=== PATIENT | female | born 1955 | race Caucasian/White ===

== ENCOUNTER → 2017-01-28 | Outpatient (CLI) | payer BC ==
--- NOTE | 2017-01-31 12:02 | MM ---
Reason for exam: screening (asymptomatic). Last mammogram was performed 8 years and 3 months ago. History: Patient is postmenopausal. Family history of breast cancer in sister and breast cancer in cousin. Took estrogen for 5 years. Physical Findings: A clinical breast exam by your physician is recommended on an annual basis and results should be correlated with mammographic findings. MG Screening Mammo w CAD Bilateral CC and MLO view(s) were taken. Prior study comparison: November 07, 2008, bilateral digital screening mammogram. December 06, 2005, mammogram, performed at [facility]. The breast tissue is extremely dense which could obscure a lesion on mammography. There is no discrete abnormality. No significant changes when compared with prior studies. ASSESSMENT: Negative, BI-RAD 1 RECOMMENDATION: Routine screening mammogram of both breasts in 1 year.
== END | disposition home or self-care (01) ==
LOC: RADMAMWWP 09:10
PROVIDERS: ATTEND Family Medicine
DX: Z12.31 Encounter for screening mammogram for malignant neoplasm of breast (principal)

== ENCOUNTER 2017-01-31 22:02 | Inpatient (IN) | payer BC ==
[2017-01-31 22:15] LABS: Glucose,Whole Blood 147 mg/dL (75-99)
[2017-01-31] MEDS ORDERED: ACETAMINOPHEN TAB 325 MG TAB PO STA (22:16)
--- NOTE | 2017-01-31 22:29 | ED ---
General Adult HPI - General Chief complaint: Fever Stated complaint: Weakness Time Seen by Provider: 01/31/17 22:16 Source: patient, family, RN notes reviewed Mode of arrival: wheelchair Limitations: altered mental status - History of Present Illness Initial comments: 61-year-old female with history of fibromyalgia and opiate dependence on methadone presents with fever, generalized weakness, and nausea vomiting. Patient had 3 episodes of vomiting this evening. These were dark in color. Patient states her weakness has been progressive over the past 5 days. Additional history is obtained from the patient's mother. Denies any alcohol abuse. Denies any ingestion other than patient's prescribed medications. Patient has had a cough for the past several days. She is also had back pain which according to her mother is chronic in nature. Denies chest pain or shortness of breath. Denies abdominal pain. - Related Data Home Medications Medication Instructions Recorded Confirmed Amitriptyline HCl [Elavil] 25 mg PO TID 03/25/14 01/31/17 Diazepam [Valium] 10 mg PO TID PRN 03/25/14 01/31/17 Hydrocodone/Acetaminophen [Goodwell 1 tab PO Q6H PRN 03/25/14 01/31/17 10-325] Levothyroxine Sodium [Synthroid] 88 mcg PO DAILY 03/25/14 01/31/17 Zaleplon [Sonata] 10 mg PO HS 03/25/14 01/31/17 Cranberry Fruit Concentrate [Azo 250 mg PO DAILY 01/31/17 01/31/17 Cranberry] Methadone [Dolophine] 5 mg PO AC-LUNCH 01/31/17 01/31/17 Methadone [Dolophine] 10 mg PO AC-BRKFST 01/31/17 01/31/17 Methadone [Dolophine] 10 mg PO HS 01/31/17 01/31/17 Montelukast [Singulair] 10 mg PO HS 01/31/17 01/31/17 Phenazopyridine HCl 95 mg PO TID PRN 01/31/17 01/31/17 Pregabalin [Lyrica] 150 mg PO TID 01/31/17 01/31/17 Allergies Allergy/AdvReac Type Severity Reaction Status Date / Time No Known Allergies Allergy Verified 01/31/17 22:21 Review of Systems ROS Statement: Those systems with pertinent positive or pertinent negative responses have been documented in the HPI. ROS Other: All systems not noted in ROS Statement are negative. Past Medical History Past Medical History: COPD, Liver Disease, Thyroid Disorder Additional Past Medical History / Comment(s): back pain, Hep C, History of Any Multi-Drug Resistant Organisms: None Reported Past Surgical History: Back Surgery, Section, Cholecystectomy, Hysterectomy Additional Past Surgical History / Comment(s): multiple back surgeries including back fusion and 10 hand surgeries, 3 knee surgeries Past Anesthesia/Blood Transfusion Reactions: No Reported Reaction Past Psychological History: Depression Smoking Status: Current every day smoker Past Alcohol Use History: None Reported Past Drug Use History: None Reported - Past Family History Mother Family Medical History: No Reported History General Exam Limitations: altered mental status Course Vital Signs 01/31/17 01/31/17 01/31/17 22:16 22:40 23:05 Temperature 105.4 F H Pulse Rate 127 H 113 H 111 H Respiratory 28 H 24 24 Rate Blood Pressure 90/58 94/59 89/54 O2 Sat by Pulse 95 91 L 92 L Oximetry 01/31/17 01/31/17 01/31/17 23:24 23:36 23:39 Temperature Pulse Rate 103 H 110 H 100 Respiratory 24 Rate Blood Pressure 88/55 O2 Sat by Pulse 93 L Oximetry 01/31/17 02/01/17 02/01/17 23:53 00:47 01:00 Temperature 102.3 F H 102 F H Pulse Rate 96 95 Respiratory 22 22 Rate Blood Pressure 90/53 90/57 O2 Sat by Pulse 94 L 94 L Oximetry - Reevaluation(s) Reevaluation #1: 02/01/17 01:06 Patient's vital signs improved with Tylenol and IV hydration. She is started on broad-spectrum antibiotics for pneumonia EKG Findings - EKG Comments: EKG Findings:: EKG shows accelerated junctional rhythm with a ventricular rate of 128, QRS duration 96, QTC 546, patient has history of accelerated junctional rhythm, EKG compared to that from April 2010 Medical Decision Making - Medical Decision Making 61-year-old female presenting with cough, fever, 2 episodes of coffee ground emesis. I did bedside Hemoccult on emesis and this was positive for heme. Patient only had 2 small episodes of vomiting. Hemoglobin is stable at 14.4. Patient's other symptoms including fever, and cough likely related to right lower lobe pneumonia. White blood cell count 22.3 creatinine 2.24 baseline at 0.7. There is lactic acidosis at 3.4. Patient started on broad-spectrum antibiotics including Rocephin and is to throw for community acquired pneumonia and given the right lower lobe as well as history of vomiting she is also started on metronidazole for aspiration pneumonia. Troponin is 0.037, given the history of coffee-ground emesis, and no chest pain this troponin will be trended. No concern for ACS. Patient's vital signs improved with IV hydration , antibiotics, and rectal Tylenol. She does remain still lethargic, she is arousable and answers all questions and follows commands. Diagnosis: Severe sepsis, community acquired pneumonia, concern for aspiration pneumonia, lactic acidosis, acute kidney injury. - Lab Data Result diagrams: 01/31/17 22:14 01/31/17 22:14 Lab Results 01/31/17 01/31/17 01/31/17 Range/Units 21:58 22:13 22:14 WBC 22.2 H (3.8-10.6) k/uL RBC 4.36 (3.80-5.40) m/uL Hgb 14.4 (11.4-16.0) gm/dL Hct 43.8 (34.0-46.0) % MCV 100.4 H (80.0-100.0) fL MCH 32.9 (25.0-35.0) pg MCHC 32.7 (31.0-37.0) g/dL RDW 12.9 (11.5-15.5) % Plt Count 247 (150-450) k/uL Neutrophils % 90 % Lymphocytes % 6 % Monocytes % 3 % Eosinophils % 0 % Basophils % 0 % Neutrophils # 19.9 H (1.3-7.7) k/uL Lymphocytes # 1.3 (1.0-4.8) k/uL Monocytes # 0.6 (0-1.0) k/uL Eosinophils # 0.0 (0-0.7) k/uL Basophils # 0.0 (0-0.2) k/uL PT (9.0-12.0) sec INR (<1.2) APTT (22.0-30.0) sec VBG pH (7.31-7.41) VBG pCO2 (37-51) mmHg VBG HCO3 (24-28) mmol/L Sodium (137-145) mmol/L Potassium (3.5-5.1) mmol/L Chloride (98-107) mmol/L Carbon Dioxide (22-30) mmol/L Anion Gap mmol/L BUN (7-17) mg/dL Creatinine (0.52-1.04) mg/dL Est GFR (MDRD) Af Amer (>60 ml/min/1.73 sqM) Est GFR (MDRD) Non-Af (>60 ml/min/1.73 sqM) Glucose (74-99) mg/dL POC Glucose (mg/dL) 147 H (75-99) mg/dL POC Glu Heel Splitter ID Aria Maradiaga Plasma Lactic Acid Lester (0.7-2.0) mmol/L Calcium (8.4-10.2) mg/dL Magnesium (1.6-2.3) mg/dL Total Bilirubin (0.2-1.3) mg/dL AST (14-36) U/L ALT (9-52) U/L Alkaline Phosphatase (38-126) U/L Troponin I (0.000-0.034) ng/mL Total Protein (6.3-8.2) g/dL Albumin (3.5-5.0) g/dL Salicylates mg/dL Acetaminophen ug/mL Serum Alcohol mg/dL Blood Type O Positive Blood Type Recheck No Antibody Screen NEGATIVE Spec Expiration Date 02/03/2017 - 231601/31/17 01/31/17 01/31/17 Range/Units 22:14 22:14 22:14 WBC (3.8-10.6) k/uL RBC (3.80-5.40) m/uL Hgb (11.4-16.0) gm/dL Hct (34.0-46.0) % MCV (80.0-100.0) fL MCH (25.0-35.0) pg MCHC (31.0-37.0) g/dL RDW (11.5-15.5) % Plt Count (150-450) k/uL Neutrophils % % Lymphocytes % % Monocytes % % Eosinophils % % Basophils % % Neutrophils # (1.3-7.7) k/uL Lymphocytes # (1.0-4.8) k/uL Monocytes # (0-1.0) k/uL Eosinophils # (0-0.7) k/uL Basophils # (0-0.2) k/uL PT 11.3 (9.0-12.0) sec INR 1.1 (<1.2) APTT 31.8 H (22.0-30.0) sec VBG pH (7.31-7.41) VBG pCO2 (37-51) mmHg VBG HCO3 (24-28) mmol/L Sodium 131 L (137-145) mmol/L Potassium 4.9 (3.5-5.1) mmol/L Chloride 95 L (98-107) mmol/L Carbon Dioxide 22 (22-30) mmol/L Anion Gap 14 mmol/L BUN 44 H (7-17) mg/dL Creatinine 2.20 H (0.52-1.04) mg/dL Est GFR (MDRD) Af Amer 28 (>60 ml/min/1.73 sqM) Est GFR (MDRD) Non-Af 23 (>60 ml/min/1.73 sqM) Glucose 166 H (74-99) mg/dL POC Glucose (mg/dL) (75-99) mg/dL POC Glu Heel Splitter ID Plasma Lactic Acid Lester 3.4 H* (0.7-2.0) mmol/L Calcium 9.1 (8.4-10.2) mg/dL Magnesium 2.0 (1.6-2.3) mg/dL Total Bilirubin 0.5 (0.2-1.3) mg/dL AST 77 H (14-36) U/L ALT 46 (9-52) U/L Alkaline Phosphatase 101 (38-126) U/L Troponin I (0.000-0.034) ng/mL Total Protein 8.0 (6.3-8.2) g/dL Albumin 4.0 (3.5-5.0) g/dL Salicylates <1.0 mg/dL Acetaminophen <10.0 ug/mL Serum Alcohol <10 mg/dL Blood Type Blood Type Recheck Antibody Screen Spec Expiration Date 01/31/17 01/31/17 Range/Units 22:14 22:26 WBC (3.8-10.6) k/uL RBC (3.80-5.40) m/uL Hgb (11.4-16.0) gm/dL Hct (34.0-46.0) % MCV (80.0-100.0) fL MCH (25.0-35.0) pg MCHC (31.0-37.0) g/dL RDW (11.5-15.5) % Plt Count (150-450) k/uL Neutrophils % % Lymphocytes % % Monocytes % % Eosinophils % % Basophils % % Neutrophils # (1.3-7.7) k/uL Lymphocytes # (1.0-4.8) k/uL Monocytes # (0-1.0) k/uL Eosinophils # (0-0.7) k/uL Basophils # (0-0.2) k/uL PT (9.0-12.0) sec INR (<1.2) APTT (22.0-30.0) sec VBG pH 7.33 (7.31-7.41) VBG pCO2 46 (37-51) mmHg VBG HCO3 23 L (24-28) mmol/L Sodium (137-145) mmol/L Potassium (3.5-5.1) mmol/L Chloride (98-107) mmol/L Carbon Dioxide (22-30) mmol/L Anion Gap mmol/L BUN (7-17) mg/dL Creatinine (0.52-1.04) mg/dL Est GFR (MDRD) Af Amer (>60 ml/min/1.73 sqM) Est GFR (MDRD) Non-Af (>60 ml/min/1.73 sqM) Glucose (74-99) mg/dL POC Glucose (mg/dL) (75-99) mg/dL POC Glu Heel Splitter ID Plasma Lactic Acid Lester (0.7-2.0) mmol/L Calcium (8.4-10.2) mg/dL Magnesium (1.6-2.3) mg/dL Total Bilirubin (0.2-1.3) mg/dL AST (14-36) U/L ALT (9-52) U/L Alkaline Phosphatase (38-126) U/L Troponin I 0.037 H* (0.000-0.034) ng/mL Total Protein (6.3-8.2) g/dL Albumin (3.5-5.0) g/dL Salicylates mg/dL Acetaminophen ug/mL Serum Alcohol mg/dL Blood Type Blood Type Recheck Antibody Screen Spec Expiration Date Critical Care Time Critical Care Time: Yes Total Critical Care Time: 35 Disposition Clinical Impression: Severe sepsis, Community acquired pneumonia Disposition: ADMITTED IP TO THIS HOSP Condition: Serious Referrals: Nilton Santoyo MD [Primary Care Provider] - 1-2 days Decision to Admit Reason: Admit from EC Decision Date: 02/01/17 Decision Time: 01:10
[2017-01-31] MEDS: SODIUM CHLORIDE 0.9% 500 ML IV SCH ×2 (22:30→22:39)
[2017-01-31] MEDS ORDERED: ACETAMINOPHEN SUPPOSITORY 650 MG SUPP RECTAL STA (22:33)
[2017-01-31 22:34] LABS: Basophils % (A) 0 %; CHCM 32.1; Eosinophils % (A) 0 %; HCT 43.8 % (34.0-46.0); HDW 2.26; HGB 14.4 gm/dL (11.4-16.0); Luc # (Auto) 0.34; Luc % (Auto) 2; Lymphocytes # (A) 1.3 k/uL (1.0-4.8); Lymphocytes % (A) 6 %; MCH 32.9 pg (25.0-35.0); MCHC 32.7 g/dL (31.0-37.0); MCV 100.4 fL (80.0-100.0); Monocytes # (A) 0.6 k/uL (0-1.0); Monocytes % (A) 3 %; Neutrophils # (A) 19.9 k/uL (1.3-7.7); Neutrophils % (A) 90 %; RBC 4.36 m/uL (3.80-5.40); RDW 12.9 % (11.5-15.5); WBC 22.2 k/uL (3.8-10.6); WBC (Perox) 21.79
[2017-01-31 22:38] LABS: VBG PH 7.33 (7.31-7.41)
[2017-01-31 22:53] LABS: ALT 46 U/L (9-52); AST 77 U/L (14-36); Acetaminophen <10.0 ug/mL; Alcohol <10 mg/dL; Alkaline Phosphatase 101 U/L (38-126); Anion Gap 14 mmol/L; Blood Urea Nitrogen 44 mg/dL (7-17); Calcium 9.1 mg/dL (8.4-10.2); Carbon Dioxide 22 mmol/L (22-30); Chloride 95 mmol/L (98-107); Glucose 166 mg/dL (74-99); Non-African American GFR(MDRD) 23 (>60 ml/min/1.73 sqM); Potassium 4.9 mmol/L (3.5-5.1); Salicylate <1.0 mg/dL; Sodium 131 mmol/L (137-145); Total Bilirubin 0.5 mg/dL (0.2-1.3)
--- NOTE | 2017-01-31 22:58 | XR ---
EXAMINATION TYPE: XR chest 1V portable DATE OF EXAM: 01/31/2017 COMPARISON: 12/29/2011 HISTORY: COPD. Nausea and vomiting TECHNIQUE: Single frontal view of the chest is obtained. FINDINGS: There is some coarsening of interstitial markings with coalescent right lower lobe density . There is no gross heart failure. There are chest leads. There is no sign of pleural effusion. IMPRESSION: Mild pulmonary fibrotic changes. There is new right lower lobe pneumonia compared to old exam. No heart failure.
[2017-01-31 23:04] LABS: INR 1.1 (<1.2); Partial Thromboplastin Time 31.8 sec (22.0-30.0); Prothrombin Time 11.3 sec (9.0-12.0)
[2017-01-31] MEDS ORDERED: SODIUM CHLORIDE 0.9% 1,000 ML IV STA (23:04)
[2017-01-31] MEDS ORDERED: metroNIDAZOLE-NS PMX 500 MG in SALINE 1 100ML.BAG IVPB STA (23:07)
[2017-01-31] MEDS ORDERED: AZITHROMYCIN 500 MG in SODIUM CHLORIDE 0.9% 250 ML IVPB STA (23:07)
[2017-01-31] MEDS ORDERED: PANTOPRAZOLE 40 MG/10 ML VIAL IVP STA (23:08)
[2017-01-31] MEDS ORDERED: SODIUM CHLORIDE 0.9% 1,000 ML IV ONE ×2 (23:09→23:20)
[2017-01-31] MEDS ORDERED: ALBUTEROL NEBULIZED 2.5 MG/3 ML INHALATION STA (23:13)
[2017-01-31] MEDS ORDERED: IPRATROPIUM 0.5 MG/2.5 ML NEBU INHALATION STA (23:13)
[2017-01-31] MEDS: SODIUM CHLORIDE 0.9% 1,000 ML IV SCH (23:49)
[2017-02-01] MEDS ORDERED: NALOXONE 0.4 MG/ML 1 ML VIAL IV PRN (00:56)
[2017-02-01] MEDS ORDERED: ACETAMINOPHEN TAB 325 MG TAB PO PRN (00:56)
[2017-02-01 02:08] LABS: Glucose,Whole Blood 154 mg/dL (75-99)
[2017-02-01] MEDS ORDERED: SODIUM CHLORIDE 0.9% 1,000 ML IV ONE (02:57)
[2017-02-01 04:44] LABS: Appearance,Urine Clear (Clear); Bilirubin,Urine Negative (Negative); Glucose,Urine (UA) Negative (Negative); Ketones,Urine Negative (Negative); Leukocyte Esterase,Urine Small (Negative); Nitrite,Urine Negative (Negative); PH, Urine 5.5 (5.0-8.0); Particle Count 2416; Protein,Urine Trace (Negative); RBC,Urine 9 /hpf (0-5); Specific Gravity,Urine 1.008 (1.001-1.035); Squamous Epithelial Cell,Urine <1 /hpf (0-4); UA Billing (MACRO vs. MICRO) MICRO; Urobilinogen,Urine <2.0 mg/dL (<2.0); WBC,Urine 9 /hpf (0-5)
[2017-02-01 05:19] LABS: Troponin I 0.023 ng/mL (0.000-0.034)
[2017-02-01 05:36] LABS: Creatine Kinase MB 8.4 ng/mL (0.0-2.4)
[2017-02-01] MEDS ORDERED: PHENAZOPYRIDINE HCL 95 MG PO PRN (07:10)
[2017-02-01] MEDS ORDERED: NON-FORMULARY DRUG (Cranberry Fruit Concentrate [Azo Cranberry] 250 MG) PO SCH (09:00)
[2017-02-01] MEDS: methylPREDNISolone SOD SUCCI 125 MG/2 ML VIAL IV SCH ×3 (09:06→17:13)
[2017-02-01] MEDS: PANTOPRAZOLE 40 MG/10 ML VIAL IVP SCH (09:07)
[2017-02-01] MEDS: LEVOTHYROXINE 88 MCG TAB PO SCH (09:07)
[2017-02-01] MEDS: PREGABALIN 75 MG CAP PO SCH ×3 (09:09→20:32)
--- NOTE | 2017-02-01 09:09 | CONS ---
CONSULTATION Mrs. Galloway is a 61-year-old female with known history of chronic tobacco use, history of chronic pain, on chronic methadone, who presented with fever, not feeling well, hypotension, and Cardiology consultation was requested because of episode of hypotension. Patient is a chronic tobacco user as noted. She is limited in her activity. She has dyspnea on exertion but no chest discomfort. She is somewhat confused at times, but reviewing the ER note as well as talking to the nursing staff that was her predominant complaint. She had no chest discomfort. She had episode of junctional tachycardia there was noted in the past. She has received a large amount of fluid on presentation because of an elevated lactic acid. She has no history of PND, orthopnea, or peripheral edema. No history of documented malignant arrhythmia. She is followed at the [facility]. PAST SURGICAL HISTORY: Remarkable for back surgery, , cholecystectomy, and hysterectomy. Her coronary risk factors are positive for history of chronic tobacco use. She is nondiabetic, no hypertension. MEDICATION: Include Sonata, Lyrica, Singulair, methadone, Marion, Valium and Elavil. REVIEW OF SYSTEMS: RESPIRATORY SYSTEM: She has dyspnea on exertion and wheezing. GI SYSTEM: She had nausea and vomiting yesterday. SYSTEM: No dysuria or hematuria. NERVOUS SYSTEM: No history of stroke or seizure. PHYSICAL EXAMINATION: A 61-year-old female, alert, confused at times. Blood pressure running in the 90s. T- max is 102.3, 97.9 now. HEAD: Normocephalic. EYES: Sclerae nonicteric. NECK: No bruit. Lungs with diffuse scattered wheezes bilaterally. HEART: Regular rate and rhythm, S1, S2. No S3 with systolic murmur. No diastolic murmur. No rub. ABDOMEN: Soft, nontender. Positive bowel sounds. No organomegaly. EXTREMITIES: No edema. Intact pulses. LAB DATA: Revealed BUN and creatinine 44 and 2.2, potassium 4.9. Her troponin is 0.037 and subsequently 0.023. Her CK is 1516. Her lactic acid on presentation was 3.4, down to 0.9 this morning. Her chest x-ray is consistent with pneumonia. IMPRESSION: 1. Sepsis with pneumonia. 2. Hypotension related to her sepsis. 3. Chronic pain with chronic methadone use. 4. Minimal elevation of troponin, resolved, most likely related to demand-supply mismatch. 5. Chronic tobacco use with chronic obstructive lung disease. RECOMMENDATION: From the cardiac standpoint, I will obtain an echocardiogram with Doppler. I will check her thyroid function tests. Follow her renal function. In 2014, she had normal renal function and this could be related to hypoperfusion and dehydration. Depending on progress, further recommendation will be made. Thank you for this consult. Will follow with you indication. MMODL / IJN: [id number] /
[2017-02-01] MEDS: METHADONE 10 MG TAB PO SCH ×2 (10:05→20:30)
--- NOTE | 2017-02-01 10:18 | ECHOF ---
Referral Reason:Cardio Consult MEASUREMENTS -------- HEIGHT: 162.6 cm WEIGHT: 77.6 kg BP: 87/71 RVIDd: 3.3 cm (< 3.3) IVSd: 1.2 cm (0.6 - 1.1) LVIDd: 4.5 cm (3.9 - 5.3) LVPWd: 1.2 cm (0.6 - 1.1) IVSs: 1.8 cm LVIDs: 3.2 cm LVPWs: 1.5 cm LA Diam: 3.9 cm (2.7 - 3.8) LAESV Index (A-L): 37.77 ml/m Ao Diam: 3.5 cm (2.0 - 3.7) AV Cusp: 2.3 cm (1.5 - 2.6) MV EXCURSION: 20.174 mm (> 18.000) MV EF SLOPE: 90 mm/s (70 - 150) EPSS: 0.6 cm MV E Krzysztof: 1.01 m/s MV DecT: 316 ms MV A Krzysztof: 0.38 m/s MV E/A Ratio: 2.67 RAP: 5.00 mmHg RVSP: 47.15 mmHg FINDINGS -------- This was a technically good study. The left ventricular size is normal. There is borderline concentric left ventricular hypertrophy. Overall left ventricular systolic function is low-normal with, an EF between 50 - 55 %. The right ventricle is mildly enlarged. LA is moderately dilated 34-39 ml/m2 The right atrium is normal in size. The aortic valve is trileaflet and appears structurally normal. Mild mitral regurgitation is present. Mild tricuspid regurgitation present. There is moderate pulmonary hypertension. The right ventricular systolic pressure, as measured by Doppler, is 47.15mmHg. Trace/mild (physiologic) pulmonic regurgitation. The aortic root size is normal. The inferior vena cava is mildly dilated. There is no pericardial effusion. CONCLUSIONS -------- 1. This was a technically good study. 2. Mild tricuspid regurgitation present. 3. There is moderate pulmonary hypertension. 4. The right ventricular systolic pressure, as measured by Doppler, is 47.15mmHg. 5. Trace/mild (physiologic) pulmonic regurgitation. 6. The aortic root size is normal. 7. The inferior vena cava is mildly dilated. 8. There is no pericardial effusion. 9. The left ventricular size is normal. 10. There is borderline concentric left ventricular hypertrophy. 11. Overall left ventricular systolic function is low-normal with, an EF between 50 - 55 %. 12. The right ventricle is mildly enlarged. 13. LA is moderately dilated 34-39 ml/m2 14. The right atrium is normal in size. 15. The aortic valve is trileaflet and appears structurally normal. 16. Mild mitral regurgitation is present. MERCURY PURIFIER: Elaine Panchal RDCS
--- NOTE | 2017-02-01 10:45 | P.CNPUL ---
History of Present Illness Consult date: 02/01/17 Requesting physician: Nilton Santoyo Reason for consult: pneumonia, other (ICU management) Chief complaint: Shortness of breath History of present illness: This is a 61-year-old female patient being seen examined and evaluated today in the intensive care unit. The patient came into the emergency room yesterday evening with a T-max of 105.4, on arrival also complained of some generalized weakness, and nausea and vomiting with dark colored coffee ground emesis. Patient states her symptoms have been progressively getting worse over the last for 5 days. Patient does have a long-standing history of fibromyalgia and opiate dependence on methadone. Urine drug screen was positive for opiates, methadone, tricyclic antidepressants, and benzodiazepine. Gastric emesis was positive for occult blood. Patient denies any use of alcohol and/or anticoagulants. Patient labs in the ER, a hemoglobin of 14.4 WBC 22.2 lactic acid of 3.4. She did receive a total of 4 L of IV fluids for fluid resuscitation. And she was started on antibiotics as well. Cardiology was also put on consult. Patient did have a troponin of 0.037, heart rhythm which was accelerated junctional, she will be going for an echo today as well. Apparently overnight the patient was borderline hypotensive and somewhat lethargic and she did receive a 1 time dose of Narcan. Repeat lactic acid this morning was 0.9. Upon examination the patient is resting up in bed on 6 L of supplemental oxygen via nasal cannula. She is short of breath with exertion and /or extensive conversations. She does have a congested cough with white sputum. She has difficulty clearing secretions. She denies any nausea vomiting at this time. Chest x-ray was reviewed and does show mild pulmonary fibrotic changes, there is a new right lower lobe pneumonia. The patient does not utilize home oxygen. All labs and reports have been reviewed. Review of Systems 14 point review of systems was completed and is negative unless noted above in the HPI. Past Medical History Past Medical History: COPD, Liver Disease, Thyroid Disorder Additional Past Medical History / Comment(s): back pain, Hep C, History of Any Multi-Drug Resistant Organisms: None Reported Past Surgical History: Back Surgery, Section, Cholecystectomy, Hysterectomy Additional Past Surgical History / Comment(s): multiple back surgeries including back fusion and 10 hand surgeries, 3 knee surgeries Past Anesthesia/Blood Transfusion Reactions: No Reported Reaction Past Psychological History: Depression Smoking Status: Current every day smoker Past Alcohol Use History: None Reported Past Drug Use History: None Reported - Past Family History Mother Family Medical History: No Reported History Father Family Medical History: Vascular Disorder Additional Family Medical History / Comment(s): Father of a ruptured aortic aneurysm. Medications and Allergies Home Medications Medication Instructions Recorded Confirmed Type Amitriptyline HCl [Elavil] 25 mg PO TID 03/25/14 01/31/17 History Diazepam [Valium] 10 mg PO TID PRN 03/25/14 01/31/17 History Hydrocodone/Acetaminophen [[place] 1 tab PO Q6H PRN 03/25/14 01/31/17 History 10-325] Levothyroxine Sodium [Synthroid] 88 mcg PO DAILY 03/25/14 01/31/17 History Zaleplon [Sonata] 10 mg PO HS 03/25/14 01/31/17 History Cranberry Fruit Concentrate [Azo 250 mg PO DAILY 01/31/17 01/31/17 History Cranberry] Methadone [Dolophine] 5 mg PO AC-LUNCH 01/31/17 01/31/17 History Methadone [Dolophine] 10 mg PO AC-BRKFST 01/31/17 01/31/17 History Methadone [Dolophine] 10 mg PO HS 01/31/17 01/31/17 History Montelukast [Singulair] 10 mg PO HS 01/31/17 01/31/17 History Phenazopyridine HCl 95 mg PO TID PRN 01/31/17 01/31/17 History Pregabalin [Lyrica] 150 mg PO TID 01/31/17 01/31/17 History Allergies Allergy/AdvReac Type Severity Reaction Status Date / Time albuterol Allergy Unknown Verified 02/01/17 09:52 ciprofloxacin [From Cipro] Allergy Unknown Verified 02/01/17 09:52 duloxetine [From Cymbalta] Allergy Unknown Verified 02/01/17 09:52 fluticasone Allergy Unknown Verified 02/01/17 09:52 [From Advair Diskus] metaproterenol [From Alupent] Allergy Unknown Verified 02/01/17 09:52 salmeterol Allergy Unknown Verified 02/01/17 09:52 [From Advair Diskus] Physical Exam Vitals: Vital Signs Temp Pulse Resp BP BP Pulse Ox 02/01/17 10:00 98 20 100/58 93 L 02/01/17 09:30 100 20 81/53 96 02/01/17 09:00 98 20 91/55 95 02/01/17 08:30 93 20 90/55 92 L 02/01/17 08:00 100.1 F H 95 20 93/50 93 L 02/01/17 07:30 96 20 95/58 92 L 02/01/17 07:00 95 23 78/45 92 L 02/01/17 06:30 94 20 76/49 95 02/01/17 06:00 92 31 H 73/47 95 02/01/17 05:30 92 30 H 67/42 95 02/01/17 05:00 90 34 H 72/46 97 02/01/17 04:30 95 66 H 87/71 96 02/01/17 04:00 97.9 F 87 20 84/55 87/71 93 L 02/01/17 03:30 81 26 H 78/53 94 L 02/01/17 03:00 85 25 H 76/49 92 L 02/01/17 02:30 89 30 H 80/53 92 L 02/01/17 02:07 95 25 H 02/01/17 01:41 100.1 F H 95 22 94/57 94 L 02/01/17 01:00 95 22 90/57 94 L 02/01/17 00:47 102 F H 96 22 90/53 94 L 01/31/17 23:53 102.3 F H 01/31/17 23:39 100 01/31/17 23:36 110 H 24 88/55 93 L 01/31/17 23:24 103 H 01/31/17 23:05 111 H 24 89/54 92 L 01/31/17 22:40 113 H 24 94/59 91 L 01/31/17 22:16 105.4 F H 127 H 24 90/58 95 Intake and Output 01/31/17 02/01/17 02/01/17 22:59 06:59 14:59 Intake Total 350 400 Output Total 300 600 Balance 50 -200 Intake: IV 350 400 Azithromycin 500 mg In 250 Sodium Chloride 0.9% 250 ml @ 125 mls/hr IVPB DAILY@0600 [facility] Rx#: [id number] Sodium Chloride 0.9% 1, 100 400 000 ml @ 100 mls/hr IV . Q10H [facility] Rx#:[id number] Output: Urine 300 600 Other: Voiding Method Bedside Commode Bedside Commode # Voids 1 Weight 75.75 kg 78 kg GENERAL EXAM: Alert, active, comfortable in no apparent distress. Intermittent confusion noted. HEAD: Normocephalic. EYES: Normal reaction of pupils, equal size. NOSE: Clear with pink turbinates. THROAT: No erythema or exudates. NECK: No masses, no JVD. CHEST: No chest wall deformity. LUNGS: Lung sounds noted to be somewhat coarse with inspiratory and expiratory wheezes scattered throughout. CVS: S1 and S2 normal with no audible mumurs, regular rhythm. ABDOMEN: No hepatosplenomegaly, normal bowel sounds, no guarding or rigidity. EXTREMITIES: No edema noted, pedal pulses palpable. SKIN: No rashes CENTRAL NERVOUS SYSTEM: No focal deficits, tone is normal in all 4 extremities. Results - Laboratory Findings CBC and BMP: 02/02/17 04:07 02/02/17 04:07 PT/INR, D-dimer PT 11.3 sec (9.0-12.0) 01/31/17 22:14 INR 1.1 (<1.2) 01/31/17 22:14 Abnormal lab findings: Abnormal Labs 01/31/17 01/31/17 01/31/17 04:00 04:00 22:13 WBC MCV Neutrophils # APTT VBG HCO3 Sodium Chloride BUN Creatinine Glucose POC Glucose (mg/dL) 147 H Plasma Lactic Acid Lester AST Total Creatine Kinase CK-MB (CK-2) Troponin I Urine Protein Trace H Urine Blood Moderate H Ur Leukocyte Esterase Small H Urine RBC 9 H Urine WBC 9 H Urine WBC Clumps Rare H Urine Opiates Screen Detected H Urine Methadone Screen Detected H U Tricyclic Antidepress Detected H U Benzodiazepines Scrn Detected H 01/31/17 01/31/17 01/31/17 22:14 22:14 22:14 WBC 22.2 H MCV 100.4 H Neutrophils # 19.9 H APTT VBG HCO3 Sodium 131 L Chloride 95 L BUN 44 H Creatinine 2.20 H Glucose 166 H POC Glucose (mg/dL) Plasma Lactic Acid Lester 3.4 H* AST 77 H Total Creatine Kinase CK-MB (CK-2) Troponin I Urine Protein Urine Blood Ur Leukocyte Esterase Urine RBC Urine WBC Urine WBC Clumps Urine Opiates Screen Urine Methadone Screen U Tricyclic Antidepress U Benzodiazepines Scrn 01/31/17 01/31/17 01/31/17 22:14 22:14 22:26 WBC MCV Neutrophils # APTT 31.8 H VBG HCO3 23 L Sodium Chloride BUN Creatinine Glucose POC Glucose (mg/dL) Plasma Lactic Acid Lester AST Total Creatine Kinase CK-MB (CK-2) Troponin I 0.037 H* Urine Protein Urine Blood Ur Leukocyte Esterase Urine RBC Urine WBC Urine WBC Clumps Urine Opiates Screen Urine Methadone Screen U Tricyclic Antidepress U Benzodiazepines Scrn 02/01/17 02/01/17 02:06 03:59 WBC MCV Neutrophils # APTT VBG HCO3 Sodium Chloride BUN Creatinine Glucose POC Glucose (mg/dL) 154 H Plasma Lactic Acid Lester AST Total Creatine Kinase 1516 H CK-MB (CK-2) 8.4 H* Troponin I Urine Protein Urine Blood Ur Leukocyte Esterase Urine RBC Urine WBC Urine WBC Clumps Urine Opiates Screen Urine Methadone Screen U Tricyclic Antidepress U Benzodiazepines Scrn - Diagnostic Findings Chest x-ray: report reviewed, image reviewed Assessment and Plan Plan: Assessment Sepsis with pneumonia and possible mixed bacterial however cannot exclude aspiration from vomiting Acute hypoxic respiratory failure requiring supplemental oxygen via nasal cannula Hypotension related to sepsis Acute exacerbation of COPD Fibromyalgia, methadone dependent Nicotine dependence History of hepatitis C Plan Patient will remain in ICU for close monitoring. Continue to monitor for any further episodes of hypotension. Medications have been reviewed and will be continued as ordered. IV antibiotics and steroids. Add nebulizer treatments. Obtain sputum culture. Blood culture and urine culture pending. Continue with pulmonary hygiene, coughing and deep breathing exercises, and supportive care. Supplemental oxygen to maintain oxygen saturations of 92% or better. Patient will have echo today. GI and DVT prophylaxis. We will continue to monitor labs/ results and adjust treatment as necessary. Further recommendations pending. I performed an examination of the patient and discussed their management with the nurse practitioner. I have reviewed the nurse practitioner's note and agree with the documented findings and plan of care.
[2017-02-01] MEDS: SODIUM CHLORIDE 0.9% 1,000 ML IV SCH ×2 (10:59→18:38)
[2017-02-01] MEDS ORDERED: LEVALBUTEROL NEB 1.25 MG/3 ML AMP INHALATION SCH (12:00)
[2017-02-01] MEDS: LEVALBUTEROL NEB (CONC) 1.25 MG/0.5 ML AMP INHALATION SCH ×3 (12:14→19:49)
[2017-02-01] MEDS: IPRATROPIUM 0.5 MG/2.5 ML NEBU INHALATION SCH ×3 (12:14→19:49)
[2017-02-01] MEDS: METHADONE 5 MG TAB PO SCH (12:41)
[2017-02-01 13:07] LABS: Troponin I 0.016 ng/mL (0.000-0.034)
[2017-02-01 13:08] LABS: Creatine Kinase MB 9.8 ng/mL (0.0-2.4)
[2017-02-01] MEDS: MEROPENEM 1 GM in SODIUM CHLORIDE 0.9% 100 ML IVPB SCH (15:58)
[2017-02-01 16:52] LABS: Creatine Kinase 2212 U/L (30-135)
[2017-02-01 16:59] LABS: Troponin I <0.012 ng/mL (0.000-0.034)
--- NOTE | 2017-02-01 17:00 | P.HPIM ---
History of Present Illness H&P Date: 02/01/17 Chief Complaint: Sepsis/septic shock with pneumonia. This is a 61-year-old white female with history of fibromyalgia who is opiate dependent for the last 2 days is been having high fever with cough. Workup in the emergency room showed significant pneumonia. She had significant hypotension and was admitted because as of sepsis and elevated lactic acid. She seen in ICU because of "overflow." She is lucid but her blood pressure is dropping. CK-MB enzymes are elevated. Patternmaker Grader is now been consulted. Review of Systems Constitutional: Reports chills, Reports chronic pain, Reports fever, Reports sweats Eyes: denies blurred vision, denies pain Ears, nose, mouth and throat: Denies headache, Denies sore throat Cardiovascular: Reports dyspnea on exertion Respiratory: Reports cough Gastrointestinal: Denies abdominal pain, Denies diarrhea, Denies nausea, Denies vomiting Genitourinary: Denies dysuria, Denies hematuria Musculoskeletal: Denies myalgias Past Medical History Past Medical History: COPD, Liver Disease, Pneumonia, Rheumatoid Arthritis (RA) , Thyroid Disorder Additional Past Medical History / Comment(s): Hep C, chronic back pain which pt states caused her to use alot of opiates but was never opiate dependent, pt is on methadone, DJD, DDD, hypothyroid, colitis, recent infection, pt unsure but thinks was a UTI and pneumonia, heart murmur, bronchitis. History of Any Multi-Drug Resistant Organisms: None Reported Past Surgical History: Back Surgery, Section, Cholecystectomy, Hysterectomy, Orthopedic Surgery Additional Past Surgical History / Comment(s): multiple back surgeries including back fusion/laser back surgery, injections for low back pain, 10 hand surgeries/ trigger fingers, 2 left knee arthroscopies and one right knee arthroscopies, nasal surgery, vocal cord biopsy, laparoscopic exam, bilateral carpal tunnel releases. Past Anesthesia/Blood Transfusion Reactions: Postoperative Nausea & Vomiting ( PONV) Smoking Status: Current every day smoker - Past Family History Father Family Medical History: Vascular Disorder Additional Family Medical History / Comment(s): Father of a ruptured aortic aneurysm. Mother Family Medical History: Diabetes Mellitus Medications and Allergies Home Medications Medication Instructions Recorded Confirmed Type Amitriptyline HCl [Elavil] 25 mg PO TID 03/25/14 01/31/17 History Diazepam [Valium] 10 mg PO TID PRN 03/25/14 01/31/17 History Hydrocodone/Acetaminophen [[place] 1 tab PO Q6H PRN 03/25/14 01/31/17 History 10-325] Levothyroxine Sodium [Synthroid] 88 mcg PO DAILY 03/25/14 01/31/17 History Zaleplon [Sonata] 10 mg PO HS 03/25/14 01/31/17 History Cranberry Fruit Concentrate [Azo 250 mg PO DAILY 01/31/17 01/31/17 History Cranberry] Methadone [Dolophine] 5 mg PO AC-LUNCH 01/31/17 01/31/17 History Methadone [Dolophine] 10 mg PO AC-BRKFST 01/31/17 01/31/17 History Methadone [Dolophine] 10 mg PO HS 01/31/17 01/31/17 History Montelukast [Singulair] 10 mg PO HS 01/31/17 01/31/17 History Phenazopyridine HCl 95 mg PO TID PRN 01/31/17 01/31/17 History Pregabalin [Lyrica] 150 mg PO TID 01/31/17 01/31/17 History Allergies Allergy/AdvReac Type Severity Reaction Status Date / Time albuterol Allergy Unknown Verified 02/01/17 09:52 ciprofloxacin [From Cipro] Allergy Unknown Verified 02/01/17 09:52 duloxetine [From Cymbalta] Allergy Unknown Verified 02/01/17 09:52 fluticasone Allergy Unknown Verified 02/01/17 09:52 [From Advair Diskus] metaproterenol [From Alupent] Allergy Unknown Verified 02/01/17 09:52 salmeterol Allergy Unknown Verified 02/01/17 09:52 [From Advair Diskus] Physical Exam Vitals: Vital Signs Temp Pulse Resp BP BP Pulse Ox 02/01/17 16:00 97.6 F 79 20 88/68 92 L 02/01/17 15:55 78 02/01/17 15:36 79 02/01/17 15:30 72 23 88/68 89 L 02/01/17 15:00 77 24 88/68 91 L 02/01/17 14:30 82 23 92 L 02/01/17 14:00 84 22 88 L 02/01/17 13:30 91 22 86/62 93 L 02/01/17 13:00 101 H 30 H 86/62 90 L 02/01/17 12:30 101 H 25 H 86/62 87 L 02/01/17 12:20 97 02/01/17 12:10 93 02/01/17 12:00 99.4 F 94 20 86/62 90 L 02/01/17 11:30 97 25 H 100/58 88 L 02/01/17 11:00 99 20 100/58 89 L 02/01/17 10:30 103 H 20 100/58 91 L 02/01/17 10:00 98 20 100/58 93 L 02/01/17 09:30 100 20 81/53 96 02/01/17 09:00 98 20 91/55 95 02/01/17 08:30 93 20 90/55 92 L 02/01/17 08:00 100.1 F H 95 20 93/50 93 L 02/01/17 07:30 96 20 95/58 92 L 02/01/17 07:00 95 23 78/45 92 L 02/01/17 06:30 94 20 76/49 95 02/01/17 06:00 92 31 H 73/47 95 02/01/17 05:30 92 30 H 67/42 95 02/01/17 05:00 90 34 H 72/46 97 02/01/17 04:30 95 66 H 87/71 96 02/01/17 04:00 97.9 F 87 20 84/55 87/71 93 L 02/01/17 03:30 81 26 H 78/53 94 L 02/01/17 03:00 85 25 H 76/49 92 L 02/01/17 02:30 89 30 H 80/53 92 L 02/01/17 02:07 95 25 H 02/01/17 01:41 100.1 F H 95 22 94/57 94 L 02/01/17 01:00 95 22 90/57 94 L 02/01/17 00:47 102 F H 96 22 90/53 94 L 01/31/17 23:53 102.3 F H 01/31/17 23:39 100 01/31/17 23:36 110 H 24 88/55 93 L 01/31/17 23:24 103 H 01/31/17 23:05 111 H 24 89/54 92 L 01/31/17 22:40 113 H 24 94/59 91 L 01/31/17 22:16 105.4 F H 127 H 24 90/58 95 Intake and Output 02/01/17 02/01/17 02/01/17 06:59 14:59 22:59 Intake Total 350 800 350 Output Total 300 1800 600 Balance 50 -1000 -250 Intake: IV 350 800 350 Azithromycin 500 mg In 250 Sodium Chloride 0.9% 250 ml @ 125 mls/hr IVPB DAILY@0600 [facility] Rx#: [id number] Meropenem 1 gm In Sodium 100 Chloride 0.9% 100 ml @ 200 mls/hr IVPB Q12H [facility] Rx#:[id number] Sodium Chloride 0.9% 1, 100 800 250 000 ml @ 100 mls/hr IV . Q10H [facility] Rx#:[id number] Output: Urine 300 1800 600 Other: Voiding Method Bedside Commode Toilet Toilet # Voids 1 # Bowel Movements 1 Weight 78 kg - Constitutional General appearance: no acute distress - EENT Eyes: EOMI - Respiratory Respiratory: bilateral: diminished - Cardiovascular Rhythm: regular Heart sounds: normal: S1, S2 - Gastrointestinal General gastrointestinal: soft, no tenderness - Integumentary Integumentary: no cellulitis - Neurologic Neurologic: CNII-XII intact, focal deficits - Musculoskeletal Musculoskeletal: generalized weakness - Psychiatric Psychiatric: A&O x's 3, appropriate affect Results CBC & Chem 7: 01/31/17 22:14 01/31/17 22:14 Labs: Abnormal Lab Results - Last 24 Hours (Table) 01/31/17 01/31/17 01/31/17 Range/Units 04:00 04:00 22:13 WBC (3.8-10.6) k/uL MCV (80.0-100.0) fL Neutrophils # (1.3-7.7) k/uL APTT (22.0-30.0) sec VBG HCO3 (24-28) mmol/L Sodium (137-145) mmol/L Chloride (98-107) mmol/L BUN (7-17) mg/dL Creatinine (0.52-1.04) mg/dL Glucose (74-99) mg/dL POC Glucose (mg/dL) 147 H (75-99) mg/dL Plasma Lactic Acid Lester (0.7-2.0) mmol/L AST (14-36) U/L Total Creatine Kinase (30-135) U/L CK-MB (CK-2) (0.0-2.4) ng/mL Troponin I (0.000-0.034) ng/mL Urine Protein Trace H (Negative) Urine Blood Moderate H (Negative) Ur Leukocyte Esterase Small H (Negative) Urine RBC 9 H (0-5) /hpf Urine WBC 9 H (0-5) /hpf Urine WBC Clumps Rare H (None) /hpf Urine Opiates Screen Detected H (NotDetected) Urine Methadone Screen Detected H (NotDetected) U Tricyclic Antidepress Detected H (NotDetected) U Benzodiazepines Scrn Detected H (NotDetected) 01/31/17 01/31/17 01/31/17 Range/Units 22:14 22:14 22:14 WBC 22.2 H (3.8-10.6) k/uL MCV 100.4 H (80.0-100.0) fL Neutrophils # 19.9 H (1.3-7.7) k/uL APTT (22.0-30.0) sec VBG HCO3 (24-28) mmol/L Sodium 131 L (137-145) mmol/L Chloride 95 L (98-107) mmol/L BUN 44 H (7-17) mg/dL Creatinine 2.20 H (0.52-1.04) mg/dL Glucose 166 H (74-99) mg/dL POC Glucose (mg/dL) (75-99) mg/dL Plasma Lactic Acid Lester 3.4 H* (0.7-2.0) mmol/L AST 77 H (14-36) U/L Total Creatine Kinase (30-135) U/L CK-MB (CK-2) (0.0-2.4) ng/mL Troponin I (0.000-0.034) ng/mL Urine Protein (Negative) Urine Blood (Negative) Ur Leukocyte Esterase (Negative) Urine RBC (0-5) /hpf Urine WBC (0-5) /hpf Urine WBC Clumps (None) /hpf Urine Opiates Screen (NotDetected) Urine Methadone Screen (NotDetected) U Tricyclic Antidepress (NotDetected) U Benzodiazepines Scrn (NotDetected) 01/31/17 01/31/17 01/31/17 Range/Units 22:14 22:14 22:26 WBC (3.8-10.6) k/uL MCV (80.0-100.0) fL Neutrophils # (1.3-7.7) k/uL APTT 31.8 H (22.0-30.0) sec VBG HCO3 23 L (24-28) mmol/L Sodium (137-145) mmol/L Chloride (98-107) mmol/L BUN (7-17) mg/dL Creatinine (0.52-1.04) mg/dL Glucose (74-99) mg/dL POC Glucose (mg/dL) (75-99) mg/dL Plasma Lactic Acid Lester (0.7-2.0) mmol/L AST (14-36) U/L Total Creatine Kinase (30-135) U/L CK-MB (CK-2) (0.0-2.4) ng/mL Troponin I 0.037 H* (0.000-0.034) ng/mL Urine Protein (Negative) Urine Blood (Negative) Ur Leukocyte Esterase (Negative) Urine RBC (0-5) /hpf Urine WBC (0-5) /hpf Urine WBC Clumps (None) /hpf Urine Opiates Screen (NotDetected) Urine Methadone Screen (NotDetected) U Tricyclic Antidepress (NotDetected) U Benzodiazepines Scrn (NotDetected) 02/01/17 02/01/17 02/01/17 Range/Units 02:06 03:59 12:27 WBC (3.8-10.6) k/uL MCV (80.0-100.0) fL Neutrophils # (1.3-7.7) k/uL APTT (22.0-30.0) sec VBG HCO3 (24-28) mmol/L Sodium (137-145) mmol/L Chloride (98-107) mmol/L BUN (7-17) mg/dL Creatinine (0.52-1.04) mg/dL Glucose (74-99) mg/dL POC Glucose (mg/dL) 154 H (75-99) mg/dL Plasma Lactic Acid Lester (0.7-2.0) mmol/L AST (14-36) U/L Total Creatine Kinase 1516 H 2243 H (30-135) U/L CK-MB (CK-2) 8.4 H* 9.8 H* (0.0-2.4) ng/mL Troponin I (0.000-0.034) ng/mL Urine Protein (Negative) Urine Blood (Negative) Ur Leukocyte Esterase (Negative) Urine RBC (0-5) /hpf Urine WBC (0-5) /hpf Urine WBC Clumps (None) /hpf Urine Opiates Screen (NotDetected) Urine Methadone Screen (NotDetected) U Tricyclic Antidepress (NotDetected) U Benzodiazepines Scrn (NotDetected) Microbiology - Last 24 Hours (Table) 01/31/17 22:31 Blood Culture - Final Blood 01/31/17 04:00 Urine Culture - Preliminary Urine,Voided Thrombosis Risk Factor Assmnt - Choose All That Apply Any of the Below Risk Factors Present?: Yes Each Factor Represents 1 point: Abnormal pulmonary function (COPD), Age 41-60 years, Obesity (BMI >25), Sepsis (< 1month), Serious lung disease incl. pneumonia (< 1month) Other Risk Factors: No Other congenital or acquired thrombophilia - If yes, enter type in comment: No Thrombosis Risk Factor Assessment Total Risk Factor Score: 5 Thrombosis Risk Factor Assessment Level: High Risk Assessment and Plan (1) Community acquired pneumonia Status: Acute (2) Severe sepsis Status: Acute Plan: Question need for antibiotic change given her sepsis. Otherwise, fluid hydration. Watch blood pressure closely. Check CBC and CMP in a.m. Watch for culture positivity. Otherwise, she is a full code. We'll restart her methadone and reconcile medications otherwise.
[2017-02-01] MEDS: BUDESONIDE 1 MG/2 ML NEBU INHALATION SCH (19:50)
[2017-02-01] MEDS: MONTELUKAST 10 MG TAB PO SCH (20:32)
[2017-02-01] MEDS ORDERED: SODIUM CHLORIDE 0.9% 500 ML IV ONE (21:04)
[2017-02-01] MEDS: DIAZEPAM 5 MG TAB PO PRN (21:35)
[2017-02-01] MEDS: HYDROcodone/APAP 5-325MG 1 EACH TAB PO PRN (21:35)
[2017-02-02] MEDS: methylPREDNISolone SOD SUCCI 125 MG/2 ML VIAL IV SCH ×5 (00:04→23:07)
[2017-02-02] MEDS: HYDROcodone/APAP 5-325MG 1 EACH TAB PO PRN ×3 (03:54→23:07)
[2017-02-02] MEDS: MEROPENEM 1 GM in SODIUM CHLORIDE 0.9% 100 ML IVPB SCH ×2 (03:58→16:39)
[2017-02-02 04:45] LABS: ALT 84 U/L (9-52); AST 142 U/L (14-36); Alkaline Phosphatase 66 U/L (38-126); Anion Gap 6 mmol/L; Blood Urea Nitrogen 16 mg/dL (7-17); Calcium 7.9 mg/dL (8.4-10.2); Carbon Dioxide 20 mmol/L (22-30); Chloride 110 mmol/L (98-107); Glucose 170 mg/dL (74-99); Non-African American GFR(MDRD) >60 (>60 ml/min/1.73 sqM); Potassium 4.3 mmol/L (3.5-5.1); Sodium 136 mmol/L (137-145); Total Bilirubin 0.2 mg/dL (0.2-1.3); Total Protein 5.4 g/dL (6.3-8.2)
[2017-02-02] MEDS: ZOLPIDEM 5 MG TAB PO SCH ×2 (05:55→21:04)
[2017-02-02] MEDS ORDERED: AZITHROMYCIN 500 MG in SODIUM CHLORIDE 0.9% 250 ML IVPB SCH (06:00)
[2017-02-02] MEDS: LEVOTHYROXINE 88 MCG TAB PO SCH (06:01)
[2017-02-02] MEDS: SODIUM CHLORIDE 0.9% 1,000 ML IV SCH ×3 (06:02→23:09)
[2017-02-02] MEDS: DIAZEPAM 5 MG TAB PO PRN ×2 (06:09→14:23)
[2017-02-02 06:11] LABS: Basophils % (A) 0 %; CH 31.4; CHCM 30.4; Eosinophils % (A) 0 %; HCT 34.3 % (34.0-46.0); HDW 2.34; Hypochromasia Moderate; Luc # (Auto) 0.06; Luc % (Auto) 1; Lymphocytes # (A) 0.6 k/uL (1.0-4.8); Lymphocytes % (A) 7 %; MCH 31.8 pg (25.0-35.0); MCHC 30.5 g/dL (31.0-37.0); MCV 104.2 fL (80.0-100.0); Macrocytosis Slight; Mean Platelet Volume 9.5; Monocytes # (A) 0.2 k/uL (0-1.0); Monocytes % (A) 2 %; Neutrophils # (A) 8.4 k/uL (1.3-7.7); Neutrophils % (A) 90 %; RBC 3.29 m/uL (3.80-5.40); RDW 13.2 % (11.5-15.5); WBC 9.4 k/uL (3.8-10.6); WBC (Perox) 9.88
[2017-02-02 06:35] LABS: HGB 10.5 gm/dL (11.4-16.0)
--- NOTE | 2017-02-02 07:15 | XR ---
EXAMINATION TYPE: XR chest 1V portable DATE OF EXAM: 02/02/2017 COMPARISON: 01-31-17 HISTORY: Shortness of breath TECHNIQUE: Single frontal view of the chest is obtained. FINDINGS: Increasing right basilar consolidation is seen in comparison to the prior exam most compat ible with worsening pneumonia. This is superimposed upon chronic interstitial lung disease with diffu se reticular interstitial pattern, greatest at the lung bases. Cardiomediastinal is again mildly enla rged and mediastinum is rotated to the right due to patient positioning. Left costophrenic angle is c lear. Minimal degenerative changes of the acromioclavicular joints. IMPRESSION: Worsening right basilar consolidation most compatible with pneumonia superimposed upon a background of interstitial lung disease. Follow-up to resolution is recommended.
[2017-02-02] MEDS: BUDESONIDE 1 MG/2 ML NEBU INHALATION SCH ×2 (07:30→21:15)
[2017-02-02] MEDS: LEVALBUTEROL NEB (CONC) 1.25 MG/0.5 ML AMP INHALATION SCH ×4 (07:30→21:15)
[2017-02-02] MEDS: IPRATROPIUM 0.5 MG/2.5 ML NEBU INHALATION SCH ×4 (07:30→21:15)
--- NOTE | 2017-02-02 08:25 | PN ---
PROGRESS NOTE Mrs. Galloway is a 61-year-old female with chronic tobacco use, history of chronic pain, on chronic methadone, who presented with febrile episode and sepsis. She had hypotension on presentation. She is feeling better today. Her breathing is better. She denies any symptoms of chest pain. She denies any dizziness. Hemodynamically stable. There is no further episode of hypotension. She had an echocardiogram performed yesterday that revealed ejection fraction 50-55% with mild tricuspid regurgitation and moderate pulmonary hypertension with mild mitral regurgitation. She continues to be at this time on methylprednisolone, methadone, azithromycin. PHYSICAL EXAMINATION: Blood pressure 114/60 with a heart in 60. LUNGS: Clear with mild decrease in breath sounds. No wheezes. Heart rate rhythm S1, S2. No S3. No rub. ABDOMEN: Soft, nontender. Positive bowel sounds no megaly. EXTREMITIES: No edema. LAB DATA: Revealed hemoglobin 10.5, white blood cell 9.4, BUN and creatinine 16 and 0.6. IMPRESSION: 1. Pneumonia with sepsis, improving. 2. Chronic pain syndrome on chronic methadone treatment. 3. Hypotension related to the sepsis, resolved. 4. Chronic tobacco use. RECOMMENDATION: From the cardiac standpoint, I see no evidence of significant cardiac issue at this time. Her troponins are back to normal and are staying flat. Her infectious treatment has been addressed by the advanced solutions architect. From the cardiac standpoint, she is stable. We will see her on an as-needed basis. Please feel free to call us for any questions. MMODL / IJN: [id number] /
[2017-02-02] MEDS: METHADONE 10 MG TAB PO SCH ×2 (09:54→21:05)
[2017-02-02] MEDS: PREGABALIN 75 MG CAP PO SCH ×3 (09:54→21:04)
[2017-02-02] MEDS: PANTOPRAZOLE 40 MG/10 ML VIAL IVP SCH (10:03)
[2017-02-02] MEDS: NICOTINE 14MG/24HR PATCH TRANSDERM SCH (10:16)
--- NOTE | 2017-02-02 10:34 | P.PN ---
Subjective Progress Note Date: 02/02/17 02/02/17-patient is being seen examined and evaluated today in the intensive care unit. Patient is currently resting up in bed on 4-5 L of supplemental oxygen. She continues to have shortness of breath with exertion and activity. Continues to also have a congested cough. Patient states overall she feels slightly better today. However weakness continues. Patient did undergo an echocardiogram yesterday which did show an ejection fraction of 50-55% with mild tricuspid regurgitation, moderate pulmonary hypertension and mild mitral regurgitation. Patient was noted to have some transient hypotensive episodes last evening. She did receive another 500 mL bolus and responded well. Today her labs and reports that all been reviewed it is noted that her white count has come down to 9.4, hemoglobin is 10.5. She has been making adequate urine. Chest x-ray from this morning was reviewed and does show worsening right basilar consolidation most compatible with pneumonia superimposed upon a background of interstitial lung disease. 02/01/17- This is a 61-year-old female patient being seen examined and evaluated today in the intensive care unit. The patient came into the emergency room yesterday evening with a T-max of 105.4, on arrival also complained of some generalized weakness, and nausea and vomiting with dark colored coffee ground emesis. Patient states her symptoms have been progressively getting worse over the last for 5 days. Patient does have a long-standing history of fibromyalgia and opiate dependence on methadone. Urine drug screen was positive for opiates , methadone, tricyclic antidepressants, and benzodiazepine. Gastric emesis was positive for occult blood. Patient denies any use of alcohol and/or anticoagulants. Patient labs in the ER, a hemoglobin of 14.4 WBC 22.2 lactic acid of 3.4. She did receive a total of 4 L of IV fluids for fluid resuscitation. And she was started on antibiotics as well. Cardiology was also put on consult. Patient did have a troponin of 0.037, heart rhythm which was accelerated junctional, she will be going for an echo today as well. Apparently overnight the patient was borderline hypotensive and somewhat lethargic and she did receive a 1 time dose of Narcan. Repeat lactic acid this morning was 0.9. Upon examination the patient is resting up in bed on 6 L of supplemental oxygen via nasal cannula. She is short of breath with exertion and /or extensive conversations. She does have a congested cough with white sputum. She has difficulty clearing secretions. She denies any nausea vomiting at this time. Chest x-ray was reviewed and does show mild pulmonary fibrotic changes, there is a new right lower lobe pneumonia. The patient does not utilize home oxygen. All labs and reports have been reviewed. Objective - Vital Signs Vital signs: Vital Signs Temp 98.1 F 02/02/17 00:00 Pulse 71 02/02/17 10:00 Resp 22 02/02/17 10:00 BP 111/69 02/02/17 10:00 Pulse Ox 93 L 02/02/17 10:00 Intake & Output 02/01/17 02/02/17 02/02/17 18:59 06:59 18:59 Intake Total 1350 1600 500 Output Total 2900 1025 600 Balance -1550 575 -100 Weight 82.5 kg Intake: IV 1350 1100 400 Meropenem 1 gm In Sodium 100 100 Chloride 0.9% 100 ml @ 200 mls/hr IVPB Q12H [facility] Rx#:[id number] Sodium Chloride 0.9% 1, 1250 1000 400 000 ml @ 100 mls/hr IV . Q10H [facility] Rx#:[id number] Intake, IV Titration 500 Amount Sodium Chloride 0.9% 500 500 ml @ 999 mls/hr IV .Q31M [facility] Rx#:[id number] Oral 100 Output: Urine 2900 1025 600 Other: Voiding Method Toilet Toilet Toilet # Bowel Movements 1 1 - Exam GENERAL EXAM: Alert, active, comfortable in no apparent distress. HEAD: Normocephalic. EYES: Normal reaction of pupils, equal size. NOSE: Clear with pink turbinates. THROAT: No erythema or exudates. NECK: No masses, no JVD. CHEST: No chest wall deformity. LUNGS: Lung sounds noted to be somewhat coarse with inspiratory and expiratory wheezes more so on the right. CVS: S1 and S2 normal with no audible mumurs, regular rhythm. ABDOMEN: No hepatosplenomegaly, normal bowel sounds, no guarding or rigidity. EXTREMITIES: No edema noted, pedal pulses palpable. SKIN: No rashes CENTRAL NERVOUS SYSTEM: No focal deficits, tone is normal in all 4 extremities. - Labs CBC & Chem 7: 02/02/17 04:07 02/02/17 04:07 Labs: Abnormal Lab Results - Last 24 Hours (Table) 02/01/17 02/01/17 02/02/17 Range/Units 12:27 16:13 04:07 RBC 3.29 L (3.80-5.40) m/uL Hgb 10.5 L D (11.4-16.0) gm/dL MCV 104.2 H (80.0-100.0) fL MCHC 30.5 L (31.0-37.0) g/dL Plt Count 136 L (150-450) k/uL Neutrophils # 8.4 H (1.3-7.7) k/uL Lymphocytes # 0.6 L (1.0-4.8) k/uL Sodium (137-145) mmol/L Chloride (98-107) mmol/L Carbon Dioxide (22-30) mmol/L Glucose (74-99) mg/dL Calcium (8.4-10.2) mg/dL AST (14-36) U/L ALT (9-52) U/L Total Creatine Kinase 2243 H 2212 H (30-135) U/L CK-MB (CK-2) 9.8 H* 9.0 H* (0.0-2.4) ng/mL Total Protein (6.3-8.2) g/dL Albumin (3.5-5.0) g/dL 02/02/17 Range/Units 04:07 RBC (3.80-5.40) m/uL Hgb (11.4-16.0) gm/dL MCV (80.0-100.0) fL MCHC (31.0-37.0) g/dL Plt Count (150-450) k/uL Neutrophils # (1.3-7.7) k/uL Lymphocytes # (1.0-4.8) k/uL Sodium 136 L (137-145) mmol/L Chloride 110 H (98-107) mmol/L Carbon Dioxide 20 L (22-30) mmol/L Glucose 170 H (74-99) mg/dL Calcium 7.9 L (8.4-10.2) mg/dL AST 142 H (14-36) U/L ALT 84 H (9-52) U/L Total Creatine Kinase (30-135) U/L CK-MB (CK-2) (0.0-2.4) ng/mL Total Protein 5.4 L (6.3-8.2) g/dL Albumin 2.6 L (3.5-5.0) g/dL Microbiology - Last 24 Hours (Table) 02/01/17 13:05 Gram Stain - Preliminary Sputum 01/31/17 22:31 Blood Culture Gram Stain - Preliminary Blood Blood Culture - Preliminary Gram Neg Bacilli 01/31/17 22:31 Blood Culture - Final Blood 01/31/17 04:00 Urine Culture - Preliminary Urine,Voided Assessment and Plan Plan: Assessment Sepsis with pneumonia and possible mixed bacterial however cannot exclude aspiration from vomiting Acute hypoxic respiratory failure requiring supplemental oxygen via nasal cannula Hypotension related to sepsis Acute exacerbation of COPD Fibromyalgia, methadone dependent Nicotine dependence History of hepatitis C Plan Patient will remain in ICU for close monitoring. Continue to monitor for any further episodes of hypotension. Medications have been reviewed and will be continued as ordered. IV antibiotics and steroids. Add nebulizer treatments. Blood cultures have been positive for gram negatives bacilli, antibiotics were adjusted. Continue with pulmonary hygiene, coughing and deep breathing exercises, and supportive care. Supplemental oxygen to maintain oxygen saturations of 92% or better. Patient will have echo today. GI and DVT prophylaxis. We will continue to monitor labs/results and adjust treatment as necessary. Further recommendations pending. I performed an examination of the patient and discussed their management with the nurse practitioner. I have reviewed the nurse practitioner's note and agree with the documented findings and plan of care.
[2017-02-02] MEDS: METHADONE 5 MG TAB PO SCH (11:40)
[2017-02-02] MEDS: MONTELUKAST 10 MG TAB PO SCH (21:05)
--- NOTE | 2017-02-02 22:37 | P.PN ---
Subjective Progress Note Date: 02/02/17 Principal diagnosis: Sepsis. The patient is here essentially secondary to pneumonia with septic shock. Blood pressure is now stable. She is concerned about agitation because I'm not giving her complete hydrocodone with Valium. For some reason, her chronic pain physician as her on methadone with narcotic of hydrocodone. We will give her nicotine patches for tobacco withdrawal. Otherwise, no diarrhea. She currently is on Merrem Objective - Vital Signs Vital signs: Vital Signs Temp 97.9 F 02/02/17 20:04 Pulse 71 02/02/17 22:00 Resp 17 02/02/17 22:00 BP 119/72 02/02/17 22:00 Pulse Ox 95 02/02/17 22:00 Intake & Output 02/02/17 02/02/17 02/03/17 06:59 18:59 06:59 Intake Total 1600 2200 800 Output Total 1025 1180 450 Balance 575 1020 350 Weight 82.5 kg Intake: IV 1100 1100 400 Meropenem 1 gm In Sodium 100 100 Chloride 0.9% 100 ml @ 200 mls/hr IVPB Q12H [facility] Rx#:[id number] Sodium Chloride 0.9% 1, 1000 1000 400 000 ml @ 100 mls/hr IV . Q10H [facility] Rx#:[id number] Intake, IV Titration 500 200 Amount Sodium Chloride 0.9% 1, 200 000 ml @ 100 mls/hr IV . Q10H [facility] Rx#:[id number] Sodium Chloride 0.9% 500 500 ml @ 999 mls/hr IV .Q31M [facility] Rx#:[id number] Oral 900 400 Output: Urine 1025 1180 450 Other: Voiding Method Toilet Toilet Toilet # Voids 1 # Bowel Movements 1 - Constitutional General appearance: Present: obese - EENT Eyes: Present: PERRLA. Absent: abnormal pupil - Respiratory Respiratory: bilateral: diminished - Cardiovascular Rhythm: regular Heart sounds: normal: S1, S2 - Gastrointestinal General gastrointestinal: Present: soft. Absent: tenderness - Labs CBC & Chem 7: 02/02/17 04:07 02/02/17 04:07 Labs: Abnormal Lab Results - Last 24 Hours (Table) 02/02/17 02/02/17 Range/Units 04:07 04:07 RBC 3.29 L (3.80-5.40) m/uL Hgb 10.5 L D (11.4-16.0) gm/dL MCV 104.2 H (80.0-100.0) fL MCHC 30.5 L (31.0-37.0) g/dL Plt Count 136 L (150-450) k/uL Neutrophils # 8.4 H (1.3-7.7) k/uL Lymphocytes # 0.6 L (1.0-4.8) k/uL Sodium 136 L (137-145) mmol/L Chloride 110 H (98-107) mmol/L Carbon Dioxide 20 L (22-30) mmol/L Glucose 170 H (74-99) mg/dL Calcium 7.9 L (8.4-10.2) mg/dL AST 142 H (14-36) U/L ALT 84 H (9-52) U/L Total Protein 5.4 L (6.3-8.2) g/dL Albumin 2.6 L (3.5-5.0) g/dL Microbiology - Last 24 Hours (Table) 01/31/17 22:31 Blood Culture Gram Stain - Final Blood Blood Culture - Final Escherichia fergusonii 01/31/17 04:00 Urine Culture - Final Urine,Voided 02/01/17 13:05 Gram Stain - Preliminary Sputum Sputum Culture - Preliminary Litzy albicans Assessment and Plan (1) Community acquired pneumonia Status: Acute (2) Severe sepsis Status: Acute Plan: Continue current regimen treatment. Tobacco cessation again discussed with the patient. Nicotine patches were given. Check CBC and seen in a.m. Transfer to selective care unit when bed available. Time with Patient: Greater than 30
[2017-02-03] MEDS: MEROPENEM 1 GM in SODIUM CHLORIDE 0.9% 100 ML IVPB SCH ×2 (04:39→15:40)
[2017-02-03 05:01] LABS: CH 31.8; HCT 35.2 % (34.0-46.0); HDW 2.57; HGB 10.9 gm/dL (11.4-16.0); Hypochromasia Slight; MCH 31.9 pg (25.0-35.0); MCHC 30.9 g/dL (31.0-37.0); MCV 103.5 fL (80.0-100.0); Macrocytosis Slight; RDW 14.2 % (11.5-15.5); WBC 12.1 k/uL (3.8-10.6)
[2017-02-03 05:41] LABS: ALT 169 U/L (9-52); AST 227 U/L (14-36); Alkaline Phosphatase 80 U/L (38-126); Anion Gap 5 mmol/L; Blood Urea Nitrogen 19 mg/dL (7-17); Calcium 8.6 mg/dL (8.4-10.2); Carbon Dioxide 23 mmol/L (22-30); Chloride 111 mmol/L (98-107); Glucose 144 mg/dL (74-99); Non-African American GFR(MDRD) >60 (>60 ml/min/1.73 sqM); Phosphorous 2.6 mg/dL (2.5-4.5); Potassium 4.9 mmol/L (3.5-5.1); Sodium 139 mmol/L (137-145); Total Bilirubin 0.3 mg/dL (0.2-1.3); Total Protein 5.5 g/dL (6.3-8.2)
[2017-02-03] MEDS: DIAZEPAM 5 MG TAB PO PRN ×3 (06:31→21:47)
[2017-02-03] MEDS: methylPREDNISolone SOD SUCCI 125 MG/2 ML VIAL IV SCH ×3 (06:31→17:47)
[2017-02-03] MEDS: HYDROcodone/APAP 5-325MG 1 EACH TAB PO PRN ×3 (06:31→21:00)
[2017-02-03] MEDS: LEVOTHYROXINE 88 MCG TAB PO SCH (06:31)
[2017-02-03] MEDS: LEVALBUTEROL NEB (CONC) 1.25 MG/0.5 ML AMP INHALATION SCH ×4 (08:22→19:40)
[2017-02-03] MEDS: IPRATROPIUM 0.5 MG/2.5 ML NEBU INHALATION SCH ×4 (08:22→19:40)
[2017-02-03] MEDS: BUDESONIDE 1 MG/2 ML NEBU INHALATION SCH ×2 (08:22→19:39)
--- NOTE | 2017-02-03 08:22 | XR ---
EXAMINATION TYPE: XR chest 1V DATE OF EXAM: 02/03/2017 COMPARISON: Prior chest x-ray 02/02/2017 HISTORY: Pneumonia TECHNIQUE: Single frontal view of the chest is obtained. FINDINGS: There is bibasilar increased density noted, the interstitium is increased. Heart is enlarg ed. No evident pneumothorax. IMPRESSION: Correlate for congestive heart failure. Pneumonia not excluded. There may be associated pleural effusions, edema, atelectasis.
[2017-02-03] MEDS: METHADONE 10 MG TAB PO SCH ×2 (08:27→20:42)
[2017-02-03] MEDS: PANTOPRAZOLE 40 MG/10 ML VIAL IVP SCH (08:28)
[2017-02-03] MEDS: NICOTINE 14MG/24HR PATCH TRANSDERM SCH (08:28)
[2017-02-03] MEDS: PREGABALIN 75 MG CAP PO SCH ×3 (08:28→20:41)
[2017-02-03 10:53] LABS: Basophils % (A) 0 %; CH 31.4; CHCM 30.6; Eosinophils % (A) 0 %; HCT 36.7 % (34.0-46.0); HDW 2.52; HGB 11.4 gm/dL (11.4-16.0); Hypochromasia Slight; Luc # (Auto) 0.09; Luc % (Auto) 1; Lymphocytes # (A) 0.7 k/uL (1.0-4.8); Lymphocytes % (A) 5 %; MCH 31.9 pg (25.0-35.0); MCV 103.2 fL (80.0-100.0); Macrocytosis Slight; Mean Platelet Volume 8.9; Monocytes # (A) 0.4 k/uL (0-1.0); Monocytes % (A) 3 %; Neutrophils # (A) 11.8 k/uL (1.3-7.7); Neutrophils % (A) 91 %; RBC 3.56 m/uL (3.80-5.40); RDW 13.4 % (11.5-15.5); WBC 12.9 k/uL (3.8-10.6); WBC (Perox) 13.66
[2017-02-03] MEDS: SODIUM CHLORIDE 0.9% 1,000 ML IV SCH ×2 (11:14→20:59)
[2017-02-03] MEDS: METHADONE 5 MG TAB PO SCH (13:29)
--- NOTE | 2017-02-03 16:34 | P.PN ---
Subjective Progress Note Date: 02/03/17 Principal diagnosis: Pneumonia, right parapneumonic effusion, severe sepsis 02/03/2017, patient seen eval reexamined during the rounds in ICU she is awake and alert is still of shortness of breath how cuff congestion and severe due to difficulty in breathing has improved no hemoptysis present sputum is still just to keep headache FiO2 is down to 4 L saturation is mid 90s the final ID on the blood culture came back positive for E. coli which is sensitive to multiple agents much chest x-ray and laboratory data from today reviewed -patient is being seen examined and evaluated today in the intensive care unit. Patient is currently resting up in bed on 4-5 L of supplemental oxygen. She continues to have shortness of breath with exertion and activity. Continues to also have a congested cough. Patient states overall she feels slightly better today. However weakness continues. Patient did undergo an echocardiogram yesterday which did show an ejection fraction of 50-55% with mild tricuspid regurgitation, moderate pulmonary hypertension and mild mitral regurgitation. Patient was noted to have some transient hypotensive episodes last evening. She did receive another 500 mL bolus and responded well. Today her labs and reports that all been reviewed it is noted that her white count has come down to 9.4, hemoglobin is 10.5. She has been making adequate urine. Chest x-ray from this morning was reviewed and does show worsening right basilar consolidation most compatible with pneumonia superimposed upon a background of interstitial lung disease. 02/01/17- This is a 61-year-old female patient being seen examined and evaluated today in the intensive care unit. The patient came into the emergency room yesterday evening with a T-max of 105.4, on arrival also complained of some generalized weakness, and nausea and vomiting with dark colored coffee ground emesis. Patient states her symptoms have been progressively getting worse over the last for 5 days. Patient does have a long-standing history of fibromyalgia and opiate dependence on methadone. Urine drug screen was positive for opiates , methadone, tricyclic antidepressants, and benzodiazepine. Gastric emesis was positive for occult blood. Patient denies any use of alcohol and/or anticoagulants. Patient labs in the ER, a hemoglobin of 14.4 WBC 22.2 lactic acid of 3.4. She did receive a total of 4 L of IV fluids for fluid resuscitation. And she was started on antibiotics as well. Cardiology was also put on consult. Patient did have a troponin of 0.037, heart rhythm which was accelerated junctional, she will be going for an echo today as well. Apparently overnight the patient was borderline hypotensive and somewhat lethargic and she did receive a 1 time dose of Narcan. Repeat lactic acid this morning was 0.9. Upon examination the patient is resting up in bed on 6 L of supplemental oxygen via nasal cannula. She is short of breath with exertion and /or extensive conversations. She does have a congested cough with white sputum. She has difficulty clearing secretions. She denies any nausea vomiting at this time. Chest x-ray was reviewed and does show mild pulmonary fibrotic changes, there is a new right lower lobe pneumonia. The patient does not utilize home oxygen. All labs and reports have been reviewed. Objective - Vital Signs Vital signs: Vital Signs Temp 97.0 F L 02/03/17 12:00 Pulse 68 02/03/17 15:00 Resp 21 02/03/17 15:00 BP 123/89 02/03/17 14:00 Pulse Ox 96 02/03/17 15:00 Intake & Output 02/02/17 02/03/17 02/03/17 18:59 06:59 18:59 Intake Total 2200 2200 840 Output Total 1180 1000 Balance 1020 1200 840 Weight 84.7 kg 84.7 kg Intake: IV 1100 1300 600 Meropenem 1 gm In Sodium 100 Chloride 0.9% 100 ml @ 200 mls/hr IVPB Q12H [facility] Rx#:[id number] Sodium Chloride 0.9% 1, 1000 1300 600 000 ml @ 100 mls/hr IV . Q10H [facility] Rx#:[id number] Intake, IV Titration 200 Amount Sodium Chloride 0.9% 1, 200 000 ml @ 100 mls/hr IV . Q10H [facility] Rx#:[id number] Oral 900 900 240 Output: Urine 1180 1000 Other: Voiding Method Toilet Toilet Toilet # Voids 1 1 # Bowel Movements 1 - Exam GENERAL EXAM: Alert, active, comfortable in no apparent distress. HEAD: Normocephalic. EYES: Normal reaction of pupils, equal size. NOSE: Clear with pink turbinates. THROAT: No erythema or exudates. NECK: No masses, no JVD. CHEST: No chest wall deformity. LUNGS: Lung sounds noted to be somewhat coarse with inspiratory and expiratory wheezes more so on the right. CVS: S1 and S2 normal with no audible mumurs, regular rhythm. ABDOMEN: No hepatosplenomegaly, normal bowel sounds, no guarding or rigidity. EXTREMITIES: No edema noted, pedal pulses palpable. SKIN: No rashes CENTRAL NERVOUS SYSTEM: No focal deficits, tone is normal in all 4 extremities. - Labs CBC & Chem 7: 02/03/17 09:59 02/03/17 04:14 Labs: Abnormal Lab Results - Last 24 Hours (Table) 02/03/17 02/03/17 02/03/17 Range/Units 04:14 04:19 09:59 WBC 12.1 H 12.9 H (3.8-10.6) k/uL RBC 3.40 L 3.56 L (3.80-5.40) m/uL Hgb 10.9 L (11.4-16.0) gm/dL MCV 103.5 H 103.2 H (80.0-100.0) fL MCHC 30.9 L (31.0-37.0) g/dL Neutrophils # 11.8 H (1.3-7.7) k/uL Lymphocytes # 0.7 L (1.0-4.8) k/uL Chloride 111 H (98-107) mmol/L BUN 19 H (7-17) mg/dL Glucose 144 H (74-99) mg/dL AST 227 H (14-36) U/L ALT 169 H (9-52) U/L Total Protein 5.5 L (6.3-8.2) g/dL Albumin 2.6 L (3.5-5.0) g/dL Microbiology - Last 24 Hours (Table) 02/01/17 13:05 Gram Stain - Final Sputum Sputum Culture - Final Litzy albicans 01/31/17 22:31 Blood Culture Gram Stain - Final Blood Blood Culture - Final Escherichia fergusonii 01/31/17 04:00 Urine Culture - Final Urine,Voided Assessment and Plan Plan: Assessment Bacteremia related to E. coli source may be aspiration pneumonia however his stool and repeat cultures are negative so far will follow Sepsis with pneumonia and possible mixed bacterial however cannot exclude aspiration from vomiting Acute hypoxic respiratory failure requiring supplemental oxygen via nasal cannula Hypotension related to sepsis Acute exacerbation of COPD Fibromyalgia, methadone dependent Nicotine dependence History of hepatitis C Plan Patient can be moved out of the ICU to stepdown unit. Continue to monitor for any further episodes of hypotension. Medications have been reviewed and will be continued as ordered. IV antibiotics and steroids. Add nebulizer treatments. Blood cultures have been positive for gram negatives bacilli, antibiotics were adjusted. Continue with pulmonary hygiene, coughing and deep breathing exercises, and supportive care. Supplemental oxygen to maintain oxygen saturations of 92% or better. Patient will have echo today. GI and DVT prophylaxis. We will continue to monitor labs/results and adjust treatment as necessary. Further recommendations pending. Time with Patient: Greater than 30
[2017-02-03 17:44] LABS: Glucose,Whole Blood 161 mg/dL (75-99)
[2017-02-03] MEDS: metroNIDAZOLE-NS PMX 500 MG in SALINE 1 100ML.BAG IVPB SCH (18:41)
[2017-02-03] MEDS: ZOLPIDEM 5 MG TAB PO SCH (20:58)
[2017-02-03] MEDS: MONTELUKAST 10 MG TAB PO SCH (20:59)
[2017-02-03 21:39] LABS: Glucose,Whole Blood 168 mg/dL (75-99)
[2017-02-04] MEDS: methylPREDNISolone SOD SUCCI 125 MG/2 ML VIAL IV SCH ×5 (00:20→23:51)
[2017-02-04] MEDS: HYDROcodone/APAP 5-325MG 1 EACH TAB PO PRN ×4 (02:00→23:52)
[2017-02-04] MEDS: MEROPENEM 1 GM in SODIUM CHLORIDE 0.9% 100 ML IVPB SCH ×2 (05:10→16:37)
[2017-02-04] MEDS: DIAZEPAM 5 MG TAB PO PRN ×2 (05:59→16:37)
[2017-02-04] MEDS: LEVOTHYROXINE 88 MCG TAB PO SCH (05:59)
[2017-02-04] MEDS: BUDESONIDE 1 MG/2 ML NEBU INHALATION SCH ×2 (07:10→19:05)
[2017-02-04] MEDS: IPRATROPIUM 0.5 MG/2.5 ML NEBU INHALATION SCH ×4 (07:11→19:05)
[2017-02-04] MEDS: LEVALBUTEROL NEB (CONC) 1.25 MG/0.5 ML AMP INHALATION SCH ×4 (07:11→19:05)
[2017-02-04] MEDS: SODIUM CHLORIDE 0.9% 1,000 ML IV SCH ×2 (08:06→16:38)
[2017-02-04] MEDS: NICOTINE 14MG/24HR PATCH TRANSDERM SCH (08:06)
[2017-02-04] MEDS: PANTOPRAZOLE 40 MG/10 ML VIAL IVP SCH (08:06)
[2017-02-04] MEDS: METHADONE 10 MG TAB PO SCH ×2 (08:07→20:51)
[2017-02-04] MEDS: PREGABALIN 75 MG CAP PO SCH ×3 (08:08→20:51)
--- NOTE | 2017-02-04 08:14 | P.PN ---
Subjective Progress Note Date: 02/04/17 Principal diagnosis: Sepsis. This 61-year-old white female essentially admitted for pneumonia with sepsis. The patient is now stabilizing but seems to contract today. She states poor sleep. No voiding difficulties are stated. Minimal ambulation and poor appetite is still noted. Objective - Vital Signs Vital signs: Vital Signs Temp 97.4 F L 02/04/17 06:44 Pulse 73 02/04/17 07:28 Resp 18 02/04/17 06:44 BP 120/82 02/04/17 06:44 Pulse Ox 94 L 02/04/17 06:44 Intake & Output 02/03/17 02/04/17 02/04/17 18:59 06:59 18:59 Intake Total 840 Balance 840 Weight 84.7 kg Intake: IV 600 Sodium Chloride 0.9% 1, 600 000 ml @ 100 mls/hr IV . Q10H [facility] Rx#:[id number] Oral 240 Other: Voiding Method Toilet Toilet # Voids 1 5 # Bowel Movements 1 - Constitutional General appearance: Present: obese - EENT Eyes: Absent: abnormal pupil - Respiratory Respiratory: right: rhonchi - Cardiovascular Rhythm: regular Heart sounds: normal: S1, S2 - Gastrointestinal General gastrointestinal: Present: soft. Absent: tenderness - Psychiatric Psychiatric: Present: A&O x's 3. Absent: appropriate affect - Labs CBC & Chem 7: 02/03/17 09:59 02/03/17 04:14 Labs: Abnormal Lab Results - Last 24 Hours (Table) 02/03/17 02/03/17 02/03/17 Range/Units 09:59 17:41 21:15 WBC 12.9 H (3.8-10.6) k/uL RBC 3.56 L (3.80-5.40) m/uL MCV 103.2 H (80.0-100.0) fL Neutrophils # 11.8 H (1.3-7.7) k/uL Lymphocytes # 0.7 L (1.0-4.8) k/uL POC Glucose (mg/dL) 161 H 168 H (75-99) mg/dL Microbiology - Last 24 Hours (Table) 02/01/17 13:05 Gram Stain - Final Sputum Sputum Culture - Final Litzy albicans 01/31/17 22:31 Blood Culture Gram Stain - Final Blood Blood Culture - Final Escherichia fergusonii Assessment and Plan (1) Community acquired pneumonia Status: Acute (2) Severe sepsis Status: Acute Plan: Continue current regimen of treatment. Check CBC and CmP in a.m. Appreciate pulmonology input. Dr. Jo's group covering for the weekend. Charge by mouth intake and ambulation. Tobacco cessation again discussed with the patient. Time with Patient: Less than 30
[2017-02-04 10:18] LABS: ALT 152 U/L (9-52); AST 90 U/L (14-36); Alkaline Phosphatase 82 U/L (38-126); Anion Gap 10 mmol/L; Blood Urea Nitrogen 18 mg/dL (7-17); Calcium 9.1 mg/dL (8.4-10.2); Carbon Dioxide 24 mmol/L (22-30); Chloride 109 mmol/L (98-107); Glucose 144 mg/dL (74-99); Non-African American GFR(MDRD) >60 (>60 ml/min/1.73 sqM); Potassium 4.6 mmol/L (3.5-5.1); Sodium 143 mmol/L (137-145); Total Bilirubin 0.4 mg/dL (0.2-1.3); Total Protein 6.1 g/dL (6.3-8.2)
--- NOTE | 2017-02-04 11:16 | P.PN ---
Subjective Progress Note Date: 02/04/17 02/04/17- patient has been seen examined and evaluated today during rounds on medical surgical unit. Patient was downgraded from the intensive care unit yesterday. Upon examination the patient still continues to have some significant shortness of breath with exertion and/or extensive conversation. She has both improved. No hemoptysis. Currently she is on 4 L of supplemental oxygen via nasal cannula. We're increasing her ambulation. Labs and reports been reviewed. Afebrile no further complaints. 02/03/2017, patient seen eval reexamined during the rounds in ICU she is awake and alert is still of shortness of breath how cuff congestion and severe due to difficulty in breathing has improved no hemoptysis present sputum is still just to keep headache FiO2 is down to 4 L saturation is mid 90s the final ID on the blood culture came back positive for E. coli which is sensitive to multiple agents much chest x-ray and laboratory data from today reviewed 02/02/17-patient is being seen examined and evaluated today in the intensive care unit. Patient is currently resting up in bed on 4-5 L of supplemental oxygen. She continues to have shortness of breath with exertion and activity. Continues to also have a congested cough. Patient states overall she feels slightly better today. However weakness continues. Patient did undergo an echocardiogram yesterday which did show an ejection fraction of 50-55% with mild tricuspid regurgitation, moderate pulmonary hypertension and mild mitral regurgitation. Patient was noted to have some transient hypotensive episodes last evening. She did receive another 500 mL bolus and responded well. Today her labs and reports that all been reviewed it is noted that her white count has come down to 9.4, hemoglobin is 10.5. She has been making adequate urine. Chest x-ray from this morning was reviewed and does show worsening right basilar consolidation most compatible with pneumonia superimposed upon a background of interstitial lung disease. 02/01/17- This is a 61-year-old female patient being seen examined and evaluated today in the intensive care unit. The patient came into the emergency room yesterday evening with a T-max of 105.4, on arrival also complained of some generalized weakness, and nausea and vomiting with dark colored coffee ground emesis. Patient states her symptoms have been progressively getting worse over the last for 5 days. Patient does have a long-standing history of fibromyalgia and opiate dependence on methadone. Urine drug screen was positive for opiates , methadone, tricyclic antidepressants, and benzodiazepine. Gastric emesis was positive for occult blood. Patient denies any use of alcohol and/or anticoagulants. Patient labs in the ER, a hemoglobin of 14.4 WBC 22.2 lactic acid of 3.4. She did receive a total of 4 L of IV fluids for fluid resuscitation. And she was started on antibiotics as well. Cardiology was also put on consult. Patient did have a troponin of 0.037, heart rhythm which was accelerated junctional, she will be going for an echo today as well. Apparently overnight the patient was borderline hypotensive and somewhat lethargic and she did receive a 1 time dose of Narcan. Repeat lactic acid this morning was 0.9. Upon examination the patient is resting up in bed on 6 L of supplemental oxygen via nasal cannula. She is short of breath with exertion and /or extensive conversations. She does have a congested cough with white sputum. She has difficulty clearing secretions. She denies any nausea vomiting at this time. Chest x-ray was reviewed and does show mild pulmonary fibrotic changes, there is a new right lower lobe pneumonia. The patient does not utilize home oxygen. All labs and reports have been reviewed. Objective - Vital Signs Vital signs: Vital Signs Temp 97.4 F L 02/04/17 06:44 Pulse 73 02/04/17 07:28 Resp 18 02/04/17 06:44 BP 120/82 02/04/17 06:44 Pulse Ox 94 L 02/04/17 06:44 Intake & Output 02/03/17 02/04/17 02/04/17 18:59 06:59 18:59 Intake Total 840 200 Balance 840 200 Weight 84.7 kg Intake: IV 600 Sodium Chloride 0.9% 1, 600 000 ml @ 100 mls/hr IV . Q10H [facility] Rx#:[id number] Oral 240 200 Other: Voiding Method Toilet Toilet # Voids 1 5 # Bowel Movements 1 - Exam GENERAL EXAM: Alert, active, comfortable in no apparent distress. HEAD: Normocephalic. EYES: Normal reaction of pupils, equal size. NOSE: Clear with pink turbinates. THROAT: No erythema or exudates. NECK: No masses, no JVD. CHEST: No chest wall deformity. LUNGS: Lung sounds noted to be somewhat coarse with inspiratory and expiratory wheezes more so on the right. CVS: S1 and S2 normal with no audible mumurs, regular rhythm. ABDOMEN: No hepatosplenomegaly, normal bowel sounds, no guarding or rigidity. EXTREMITIES: No edema noted, pedal pulses palpable. SKIN: No rashes CENTRAL NERVOUS SYSTEM: No focal deficits, tone is normal in all 4 extremities. - Labs CBC & Chem 7: 02/03/17 09:59 02/04/17 07:49 Labs: Abnormal Lab Results - Last 24 Hours (Table) 02/03/17 02/03/17 02/04/17 Range/Units 17:41 21:15 07:49 Chloride 109 H (98-107) mmol/L BUN 18 H (7-17) mg/dL Glucose 144 H (74-99) mg/dL POC Glucose (mg/dL) 161 H 168 H (75-99) mg/dL AST 90 H (14-36) U/L ALT 152 H (9-52) U/L Total Protein 6.1 L (6.3-8.2) g/dL Albumin 3.0 L (3.5-5.0) g/dL Microbiology - Last 24 Hours (Table) 02/01/17 13:05 Gram Stain - Final Sputum Sputum Culture - Final Litzy albicans 01/31/17 22:31 Blood Culture Gram Stain - Final Blood Blood Culture - Final Escherichia fergusonii Assessment and Plan Plan: Assessment Bacteremia related to E. coli source may be aspiration pneumonia however his stool and repeat cultures are negative so far will follow Sepsis with pneumonia and possible mixed bacterial however cannot exclude aspiration from vomiting Acute hypoxic respiratory failure requiring supplemental oxygen via nasal cannula Hypotension related to sepsis Acute exacerbation of COPD Fibromyalgia, methadone dependent Nicotine dependence History of hepatitis C Plan Medications have been reviewed and will be continued as ordered. IV antibiotics and steroids. Increase ambulation and activity as tolerated. Initiate and encourage incentive spirometer. Continue nebulizer treatments. Blood cultures have been positive for gram negatives bacilli, antibiotics were adjusted. Continue with pulmonary hygiene, coughing and deep breathing exercises, and supportive care. Supplemental oxygen to maintain oxygen saturations of 92% or better. GI and DVT prophylaxis. We will continue to monitor labs/results and adjust treatment as necessary. Further recommendations pending. I performed an examination of the patient and discussed their management with the nurse practitioner. I have reviewed the nurse practitioner's note and agree with the documented findings and plan of care.
[2017-02-04] MEDS: METHADONE 5 MG TAB PO SCH (12:24)
[2017-02-04 16:55] LABS: Glucose,Whole Blood 181 mg/dL (75-99)
[2017-02-04] MEDS: ZOLPIDEM 5 MG TAB PO SCH (20:51)
[2017-02-04] MEDS: NYSTATIN 100,000 UNIT/ML SUSP 500,000 UNIT/5 ML CUP PO SCH (20:54)
[2017-02-04] MEDS: MONTELUKAST 10 MG TAB PO SCH (21:24)
[2017-02-04 22:15] LABS: Glucose,Whole Blood 209 mg/dL (75-99)
[2017-02-05] MEDS: DIAZEPAM 5 MG TAB PO PRN ×3 (03:07→20:07)
[2017-02-05] MEDS: SODIUM CHLORIDE 0.9% 1,000 ML IV SCH ×2 (04:38→16:03)
[2017-02-05] MEDS: MEROPENEM 1 GM in SODIUM CHLORIDE 0.9% 100 ML IVPB SCH ×2 (05:23→15:57)
[2017-02-05] MEDS: methylPREDNISolone SOD SUCCI 125 MG/2 ML VIAL IV SCH ×2 (06:48→12:46)
[2017-02-05] MEDS: LEVOTHYROXINE 88 MCG TAB PO SCH (06:49)
[2017-02-05 07:30] LABS: Glucose,Whole Blood 150 mg/dL (75-99)
[2017-02-05] MEDS: LEVALBUTEROL NEB (CONC) 1.25 MG/0.5 ML AMP INHALATION SCH ×4 (08:09→19:28)
[2017-02-05] MEDS: BUDESONIDE 1 MG/2 ML NEBU INHALATION SCH ×2 (08:09→19:27)
[2017-02-05] MEDS: IPRATROPIUM 0.5 MG/2.5 ML NEBU INHALATION SCH ×4 (08:09→19:28)
[2017-02-05 08:11] LABS: CH 32.3; CHCM 31.9; HCT 39.1 % (34.0-46.0); HDW 2.51; HGB 12.1 gm/dL (11.4-16.0); MCH 31.6 pg (25.0-35.0); Macrocytosis Slight; Mean Platelet Volume 9.5; RBC 3.83 m/uL (3.80-5.40); RDW 14.2 % (11.5-15.5); WBC 22.7 k/uL (3.8-10.6)
[2017-02-05 08:15] LABS: ALT 125 U/L (9-52); AST 47 U/L (14-36); Alkaline Phosphatase 75 U/L (38-126); Anion Gap 8 mmol/L; Blood Urea Nitrogen 14 mg/dL (7-17); Calcium 9.1 mg/dL (8.4-10.2); Carbon Dioxide 27 mmol/L (22-30); Chloride 106 mmol/L (98-107); Glucose 183 mg/dL (74-99); Non-African American GFR(MDRD) >60 (>60 ml/min/1.73 sqM); Potassium 4.5 mmol/L (3.5-5.1); Sodium 141 mmol/L (137-145); Total Bilirubin 0.6 mg/dL (0.2-1.3)
[2017-02-05 08:18] LABS: Hypochromasia Slight
[2017-02-05] MEDS: INSULIN LISPRO (humaLOG) 300 UNIT/3 ML VIAL SQ SCH ×4 (08:54→19:55)
[2017-02-05] MEDS: PANTOPRAZOLE 40 MG/10 ML VIAL IVP SCH (08:54)
[2017-02-05] MEDS: NYSTATIN 100,000 UNIT/ML SUSP 500,000 UNIT/5 ML CUP PO SCH ×4 (08:54→19:57)
[2017-02-05] MEDS: METHADONE 10 MG TAB PO SCH ×2 (08:55→19:56)
[2017-02-05] MEDS: NICOTINE 14MG/24HR PATCH TRANSDERM SCH (08:55)
[2017-02-05] MEDS: PREGABALIN 75 MG CAP PO SCH ×3 (08:56→19:57)
[2017-02-05] MEDS: HYDROcodone/APAP 5-325MG 1 EACH TAB PO PRN ×2 (08:57→14:57)
[2017-02-05] MEDS: metroNIDAZOLE-NS PMX 500 MG in SALINE 1 100ML.BAG IVPB SCH (11:12)
[2017-02-05 12:26] LABS: Glucose,Whole Blood 149 mg/dL (75-99)
[2017-02-05] MEDS: METHADONE 5 MG TAB PO SCH (12:44)
[2017-02-05 13:57] LABS: Hemoglobin A1C 5.9 % (4.2-6.1)
[2017-02-05] MEDS: FUROSEMIDE 10 MG/ML 4 ML VIAL IV SCH (14:56)
[2017-02-05 15:47] LABS: Appearance,Urine Clear (Clear); Bilirubin,Urine Negative (Negative); Glucose,Urine (UA) Negative (Negative); Ketones,Urine Negative (Negative); Leukocyte Esterase,Urine Negative (Negative); Nitrite,Urine Negative (Negative); PH, Urine 6.5 (5.0-8.0); Protein,Urine Negative (Negative); Specific Gravity,Urine 1.005 (1.001-1.035); UA Billing (MACRO vs. MICRO) CHEM; Urobilinogen,Urine <2.0 mg/dL (<2.0)
[2017-02-05] MEDS: methylPREDNISolone SOD SUCCI 40 MG/ML 1 ML VIAL IV SCH ×2 (15:57→23:41)
--- NOTE | 2017-02-05 17:25 | PN ---
PROGRESS NOTE DATE OF SERVICE: 02/05/2017 I am covering for Dr. Santoyo. This 61-year-old woman was admitted with community-acquired pneumonia as well as sepsis is being closely monitored. Patient also had COPD acute exacerbation. Patient also confused. Patient is on IV steroids. Pulmonary is following the patient closely. PAST MEDICAL HISTORY: Reviewed. REVIEW OF SYSTEMS: CARDIOVASCULAR: No angina. RESPIRATION: As mentioned earlier. GI: As mentioned earlier. : No dysuria. NERVOUS SYSTEM: No numbness or weakness. CURRENT MEDICATIONS: Reviewed and include: 1. Tylenol 650 q.6 hours. 2. Franklin 5 mg q.6 p.r.n. 3. Pulmicort. 4. Valium. 5. Lasix. 6. Atrovent. 7. Synthroid. 8. Meropenem. 9. Methadone. 10.Solu-Medrol. 11.Habitrol. 12.Lyrica. 13.Ambien. PHYSICAL EXAM: Patient is alert, oriented x2. Pulse is 99, blood pressure 123/72, respiration 18, temperature 97.4, pulse ox 97% on 3 L. HEENT: Conjunctivae normal. NECK: No jugular venous distention. CARDIOVASCULAR: S1, S2. RESPIRATORY: Breath sounds diminished in the bases. A few scattered rhonchi and crackles. Expiratory wheezing also. ABDOMEN: Soft, nontender. No mass palpable. LEGS: No edema, no swelling. NERVOUS SYSTEM: Higher functions as mentioned earlier. Moves all four limbs. No focal deficits. LYMPHATIC: No lymphadenopathy in the neck, axillae, rhonchi. SKIN: No rash. LABS: WBC 20.7, hemoglobin 12.1. Accu-Cheks noted. Other labs are noted. ASSESSMENT: 1. Chronic obstructive pulmonary disease acute exacerbation with acute community- acquired pneumonia with sepsis present on admission. 2. Rule out congestive heart failure. 3. Change in mental status, acute delirium. 4. Hepatitis. 5. History of degenerative joint disease and back pain. 6. Chronic pain syndrome. RECOMMENDATION AND DISCUSSION: Recommend to continue the current medications and symptomatic treatment. Otherwise, will cut down the dose of steroids further. I would also recommend Lasix 40. Patient is on broad-spectrum IV antibiotics. Monitor blood sugars closely. DVT prophylaxis. Continue to monitor. See orders for further details. MMODL / IJN: [id number] /
[2017-02-05 17:30] LABS: Glucose,Whole Blood 236 mg/dL (75-99)
[2017-02-05] MEDS: HALOPERIDOL LACTATE 5 MG/ML 1 ML VIAL IM PRN (19:44)
[2017-02-05] MEDS: HEPARIN SODIUM,PORCINE 5,000 UNIT/ML 1 ML VIAL SQ SCH (19:49)
[2017-02-05 19:56] LABS: Glucose,Whole Blood 155 mg/dL (75-99)
[2017-02-05] MEDS: risperiDONE 0.25 MG TAB PO SCH (19:57)
[2017-02-05] MEDS: MONTELUKAST 10 MG TAB PO SCH (19:57)
[2017-02-05] MEDS ORDERED: ZIPRASIDONE 20 MG VIAL IM PRN (23:21)
[2017-02-05] MEDS ORDERED: LORazepam 2 MG/ML INJ IV PRN (23:23)
[2017-02-06] MEDS ORDERED: ZIPRASIDONE 20 MG VIAL IM PRN (00:01)
[2017-02-06] MEDS: HALOPERIDOL LACTATE 5 MG/ML 1 ML VIAL IM PRN (01:55)
[2017-02-06] MEDS: MEROPENEM 1 GM in SODIUM CHLORIDE 0.9% 100 ML IVPB SCH ×2 (04:48→15:49)
[2017-02-06] MEDS: LEVOTHYROXINE 88 MCG TAB PO SCH (05:51)
[2017-02-06] MEDS: HYDROcodone/APAP 5-325MG 1 EACH TAB PO PRN ×3 (05:51→21:08)
[2017-02-06 07:22] LABS: Basophils % (A) 0 %; CH 31.6; CHCM 31.5; Eosinophils % (A) 0 %; HCT 35.9 % (34.0-46.0); HGB 11.3 gm/dL (11.4-16.0); Luc # (Auto) 0.25; Luc % (Auto) 2; Lymphocytes # (A) 1.4 k/uL (1.0-4.8); Lymphocytes % (A) 8 %; MCH 31.8 pg (25.0-35.0); MCHC 31.5 g/dL (31.0-37.0); MCV 100.8 fL (80.0-100.0); Macrocytosis Slight; Monocytes # (A) 0.8 k/uL (0-1.0); Monocytes % (A) 5 %; Neutrophils # (A) 14.6 k/uL (1.3-7.7); Neutrophils % (A) 85 %; RBC 3.57 m/uL (3.80-5.40); RDW 13.6 % (11.5-15.5); WBC 17.1 k/uL (3.8-10.6); WBC (Perox) 17.89
[2017-02-06 07:31] LABS: Anion Gap 7 mmol/L; Blood Urea Nitrogen 20 mg/dL (7-17); Calcium 8.6 mg/dL (8.4-10.2); Carbon Dioxide 32 mmol/L (22-30); Chloride 102 mmol/L (98-107); Creatine Kinase 99 U/L (30-135); Glucose 133 mg/dL (74-99); Non-African American GFR(MDRD) >60 (>60 ml/min/1.73 sqM); Potassium 4.1 mmol/L (3.5-5.1); Sodium 141 mmol/L (137-145)
[2017-02-06 07:37] LABS: Glucose,Whole Blood 151 mg/dL (75-99)
[2017-02-06] MEDS: IPRATROPIUM 0.5 MG/2.5 ML NEBU INHALATION SCH ×4 (07:49→19:30)
[2017-02-06] MEDS: LEVALBUTEROL NEB (CONC) 1.25 MG/0.5 ML AMP INHALATION SCH ×4 (07:49→19:30)
[2017-02-06] MEDS: BUDESONIDE 1 MG/2 ML NEBU INHALATION SCH ×2 (07:49→19:30)
[2017-02-06] MEDS: INSULIN LISPRO (humaLOG) 300 UNIT/3 ML VIAL SQ SCH ×4 (08:27→21:13)
--- NOTE | 2017-02-06 08:48 | XR ---
EXAMINATION TYPE: XR chest 2V DATE OF EXAM: 02/06/2017 HISTORY: pneumonia. REFERENCE: Previous study dated 02/03/2017. FINDINGS: Lung volumes are prominent. The heart is mildly enlarged. There is vascular congestion and pulmonary edema. There is a worsening right-sided effusion. IMPRESSION: 1. COPD. 2. WORSENING CHANGES OF CONGESTIVE HEART FAILURE WITH AN ENLARGING RIGHT-SIDED EFFUSION.
[2017-02-06] MEDS: NYSTATIN 100,000 UNIT/ML SUSP 500,000 UNIT/5 ML CUP PO SCH ×4 (08:56→21:13)
[2017-02-06] MEDS: METHADONE 10 MG TAB PO SCH ×2 (08:56→21:20)
[2017-02-06] MEDS: PANTOPRAZOLE 40 MG/10 ML VIAL IVP SCH (08:56)
[2017-02-06] MEDS: PREGABALIN 75 MG CAP PO SCH ×3 (08:56→21:20)
[2017-02-06] MEDS: HEPARIN SODIUM,PORCINE 5,000 UNIT/ML 1 ML VIAL SQ SCH ×2 (08:56→21:13)
[2017-02-06] MEDS: FUROSEMIDE 10 MG/ML 4 ML VIAL IV SCH (08:56)
[2017-02-06] MEDS: NICOTINE 14MG/24HR PATCH TRANSDERM SCH (08:56)
[2017-02-06] MEDS: DIAZEPAM 5 MG TAB PO PRN ×2 (08:57→17:46)
[2017-02-06] MEDS: methylPREDNISolone SOD SUCCI 40 MG/ML 1 ML VIAL IV SCH (09:01)
--- NOTE | 2017-02-06 10:20 | P.PN ---
Subjective Progress Note Date: 02/06/17 Principal diagnosis: Pneumonia Progress note dated 02/06/2017 61-year-old female admitted with a diagnosis of pneumonia. The patient was initially in the intensive care unit and transferred out to the floor. When in his room she sitting at the bed with oxygen on. She tells me she is going home. Feels much better. Denies any difficulty breathing more than usual. No fever no chills. No chest pain. Chest x-ray shows some changes of congestive heart failure. She probably would benefit from a dose of Lasix before discharge. I'm covering for the other pulmonary group. She is feeling better though she tells me. Objective - Vital Signs Vital signs: Vital Signs Temp 98.1 F 02/06/17 07:00 Pulse 104 H 02/06/17 08:07 Resp 18 02/06/17 07:00 BP 108/69 02/06/17 07:00 Pulse Ox 93 L 02/06/17 07:00 Intake & Output 02/05/17 02/06/17 02/06/17 18:59 06:59 18:59 Intake Total 200 240 Output Total 1100 1250 Balance -900 240 -1250 Weight 84 kg Intake: Oral 200 240 Output: Urine 1000 1250 Post Void Residual 100 Other: Voiding Method Bedside Commode Toilet # Voids 4 2 # Bowel Movements 0 - Exam No acute distress, oriented 3. Nasal O2 in place. HEENT examination is grossly unremarkable. Mucous membranes are moist. Neck supple. Full range of motion. No adenopathy or thyromegaly. Cardiovascular examination reveals regular rhythm rate. Heart rate mid 80s. S1 -S2 normal. Lungs reveal few scattered rhonchi. Few crackles. No wheezes. Breath sounds are equal. Some diminished breath sounds at the bases. Abdomen soft bowel sounds are heard. Extremities are intact. No cyanosis or clubbing. No edema. Skin without rash. Neurologic examination is nonfocal. - Labs CBC & Chem 7: 02/06/17 06:45 02/06/17 06:45 Labs: Abnormal Lab Results - Last 24 Hours (Table) 02/05/17 02/05/17 02/05/17 Range/Units 11:56 17:07 19:51 WBC (3.8-10.6) k/uL RBC (3.80-5.40) m/uL Hgb (11.4-16.0) gm/dL MCV (80.0-100.0) fL Neutrophils # (1.3-7.7) k/uL Carbon Dioxide (22-30) mmol/L BUN (7-17) mg/dL Glucose (74-99) mg/dL POC Glucose (mg/dL) 149 H 236 H 155 H (75-99) mg/dL 02/06/17 02/06/17 02/06/17 Range/Units 06:45 06:45 07:03 WBC 17.1 H (3.8-10.6) k/uL RBC 3.57 L (3.80-5.40) m/uL Hgb 11.3 L (11.4-16.0) gm/dL MCV 100.8 H (80.0-100.0) fL Neutrophils # 14.6 H (1.3-7.7) k/uL Carbon Dioxide 32 H (22-30) mmol/L BUN 20 H (7-17) mg/dL Glucose 133 H (74-99) mg/dL POC Glucose (mg/dL) 151 H (75-99) mg/dL Microbiology - Last 24 Hours (Table) 02/05/17 15:00 Urine Culture - Preliminary Urine,Clean Catch Assessment and Plan (1) CHF (congestive heart failure) Status: Acute (2) Hepatitis C Status: Acute (3) Fibromyalgia Status: Acute (4) Chronic pain syndrome Status: Acute (5) Community acquired pneumonia Status: Acute (6) Severe sepsis Status: Acute Plan: Plan dated 02/06/2017 The patient informs me that she is being discharged home. She sitting at the site of the bed without getting ready to leave. I am and have her get a dose of Lasix before she leaves. Chest x-rays reviewed. Shows a pattern of fluid overload. She is not in any respiratory distress at this time though. Time with Patient: Less than 30
[2017-02-06] MEDS ORDERED: FUROSEMIDE 10 MG/ML 4 ML VIAL IV STA (10:21)
[2017-02-06 12:25] LABS: Glucose,Whole Blood 134 mg/dL (75-99)
[2017-02-06] MEDS: MULTIVITAMINS, THERA 1 EACH TAB PO SCH (13:37)
[2017-02-06] MEDS: METHADONE 5 MG TAB PO SCH (13:38)
[2017-02-06] MEDS ORDERED: risperiDONE ODT 1 MG TAB PO PRN (13:56)
--- NOTE | 2017-02-06 14:06 | P.CN ---
Psychiatric Consult - . Consult:: 02/06/17 13:57 Identifying data: This patient is a 61-year-old female admitted to the hospital with community acquired pneumonia with sepsis. We are asked to consult regarding psychosis symptoms. History of present illness: The patient was admitted for symptoms of sepsis in the context of having community-acquired pneumonia, an acute exacerbation of COPD. She apparently has a history of congestive heart failure and has a right- sided effusion. Other medical history includes hepatitis C and fibromyalgia. She was placed on IV steroids and this may have provoked symptoms of psychosis. The patient is found in bed awake. She reports her mood is "fine". She endorses no feelings of depression and reports no tearfulness or crying spells. She verbalizes her frustration that she is in the hospital and she would like to be discharged. She is able to state that she has a pneumonia. She endorses a chronic history of anxiety symptoms for which her primary care physician gives her Valium. She has no reports of previous hypomanic or manic episodes or symptoms of psychosis. Today she denies having any auditory or visual hallucinations or any specific delusions as we reviewed several types. I did speak with her current nurse who states today the patient has not demonstrated any symptoms of psychosis. Previously however they have presented in the evening. Past psychiatric history no known history of inpatient psychiatric admissions or suicide attempts. She was treated years ago with Prozac but this was quickly discontinued due to side effect. She cannot describe in detail how long she was on Cymbalta but this is listed as an ALLERGY She currently is on Risperdal 0.25 mg at bedtime and has Haldol and Geodon ordered as when necessary medications. She is prescribed Valium 5 mg 3 times daily as needed as well as Ativan as needed. Past medical history: As above, community-acquired pneumonia with sepsis, COPD, CHF, hepatitis C, fibromyalgia ALLERGIES: Albuterol, Cipro, Cymbalta, fluticasone, metaproterenol, salmeterol The patient reports no use of alcohol and marijuana or any other illicit drugs. She states she's never been placed in residential treatment for chemical dependency reasons. She is currently prescribed methadone receiving 3 doses a day for pain totaling 25 mg. Social history: The patient is 61 years old she states she is and has 4 children 2 sons and 2 daughters. She typically lives with her but is currently living with her mother as they are looking for housing. The patient is not employed. 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 Mental status exam: The patient is an alert female lying in bed. She has a disheveled appearance. She has some bruising under her left eye. Speech is fluent and spontaneous. She can be overly inclusive with speech and at times is mildly disinhibited. She reports no suicidal or homicidal ideation intent or plan. She is reporting no auditory or visual hallucinations she is endorsing no specific delusions. There is no observable evidence of psychosis during our session. Thought process can be circumstantial and possibly tangential at times she demonstrates no loose associations or flight of ideas. Insight and judgment are limited. She is aware that she has a need for treatment and has been cooperating however she would like be discharged today despite the need for treatment to continue. Impressions 1. Delirium rule out steroid-induced psychosis 2. Multiple medical comorbidities Plan: The patient may continue on Risperdal 0.25 mg at bedtime for now. Because she is on the methadone we should be cautious in terms of QTC prolongation. I will discontinue the injectable Haldol and Geodon. I will order Risperdal M tab 1 mg up to twice daily as needed. This was discussed with nursing. Ideally, if needed, the Risperdal M tab would be given prior to the patient having an acute episode. We would like to avoid any QT prolongation risk by using injectable Haldol or Geodon if possible. We may consider using additional benzodiazepine if needed. The patient will not require inpatient psychiatric hospitalization.
[2017-02-06 17:03] LABS: Glucose,Whole Blood 126 mg/dL (75-99)
--- NOTE | 2017-02-06 19:41 | PN ---
PROGRESS NOTE DATE OF SERVICE: 02/06/2017. I am covering for Dr. Santoyo. INTERVAL HISTORY: This 61-year-old woman was admitted with COPD exacerbation also had change in mental status and confusion also. No fever. Occasional cough. PHYSICAL EXAM: Alert and oriented times three. Pulse 80, blood pressure 120/70. Respiratory rate 20, temperature 98.1, pulse ox 92% on 4 L. HEENT: Conjunctivae normal. Oral mucosa moist. Neck is no jugular venous distention. No carotid bruit. No lymph node enlargement. Cardiovascular system: S1, S2 muffled. Respiration: Breath sounds diminished in the bases. Bilateral scattered rhonchi and crackles. ABDOMEN: Soft, nontender. Legs are no edema. No swelling. Central nervous system: No focal deficits. LABS: WBC 7.2, hemoglobin 11.8, glucose 133. ASSESSMENT: 1. Chronic obstructive pulmonary disease acute exacerbation with acute community acquired pneumonia with sepsis present on admission. 2. Rule out congestive heart failure. 3. Change in mental status, acute delirium. 4. Hepatitis. 5. History of degenerative joint disease and back pain. 6. Chronic pain syndrome. RECOMMENDATION AND DISCUSSION: Recommend to continue current medications. Continue with monitoring and symptomatic treatment. Otherwise at this time, The most recent 2D echo showed ejection fraction 50-55%. Mild mitral regurgitation. Also moderate pulmonary hypertension. We will continue to monitor. We will stop the steroids and continue to monitor. Further recommendations to follow. Dr. Santoyo will follow. MMODL / IJN: [id number] /
[2017-02-06 21:00] LABS: Glucose,Whole Blood 120 mg/dL (75-99)
[2017-02-06] MEDS: MONTELUKAST 10 MG TAB PO SCH (21:12)
[2017-02-06] MEDS: risperiDONE 0.25 MG TAB PO SCH (21:12)
[2017-02-07] MEDS: MEROPENEM 1 GM in SODIUM CHLORIDE 0.9% 100 ML IVPB SCH ×2 (04:05→18:23)
[2017-02-07] MEDS: HYDROcodone/APAP 5-325MG 1 EACH TAB PO PRN ×3 (05:42→18:23)
[2017-02-07] MEDS: LEVOTHYROXINE 88 MCG TAB PO SCH (05:43)
[2017-02-07] MEDS: DIAZEPAM 5 MG TAB PO PRN ×2 (06:26→18:23)
[2017-02-07 07:28] LABS: Glucose,Whole Blood 86 mg/dL (75-99)
[2017-02-07] MEDS: INSULIN LISPRO (humaLOG) 300 UNIT/3 ML VIAL SQ SCH ×4 (07:32→21:27)
--- NOTE | 2017-02-07 07:57 | P.DS ---
Providers Date of admission: 02/01/17 01:10 Attending physician: Nilton Santoyo Consults: 02/01/17 06:54 Consult Physician Routine Consulting Provider: Tyler Mulligan Consult Reason/Comments: ICU admission Do you want consulting provider notified?: Yes 02/05/17 23:26 Consult Physician Routine Consulting Provider: Kishore Biswas Consult Reason/Comments: Psychoses Do you want consulting provider notified?: Yes, Notify in am Primary care physician: Nilton Santoyo - Discharge Diagnosis(es) (1) Community acquired pneumonia Current Visit: Yes Status: Acute (2) Severe sepsis Current Visit: Yes Status: Acute Hospital Course: This is a 61-year-old white female essentially admitted for right pneumonia and sepsis. She did quite well after being in selective care overflow, in the ICU. She was stabilized and breathing quite well. However, she had psychotic type symptoms. Question element of treatment with methadone and her overall mental state/treatment. The patient seems to be stabilizing. Appreciate psychiatry and pulmonology input otherwise. She'll discharged in stable condition with or without oxygen depending on her discharge pulse oximetry. She is to follow-up with me in approximately 3-4 days. Patient Condition at Discharge: Serious Plan - Discharge Summary New Discharge Prescriptions: New Albuterol Nebulized (Conc) [Ventolin Nebulized (Conc)] 2.5 mg INHALATION Q6H #120 unit Amoxicillin/Potassium Clav [Augmentin 875-125 Tablet] 1 tab PO Q12HR #14 tab Ipratropium Nebulized [Atrovent Nebulized] 0.5 mg INHALATION QID #120 neb Multivitamins, Thera [Multivitamin (formulary)] 1 each PO DAILY@1200 tab Nicotine 14Mg/24Hr Patch [Habitrol] 1 patch TRANSDERM DAILY #30 patch Nystatin 100,000 Unit/ml Susp [Mycostatin Oral Susp] 500,000 unit PO QID # 140 ml predniSONE 0 mg PO DIRECTED #18 tab risperiDONE [RisperDAL] 0.25 mg PO HS #30 tab risperiDONE ODT [RisperDAL M-TAB] 1 mg PO BID PRN #60 tab PRN Reason: Agitation Or Acute Psychosis Continue Amitriptyline HCl [Elavil] 25 mg PO TID Zaleplon [Sonata] 10 mg PO HS Diazepam [Valium] 10 mg PO TID PRN PRN Reason: Pain Hydrocodone/Acetaminophen [Marathon 10-325] 1 tab PO Q6H PRN PRN Reason: Pain Levothyroxine Sodium [Synthroid] 88 mcg PO DAILY Methadone [Dolophine] 10 mg PO HS Methadone [Dolophine] 10 mg PO AC-BRKFST Methadone [Dolophine] 5 mg PO AC-LUNCH Pregabalin [Lyrica] 150 mg PO TID Montelukast [Singulair] 10 mg PO HS Phenazopyridine HCl 95 mg PO TID PRN PRN Reason: Pain Cranberry Fruit Concentrate [Azo Cranberry] 250 mg PO DAILY Discharge Medication List Amitriptyline HCl [Elavil] 25 mg PO TID 03/25/14 [History] Diazepam [Valium] 10 mg PO TID PRN 03/25/14 [History] Hydrocodone/Acetaminophen [Marathon 10-325] 1 tab PO Q6H PRN 03/25/14 [History] Levothyroxine Sodium [Synthroid] 88 mcg PO DAILY 03/25/14 [History] Zaleplon [Sonata] 10 mg PO HS 03/25/14 [History] Cranberry Fruit Concentrate [Azo Cranberry] 250 mg PO DAILY 01/31/17 [History] Methadone [Dolophine] 5 mg PO AC-LUNCH 01/31/17 [History] Methadone [Dolophine] 10 mg PO AC-BRKFST 01/31/17 [History] Methadone [Dolophine] 10 mg PO HS 01/31/17 [History] Montelukast [Singulair] 10 mg PO HS 01/31/17 [History] Phenazopyridine HCl 95 mg PO TID PRN 01/31/17 [History] Pregabalin [Lyrica] 150 mg PO TID 01/31/17 [History] Albuterol Nebulized (Conc) [Ventolin Nebulized (Conc)] 2.5 mg INHALATION Q6H # 120 unit 02/07/17 [Rx] Amoxicillin/Potassium Clav [Augmentin 875-125 Tablet] 1 tab PO Q12HR #14 tab 01/16 [Rx] Ipratropium Nebulized [Atrovent Nebulized] 0.5 mg INHALATION QID #120 neb [Rx] Multivitamins, Thera [Multivitamin (formulary)] 1 each PO DAILY@1200 tab [Rx] Nicotine 14Mg/24Hr Patch [Habitrol] 1 patch TRANSDERM DAILY #30 patch 02/07/17 [ Rx] Nystatin 100,000 Unit/ml Susp [Mycostatin Oral Susp] 500,000 unit PO QID #140 ml 02/07/17 [Rx] predniSONE 0 mg PO DIRECTED #18 tab 02/07/17 [Rx] risperiDONE ODT [RisperDAL M-TAB] 1 mg PO BID PRN #60 tab 02/07/17 [Rx] risperiDONE [RisperDAL] 0.25 mg PO HS #30 tab 02/07/17 [Rx] Follow up Appointment(s)/Referral(s): Nilton Santoyo MD [Primary Care Provider] - 1-2 days Tyler Mulligan MD [STAFF PHYSICIAN] - 1 Week Patient Instructions/Handouts: How to Stop Smoking (DC), Pneumonia (DC) Activity/Diet/Wound Care/Special Instructions: Regular diet. NO smoking, cessation information given.
[2017-02-07] MEDS: METHADONE 10 MG TAB PO SCH ×2 (08:01→21:32)
[2017-02-07] MEDS: FUROSEMIDE 10 MG/ML 4 ML VIAL IV SCH (08:02)
[2017-02-07] MEDS: NICOTINE 14MG/24HR PATCH TRANSDERM SCH (08:02)
[2017-02-07] MEDS: HEPARIN SODIUM,PORCINE 5,000 UNIT/ML 1 ML VIAL SQ SCH ×2 (08:02→21:27)
[2017-02-07] MEDS: PANTOPRAZOLE 40 MG/10 ML VIAL IVP SCH (08:02)
[2017-02-07] MEDS: NYSTATIN 100,000 UNIT/ML SUSP 500,000 UNIT/5 ML CUP PO SCH ×4 (08:02→21:33)
[2017-02-07] MEDS: PREGABALIN 75 MG CAP PO SCH ×3 (08:03→21:32)
[2017-02-07] MEDS: IPRATROPIUM 0.5 MG/2.5 ML NEBU INHALATION SCH ×4 (08:05→19:14)
[2017-02-07] MEDS: LEVALBUTEROL NEB (CONC) 1.25 MG/0.5 ML AMP INHALATION SCH ×4 (08:05→19:14)
[2017-02-07] MEDS: BUDESONIDE 1 MG/2 ML NEBU INHALATION SCH ×2 (08:05→19:14)
[2017-02-07 09:11] LABS: Basophils # (A) 0.1 k/uL (0-0.2); Basophils % (A) 0 %; CH 31.6; CHCM 31.6; Eosinophils # (A) 0.1 k/uL (0-0.7); Eosinophils % (A) 1 %; HCT 40.7 % (34.0-46.0); HGB 13.1 gm/dL (11.4-16.0); Luc % (Auto) 1; Lymphocytes # (A) 2.8 k/uL (1.0-4.8); Lymphocytes % (A) 15 %; MCH 32.3 pg (25.0-35.0); MCHC 32.1 g/dL (31.0-37.0); MCV 100.7 fL (80.0-100.0); Macrocytosis Slight; Mean Platelet Volume 8.6; Monocytes % (A) 5 %; Neutrophils # (A) 14.1 k/uL (1.3-7.7); Neutrophils % (A) 77 %; RBC 4.04 m/uL (3.80-5.40); RDW 13.9 % (11.5-15.5); WBC 18.3 k/uL (3.8-10.6); WBC (Perox) 19.12
[2017-02-07 09:25] LABS: Anion Gap 8 mmol/L; Blood Urea Nitrogen 22 mg/dL (7-17); Calcium 9.2 mg/dL (8.4-10.2); Carbon Dioxide 36 mmol/L (22-30); Chloride 98 mmol/L (98-107); Glucose 85 mg/dL (74-99); Non-African American GFR(MDRD) >60 (>60 ml/min/1.73 sqM); Sodium 142 mmol/L (137-145)
[2017-02-07 10:39] VITALS: BMI 25.5
--- NOTE | 2017-02-07 11:21 | P.PN ---
Subjective Progress Note Date: 02/07/17 02/06/17- patient is being seen examined and evaluated during rounds on medical surgical unit. Patient is being set up for possible discharge today. The patient will require 3 L of supplemental oxygen at home at all times. Upon examination the patient's resting up in bed on 3 L of supplemental oxygen. She states she is feeling significantly better. She does have some shortness of breath with exertion however this as improved. Her cough has decreased as well. She is afebrile, no further complaints. All labs and reports have been reviewed. 02/05/17-02/06/17- please see Dr. Haskins's notes for weekend coverage, in our absence. 02/04/17- patient has been seen examined and evaluated today during rounds on medical surgical unit. Patient was downgraded from the intensive care unit yesterday. Upon examination the patient still continues to have some significant shortness of breath with exertion and/or extensive conversation. She has both improved. No hemoptysis. Currently she is on 4 L of supplemental oxygen via nasal cannula. We're increasing her ambulation. Labs and reports been reviewed. Afebrile no further complaints. 02/03/2017, patient seen eval reexamined during the rounds in ICU she is awake and alert is still of shortness of breath how cuff congestion and severe due to difficulty in breathing has improved no hemoptysis present sputum is still just to keep headache FiO2 is down to 4 L saturation is mid 90s the final ID on the blood culture came back positive for E. coli which is sensitive to multiple agents much chest x-ray and laboratory data from today reviewed 02/02/17-patient is being seen examined and evaluated today in the intensive care unit. Patient is currently resting up in bed on 4-5 L of supplemental oxygen. She continues to have shortness of breath with exertion and activity. Continues to also have a congested cough. Patient states overall she feels slightly better today. However weakness continues. Patient did undergo an echocardiogram yesterday which did show an ejection fraction of 50-55% with mild tricuspid regurgitation, moderate pulmonary hypertension and mild mitral regurgitation. Patient was noted to have some transient hypotensive episodes last evening. She did receive another 500 mL bolus and responded well. Today her labs and reports that all been reviewed it is noted that her white count has come down to 9.4, hemoglobin is 10.5. She has been making adequate urine. Chest x-ray from this morning was reviewed and does show worsening right basilar consolidation most compatible with pneumonia superimposed upon a background of interstitial lung disease. 02/01/17- This is a 61-year-old female patient being seen examined and evaluated today in the intensive care unit. The patient came into the emergency room yesterday evening with a T-max of 105.4, on arrival also complained of some generalized weakness, and nausea and vomiting with dark colored coffee ground emesis. Patient states her symptoms have been progressively getting worse over the last for 5 days. Patient does have a long-standing history of fibromyalgia and opiate dependence on methadone. Urine drug screen was positive for opiates , methadone, tricyclic antidepressants, and benzodiazepine. Gastric emesis was positive for occult blood. Patient denies any use of alcohol and/or anticoagulants. Patient labs in the ER, a hemoglobin of 14.4 WBC 22.2 lactic acid of 3.4. She did receive a total of 4 L of IV fluids for fluid resuscitation. And she was started on antibiotics as well. Cardiology was also put on consult. Patient did have a troponin of 0.037, heart rhythm which was accelerated junctional, she will be going for an echo today as well. Apparently overnight the patient was borderline hypotensive and somewhat lethargic and she did receive a 1 time dose of Narcan. Repeat lactic acid this morning was 0.9. Upon examination the patient is resting up in bed on 6 L of supplemental oxygen via nasal cannula. She is short of breath with exertion and /or extensive conversations. She does have a congested cough with white sputum. She has difficulty clearing secretions. She denies any nausea vomiting at this time. Chest x-ray was reviewed and does show mild pulmonary fibrotic changes, there is a new right lower lobe pneumonia. The patient does not utilize home oxygen. All labs and reports have been reviewed. Objective - Vital Signs Vital signs: Vital Signs Temp 98.0 F 02/07/17 07:00 Pulse 88 02/07/17 09:02 Resp 20 02/07/17 07:55 BP 98/56 02/07/17 07:00 Pulse Ox 92 L 02/07/17 09:02 Intake & Output 02/06/17 02/07/17 02/07/17 18:59 06:59 18:59 Intake Total 590 Output Total 5000 625 Balance -4410 -625 Weight 84 kg 67.5 kg 67.5 kg Intake: Oral 590 Output: Urine 5000 625 Other: Voiding Method Toilet # Voids 1 1 - Exam GENERAL EXAM: Alert, active, comfortable in no apparent distress. HEAD: Normocephalic. EYES: Normal reaction of pupils, equal size. NOSE: Clear with pink turbinates. THROAT: No erythema or exudates. NECK: No masses, no JVD. CHEST: No chest wall deformity. LUNGS: Lung sounds noted to be improved with some scattered rhonchi. Basis diminished. CVS: S1 and S2 normal with no audible mumurs, regular rhythm. ABDOMEN: No hepatosplenomegaly, normal bowel sounds, no guarding or rigidity. EXTREMITIES: No edema noted, pedal pulses palpable. SKIN: No rashes CENTRAL NERVOUS SYSTEM: No focal deficits, tone is normal in all 4 extremities. - Labs CBC & Chem 7: 02/07/17 08:16 02/07/17 08:16 Labs: Abnormal Lab Results - Last 24 Hours (Table) 02/06/17 02/06/17 02/06/17 Range/Units 12:09 16:50 20:53 WBC (3.8-10.6) k/uL MCV (80.0-100.0) fL Neutrophils # (1.3-7.7) k/uL Carbon Dioxide (22-30) mmol/L BUN (7-17) mg/dL POC Glucose (mg/dL) 134 H 126 H 120 H (75-99) mg/dL 02/07/17 02/07/17 Range/Units 08:16 08:16 WBC 18.3 H (3.8-10.6) k/uL MCV 100.7 H (80.0-100.0) fL Neutrophils # 14.1 H (1.3-7.7) k/uL Carbon Dioxide 36 H (22-30) mmol/L BUN 22 H (7-17) mg/dL POC Glucose (mg/dL) (75-99) mg/dL Microbiology - Last 24 Hours (Table) 02/05/17 15:00 Urine Culture - Final Urine,Clean Catch 02/05/17 14:39 Blood Culture - Preliminary Blood No Growth after 24 hours Assessment and Plan Plan: Assessment Bacteremia related to E. coli source may be aspiration pneumonia however his stool and repeat cultures are negative so far will follow Sepsis with pneumonia and possible mixed bacterial however cannot exclude aspiration from vomiting Acute hypoxic respiratory failure requiring supplemental oxygen via nasal cannula Hypotension related to sepsis Acute exacerbation of COPD Fibromyalgia, methadone dependent Nicotine dependence History of hepatitis C Plan Patient is cleared to be discharged from a pulmonary standpoint. The patient will require 3 L of supplemental oxygen at home, at all times. A prescription has been provided. Medications have been reviewed and will be continued as ordered. We will follow-up with this patient in the outpatient setting as well. Increase ambulation and activity as tolerated. Initiate and encourage incentive spirometer. Continue nebulizer treatments. Blood cultures have been positive for gram negatives bacilli, antibiotics were adjusted. Continue with pulmonary hygiene, coughing and deep breathing exercises, and supportive care. Supplemental oxygen to maintain oxygen saturations of 92% or better. GI and DVT prophylaxis. We will continue to monitor labs/results and adjust treatment as necessary. Further recommendations pending. I performed an examination of the patient and discussed their management with the nurse practitioner. I have reviewed the nurse practitioner's note and agree with the documented findings and plan of care.
[2017-02-07] MEDS: MULTIVITAMINS, THERA 1 EACH TAB PO SCH (12:22)
[2017-02-07] MEDS: METHADONE 5 MG TAB PO SCH (12:22)
[2017-02-07 12:43] LABS: Glucose,Whole Blood 119 mg/dL (75-99)
[2017-02-07 17:15] LABS: Glucose,Whole Blood 127 mg/dL (75-99)
[2017-02-07 20:56] LABS: Glucose,Whole Blood 103 mg/dL (75-99)
[2017-02-07] MEDS: risperiDONE 0.25 MG TAB PO SCH (21:33)
[2017-02-07] MEDS: MONTELUKAST 10 MG TAB PO SCH (21:33)
--- NOTE | 2017-02-07 22:53 | P.PN ---
Progress Note - Text Progress Note Date: 01/31/17 Vital Signs Temp 98.1 F 02/07/17 22:33 Pulse 78 02/07/17 22:33 Resp 14 02/07/17 22:33 BP 106/72 02/07/17 22:33 Pulse Ox 96 02/07/17 22:33 Interval History: Patient interviewed at bedside. Patient is on her phone with prior to interview noted to be conversing fluently and casually. She reports she feels much better today and is disappointed her daughter is making such a mess of her plan to discharge home today. Patient states that while she was quite ill when she came into the hospital and admits to being confused she feels fine now. Patient states that she wants her daughter to understand, but she fears her daughter is just too overbearing and worrisome. Discussed with patient that she has full capacity to make her own medical decisions and that if she did not, the decision would fall to her not her daughter. Discussed with patient that she is cleared from a psychiatry and patient was relieved. She hopes to discharge home tomorrow. At this time, patient denies SI/HI/AVH. Mental Status Exam: Appearance: alert, well groomed, appears stated age Behavior: no psychomotor agitation or psychomotor retardation, no abnormal movements, fair eye contact Attitude: cooperative Speech: normal rate, rhythm, fluency, articulation, volume, and prosody; primary language: Vietnamese Mood: mildly anxious Affect: congruent, reactive Thought processes: linear Thought content: patient does not appear to be responding to internal stimuli; patient denies auditory and visual hallucinations, no delusions appreciated Insight: fair Judgment: fair Cognitive: oriented to all 3 spheres, average intelligence Plan: Patient does not meet criteria for inpatient psychiatric admission Psychiatry will sign off, please re-consult for questions concerns
[2017-02-08] MEDS: DIAZEPAM 5 MG TAB PO PRN ×2 (01:56→12:02)
[2017-02-08] MEDS: MEROPENEM 1 GM in SODIUM CHLORIDE 0.9% 100 ML IVPB SCH (04:07)
[2017-02-08] MEDS: LEVOTHYROXINE 88 MCG TAB PO SCH (05:56)
[2017-02-08] MEDS: HYDROcodone/APAP 5-325MG 1 EACH TAB PO PRN ×2 (06:29→12:02)
[2017-02-08 07:24] LABS: Glucose,Whole Blood 123 mg/dL (75-99)
[2017-02-08 07:25] VITALS: BP 117/70; RESP 16; TEMP 99.4
[2017-02-08] MEDS ORDERED: PANTOPRAZOLE 40 MG TABLET PO SCH (07:30)
[2017-02-08] MEDS: LEVALBUTEROL NEB (CONC) 1.25 MG/0.5 ML AMP INHALATION SCH ×2 (07:51→11:36)
[2017-02-08] MEDS: BUDESONIDE 1 MG/2 ML NEBU INHALATION SCH (07:51)
[2017-02-08] MEDS: IPRATROPIUM 0.5 MG/2.5 ML NEBU INHALATION SCH ×2 (07:51→11:36)
[2017-02-08 07:56] VITALS: PULSE 84
[2017-02-08] MEDS: METHADONE 10 MG TAB PO SCH (07:59)
[2017-02-08] MEDS: PREGABALIN 75 MG CAP PO SCH (07:59)
[2017-02-08] MEDS: INSULIN LISPRO (humaLOG) 300 UNIT/3 ML VIAL SQ SCH (07:59)
[2017-02-08] MEDS: FUROSEMIDE 10 MG/ML 4 ML VIAL IV SCH (08:00)
[2017-02-08] MEDS: HEPARIN SODIUM,PORCINE 5,000 UNIT/ML 1 ML VIAL SQ SCH (08:00)
[2017-02-08] MEDS: NYSTATIN 100,000 UNIT/ML SUSP 500,000 UNIT/5 ML CUP PO SCH ×2 (08:02→12:01)
[2017-02-08] MEDS: NICOTINE 14MG/24HR PATCH TRANSDERM SCH (08:02)
[2017-02-08 08:38] LABS: Basophils % (A) 0 %; CH 32.6; CHCM 32.3; Eosinophils # (A) 0.1 k/uL (0-0.7); Eosinophils % (A) 1 %; HCT 41.2 % (34.0-46.0); HDW 2.24; HGB 12.8 gm/dL (11.4-16.0); Luc % (Auto) 2; Lymphocytes # (A) 1.7 k/uL (1.0-4.8); Lymphocytes % (A) 14 %; MCH 31.7 pg (25.0-35.0); MCHC 31.1 g/dL (31.0-37.0); MCV 101.8 fL (80.0-100.0); Macrocytosis Slight; Mean Platelet Volume 8.8; Monocytes # (A) 0.4 k/uL (0-1.0); Monocytes % (A) 4 %; Neutrophils # (A) 9.5 k/uL (1.3-7.7); Neutrophils % (A) 79 %; RBC 4.04 m/uL (3.80-5.40); RDW 15.6 % (11.5-15.5); WBC (Perox) 12.52
[2017-02-08 08:58] LABS: Anion Gap 10 mmol/L; Blood Urea Nitrogen 15 mg/dL (7-17); Calcium 8.9 mg/dL (8.4-10.2); Carbon Dioxide 33 mmol/L (22-30); Chloride 96 mmol/L (98-107); Glucose 167 mg/dL (74-99); Non-African American GFR(MDRD) >60 (>60 ml/min/1.73 sqM); Potassium 4.1 mmol/L (3.5-5.1); Sodium 139 mmol/L (137-145)
--- NOTE | 2017-02-08 11:35 | P.PN ---
Subjective Progress Note Date: 02/08/17 02/15/17- patient is being seen examined and evaluated during rounds with medical surgical unit. Patient was supposed to be discharged yesterday however discharge was held until the patient could be cleared by psych services per family's request. The patient has been cleared and does not qualify for inpatient psychiatric treatment at this time. Upon examination the patient's resting up in bed on 3 L of supplemental oxygen via nasal cannula. Her shortness of breath has improved. All labs and reports have been reviewed. Plan is for the patient to be discharged today. 02/07/17- patient is being seen examined and evaluated during rounds on medical surgical unit. Patient is being set up for possible discharge today. The patient will require 3 L of supplemental oxygen at home at all times. Upon examination the patient's resting up in bed on 3 L of supplemental oxygen. She states she is feeling significantly better. She does have some shortness of breath with exertion however this as improved. Her cough has decreased as well. She is afebrile, no further complaints. All labs and reports have been reviewed. 02/05/17-02/06/17- please see Dr. Haskins's notes for weekend coverage, in our absence. 02/04/17- patient has been seen examined and evaluated today during rounds on medical surgical unit. Patient was downgraded from the intensive care unit yesterday. Upon examination the patient still continues to have some significant shortness of breath with exertion and/or extensive conversation. She has both improved. No hemoptysis. Currently she is on 4 L of supplemental oxygen via nasal cannula. We're increasing her ambulation. Labs and reports been reviewed. Afebrile no further complaints. 02/03/2017, patient seen eval reexamined during the rounds in ICU she is awake and alert is still of shortness of breath how cuff congestion and severe due to difficulty in breathing has improved no hemoptysis present sputum is still just to keep headache FiO2 is down to 4 L saturation is mid 90s the final ID on the blood culture came back positive for E. coli which is sensitive to multiple agents much chest x-ray and laboratory data from today reviewed 02/02/17-patient is being seen examined and evaluated today in the intensive care unit. Patient is currently resting up in bed on 4-5 L of supplemental oxygen. She continues to have shortness of breath with exertion and activity. Continues to also have a congested cough. Patient states overall she feels slightly better today. However weakness continues. Patient did undergo an echocardiogram yesterday which did show an ejection fraction of 50-55% with mild tricuspid regurgitation, moderate pulmonary hypertension and mild mitral regurgitation. Patient was noted to have some transient hypotensive episodes last evening. She did receive another 500 mL bolus and responded well. Today her labs and reports that all been reviewed it is noted that her white count has come down to 9.4, hemoglobin is 10.5. She has been making adequate urine. Chest x-ray from this morning was reviewed and does show worsening right basilar consolidation most compatible with pneumonia superimposed upon a background of interstitial lung disease. 02/01/17- This is a 61-year-old female patient being seen examined and evaluated today in the intensive care unit. The patient came into the emergency room yesterday evening with a T-max of 105.4, on arrival also complained of some generalized weakness, and nausea and vomiting with dark colored coffee ground emesis. Patient states her symptoms have been progressively getting worse over the last for 5 days. Patient does have a long-standing history of fibromyalgia and opiate dependence on methadone. Urine drug screen was positive for opiates , methadone, tricyclic antidepressants, and benzodiazepine. Gastric emesis was positive for occult blood. Patient denies any use of alcohol and/or anticoagulants. Patient labs in the ER, a hemoglobin of 14.4 WBC 22.2 lactic acid of 3.4. She did receive a total of 4 L of IV fluids for fluid resuscitation. And she was started on antibiotics as well. Cardiology was also put on consult. Patient did have a troponin of 0.037, heart rhythm which was accelerated junctional, she will be going for an echo today as well. Apparently overnight the patient was borderline hypotensive and somewhat lethargic and she did receive a 1 time dose of Narcan. Repeat lactic acid this morning was 0.9. Upon examination the patient is resting up in bed on 6 L of supplemental oxygen via nasal cannula. She is short of breath with exertion and /or extensive conversations. She does have a congested cough with white sputum. She has difficulty clearing secretions. She denies any nausea vomiting at this time. Chest x-ray was reviewed and does show mild pulmonary fibrotic changes, there is a new right lower lobe pneumonia. The patient does not utilize home oxygen. All labs and reports have been reviewed. Objective - Vital Signs Vital signs: Vital Signs Temp 99.4 F 02/08/17 07:00 Pulse 84 02/08/17 07:55 Resp 16 02/08/17 07:00 BP 117/70 02/08/17 07:00 Pulse Ox 97 02/08/17 07:55 Intake & Output 02/07/17 02/08/17 02/08/17 18:59 06:59 18:59 Intake Total 440 100 200 Output Total 2700 Balance -2260 100 200 Weight 67.5 kg 74.5 kg Intake: IV 100 Meropenem 1 gm In Sodium 100 Chloride 0.9% 100 ml @ 200 mls/hr IVPB Q12H [facility] Rx#:[id number] Oral 440 200 Output: Urine 2700 Other: # Voids 1 # Bowel Movements 2 - Exam GENERAL EXAM: Alert, active, comfortable in no apparent distress. HEAD: Normocephalic. EYES: Normal reaction of pupils, equal size. NOSE: Clear with pink turbinates. THROAT: No erythema or exudates. NECK: No masses, no JVD. CHEST: No chest wall deformity. LUNGS: Lung sounds noted to be improved with some scattered rhonchi. Basis diminished. CVS: S1 and S2 normal with no audible mumurs, regular rhythm. ABDOMEN: No hepatosplenomegaly, normal bowel sounds, no guarding or rigidity. EXTREMITIES: No edema noted, pedal pulses palpable. SKIN: No rashes CENTRAL NERVOUS SYSTEM: No focal deficits, tone is normal in all 4 extremities. - Labs CBC & Chem 7: 02/08/17 07:50 02/08/17 07:50 Labs: Abnormal Lab Results - Last 24 Hours (Table) 02/07/17 02/07/17 02/07/17 Range/Units 12:17 17:12 20:49 WBC (3.8-10.6) k/uL MCV (80.0-100.0) fL RDW (11.5-15.5) % Neutrophils # (1.3-7.7) k/uL Chloride (98-107) mmol/L Carbon Dioxide (22-30) mmol/L Glucose (74-99) mg/dL POC Glucose (mg/dL) 119 H 127 H 103 H (75-99) mg/dL 02/08/17 02/08/17 02/08/17 Range/Units 07:12 07:50 07:50 WBC 12.0 H (3.8-10.6) k/uL MCV 101.8 H (80.0-100.0) fL RDW 15.6 H (11.5-15.5) % Neutrophils # 9.5 H (1.3-7.7) k/uL Chloride 96 L (98-107) mmol/L Carbon Dioxide 33 H (22-30) mmol/L Glucose 167 H (74-99) mg/dL POC Glucose (mg/dL) 123 H (75-99) mg/dL Microbiology - Last 24 Hours (Table) 02/05/17 14:39 Blood Culture - Preliminary Blood No Growth after 48 hours Assessment and Plan Plan: Assessment Bacteremia related to E. coli source may be aspiration pneumonia however his stool and repeat cultures are negative so far will follow Sepsis with pneumonia and possible mixed bacterial however cannot exclude aspiration from vomiting Acute hypoxic respiratory failure requiring supplemental oxygen via nasal cannula Hypotension related to sepsis Acute exacerbation of COPD Fibromyalgia, methadone dependent Nicotine dependence History of hepatitis C Plan Patient is cleared to be discharged from a pulmonary standpoint. The patient will require 3 L of supplemental oxygen at home, at all times. A prescription has been provided. Medications have been reviewed and will be continued as ordered. We will follow-up with this patient in the outpatient setting as well. Increase ambulation and activity as tolerated. Initiate and encourage incentive spirometer. Continue nebulizer treatments. Blood cultures have been positive for gram negatives bacilli, antibiotics were adjusted. Continue with pulmonary hygiene, coughing and deep breathing exercises, and supportive care. Supplemental oxygen to maintain oxygen saturations of 92% or better. GI and DVT prophylaxis. We will continue to monitor labs/results and adjust treatment as necessary. Further recommendations pending. I performed an examination of the patient and discussed their management with the nurse practitioner. I have reviewed the nurse practitioner's note and agree with the documented findings and plan of care.
[2017-02-08] MEDS: METHADONE 5 MG TAB PO SCH (12:05)
[2017-02-08] MEDS: MULTIVITAMINS, THERA 1 EACH TAB PO SCH (12:06)
== END 2017-02-08 12:25 | disposition home health service (06) | DRG 871 ==
LOC: EC 22:02 → 6ICU 02-01 01:10 → 4MS4W 02-03 16:15
PROVIDERS: ADMIT Family Medicine; ATTEND Family Medicine
DX: A41.51 Sepsis due to Escherichia coli [E. coli] (principal); J96.01 Acute respiratory failure with hypoxia; R65.21 Severe sepsis with septic shock; J15.9 Unspecified bacterial pneumonia; J84.9 Interstitial pulmonary disease, unspecified; N17.9 Acute kidney failure, unspecified; F11.20 Opioid dependence, uncomplicated; J44.0 Chronic obstructive pulmonary disease with (acute) lower respiratory infection; F17.203 Nicotine dependence unspecified, with withdrawal; J44.1 Chronic obstructive pulmonary disease with (acute) exacerbation; I27.20 Pulmonary hypertension, unspecified; I50.9 Heart failure, unspecified; I08.1 Rheumatic disorders of both mitral and tricuspid valves; B19.20 Unspecified viral hepatitis C without hepatic coma; G89.4 Chronic pain syndrome; M06.9 Rheumatoid arthritis, unspecified; M79.7 Fibromyalgia; E07.9 Disorder of thyroid, unspecified; F32.9 Major depressive disorder, single episode, unspecified; E66.9 Obesity, unspecified; Z68.25 Body mass index [BMI] 25.0-25.9, adult; R74.8 Abnormal levels of other serum enzymes; Z79.899 Other long term (current) drug therapy; Z88.1 Allergy status to other antibiotic agents; Z88.8 Allergy status to other drugs, medicaments and biological substances
CPT/HCPCS: 36415; 71010; 71020; 80048; 80053; 80306; 80320; 81001; 81003; 82533; 82550; 82553; 82803; 83036; 83520; 83605; 83735; 83880; 84100; 84443; 84484; 85025; 85027; 85610; 85730; 86850; 86900; 86901; 87040; 87070; 87077; 87086; 87186; 87205; 93005; 93306; 94640; 94760; 96365; 96368; 96375; 99285

== ENCOUNTER 2017-05-02 11:20 | Emergency (ER) | payer SELFPAY ==
--- NOTE | 2017-05-02 11:41 | ED ---
General Adult HPI - General Chief complaint: Upper Respiratory Infection Stated complaint: POSS PNEUMONIA Time Seen by Provider: 05/02/17 11:39 Source: patient Mode of arrival: ambulatory Limitations: no limitations - History of Present Illness Initial comments: Krys is a 61-year-old former smoker with a history of COPD who presents to the emergency department for evaluation of productive cough and wheezing for one day duration. Patient reports that yesterday she began coughing, she's had subjective fevers and chills. She reports that she did a breathing treatment at home with some improvement in her symptoms however the symptoms persisted today so she came to the emergency department. Patient reports she has a history of recurrent pneumonias and didn't want to wait until she was very sick to start antibiotics. Patient reports that she quit smoking in January, she's been compliant with her breathing treatments. She denies any chest pain, exertional chest pain, lightheadedness, diaphoresis or near syncope. She does report that she's been suffering from a viral URI- like symptoms including rhinorrhea, congestion, ear pressure and sore throat for 2-3 days. She reports that she has not yet gotten her flu vaccine this season, her last flu vaccination was in June. She has no known sick contacts - Related Data Home Medications Medication Instructions Recorded Confirmed Hydrocodone/Acetaminophen [[place] 1 tab PO Q6H PRN 03/25/14 05/02/17 10-325] Levothyroxine Sodium [Synthroid] 88 mcg PO DAILY 03/25/14 05/02/17 Zaleplon [Sonata] 10 mg PO HS 03/25/14 05/02/17 Methadone [Dolophine] 5 mg PO TID 01/31/17 05/02/17 Montelukast [Singulair] 10 mg PO HS 01/31/17 05/02/17 Pregabalin [Lyrica] 150 mg PO TID 01/31/17 05/02/17 Amitriptyline HCl [Elavil] 50 mg PO TID 05/02/17 05/02/17 Ipratropium Nebulized [Atrovent 0.5 mg INHALATION RT-QID 05/02/17 05/02/17 Nebulized] Multivitamins, Thera [Multivitamin 1 tab PO DAILY@1200 05/02/17 05/02/17 (formulary)] Allergies Allergy/AdvReac Type Severity Reaction Status Date / Time albuterol Allergy Unknown Verified 05/02/17 11:42 ciprofloxacin [From Cipro] Allergy Unknown Verified 05/02/17 11:42 duloxetine [From Cymbalta] Allergy Unknown Verified 05/02/17 11:42 fluticasone Allergy Unknown Verified 05/02/17 11:42 [From Advair Diskus] metaproterenol [From Alupent] Allergy Unknown Verified 05/02/17 11:42 salmeterol Allergy Unknown Verified 05/02/17 11:42 [From Advair Diskus] Review of Systems ROS Statement: Those systems with pertinent positive or pertinent negative responses have been documented in the HPI. ROS Other: All systems not noted in ROS Statement are negative. Constitutional: Reports: fever (Objective), chills Eyes: Denies: eye pain ENT: Reports: ear pain, throat pain, congestion. Denies: hearing loss, epistaxis Respiratory: Reports: cough, wheezes. Denies: dyspnea Cardiovascular: Denies: chest pain, palpitations, dyspnea on exertion, edema Endocrine: Reports: fatigue Gastrointestinal: Denies: abdominal pain, nausea, vomiting Genitourinary: Denies: urgency Musculoskeletal: Reports: back pain Skin: Denies: rash, lesions Neurological: Reports: headache. Denies: weakness Hematological/Lymphatic: Denies: easy bleeding Past Medical History Past Medical History: COPD, Fibromyalgia, Liver Disease, Osteoarthritis (OA), Thyroid Disorder Additional Past Medical History / Comment(s): back pain, Hep C,arthritis History of Any Multi-Drug Resistant Organisms: None Reported Past Surgical History: Back Surgery, Section, Cholecystectomy, Hysterectomy Additional Past Surgical History / Comment(s): multiple back surgeries including back fusion and 10 hand surgeries, 3 knee surgeries Past Anesthesia/Blood Transfusion Reactions: No Reported Reaction Past Psychological History: Depression Smoking Status: Current every day smoker Past Alcohol Use History: None Reported Past Drug Use History: None Reported - Past Family History Father Family Medical History: Vascular Disorder Additional Family Medical History / Comment(s): Father of a ruptured aortic aneurysm. Mother Family Medical History: No Reported History General Exam Limitations: no limitations General appearance: alert, in no apparent distress Head exam: Present: atraumatic, normocephalic Eye exam: Present: normal appearance, PERRL ENT exam: Present: normal exam, normal oropharynx, mucous membranes moist, TM's normal bilaterally, other (Posterior oropharyngeal injection consistent with viral illness) Neck exam: Absent: lymphadenopathy Respiratory exam: Present: wheezes. Absent: respiratory distress Cardiovascular Exam: Present: regular rate GI/Abdominal exam: Present: soft. Absent: distended Extremities exam: Present: normal inspection, full ROM Neurological exam: Present: alert, oriented X3 Psychiatric exam: Present: normal affect, normal mood Skin exam: Present: warm, dry, intact Course Vital Signs 05/02/17 05/02/17 05/02/17 11:30 11:33 13:13 Temperature 97.8 F 98.1 F Pulse Rate 78 62 Respiratory 18 20 18 Rate Blood Pressure 117/71 97/50 O2 Sat by Pulse 97 98 Oximetry Medical Decision Making - Medical Decision Making Patient was seen and evaluated, history was obtained from the patient and review of medical record Vital signs reveal no Sirs criteria Labs and imaging were ordered As a mildly elevated BUNs consistent with dehydration Influenza negative Considering the patient's history of COPD and chronic bronchitis in the setting of a viral illness with productive cough I will treat with azithromycin and prednisone.Today is a holiday first dose was given here in the emergency department patient was advised to [employer] prescriptions tomorrow. All questions pertaining to care were answered to the best of my ability and the patient was discharged home in stable condition. - Lab Data Result diagrams: 05/02/17 12:13 05/02/17 12:13 Lab Results 05/02/17 05/02/17 05/02/17 Range/Units 12:13 12:13 12:20 WBC 8.5 (3.8-10.6) k/uL RBC 4.28 (3.80-5.40) m/uL Hgb 13.3 (11.4-16.0) gm/dL Hct 40.5 (34.0-46.0) % MCV 94.8 (80.0-100.0) fL MCH 31.2 (25.0-35.0) pg MCHC 32.9 (31.0-37.0) g/dL RDW 14.1 (11.5-15.5) % Plt Count 231 (150-450) k/uL Neutrophils % 74 % Lymphocytes % 18 % Monocytes % 6 % Eosinophils % 1 % Basophils % 0 % Neutrophils # 6.3 (1.3-7.7) k/uL Lymphocytes # 1.5 (1.0-4.8) k/uL Monocytes # 0.5 (0-1.0) k/uL Eosinophils # 0.1 (0-0.7) k/uL Basophils # 0.0 (0-0.2) k/uL Sodium 137 (137-145) mmol/L Potassium 4.3 (3.5-5.1) mmol/L Chloride 99 (98-107) mmol/L Carbon Dioxide 28 (22-30) mmol/L Anion Gap 10 mmol/L BUN 18 H (7-17) mg/dL Creatinine 0.75 (0.52-1.04) mg/dL Est GFR (MDRD) Af Amer >60 (>60 ml/min/1.73 sqM) Est GFR (MDRD) Non-Af >60 (>60 ml/min/1.73 sqM) Glucose 94 (74-99) mg/dL Calcium 10.0 (8.4-10.2) mg/dL Influenza Type A RNA Not Detected (Not Detectd) Influenza Type B (PCR) Not Detected (Not Detectd) Disposition Clinical Impression: Common cold Disposition: HOME SELF-CARE Condition: Good Instructions: Upper Respiratory Infection (ED) Referrals: Nilton Santoyo MD [Primary Care Provider] - 1-2 days Time of Disposition: 13:04
[2017-05-02] MEDS ORDERED: SODIUM CHLORIDE 0.9% 1,000 ML IV ONE (11:54)
[2017-05-02] MEDS ORDERED: KETOROLAC 30 MG/ML 1 ML VIAL IVP ONE (11:54)
[2017-05-02] MEDS ORDERED: IPRATROPIUM-ALBUTEROL 3 ML NEB INHALATION STA (11:54)
[2017-05-02 12:24] LABS: Basophils % (A) 0 %; Eosinophils # (A) 0.1 k/uL (0-0.7); Eosinophils % (A) 1 %; HCT 40.5 % (34.0-46.0); HGB 13.3 gm/dL (11.4-16.0); Lymphocytes # (A) 1.5 k/uL (1.0-4.8); Lymphocytes % (A) 18 %; MCH 31.2 pg (25.0-35.0); MCHC 32.9 g/dL (31.0-37.0); MCV 94.8 fL (80.0-100.0); Mean Platelet Volume 7.7; Monocytes # (A) 0.5 k/uL (0-1.0); Monocytes % (A) 6 %; Neutrophils # (A) 6.3 k/uL (1.3-7.7); Neutrophils % (A) 74 %; Platelet Count 231 k/uL (150-450); RBC 4.28 m/uL (3.80-5.40); RDW 14.1 % (11.5-15.5); WBC 8.5 k/uL (3.8-10.6)
[2017-05-02 12:36] LABS: Anion Gap 10 mmol/L; Blood Urea Nitrogen 18 mg/dL (7-17); Carbon Dioxide 28 mmol/L (22-30); Chloride 99 mmol/L (98-107); Glucose 94 mg/dL (74-99); Sodium 137 mmol/L (137-145)
[2017-05-02 12:46] LABS: Potassium 4.3 mmol/L (3.5-5.1)
--- NOTE | 2017-05-02 12:48 | XR ---
EXAMINATION TYPE: XR chest 2V DATE OF EXAM: 05/02/2017 COMPARISON: 02/06/2017 HISTORY: Short of breath TECHNIQUE: Frontal and lateral views of the chest are obtained. FINDINGS: Heart and mediastinum are normal. Lungs are clear of infiltrate. There is no heart failure . Bony thorax is intact. There is no pleural effusion. IMPRESSION: No active cardiopulmonary disease. The there is clearing of the congestive heart failure and pleural fluid compared to last exam.
[2017-05-02] MEDS ORDERED: predniSONE 20 MG TAB PO STA (13:01)
[2017-05-02] MEDS ORDERED: AZITHROMYCIN 500 MG TAB PO STA (13:01)
[2017-05-02 13:14] VITALS: BP 97/50; PULSE 62; RESP 18; TEMP 98.1
== END 2017-05-02 13:20 | disposition home or self-care (01) ==
LOC: EC 11:20
DX: J00 Acute nasopharyngitis [common cold] (principal); J44.9 Chronic obstructive pulmonary disease, unspecified; E07.9 Disorder of thyroid, unspecified; M79.7 Fibromyalgia; F32.9 Major depressive disorder, single episode, unspecified; F17.200 Nicotine dependence, unspecified, uncomplicated; Z79.891 Long term (current) use of opiate analgesic; Z79.899 Other long term (current) drug therapy; Z88.8 Allergy status to other drugs, medicaments and biological substances; Z88.1 Allergy status to other antibiotic agents; Z53.20 Procedure and treatment not carried out because of patient's decision for unspecified reasons
CPT/HCPCS: 99284 ×2; 96374 ×2; 36415; 93005; 80048; 85025; 87502; 71046; J1885; J7512

== ENCOUNTER 2017-05-20 20:25 | Emergency (ER) | payer SELFPAY ==
[2017-05-20] MEDS ORDERED: SODIUM CHLORIDE 0.9% 1,000 ML IV ONE (20:53)
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
[2017-05-20] MEDS: LORazepam 2 MG/ML INJ IV STA ×2 (21:08→21:30)
[2017-05-20 21:31] LABS: Glucose,Whole Blood 115 mg/dL (75-99)
[2017-05-20 21:32] LABS: Basophils % (A) 0 %; Eosinophils % (A) 0 %; HCT 44.5 % (34.0-46.0); HGB 14.7 gm/dL (11.4-16.0); Lymphocytes # (A) 1.6 k/uL (1.0-4.8); Lymphocytes % (A) 14 %; MCV 93.9 fL (80.0-100.0); Mean Platelet Volume 7.8; Monocytes # (A) 0.5 k/uL (0-1.0); Monocytes % (A) 4 %; Neutrophils # (A) 9.1 k/uL (1.3-7.7); Neutrophils % (A) 80 %; Platelet Count 344 k/uL (150-450); RBC 4.74 m/uL (3.80-5.40); RDW 13.8 % (11.5-15.5); WBC 11.4 k/uL (3.8-10.6)
[2017-05-20 21:40] LABS: ALT 37 U/L (9-52); AST 25 U/L (14-36); Albumin 4.8 g/dL (3.5-5.0); Alkaline Phosphatase 92 U/L (38-126); Anion Gap 13 mmol/L; Blood Urea Nitrogen 11 mg/dL (7-17); Calcium 10.9 mg/dL (8.4-10.2); Carbon Dioxide 24 mmol/L (22-30); Chloride 103 mmol/L (98-107); Glucose 121 mg/dL (74-99); Potassium 4.1 mmol/L (3.5-5.1); Sodium 140 mmol/L (137-145); Total Bilirubin 0.6 mg/dL (0.2-1.3); Total Protein 8.1 g/dL (6.3-8.2)
[2017-05-20 21:43] LABS: Partial Thromboplastin Time 25.4 sec (22.0-30.0); Prothrombin Time 9.9 sec (9.0-12.0)
[2017-05-20 21:49] LABS: Appearance,Urine Clear (Clear); Bilirubin,Urine Negative (Negative); Blood,Urine Negative (Negative); Color,Urine Yellow; Glucose,Urine (UA) Negative (Negative); Ketones,Urine Negative (Negative); Leukocyte Esterase,Urine Negative (Negative); Mucus,Urine Rare /hpf; Nitrite,Urine Negative (Negative); Protein,Urine 1+ (Negative); RBC,Urine 1 /hpf (0-5); Specific Gravity,Urine 1.019 (1.001-1.035); WBC,Urine <1 /hpf (0-5)
[2017-05-20 21:53] LABS: Creatine Kinase 68 U/L (30-135)
--- NOTE | 2017-05-20 21:54 | XR ---
EXAMINATION TYPE: XR chest 1V portable DATE OF EXAM: 05/20/2017 COMPARISON: 05/02/2017 HISTORY: Cough and fever TECHNIQUE: Single frontal view of the chest is obtained. FINDINGS: There is no heart failure nor confluent pneumonic infiltrate. Costophrenic angles are angelique r. Heart size is normal. Bony thorax is intact. IMPRESSION: No active cardiopulmonary disease. No change.
[2017-05-20 22:00] LABS: Amphetamine Screen,Urine Not Detected (NotDetected); Barbiturate Screen,Urine Not Detected (NotDetected); Benzodiazepines Screen,Urine Not Detected (NotDetected); Cocaine Screen,Urine Not Detected (NotDetected); Methadone Screen, Urine Detected (NotDetected); Opiate Screen,Urine Detected (NotDetected); Oxycodone Screen, Urine Not Detected (NotDetected); Phencyclidine Screen,Urine Not Detected (NotDetected); Tricyclic Antidepressant,Urine Detected (NotDetected); Urn Cannabinoid Scrn Not Detected (NotDetected)
[2017-05-20 22:06] LABS: Creatine Kinase MB 1.8 ng/mL (0.0-2.4); Troponin I <0.012 ng/mL (0.000-0.034)
--- NOTE | 2017-05-20 22:09 | CT ---
EXAMINATION TYPE: CT brain wo con DATE OF EXAM: 05/20/2017 COMPARISON: NONE HISTORY: Altered mental status. CT DLP: 835.8 mGycm Automated exposure control for dose reduction was used. FINDINGS: Ventricles and sulci appear normal. There is no mass effect nor midline shift. There is no sign of in tracranial hemorrhage. The calvarium is intact. There is a small area of increased attenuation at the floor of the right anterior cranial fossa thought to be artifactual. IMPRESSION: NEGATIVE CT SCAN OF THE BRAIN.
[2017-05-21] MEDS ORDERED: HYDROcodone/APAP 10-325MG 1 EACH TAB PO ONE (04:27)
[2017-05-21] MEDS ORDERED: LORazepam 2 MG/ML INJ IV STA (04:28)
[2017-05-21 05:25] VITALS: BP 131/73; PULSE 83; RESP 18; TEMP 98.2
== END 2017-05-21 07:24 ==
LOC: EC 20:25
DX: F39 Unspecified mood [affective] disorder (principal); J44.9 Chronic obstructive pulmonary disease, unspecified; M79.7 Fibromyalgia; E07.9 Disorder of thyroid, unspecified; F17.200 Nicotine dependence, unspecified, uncomplicated; Z79.891 Long term (current) use of opiate analgesic; Z79.899 Other long term (current) drug therapy; Z88.8 Allergy status to other drugs, medicaments and biological substances; Z88.1 Allergy status to other antibiotic agents
CPT/HCPCS: 99285; 96374; 96376; 36415; 80053; 82550; 82553; 84484; 85025; 85610; 85730; 81001; 80306; 71045; 70450; J2060 ×2

== ENCOUNTER 2017-07-10 04:09 | Inpatient (IN) | payer BC ==
[2017-07-10] MEDS ORDERED: methylPREDNISolone SOD SUCCI 125 MG/2 ML VIAL IV STA (04:26)
[2017-07-10] MEDS ORDERED: SODIUM CHLORIDE 0.9% 1,000 ML IV STA (04:26)
[2017-07-10] MEDS ORDERED: ALBUTEROL NEBULIZED 2.5 MG/3 ML INHALATION STA (04:26)
[2017-07-10] MEDS ORDERED: IPRATROPIUM 0.5 MG/2.5 ML NEBU INHALATION STA (04:26)
[2017-07-10] MEDS ORDERED: MORPHINE SULFATE 4 MG/ML SYRINGE IVP STA (04:26)
[2017-07-10] MEDS ORDERED: LORazepam 2 MG/ML INJ IV STA (04:45)
--- NOTE | 2017-07-10 04:56 | ED ---
General Adult HPI - General Chief complaint: Shortness of Breath Stated complaint: SOB Time Seen by Provider: 07/10/17 04:22 Source: patient, RN notes reviewed, old records reviewed Mode of arrival: ambulatory Limitations: no limitations - History of Present Illness Initial comments: This is a 62-year-old female the ER for evasive significant shortness of breath , patient unable to catch her breath unable to give history. No recent hospital admission for significant COPD exacerbation pneumonia. Patient present at bedside giving history states patient is very significant shortness breath she is been all day but worse tonight. Patient himself denies any pain. Except chronic right-sided back pain, patient has been she was at home with no improvement. Denies fever no cough or congestion. No recent travel history or sick contacts - Related Data Home Medications Medication Instructions Recorded Confirmed Hydrocodone/Acetaminophen [[place] 1 - 2 tab PO Q4H PRN 03/25/14 07/10/17 10-325] Levothyroxine Sodium [Synthroid] 88 mcg PO DAILY 03/25/14 07/10/17 Zaleplon [Sonata] 10 mg PO HS 03/25/14 07/10/17 Montelukast [Singulair] 10 mg PO HS PRN 01/31/17 07/10/17 Pregabalin [Lyrica] 150 mg PO TID 01/31/17 07/10/17 Amitriptyline HCl [Elavil] 50 mg PO TID 05/02/17 07/10/17 Previous Rx's Medication Instructions Recorded Albuterol Inhaler [Ventolin Hfa 2 puff INHALATION Q6HR PRN #1 06/06/17 Inhaler] inhaler predniSONE 20 mg PO BID #10 tab 06/06/17 Allergies Allergy/AdvReac Type Severity Reaction Status Date / Time ciprofloxacin [From Cipro] Allergy Unknown Verified 06/06/17 09:05 duloxetine [From Cymbalta] Allergy Unknown Verified 06/06/17 09:05 metaproterenol [From Alupent] Allergy Heart races Verified 06/06/17 09:05 albuterol AdvReac Unknown Verified 06/06/17 09:05 fluticasone AdvReac Unknown Verified 06/06/17 09:05 [From Advair Diskus] salmeterol AdvReac Unknown Verified 06/06/17 09:05 [From Advair Diskus] Review of Systems ROS Statement: Those systems with pertinent positive or pertinent negative responses have been documented in the HPI. ROS Other: All systems not noted in ROS Statement are negative. Past Medical History Past Medical History: COPD, Fibromyalgia, Liver Disease, Osteoarthritis (OA), Pneumonia, Thyroid Disorder Additional Past Medical History / Comment(s): back pain, Hep C,arthritis History of Any Multi-Drug Resistant Organisms: None Reported Past Surgical History: Back Surgery, Section, Cholecystectomy, Hysterectomy Additional Past Surgical History / Comment(s): multiple back surgeries including back fusion and 10 hand surgeries, 3 knee surgeries Past Anesthesia/Blood Transfusion Reactions: No Reported Reaction Past Psychological History: Depression Smoking Status: Current every day smoker Past Alcohol Use History: None Reported Past Drug Use History: None Reported - Past Family History Father Family Medical History: Vascular Disorder Additional Family Medical History / Comment(s): Father of a ruptured aortic aneurysm. Mother Family Medical History: No Reported History General Exam Limitations: no limitations General appearance: alert, in no apparent distress, anxious Head exam: Present: atraumatic, normocephalic, normal inspection Eye exam: Present: normal appearance, PERRL, EOMI. Absent: scleral icterus, conjunctival injection, periorbital swelling ENT exam: Present: normal exam, mucous membranes moist Neck exam: Present: normal inspection. Absent: tenderness, meningismus, lymphadenopathy Respiratory exam: Present: respiratory distress, wheezes, accessory muscle use, decreased breath sounds, prolonged expiratory. Absent: rales, rhonchi, stridor Cardiovascular Exam: Present: regular rate, normal rhythm, normal heart sounds. Absent: systolic murmur, diastolic murmur, rubs, gallop, clicks GI/Abdominal exam: Present: soft, normal bowel sounds. Absent: distended, tenderness, guarding, rebound, rigid Extremities exam: Present: normal inspection, full ROM, normal capillary refill. Absent: tenderness, pedal edema, joint swelling, calf tenderness Back exam: Present: normal inspection Neurological exam: Present: alert, oriented X3, CN II-XII intact Psychiatric exam: Present: normal affect, normal mood Skin exam: Present: warm, dry, intact, normal color. Absent: rash Course Vital Signs 07/10/17 07/10/17 07/10/17 04:20 04:41 05:12 Temperature 96.7 F L Pulse Rate 85 65 Respiratory 30 H 28 H Rate Blood Pressure 139/85 07/10/17 05:18 Temperature Pulse Rate 69 Respiratory Rate Blood Pressure - Reevaluation(s) Reevaluation #1: 07/10/17 06:28 Patient with mild to no improvement after prolonged breathing treatment, still complaining of shortness of breath EKG Findings - EKG Comments: EKG Findings:: EKG shows normal sinus rhythm rate of 66, HI 174, QRS 90, QTc 448 Medical Decision Making - Medical Decision Making 62 female the ER COPD history of significant COPD exacerbation. Also anxiety component. Patient be admitted for continued breathing treatments and pulmonary support - Lab Data Result diagrams: 07/10/17 05:08 07/10/17 05:08 Lab Results 07/10/17 07/10/17 07/10/17 Range/Units 05:08 05:08 05:50 WBC 10.3 (3.8-10.6) k/uL RBC 4.78 (3.80-5.40) m/uL Hgb 14.7 (11.4-16.0) gm/dL Hct 44.1 (34.0-46.0) % MCV 92.3 (80.0-100.0) fL MCH 30.8 (25.0-35.0) pg MCHC 33.4 (31.0-37.0) g/dL RDW 13.5 (11.5-15.5) % Plt Count 344 (150-450) k/uL Neutrophils % 77 % Lymphocytes % 16 % Monocytes % 6 % Eosinophils % 0 % Basophils % 0 % Neutrophils # 7.9 H (1.3-7.7) k/uL Lymphocytes # 1.6 (1.0-4.8) k/uL Monocytes # 0.6 (0-1.0) k/uL Eosinophils # 0.0 (0-0.7) k/uL Basophils # 0.0 (0-0.2) k/uL PT 10.2 (9.0-12.0) sec INR 1.0 (<1.2) APTT 25.1 (22.0-30.0) sec Sodium 139 (137-145) mmol/L Potassium 4.1 (3.5-5.1) mmol/L Chloride 104 (98-107) mmol/L Carbon Dioxide 23 (22-30) mmol/L Anion Gap 12 mmol/L BUN 9 (7-17) mg/dL Creatinine 0.60 (0.52-1.04) mg/dL Est GFR (CKD-EPI)AfAm >90 (>60 ml/min/1.73 sqM) Est GFR (CKD-EPI)NonAf >90 (>60 ml/min/1.73 sqM) Glucose 104 H (74-99) mg/dL Calcium 10.8 H (8.4-10.2) mg/dL Magnesium 2.0 (1.6-2.3) mg/dL Total Bilirubin 0.7 (0.2-1.3) mg/dL AST 34 (14-36) U/L ALT 43 (9-52) U/L Alkaline Phosphatase 113 (38-126) U/L Total Protein 8.1 (6.3-8.2) g/dL Albumin 4.5 (3.5-5.0) g/dL Serum Alcohol <10 mg/dL - Radiology Data Radiology results: report reviewed (S x-ray is negative for acute disease), image reviewed Disposition Clinical Impression: Acute exacerbation of chronic obstructive airways disease Disposition: ADMITTED IP TO THIS HOSP Condition: Good Referrals: Nilton Santoyo MD [Primary Care Provider] - 1-2 days
[2017-07-10 05:40] LABS: Basophils % (A) 0 %; Eosinophils % (A) 0 %; HCT 44.1 % (34.0-46.0); HGB 14.7 gm/dL (11.4-16.0); Lymphocytes # (A) 1.6 k/uL (1.0-4.8); Lymphocytes % (A) 16 %; MCH 30.8 pg (25.0-35.0); MCHC 33.4 g/dL (31.0-37.0); MCV 92.3 fL (80.0-100.0); Mean Platelet Volume 8.4; Monocytes # (A) 0.6 k/uL (0-1.0); Monocytes % (A) 6 %; Neutrophils # (A) 7.9 k/uL (1.3-7.7); Neutrophils % (A) 77 %; Platelet Count 344 k/uL (150-450); RBC 4.78 m/uL (3.80-5.40); RDW 13.5 % (11.5-15.5); WBC 10.3 k/uL (3.8-10.6)
--- NOTE | 2017-07-10 05:40 | XR ---
EXAM: XR Chest, 2 Views CLINICAL HISTORY: ITS.REASON XR Reason: difficulty breathing TECHNIQUE: Frontal and lateral views of the chest. COMPARISON: 05/20/17 IMPRESSION: No acute cardiopulmonary process.
[2017-07-10 05:53] LABS: ALT 43 U/L (9-52); AST 34 U/L (14-36); Albumin 4.5 g/dL (3.5-5.0); Alcohol <10 mg/dL; Alkaline Phosphatase 113 U/L (38-126); Anion Gap 12 mmol/L; Blood Urea Nitrogen 9 mg/dL (7-17); Calcium 10.8 mg/dL (8.4-10.2); Carbon Dioxide 23 mmol/L (22-30); Chloride 104 mmol/L (98-107); Glucose 104 mg/dL (74-99); Potassium 4.1 mmol/L (3.5-5.1); Sodium 139 mmol/L (137-145); Total Bilirubin 0.7 mg/dL (0.2-1.3); Total Protein 8.1 g/dL (6.3-8.2)
[2017-07-10 06:18] LABS: Partial Thromboplastin Time 25.1 sec (22.0-30.0); Prothrombin Time 10.2 sec (9.0-12.0)
[2017-07-10 06:42] LABS: Creatine Kinase 65 U/L (30-135)
[2017-07-10 06:51] LABS: Creatine Kinase MB 1.3 ng/mL (0.0-2.4); Troponin I <0.012 ng/mL (0.000-0.034)
[2017-07-10] MEDS: methylPREDNISolone SOD SUCCI 125 MG/2 ML VIAL IV SCH ×4 (07:29→23:38)
[2017-07-10] MEDS ORDERED: HYDROcodone/APAP 10-325MG 1 EACH TAB PO STA (07:35)
[2017-07-10] MEDS ORDERED: NICOTINE 21MG/24HR PATCH TRANSDERM STA (07:35)
[2017-07-10 08:57] VITALS: BMI 26.2
[2017-07-10] MEDS: IPRATROPIUM-ALBUTEROL 3 ML NEB INHALATION SCH ×4 (10:46→20:52)
[2017-07-10] MEDS: PREGABALIN 75 MG CAP PO SCH ×3 (11:19→21:18)
[2017-07-10] MEDS: METHADONE 5 MG TAB PO SCH ×3 (11:32→21:18)
[2017-07-10] MEDS: LEVOTHYROXINE 88 MCG TAB PO SCH (11:45)
[2017-07-10] MEDS: HYDROcodone/APAP 10-325MG 1 EACH TAB PO PRN ×3 (11:46→23:40)
[2017-07-10] MEDS: LORazepam 2 MG/ML INJ IV PRN ×3 (12:55→21:17)
[2017-07-10] MEDS: BUDESONIDE 0.5 MG/2 ML NEBU INHALATION SCH (20:52)
[2017-07-10] MEDS: HEPARIN SODIUM,PORCINE 5,000 UNIT/ML 1 ML VIAL SQ SCH (21:18)
[2017-07-10] MEDS: FAMOTIDINE 20 MG/2 ML VIAL IV SCH (21:18)
[2017-07-10] MEDS: MELATONIN 3 MG TABLET PO SCH (21:59)
--- NOTE | 2017-07-10 22:17 | CONS ---
CONSULTATION Krys Galloway is a 62-year-old female who presented to the ED at [facility] with increasing shortness of breath. This has been going on for approximately 1 day's duration. She has chronic pain. She was seen in the ER, was given a breathing treatment and actually improved. She subsequently was admitted for further evaluation. PAST MEDICAL HISTORY: Positive for fibromyalgia, COPD, liver disease, osteoarthritis, pneumonia, thyroid disorder, hep C, arthritis, back surgery, , cholecystectomy, hysterectomy, multiple back surgeries, 10 hand surgeries, 3 knee surgeries, history of depression. SOCIAL HISTORY: Patient is a current smoker, smokes about half pack of cigarettes per day. FAMILY HISTORY: Positive for vascular disorder in her father with a ruptured aneurysm. Mother has no history of asthma or COPD. REVIEW OF SYSTEMS: Is noncontributory. MEDICATIONS: Prior to admission were: Sonata, Zoloft, Lyrica, Dolophine, Synthroid, [place]. She was on, I believe, a Ventolin inhaler. REVIEW OF SYSTEMS: Noncontributory. PHYSICAL EXAMINATION: Respiratory rate is 16, pulse rate 93, temperature 98.6, O2 saturation on room air is 94%. Blood pressure 127/65. HEENT reveals pupils equal. Chest with decreased breath sounds with prolonged expiration. Bilateral expiratory wheeze. Cardiovascular system is S1, S2. ABDOMEN: Soft. There is no pedal edema. White count is 10.3 1000, neutrophils are 7.9 1000 with 0 eosinophils. Sodium 139, potassium 4.1, chloride 104, bicarb 23, BUN 9, creatinine 0.6, glucose 104, calcium of 10.8, and serum alcohol less than 10. Chest x-ray shows no acute cardiopulmonary process. IMPRESSION: At this time: 1. Asthma with chronic obstructive pulmonary disease with acute exacerbation. 2. Chronic pain from a pulmonary standpoint. Would keep the patient on albuterol, ipratropium, add budesonide to her regimen. Keep her on IV steroids. Keep her on GI and DVT prophylaxis. Depending on how she does we should make further changes to her care. I would like to thank you for allowing me to participate in the care of this patient. MMODL / IJN: [id number] /
--- NOTE | 2017-07-10 23:32 | P.HPIM ---
History of Present Illness H&P Date: 07/10/17 Chief Complaint: Shortness of breath Patient is a 62-year-old female with a known history of COPD, hepatitis C, chronic pain and other medical problems came to ER with complaints of significant shortness of breath and unable to catch her breath. Patient had recent admission for COPD exacerbation. Patient was continued on breathing treatments and IV steroids in the ER with improvement in symptoms. Otherwise patient is still Wheezing and was admitted to hospital for further evaluation. Patient denied any cough or sputum production. No recent illnesses otherwise or sick contacts. Chest x-ray showed no acute process Patient continues to smoke. Review of Systems Constitutional: Patient denies any fever or chills . No generalized weakness or weight loss. Abdomen: Patient denied nausea vomiting and diarrhea and abdominal pain. Cardiovascular: Patient denies any chest pain or short of breath no palpitations. Respiratory: patient denied any cough is from production. Patient does have shortness of breath Neurologic: Patient denied any numbness or tingling headache. Musculoskeletal: Patient denies any complaints of joint swelling or deformity. Skin: Negative Psychiatric: Negative Endocrine: No heat or cold intolerance. No recent weight gain. Genitourinary: No dysuria or hematuria. All other 14 point ROS negative except the above Past Medical History Past Medical History: COPD, Fibromyalgia, Liver Disease, Osteoarthritis (OA), Pneumonia, Thyroid Disorder Additional Past Medical History / Comment(s): back pain, Hep C,arthritis History of Any Multi-Drug Resistant Organisms: None Reported Past Surgical History: Back Surgery, Section, Cholecystectomy, Hysterectomy Additional Past Surgical History / Comment(s): multiple back surgeries including back fusion and 10 hand surgeries, 3 knee surgeries Past Anesthesia/Blood Transfusion Reactions: No Reported Reaction Past Psychological History: Depression Smoking Status: Current every day smoker Past Alcohol Use History: None Reported Additional Past Alcohol Use History / Comment(s): Pt started smoking as a teen. Past Drug Use History: None Reported Additional Drug Use History / Comment(s): Pt denies any drug use other than prescribed medications taken as prescribed. - Past Family History Father Family Medical History: Vascular Disorder Additional Family Medical History / Comment(s): Father of a ruptured aortic aneurysm. Mother Family Medical History: No Reported History Medications and Allergies Home Medications Medication Instructions Recorded Confirmed Type Hydrocodone/Acetaminophen [[place] 1 tab PO QID PRN 03/25/14 07/10/17 History 10-325] Levothyroxine Sodium [Synthroid] 88 mcg PO DAILY 03/25/14 07/10/17 History Zaleplon [Sonata] 10 mg PO HS 03/25/14 07/10/17 History Pregabalin [Lyrica] 150 mg PO TID 01/31/17 07/10/17 History Methadone [Dolophine] 5 mg PO TID 07/10/17 07/10/17 History Sertraline [Zoloft] 25 mg PO DAILY 07/10/17 07/10/17 History Allergies Allergy/AdvReac Type Severity Reaction Status Date / Time ciprofloxacin [From Cipro] Allergy Unknown Verified 07/10/17 07:19 duloxetine [From Cymbalta] Allergy Unknown Verified 07/10/17 07:19 metaproterenol [From Alupent] Allergy Heart races Verified 07/10/17 07:19 albuterol AdvReac Unknown Verified 07/10/17 07:19 fluticasone AdvReac Unknown Verified 07/10/17 07:19 [From Advair Diskus] salmeterol AdvReac Unknown Verified 07/10/17 07:19 [From Advair Diskus] Physical Exam Vitals: Vital Signs Temp Pulse Pulse Resp BP BP Pulse Ox 07/10/17 14:42 98.6 F 93 16 127/65 94 L 07/10/17 11:05 80 07/10/17 10:46 88 07/10/17 08:01 98.2 F 67 24 137/62 94 L 07/10/17 07:36 97.9 F 88 20 142/70 97 07/10/17 06:38 82 22 95 07/10/17 05:18 69 07/10/17 05:12 28 H 07/10/17 04:41 65 07/10/17 04:20 96.7 F L 85 30 H 139/85 94 L Intake and Output 07/09/17 07/10/17 07/10/17 21:59 06:59 14:59 Intake Total 240 Balance 240 Intake: Oral 240 Other: Voiding Method Toilet # Voids 2 Weight 75.977 kg Patient Weight 07/11/17 06:59 Weight 75.977 kg PHYSICAL EXAMINATION: Patient is lying in the bed comfortably, no acute distress, awake alert and oriented.. HEENT: Normocephalic. Neck is supple. Pupils reactive. Nostrils clear. Oral cavity is moist. Ears reveal no drainage. Neck reveals no JVD, carotid bruits, or thyromegaly. CHEST EXAMINATION: Trachea is central. Symmetrical expansion. Bilateral diminished air entry and expiratory wheezing. No rhonchi no crackles. CARDIAC: Normal S1, S2 with no gallops. No murmurs ABDOMEN: Soft. Bowel sounds normal. No organomegaly. No abdominal bruits. Extremities: reveal no edema. No clubbing or cyanosis Neurologically awake, alert, oriented x3 with well-coordinated movements. No focal deficits noted Skin: No rash or skin lesions. Psychiatric: Cooperative. Nonsuicidal Musculoskeletal: No joint swelling or deformity. Normal range of motion. Results CBC & Chem 7: 07/10/17 05:08 07/10/17 05:08 Labs: Abnormal Lab Results - Last 24 Hours (Table) 07/10/17 07/10/17 Range/Units 05:08 05:08 Neutrophils # 7.9 H (1.3-7.7) k/uL Glucose 104 H (74-99) mg/dL Calcium 10.8 H (8.4-10.2) mg/dL Thrombosis Risk Factor Assmnt - DVT/VTE Prophylaxis DVT/VTE Prophylaxis: Pharmacologic Prophylaxis ordered - Choose All That Apply Each Factor Represents 1 point: Medical pt on bed rest Each Risk Factor Represents 2 Points: Age 61-74 years Other congenital or acquired thrombophilia - If yes, enter type in comment: No Thrombosis Risk Factor Assessment Total Risk Factor Score: 3 Thrombosis Risk Factor Assessment Level: Moderate Risk Assessment and Plan Assessment: Acute COPD exacerbation Chronic pain and fibromyalgia Chronic back pain Hepatitis C next and osteoarthritis Hypothyroidism History of multiple back surgeries Nicotine addiction Depression DVT prophylaxis Plan: Patient will be continued on IV steroids and breathing treatments. Pulmicort was added. Pulmonary is following. Continue with GI and DVT prophylaxis Continue the home medications and further recommendations based on the clinical course. Smoking cessation was counseled extensively. Time with Patient: Greater than 30
[2017-07-11] MEDS: LORazepam 2 MG/ML INJ IV PRN ×2 (03:12→07:12)
[2017-07-11] MEDS: LEVOTHYROXINE 88 MCG TAB PO SCH (05:52)
[2017-07-11] MEDS: methylPREDNISolone SOD SUCCI 125 MG/2 ML VIAL IV SCH (05:52)
[2017-07-11] MEDS: HYDROcodone/APAP 10-325MG 1 EACH TAB PO PRN ×3 (05:52→18:12)
[2017-07-11] MEDS: HEPARIN SODIUM,PORCINE 5,000 UNIT/ML 1 ML VIAL SQ SCH ×2 (07:10→20:54)
[2017-07-11] MEDS: SERTRALINE 25 MG TAB PO SCH (07:10)
[2017-07-11] MEDS: METHADONE 5 MG TAB PO SCH ×3 (07:10→21:08)
[2017-07-11] MEDS: FAMOTIDINE 20 MG/2 ML VIAL IV SCH (07:10)
[2017-07-11] MEDS: PREGABALIN 75 MG CAP PO SCH ×3 (07:11→21:08)
[2017-07-11] MEDS: BUDESONIDE 0.5 MG/2 ML NEBU INHALATION SCH ×2 (07:39→19:32)
[2017-07-11] MEDS: IPRATROPIUM-ALBUTEROL 3 ML NEB INHALATION SCH ×4 (07:40→19:32)
--- NOTE | 2017-07-11 08:05 | P.PN ---
Subjective Progress Note Date: 07/11/17 Principal diagnosis: This is a continue present on a 62-year-old white female essentially admitted for exacerbation of COPD. She's resting comfortably and wanting Ativan for sleep when she goes home. Otherwise no voiding difficulties. No significant nausea, vomiting or diarrhea is stated. Minimal cough is noted. She seems to be tolerating diet otherwise. Objective - Vital Signs Vital signs: Vital Signs Temp 98.4 F 07/10/17 22:05 Pulse 83 07/11/17 00:00 Resp 18 07/11/17 00:00 BP 109/56 07/10/17 22:05 Pulse Ox 93 L 07/10/17 22:05 Intake & Output 07/10/17 07/11/17 07/11/17 18:59 06:59 18:59 Intake Total 240 Balance 240 Weight 75.977 kg Intake: Oral 240 Other: Voiding Method Toilet Toilet # Voids 2 1 - Constitutional General appearance: Present: average body habitus - EENT Eyes: Absent: abnormal pupil - Respiratory Respiratory: bilateral: diminished - Cardiovascular Rhythm: regular Heart sounds: normal: S1, S2 Abnormal Heart Sounds: Absent: S3 Gallop - Gastrointestinal General gastrointestinal: Present: soft. Absent: tenderness - Neurologic Neurologic: Present: CNII-XII intact - Labs CBC & Chem 7: 07/10/17 05:08 07/10/17 05:08 Assessment and Plan (1) Acute exacerbation of chronic obstructive airways disease Current Visit: Yes Status: Acute Code(s): J44.1 - CHRONIC OBSTRUCTIVE PULMONARY DISEASE W (ACUTE) EXACERBATION SNOMED Code(s): 160424951 (2) Chronic pain syndrome Current Visit: No Status: Acute Code(s): G89.4 - CHRONIC PAIN SYNDROME SNOMED Code(s): 585325462 (3) Fibromyalgia Current Visit: No Status: Acute Code(s): M79.7 - FIBROMYALGIA SNOMED Code( s): 343462186 Plan: We'll go ahead and continue to wean off of steroid treatment. Reconcile medications. Nicotine patch 14 mg. Anticipate discharge in next 24-48 hours if stable.
[2017-07-11 09:04] LABS: Basophils % (A) 0 %; Eosinophils % (A) 0 %; HCT 42.5 % (34.0-46.0); HGB 13.5 gm/dL (11.4-16.0); Lymphocytes # (A) 0.9 k/uL (1.0-4.8); Lymphocytes % (A) 5 %; MCH 30.7 pg (25.0-35.0); MCHC 31.9 g/dL (31.0-37.0); MCV 96.2 fL (80.0-100.0); Mean Platelet Volume 8.6; Monocytes # (A) 0.4 k/uL (0-1.0); Monocytes % (A) 2 %; Neutrophils # (A) 17.8 k/uL (1.3-7.7); Neutrophils % (A) 93 %; Platelet Count 318 k/uL (150-450); RBC 4.41 m/uL (3.80-5.40); RDW 13.8 % (11.5-15.5)
[2017-07-11 09:35] LABS: Anion Gap 13 mmol/L; Blood Urea Nitrogen 17 mg/dL (7-17); Calcium 9.8 mg/dL (8.4-10.2); Carbon Dioxide 21 mmol/L (22-30); Chloride 104 mmol/L (98-107); Glucose 211 mg/dL (74-99); Potassium 4.8 mmol/L (3.5-5.1); Sodium 138 mmol/L (137-145)
[2017-07-11] MEDS: NICOTINE 14MG/24HR PATCH TRANSDERM SCH (10:37)
[2017-07-11] MEDS: LORazepam 1 MG TAB PO PRN ×2 (12:53→20:54)
--- NOTE | 2017-07-11 15:23 | P.PN ---
Subjective Progress Note Date: 07/11/17 HPI: This is a 62-year-old female patient who presented to the emergency room, clamp return with increasing shortness of breath that had been going on for approximately 1-2 days. She has chronic pain syndrome. She was seen in the ER , was given breathing treatments and improved. She was subsequently admitted for further evaluation and workup. 07/11/17- patient has been seen and examined and evaluated on follow-up today. She is up ambulating in the room on room air. Patient states she is feeling a lot better. She continues to have some shortness of breath with exertion however is much improved. Denies any cough or congestion. Steroids will be switched over to oral. All labs and reports have been reviewed. Objective - Vital Signs Vital signs: Vital Signs Temp 97.7 F 07/11/17 12:14 Pulse 90 07/11/17 12:14 Resp 18 07/11/17 12:14 BP 134/77 07/11/17 12:14 Pulse Ox 95 07/11/17 12:14 Intake & Output 07/10/17 07/11/17 07/11/17 18:59 06:59 18:59 Intake Total 240 200 Balance 240 200 Weight 75.977 kg Intake: Oral 240 200 Other: Voiding Method Toilet Toilet # Voids 2 1 - Exam GENERAL EXAM: Alert, comfortable in no apparent distress. HEAD: Normocephalic. EYES: Normal reaction of pupils, equal size. NOSE: Clear with pink turbinates. THROAT: No erythema or exudates. NECK: No masses, no JVD. CHEST: No chest wall deformity. LUNGS: Equal air entry with no crackles, wheeze, rhonchi or dullness. Bases diminished CVS: S1 and S2 normal with no audible mumurs, regular rhythm. ABDOMEN: No hepatosplenomegaly, normal bowel sounds, no guarding or rigidity. EXTREMITIES: No edema noted, pedal pulses palpable. CENTRAL NERVOUS SYSTEM: No focal deficits, tone is normal in all 4 extremities. - Labs CBC & Chem 7: 07/11/17 08:26 07/11/17 08:26 Labs: Abnormal Lab Results - Last 24 Hours (Table) 07/11/17 07/11/17 Range/Units 08:26 08:26 WBC 19.0 H (3.8-10.6) k/uL Neutrophils # 17.8 H (1.3-7.7) k/uL Lymphocytes # 0.9 L (1.0-4.8) k/uL Carbon Dioxide 21 L (22-30) mmol/L Glucose 211 H (74-99) mg/dL Assessment and Plan Assessment: Assessment Asthma with acute exacerbation, baseline unknown Acute exacerbation of COPD Nicotine dependence Chronic pain syndrome Plan Medications have been reviewed and will be continued as ordered. IV steroids switched over to oral. Anticipate discharge in the next 24-48 hours. Continue with pulmonary hygiene, coughing and deep breathing exercises, and supportive care. Supplemental oxygen to maintain oxygen saturations of 92% or better. Continue nebulizer treatments. GI and DVT prophylaxis. We will continue to monitor labs/results and adjust treatment as necessary. Further recommendations pending. I performed an examination of the patient and discussed their management with the nurse practitioner. I have reviewed the nurse practitioner's note and agree with the documented findings and plan of care.
[2017-07-11] MEDS ORDERED: methylPREDNISolone SOD SUCCI 40 MG/ML 1 ML VIAL IV SCH (16:00)
[2017-07-11] MEDS: FAMOTIDINE 20 MG TAB PO SCH (17:24)
[2017-07-11] MEDS: MELATONIN 3 MG TABLET PO SCH (20:54)
[2017-07-11] MEDS ORDERED: FAMOTIDINE 20 MG TAB PO SCH (21:00)
[2017-07-12] MEDS: HYDROcodone/APAP 10-325MG 1 EACH TAB PO PRN ×2 (00:01→06:41)
[2017-07-12] MEDS: LORazepam 1 MG TAB PO PRN ×2 (02:55→08:18)
[2017-07-12 05:26] VITALS: RESP 18
[2017-07-12] MEDS: FAMOTIDINE 20 MG TAB PO SCH (06:40)
[2017-07-12] MEDS: LEVOTHYROXINE 88 MCG TAB PO SCH (06:41)
[2017-07-12 07:52] VITALS: BP 139/84; PULSE 73; TEMP 97.9
[2017-07-12] MEDS: PREGABALIN 75 MG CAP PO SCH (08:17)
[2017-07-12] MEDS: NICOTINE 14MG/24HR PATCH TRANSDERM SCH (08:17)
[2017-07-12] MEDS: SERTRALINE 25 MG TAB PO SCH (08:18)
[2017-07-12] MEDS: METHADONE 5 MG TAB PO SCH (08:19)
[2017-07-12] MEDS: HEPARIN SODIUM,PORCINE 5,000 UNIT/ML 1 ML VIAL SQ SCH (08:30)
[2017-07-12] MEDS ORDERED: predniSONE 20 MG TAB PO SCH (09:00)
== END 2017-07-12 08:45 | disposition home or self-care (01) | DRG 191 ==
LOC: EC 04:09 → 5MS5E 05:55 → OBSVTOIN 05:55 → 6PED 07-11 12:05
PROVIDERS: ADMIT Family Medicine; ATTEND Family Medicine
DX: J44.1 Chronic obstructive pulmonary disease with (acute) exacerbation (principal); J45.901 Unspecified asthma with (acute) exacerbation; B19.20 Unspecified viral hepatitis C without hepatic coma; E03.9 Hypothyroidism, unspecified; F17.210 Nicotine dependence, cigarettes, uncomplicated; F32.9 Major depressive disorder, single episode, unspecified; F41.9 Anxiety disorder, unspecified; G89.4 Chronic pain syndrome; M19.90 Unspecified osteoarthritis, unspecified site; M79.7 Fibromyalgia; M54.9 Dorsalgia, unspecified; Z79.899 Other long term (current) drug therapy; Z79.52 Long term (current) use of systemic steroids; Z90.710 Acquired absence of both cervix and uterus; Z90.49 Acquired absence of other specified parts of digestive tract; Z87.01 Personal history of pneumonia (recurrent); Z88.1 Allergy status to other antibiotic agents; Z88.8 Allergy status to other drugs, medicaments and biological substances; Z71.6 Tobacco abuse counseling
CPT/HCPCS: 36415; 71046; 80048; 80053; 80320; 82550; 82553; 83735; 83880; 84484; 85025; 85610; 85730; 93005; 94640; 96361; 96374; 96375; 99285

== ENCOUNTER 2017-07-27 07:16 | Day surgery (SDC) | payer BC ==
[2017-07-25 15:03] VITALS: BMI 26.6
[~2017-07-27 07:16] MED LIST: LACTATED RINGERS 1,000 ML IV SCH
[2017-07-27 07:57] VITALS: TEMP 97.9
[2017-07-27] MEDS ORDERED: PROPOFOL 10 MG/ML 20 ML VIAL IV ONE (08:50)
--- NOTE | 2017-07-27 09:08 | P.PCN ---
Date of Procedure: 07/27/17 Procedure(s) Performed: BRIEF HISTORY: Patient is a 62-year-old pleasant white female, scheduled for an elective colonoscopy as a part of screening for colorectal neoplasia. PROCEDURE PERFORMED: Colonoscopy. PREOPERATIVE DIAGNOSIS: Screening for colon cancer. IV sedation per Anesthesia. PROCEDURE: After informed consent was obtained, the patient, was brought into the endoscopy unit. IV sedation was administered by Anesthesia under continuous monitoring. Digital rectal examination was normal. Initially the Olympus CF- 160 flexible video colonoscope was then inserted in the rectum, gradually advanced into the cecum without any difficulty. Careful examination was performed as the scope was gradually being withdrawn. Ileocecal valve and the appendiceal orifice were visualized and appeared normal. Prep was excellent. Mucosa of the cecum, ascending colon, transverse colon, descending colon, sigmoid colon, and rectum appeared normal. Retroflexion was performed in the rectum and no lesions were seen. The patient tolerated the procedure well. IMPRESSION: Normal-appearing colon from rectum to cecum with no evidence of colorectal neoplasia. RECOMMENDATIONS: Findings of this examination were discussed with the patient as well as a family. She was advised to have a repeat screening colonoscopy in 10 years.
[2017-07-27 09:28] VITALS: BP 114/77; PULSE 61; RESP 16
== END 2017-07-27 09:47 | disposition home or self-care (01) ==
LOC: ORWHC2ENDO 07:16
PROVIDERS: ATTEND Internal Medicine Gastroenterology
DX: Z12.11 Encounter for screening for malignant neoplasm of colon (principal); F17.210 Nicotine dependence, cigarettes, uncomplicated; J44.9 Chronic obstructive pulmonary disease, unspecified; M79.7 Fibromyalgia; Z79.891 Long term (current) use of opiate analgesic; Z79.899 Other long term (current) drug therapy; Z90.49 Acquired absence of other specified parts of digestive tract; Z88.8 Allergy status to other drugs, medicaments and biological substances; Z88.1 Allergy status to other antibiotic agents; Z86.73 Personal history of transient ischemic attack (TIA), and cerebral infarction without residual deficits
CPT/HCPCS: 45378; J2704

== ENCOUNTER 2017-08-05 00:11 | Emergency (ER) | payer BC ==
--- NOTE | 2017-08-05 00:27 | ED ---
General Adult HPI - General Chief complaint: Skin/Abscess/Foreign Body Stated complaint: burn on skin Time Seen by Provider: 08/05/17 00:25 Source: patient, RN notes reviewed, old records reviewed Mode of arrival: ambulatory Limitations: no limitations - History of Present Illness Initial comments: 62 year old female presents emergency department she complained of sunburn. She reports she laid in the tanning bed for the first time today for 20 minutes. She has ellison over her back in a minute chest and arms. She states that she went in the tanning bed because she heard it would help with her arthritis. Just the complains of cough and some shortness of breath when she arrived emergency department. - Related Data Home Medications Medication Instructions Recorded Confirmed Hydrocodone/Acetaminophen [[place] 1 tab PO QID PRN 03/25/14 07/27/17 10-325] Levothyroxine Sodium [Synthroid] 88 mcg PO DAILY 03/25/14 07/27/17 Pregabalin [Lyrica] 150 mg PO TID 01/31/17 07/27/17 Methadone [Dolophine] 5 mg PO TID 07/10/17 07/27/17 Sertraline [Zoloft] 25 mg PO DAILY 07/10/17 07/27/17 Montelukast Sodium [Singulair] 10 mg PO HS 07/25/17 07/27/17 Previous Rx's Medication Instructions Recorded LORazepam [Ativan] 1 mg PO TID PRN #45 tab 07/12/17 Allergies Allergy/AdvReac Type Severity Reaction Status Date / Time ciprofloxacin [From Cipro] Allergy Rash/Hives Verified 08/05/17 00:15 duloxetine [From Cymbalta] Allergy Swelling Verified 08/05/17 00:15 OF THROAT metaproterenol [From Alupent] Allergy Heart races Verified 08/05/17 00:15 fluticasone AdvReac ulcers in Verified 08/05/17 00:15 [From Advair Diskus] mouth salmeterol AdvReac ulcers in Verified 08/05/17 00:15 [From Advair Diskus] mouth Review of Systems ROS Statement: Those systems with pertinent positive or pertinent negative responses have been documented in the HPI. ROS Other: All systems not noted in ROS Statement are negative. Past Medical History Past Medical History: COPD, Fibromyalgia, Liver Disease, Osteoarthritis (OA), Pneumonia, Pulmonary Embolus (PE), Thyroid Disorder Additional Past Medical History / Comment(s): back pain, Hep C, History of Any Multi-Drug Resistant Organisms: None Reported Past Surgical History: Back Surgery, Section, Cholecystectomy, Hysterectomy Additional Past Surgical History / Comment(s): multiple back surgeries including back fusion and 10 hand surgeries, 3 knee surgeries Past Anesthesia/Blood Transfusion Reactions: Postoperative Nausea & Vomiting ( PONV) Past Psychological History: Depression Smoking Status: Current every day smoker Past Alcohol Use History: None Reported Past Drug Use History: None Reported - Past Family History Father Family Medical History: Vascular Disorder Additional Family Medical History / Comment(s): Father of a ruptured aortic aneurysm. Sister(s) Family Medical History: Cancer Additional Family Medical History / Comment(s): SKIN CANCER AND BREAST CANCER Mother Family Medical History: No Reported History General Exam - General Exam Comments Initial Comments: 62 year old female, no distress. Limitations: no limitations General appearance: alert, in no apparent distress Head exam: Present: atraumatic, normocephalic, normal inspection ENT exam: Present: normal exam, mucous membranes moist Neck exam: Present: normal inspection. Absent: tenderness, meningismus, lymphadenopathy Respiratory exam: Present: normal lung sounds bilaterally, wheezes (mild wheeze , pt is a smoker). Absent: respiratory distress, rales, rhonchi, stridor Cardiovascular Exam: Present: regular rate, normal rhythm, normal heart sounds. Absent: systolic murmur, diastolic murmur, rubs, gallop, clicks Extremities exam: Present: normal inspection, full ROM, normal capillary refill. Absent: tenderness, pedal edema, joint swelling, calf tenderness Back exam: Present: other (severe sunburn). Absent: normal inspection Skin exam: Present: warm, dry, intact, erythema (significant sun burn, no blistering noted. Burn over entire body, except where bra and undwerwear covered. ). Absent: normal color, rash Course Vital Signs 08/05/17 08/05/17 08/05/17 00:13 01:05 01:12 Temperature 98 F Pulse Rate 96 75 77 Respiratory 18 14 14 Rate Blood Pressure 134/83 O2 Sat by Pulse 97 Oximetry 08/05/17 02:24 Temperature 97.9 F Pulse Rate 75 Respiratory 18 Rate Blood Pressure 128/72 O2 Sat by Pulse 98 Oximetry Medical Decision Making - Medical Decision Making This patient is 1 62 year old femkorey with CC of sunburn from tanning bed. She also complains of shortness of breath, she had a mild wheeze. CXR normal, and she feels better after breathing treatment. Patient has no blistering at this time. Discussed that I can given patient something to calm her down to sleep, and she needs to remain hydrated. She is on methadone, discussed no pain medication. Patient advised to use aloe and moisurising lotion. Questions answered and return parameters discussed. Disposition Clinical Impression: Sunburn due to tanning bed Disposition: HOME SELF-CARE Instructions: Sunburn (ED) Additional Instructions: Patient is to drink plenty of fluids. Apply aloe over her skin. Make sure remaining hydrated. Lukewarm showers or baths. No basilar also recommended. Return to emergency department if any alarming signs or symptoms occur. Referrals: Nilton Santoyo MD [Primary Care Provider] - 1-2 days Time of Disposition: 02:13
[2017-08-05] MEDS ORDERED: ALBUTEROL NEBULIZED 2.5 MG/3 ML INHALATION STA (00:58)
--- NOTE | 2017-08-05 01:50 | XR ---
EXAMINATION TYPE: XR chest 2V DATE OF EXAM: 08/05/2017 COMPARISON: 07/10/2017 HISTORY: Chest pain TECHNIQUE: Frontal and lateral views of the chest are obtained. FINDINGS: There is no heart failure nor confluent pneumonic infiltrate. There is coarsening of inter stitial markings. There is no pleural effusion. Heart size is normal. Bony thorax is intact. IMPRESSION: Interstitial fibrotic changes. There is improvement on the left side compared to last ex am with clearing of subpleural infiltrate along the left lateral chest wall. No heart failure.
[2017-08-05] MEDS ORDERED: ACET/COD 300 MG/30 MG STARTER PACK 6 TAB BTL PO STA (02:12)
[2017-08-05] MEDS ORDERED: LORazepam 1 MG TAB PO STA (02:13)
[2017-08-05 02:25] VITALS: BP 128/72; PULSE 75; RESP 18; TEMP 97.9
== END 2017-08-05 02:25 | disposition home or self-care (01) ==
LOC: EC 00:11
DX: L56.8 Other specified acute skin changes due to ultraviolet radiation (principal); R06.02 Shortness of breath; R05 Cough; J44.9 Chronic obstructive pulmonary disease, unspecified; M79.7 Fibromyalgia; E07.9 Disorder of thyroid, unspecified; F32.9 Major depressive disorder, single episode, unspecified; F17.200 Nicotine dependence, unspecified, uncomplicated; Z86.711 Personal history of pulmonary embolism; Z98.1 Arthrodesis status; Z79.891 Long term (current) use of opiate analgesic; Z79.899 Other long term (current) drug therapy; Z88.1 Allergy status to other antibiotic agents; Z88.8 Allergy status to other drugs, medicaments and biological substances
CPT/HCPCS: 16000; 71046; 94640; 99284

== ENCOUNTER 2017-08-08 14:36 | Emergency (ER) | payer BC ==
[2017-08-08 14:52] VITALS: BP 130/67; PULSE 78; RESP 18; TEMP 98.8
--- NOTE | 2017-08-08 15:41 | XR ---
EXAM TYPE: LUMBAR SPINE X RAY SERIES COMPARISON: NONE HISTORY: Pain TECHNIQUE: Three views are submitted. FINDINGS: Alignment is anatomic. There is postsurgical change which appears in near-anatomic alignment extendin g from L4 through the sacrum. Hypertrophic changes at the remaining levels noted. No compression defo rmities. Remaining pedicles are intact and there are surgical clips in the right upper quadrant. Ther e is a minimal anterolisthesis of L5 relative to S1.. IMPRESSION: 1. Postsurgical change appears in near-anatomic alignment..
--- NOTE | 2017-08-08 15:50 | ED ---
General Adult HPI - General Chief complaint: Back Pain/Injury Stated complaint: Back pain Time Seen by Provider: 08/08/17 15:07 Source: patient, RN notes reviewed Mode of arrival: ambulatory Limitations: no limitations - History of Present Illness Initial comments: Patient 62-year-old female with significant past medical history for chronic back pain, presented to the emergency room today with chief complaint of increased lower back pain. Denies any specific injury or trauma. Does admit that she was sleeping on the floor last night. She states she was diagnosed front on the phone. She states woke up this morning increased pain in her lower back. Patient states that there has been pain that radiates down to the legs but nothing new. States that comes and goes. Denies any bowel or bladder incontinence retention. Denies any saddle anesthesia. Denies any other complaints or associated symptoms. Patient denies any recent fever, chills, shortness of breath, chest pain, back pain, abdominal pain, nausea or vomiting, headaches or visual changes, or any other complaints. - Related Data Home Medications Medication Instructions Recorded Confirmed Hydrocodone/Acetaminophen [[place] 1 tab PO QID PRN 03/25/14 08/08/17 10-325] Levothyroxine Sodium [Synthroid] 88 mcg PO DAILY 03/25/14 08/08/17 Pregabalin [Lyrica] 150 mg PO TID 01/31/17 08/08/17 Methadone [Dolophine] 5 mg PO TID 07/10/17 08/08/17 Allergies Allergy/AdvReac Type Severity Reaction Status Date / Time ciprofloxacin [From Cipro] Allergy Rash/Hives Verified 08/08/17 15:09 duloxetine [From Cymbalta] Allergy Swelling Verified 08/08/17 15:09 OF THROAT metaproterenol [From Alupent] Allergy Heart races Verified 08/08/17 15:09 codeine AdvReac Vomiting Verified 08/08/17 15:12 fluticasone AdvReac ulcers in Verified 08/08/17 15:09 [From Advair Diskus] mouth salmeterol AdvReac ulcers in Verified 08/08/17 15:09 [From Advair Diskus] mouth Review of Systems ROS Statement: Those systems with pertinent positive or pertinent negative responses have been documented in the HPI. ROS Other: All systems not noted in ROS Statement are negative. Past Medical History Past Medical History: COPD, Fibromyalgia, Liver Disease, Osteoarthritis (OA), Pneumonia, Pulmonary Embolus (PE), Thyroid Disorder Additional Past Medical History / Comment(s): back pain, Hep C, History of Any Multi-Drug Resistant Organisms: None Reported Past Surgical History: Back Surgery, Section, Cholecystectomy, Hysterectomy Additional Past Surgical History / Comment(s): multiple back surgeries including back fusion and 10 hand surgeries, 3 knee surgeries Past Anesthesia/Blood Transfusion Reactions: Postoperative Nausea & Vomiting ( PONV) Past Psychological History: Depression Smoking Status: Current every day smoker Past Alcohol Use History: None Reported Past Drug Use History: None Reported - Past Family History Father Family Medical History: Vascular Disorder Additional Family Medical History / Comment(s): Father of a ruptured aortic aneurysm. Sister(s) Family Medical History: Cancer Additional Family Medical History / Comment(s): SKIN CANCER AND BREAST CANCER Mother Family Medical History: No Reported History General Exam - General Exam Comments Initial Comments: General: The patient is awake and alert, in no distress, and does not appear acutely ill. Eye: Pupils are equal, round and reactive to light, extra-ocular movements are intact. No nystagmus. There is normal conjunctiva bilaterally. No signs of icterus. Ears, nose, mouth and throat: There are moist mucous membranes and no oral lesions. Neck: The neck is supple, there is no tenderness or JVD. Musculoskeletal: Patient does have sunburn to her back. Does have tenderness lower lumbar spine. No step-offs or deformities. Strength 5/5. Sensation intact. Pulses equal bilaterally 2+. Neurological: A&O x 3. CN II-XII intact, There are no obvious motor or sensory deficits. Coordination appears grossly intact. Speech is normal. Skin: Skin is warm and dry and no rashes or lesions are noted. Psychiatric: Cooperative, appropriate mood & affect, normal judgment. Limitations: no limitations Course Vital Signs 08/08/17 14:49 Temperature 98.8 F Pulse Rate 78 Respiratory 18 Rate Blood Pressure 130/67 O2 Sat by Pulse 97 Oximetry Medical Decision Making - Medical Decision Making The [facility] prescription system was checked revealing the patient received methadone 90 tabs and Avis 10/325 120 tabs on 07/12/2017. Patient did tell me during HPI that she's been out of her medication since June. She states that she's been unable to follow-up. Did clarify this with the patient and she didn't states that she did have pain medication this past Tuesday and now has run out. She states she does have a prescription but came get it filled until Tuesday. Advised patient that we cannot fill her prescriptions here Disposition Clinical Impression: Acute exacerbation of chronic low back pain Disposition: HOME SELF-CARE Condition: Good Instructions: Chronic Back Pain (ED) Additional Instructions: Please follow-up with specialist/family doctor in the next 1-2 days. Please return to emergency room if the symptoms increase or worsen or for any other concerns. Referrals: Nilton Santoyo MD [Primary Care Provider] - 1-2 days Time of Disposition: 15:57
== END 2017-08-08 16:03 | disposition home or self-care (01) ==
LOC: EC 14:36
DX: M54.5 Low back pain (principal); G89.29 Other chronic pain; M79.7 Fibromyalgia; M19.90 Unspecified osteoarthritis, unspecified site; E07.9 Disorder of thyroid, unspecified; F17.200 Nicotine dependence, unspecified, uncomplicated; Z86.19 Personal history of other infectious and parasitic diseases; Z79.899 Other long term (current) drug therapy; Z88.1 Allergy status to other antibiotic agents; Z88.5 Allergy status to narcotic agent; Z88.8 Allergy status to other drugs, medicaments and biological substances
CPT/HCPCS: 72100; 99283

== ENCOUNTER 2017-08-28 09:23 | Emergency (ER) | payer BC ==
[2017-08-28] MEDS ORDERED: SODIUM CHLORIDE 0.9% 1,000 ML IV STA (10:06)
[2017-08-28] MEDS ORDERED: HYDROcodone/APAP 10-325MG 1 EACH TAB PO ONE (10:06)
[2017-08-28] MEDS ORDERED: ONDANSETRON 4 MG/2 ML VIAL IVP STA (10:06)
--- NOTE | 2017-08-28 10:09 | ED ---
Nausea/Vomiting/Diarrhea HPI - General Chief complaint: Nausea/Vomiting/Diarrhea Stated complaint: vomiting Time Seen by Provider: 08/28/17 09:40 Source: patient Mode of arrival: ambulatory Limitations: no limitations - History of Present Illness Initial comments: 62-year-old female patient presents to the emergency department today for evaluation of vomiting times one week. Patient states that she has had several episodes of vomiting daily for the last week. She states that she has been unable to eat or drink anything. She denies any abdominal pain with this. States that she did have 2 episodes of diarrhea on Tuesday. She denies any fever, chills, constipation, hematuria, dysuria, urinary frequency, urinary urgency. She denies any recent travel. Patient does have a past medical history significant for chronic back pain and hypothyroid. States that she takes [place] and methadone for her back pain, she states that she has been taking his medications as directed. Patient denies any recent rash, shortness breath, chest pain, back pain, numbness, tingling, dizziness, weakness, headache , visual changes, or any other complaints. - Related Data Home Medications Medication Instructions Recorded Confirmed Hydrocodone/Acetaminophen [[place] 1 tab PO QID PRN 03/25/14 08/28/17 10-325] Levothyroxine Sodium [Synthroid] 88 mcg PO DAILY 03/25/14 08/28/17 Pregabalin [Lyrica] 150 mg PO TID 01/31/17 08/28/17 Methadone [Dolophine] 5 mg PO TID 07/10/17 08/28/17 Previous Rx's Medication Instructions Recorded Ondansetron [Zofran ODT] 4 mg PO Q8HR PRN #10 tab 08/28/17 Allergies Allergy/AdvReac Type Severity Reaction Status Date / Time ciprofloxacin [From Cipro] Allergy Rash/Hives Verified 08/28/17 09:35 duloxetine [From Cymbalta] Allergy Swelling Verified 08/28/17 09:35 OF THROAT metaproterenol [From Alupent] Allergy Heart races Verified 08/28/17 09:35 codeine AdvReac Vomiting Verified 08/28/17 09:35 fluticasone AdvReac ulcers in Verified 08/28/17 09:35 [From Advair Diskus] mouth salmeterol AdvReac ulcers in Verified 08/28/17 09:35 [From Advair Diskus] mouth Review of Systems ROS Statement: Those systems with pertinent positive or pertinent negative responses have been documented in the HPI. ROS Other: All systems not noted in ROS Statement are negative. Past Medical History Past Medical History: COPD, Fibromyalgia, Liver Disease, Osteoarthritis (OA), Pneumonia, Pulmonary Embolus (PE), Thyroid Disorder Additional Past Medical History / Comment(s): back pain, Hep C, History of Any Multi-Drug Resistant Organisms: None Reported Past Surgical History: Back Surgery, Section, Cholecystectomy, Hysterectomy Additional Past Surgical History / Comment(s): multiple back surgeries including back fusion and 10 hand surgeries, 3 knee surgeries Past Anesthesia/Blood Transfusion Reactions: Postoperative Nausea & Vomiting ( PONV) Past Psychological History: Depression Smoking Status: Current every day smoker Past Alcohol Use History: None Reported Past Drug Use History: None Reported - Past Family History Father Family Medical History: Vascular Disorder Additional Family Medical History / Comment(s): Father of a ruptured aortic aneurysm. Sister(s) Family Medical History: Cancer Additional Family Medical History / Comment(s): SKIN CANCER AND BREAST CANCER Mother Family Medical History: No Reported History General Exam Limitations: no limitations General appearance: alert, in no apparent distress, other (Physical well- developed, well-nourished adult female patient in no acute distress. Vital signs upon presentation are temperature 98.0F, pulse 100, respirations 17, blood pressure 110/83, pulse ox 97% on room air.) Eye exam: Present: normal appearance, PERRL, EOMI. Absent: scleral icterus, conjunctival injection, periorbital swelling ENT exam: Present: normal exam, normal oropharynx, mucous membranes moist Respiratory exam: Present: normal lung sounds bilaterally. Absent: respiratory distress, wheezes, rales, rhonchi, stridor Cardiovascular Exam: Present: regular rate, normal rhythm, normal heart sounds. Absent: systolic murmur, diastolic murmur, rubs, gallop, clicks GI/Abdominal exam: Present: soft, normal bowel sounds. Absent: distended, tenderness, guarding, rebound, rigid Neurological exam: Present: alert, oriented X3, CN II-XII intact Psychiatric exam: Present: normal affect, normal mood Skin exam: Present: warm, dry, intact, normal color. Absent: rash Course Vital Signs 08/28/17 08/28/17 08/28/17 09:35 10:47 11:02 Temperature 98.0 F 98.1 F Pulse Rate 100 71 74 Respiratory 17 22 20 Rate Blood Pressure 110/83 112/82 O2 Sat by Pulse 97 97 97 Oximetry Medical Decision Making - Medical Decision Making 62-year-old female patient presented to the emergency department today for complaints of vomiting times one week. Physical examination is unremarkable. Labs reviewed and were unremarkable. Patient is feeling better after receiving IV medications here in the emergency department. She'll be discharged home with a prescription for Zofran. She is instructed to follow-up with her primary care physician for recheck in 1-2 days. She is instructed to return here immediately for any new, worsening, or concerning symptoms. She verbalizes understanding and agrees this plan. - Lab Data Result diagrams: 08/28/17 10:15 08/28/17 10:15 Lab Results 08/28/17 08/28/17 08/28/17 Range/Units 10:15 10:15 10:15 WBC 9.1 (3.8-10.6) k/uL RBC 5.14 (3.80-5.40) m/uL Hgb 15.9 (11.4-16.0) gm/dL Hct 47.2 H (34.0-46.0) % MCV 91.8 (80.0-100.0) fL MCH 30.8 (25.0-35.0) pg MCHC 33.6 (31.0-37.0) g/dL RDW 13.0 (11.5-15.5) % Plt Count 352 (150-450) k/uL Neutrophils % 74 % Lymphocytes % 20 % Monocytes % 4 % Eosinophils % 1 % Basophils % 0 % Neutrophils # 6.7 (1.3-7.7) k/uL Lymphocytes # 1.8 (1.0-4.8) k/uL Monocytes # 0.4 (0-1.0) k/uL Eosinophils # 0.1 (0-0.7) k/uL Basophils # 0.0 (0-0.2) k/uL Sodium 140 (137-145) mmol/L Potassium 4.3 (3.5-5.1) mmol/L Chloride 103 (98-107) mmol/L Carbon Dioxide 23 (22-30) mmol/L Anion Gap 14 mmol/L BUN 13 (7-17) mg/dL Creatinine 0.59 (0.52-1.04) mg/dL Est GFR (CKD-EPI)AfAm >90 (>60 ml/min/1.73 sqM) Est GFR (CKD-EPI)NonAf >90 (>60 ml/min/1.73 sqM) Glucose 112 H (74-99) mg/dL Calcium 10.5 H (8.4-10.2) mg/dL Total Bilirubin 1.0 (0.2-1.3) mg/dL AST 33 (14-36) U/L ALT 37 (9-52) U/L Alkaline Phosphatase 80 (38-126) U/L Total Protein 7.9 (6.3-8.2) g/dL Albumin 4.8 (3.5-5.0) g/dL Amylase 46 (30-110) U/L Lipase 49 (23-300) U/L Urine Color Yellow Urine Appearance Clear (Clear) Urine pH 6.5 (5.0-8.0) Ur Specific [place] 1.019 (1.001-1.035) Urine Protein Trace H (Negative) Urine Glucose (UA) Negative (Negative) Urine Ketones Negative (Negative) Urine Blood Negative (Negative) Urine Nitrite Negative (Negative) Urine Bilirubin Negative (Negative) Urine Urobilinogen 6.0 (<2.0) mg/dL Ur Leukocyte Esterase Negative (Negative) Disposition Clinical Impression: Vomiting Disposition: HOME SELF-CARE Condition: Good Instructions: Acute Nausea and Vomiting (ED) Additional Instructions: Start with a clear liquid diet and advance as tolerated. Take medications as directed. Follow up with her primary care physician for further evaluation and possible referral to GI specialty if vomiting continues. Return here immediately for any new, worsening, or concerning symptoms. Prescriptions: Ondansetron [Zofran ODT] 4 mg PO Q8HR PRN #10 tab PRN Reason: Nausea Is patient prescribed a controlled substance at d/c from ED?: No Referrals: Nilton Santoyo MD [Primary Care Provider] - 1-2 days Time of Disposition: 10:54
[2017-08-28 10:26] LABS: Appearance,Urine Clear (Clear); Basophils % (A) 0 %; Bilirubin,Urine Negative (Negative); Blood,Urine Negative (Negative); Color,Urine Yellow; Eosinophils # (A) 0.1 k/uL (0-0.7); Eosinophils % (A) 1 %; Glucose,Urine (UA) Negative (Negative); HCT 47.2 % (34.0-46.0); HGB 15.9 gm/dL (11.4-16.0); Ketones,Urine Negative (Negative); Leukocyte Esterase,Urine Negative (Negative); Lymphocytes # (A) 1.8 k/uL (1.0-4.8); Lymphocytes % (A) 20 %; MCH 30.8 pg (25.0-35.0); MCHC 33.6 g/dL (31.0-37.0); MCV 91.8 fL (80.0-100.0); Mean Platelet Volume 7.8; Monocytes # (A) 0.4 k/uL (0-1.0); Monocytes % (A) 4 %; Neutrophils # (A) 6.7 k/uL (1.3-7.7); Neutrophils % (A) 74 %; Nitrite,Urine Negative (Negative); PH, Urine 6.5 (5.0-8.0); Platelet Count 352 k/uL (150-450); Protein,Urine Trace (Negative); RBC 5.14 m/uL (3.80-5.40); Specific Gravity,Urine 1.019 (1.001-1.035); WBC 9.1 k/uL (3.8-10.6)
[2017-08-28] MEDS ORDERED: IPRATROPIUM-ALBUTEROL 3 ML NEB INHALATION STA (10:33)
[2017-08-28 10:50] LABS: ALT 37 U/L (9-52); AST 33 U/L (14-36); Albumin 4.8 g/dL (3.5-5.0); Alkaline Phosphatase 80 U/L (38-126); Amylase 46 U/L (30-110); Anion Gap 14 mmol/L; Blood Urea Nitrogen 13 mg/dL (7-17); Calcium 10.5 mg/dL (8.4-10.2); Carbon Dioxide 23 mmol/L (22-30); Chloride 103 mmol/L (98-107); Glucose 112 mg/dL (74-99); Lipase 49 U/L (23-300); Potassium 4.3 mmol/L (3.5-5.1); Sodium 140 mmol/L (137-145); Total Protein 7.9 g/dL (6.3-8.2)
[2017-08-28 11:03] VITALS: BP 112/82; PULSE 74; RESP 20; TEMP 98.1
== END 2017-08-28 11:02 | disposition home or self-care (01) ==
LOC: EC 09:23
DX: R11.10 Vomiting, unspecified (principal); R19.7 Diarrhea, unspecified; M19.90 Unspecified osteoarthritis, unspecified site; E03.9 Hypothyroidism, unspecified; M79.7 Fibromyalgia; G89.29 Other chronic pain; M54.9 Dorsalgia, unspecified; F17.200 Nicotine dependence, unspecified, uncomplicated; Z86.19 Personal history of other infectious and parasitic diseases; Z79.899 Other long term (current) drug therapy; Z88.1 Allergy status to other antibiotic agents; Z88.5 Allergy status to narcotic agent; Z88.8 Allergy status to other drugs, medicaments and biological substances; Z53.29 Procedure and treatment not carried out because of patient's decision for other reasons
CPT/HCPCS: 36415; 80053; 82150; 83690; 85025; 81003; 99284; 96374; 96361; J2405

== ENCOUNTER 2017-08-31 15:39 | Observation (INO) | payer BC ==
[2017-08-31] MEDS ORDERED: IPRATROPIUM-ALBUTEROL 3 ML NEB INHALATION STA ×2 (17:12→18:39)
--- NOTE | 2017-08-31 17:17 | ED ---
General Adult HPI - General Chief complaint: Shortness of Breath Stated complaint: SOB Time Seen by Provider: 08/31/17 17:04 Source: patient, RN notes reviewed Mode of arrival: ambulatory Limitations: no limitations - History of Present Illness Initial comments: Patient's a 52-year-old female significant past medical history for COPD, presenting to emergency room today with chief complaint of increased shortness of breath which began while laying down watching TV approximately 3 hours ago. Patient states she does do breathing treatments at home. She did not try one prior to come to the emergency room. She denies any chest pain. Denies any pleuritic pain. Does admit to lower back pain states that she's had 2 surgeries in the past. Patient denies any other complaints at this time. Patient denies any recent fever, chills, chest pain, abdominal pain, nausea or vomiting, numbness or tingling, dysuria or hematuria, constipation or diarrhea, headaches or visual changes, or any other complaints. - Related Data Home Medications Medication Instructions Recorded Confirmed Hydrocodone/Acetaminophen [[place] 1 tab PO QID PRN 03/25/14 08/31/17 10-325] Levothyroxine Sodium [Synthroid] 88 mcg PO DAILY 03/25/14 08/31/17 Methadone [Dolophine] 5 mg PO TID 07/10/17 08/31/17 Albuterol Inhaler [Ventolin Hfa 2 puff INHALATION RT-Q6H PRN 08/31/17 08/31/17 Inhaler] Zaleplon [Sonata] 10 mg PO HS 08/31/17 08/31/17 Allergies Allergy/AdvReac Type Severity Reaction Status Date / Time ciprofloxacin [From Cipro] Allergy Rash/Hives Verified 08/31/17 18:17 duloxetine [From Cymbalta] Allergy Swelling Verified 08/31/17 18:17 OF THROAT metaproterenol [From Alupent] Allergy Heart races Verified 08/31/17 18:17 codeine AdvReac Vomiting Verified 08/31/17 18:17 fluticasone AdvReac ulcers in Verified 08/31/17 18:17 [From Advair Diskus] mouth salmeterol AdvReac ulcers in Verified 08/31/17 18:17 [From Advair Diskus] mouth Review of Systems ROS Statement: Those systems with pertinent positive or pertinent negative responses have been documented in the HPI. ROS Other: All systems not noted in ROS Statement are negative. Past Medical History Past Medical History: COPD, Fibromyalgia, Liver Disease, Osteoarthritis (OA), Pneumonia, Pulmonary Embolus (PE), Thyroid Disorder Additional Past Medical History / Comment(s): back pain, Hep C, History of Any Multi-Drug Resistant Organisms: None Reported Past Surgical History: Back Surgery, Section, Cholecystectomy, Hysterectomy Additional Past Surgical History / Comment(s): multiple back surgeries including back fusion and 10 hand surgeries, 3 knee surgeries Past Anesthesia/Blood Transfusion Reactions: Postoperative Nausea & Vomiting ( PONV) Past Psychological History: Depression Smoking Status: Current every day smoker Past Alcohol Use History: None Reported Past Drug Use History: None Reported - Past Family History Father Family Medical History: Vascular Disorder Additional Family Medical History / Comment(s): Father of a ruptured aortic aneurysm. Sister(s) Family Medical History: Cancer Additional Family Medical History / Comment(s): SKIN CANCER AND BREAST CANCER Mother Family Medical History: No Reported History General Exam - General Exam Comments Initial Comments: General: The patient is awake and alert, in no distress, and does not appear acutely ill. Eye: Pupils are equal, round and reactive to light, extra-ocular movements are intact. No nystagmus. There is normal conjunctiva bilaterally. No signs of icterus. Ears, nose, mouth and throat: There are moist mucous membranes and no oral lesions. Neck: The neck is supple, there is no tenderness or JVD. Cardiovascular: There is a regular rate and rhythm. No murmur, rub or gallop is appreciated. Respiratory: Mild expiratory wheeze on forced expiration. breath sounds are equal. No stridor, rales, or rhonchi. Musculoskeletal: Normal ROM, no tenderness. Strength 5/5. Sensation intact. Pulses equal bilaterally 2+. Neurological: A&O x 3. CN II-XII intact, There are no obvious motor or sensory deficits. Coordination appears grossly intact. Speech is normal. Skin: Skin is warm and dry and no rashes or lesions are noted. Psychiatric: Cooperative, appropriate mood & affect, normal judgment. Limitations: no limitations Course Vital Signs 08/31/17 08/31/17 08/31/17 15:59 17:44 18:02 Temperature 98.7 F Pulse Rate 79 76 80 Respiratory 18 Rate Blood Pressure 98/67 O2 Sat by Pulse 98 Oximetry 08/31/17 18:12 Temperature Pulse Rate 85 Respiratory 18 Rate Blood Pressure 105/57 O2 Sat by Pulse 94 L Oximetry EKG Findings - EKG Comments: EKG Findings:: EKG performed at 1709: Shows normal sinus rhythm at 75 bpm. [place] interval 156. QRS 88. QT/QTc 406/453. No acute changes. Medical Decision Making - Medical Decision Making Patient reexamined at this time states still feeling better after breathing treatments. Patient can steroids here in emergency room. Patient's chest x- rays negative. Patient's labs were reviewed negative cardiac enzymes. Negative EKG. Patient will be admitted for COPD exacerbation continue breathing treatments and steroids. Case discussed with attending physician Dr. Moore who did discuss with admitting physician Dr. Santoyo - Lab Data Result diagrams: 08/31/17 17:15 08/31/17 17:15 Lab Results 08/31/17 08/31/17 08/31/17 Range/Units 17:15 17:15 17:15 WBC 10.9 H (3.8-10.6) k/uL RBC 4.92 (3.80-5.40) m/uL Hgb 15.5 (11.4-16.0) gm/dL Hct 44.6 (34.0-46.0) % MCV 90.7 (80.0-100.0) fL MCH 31.5 (25.0-35.0) pg MCHC 34.7 (31.0-37.0) g/dL RDW 12.8 (11.5-15.5) % Plt Count 355 (150-450) k/uL Neutrophils % 69 % Lymphocytes % 22 % Monocytes % 6 % Eosinophils % 1 % Basophils % 0 % Neutrophils # 7.5 (1.3-7.7) k/uL Lymphocytes # 2.4 (1.0-4.8) k/uL Monocytes # 0.6 (0-1.0) k/uL Eosinophils # 0.1 (0-0.7) k/uL Basophils # 0.0 (0-0.2) k/uL PT (9.0-12.0) sec INR (<1.2) APTT (22.0-30.0) sec Sodium 144 (137-145) mmol/L Potassium 4.4 (3.5-5.1) mmol/L Chloride 104 (98-107) mmol/L Carbon Dioxide 25 (22-30) mmol/L Anion Gap 15 mmol/L BUN 12 (7-17) mg/dL Creatinine 0.60 (0.52-1.04) mg/dL Est GFR (CKD-EPI)AfAm >90 (>60 ml/min/1.73 sqM) Est GFR (CKD-EPI)NonAf >90 (>60 ml/min/1.73 sqM) Glucose 84 (74-99) mg/dL Plasma Lactic Acid Lester (0.7-2.0) mmol/L Calcium 10.8 H (8.4-10.2) mg/dL Magnesium 2.1 (1.6-2.3) mg/dL Total Bilirubin 0.4 (0.2-1.3) mg/dL AST 29 (14-36) U/L ALT 37 (9-52) U/L Alkaline Phosphatase 86 (38-126) U/L Total Creatine Kinase 30 (30-135) U/L CK-MB (CK-2) 0.5 (0.0-2.4) ng/mL CK-MB (CK-2) Rel Index 1.7 Troponin I <0.012 (0.000-0.034) ng/mL Total Protein 7.7 (6.3-8.2) g/dL Albumin 4.8 (3.5-5.0) g/dL 08/31/17 08/31/17 Range/Units 17:15 17:15 WBC (3.8-10.6) k/uL RBC (3.80-5.40) m/uL Hgb (11.4-16.0) gm/dL Hct (34.0-46.0) % MCV (80.0-100.0) fL MCH (25.0-35.0) pg MCHC (31.0-37.0) g/dL RDW (11.5-15.5) % Plt Count (150-450) k/uL Neutrophils % % Lymphocytes % % Monocytes % % Eosinophils % % Basophils % % Neutrophils # (1.3-7.7) k/uL Lymphocytes # (1.0-4.8) k/uL Monocytes # (0-1.0) k/uL Eosinophils # (0-0.7) k/uL Basophils # (0-0.2) k/uL PT 9.9 (9.0-12.0) sec INR 1.0 (<1.2) APTT 24.1 (22.0-30.0) sec Sodium (137-145) mmol/L Potassium (3.5-5.1) mmol/L Chloride (98-107) mmol/L Carbon Dioxide (22-30) mmol/L Anion Gap mmol/L BUN (7-17) mg/dL Creatinine (0.52-1.04) mg/dL Est GFR (CKD-EPI)AfAm (>60 ml/min/1.73 sqM) Est GFR (CKD-EPI)NonAf (>60 ml/min/1.73 sqM) Glucose (74-99) mg/dL Plasma Lactic Acid Lester 1.0 (0.7-2.0) mmol/L Calcium (8.4-10.2) mg/dL Magnesium (1.6-2.3) mg/dL Total Bilirubin (0.2-1.3) mg/dL AST (14-36) U/L ALT (9-52) U/L Alkaline Phosphatase (38-126) U/L Total Creatine Kinase (30-135) U/L CK-MB (CK-2) (0.0-2.4) ng/mL CK-MB (CK-2) Rel Index Troponin I (0.000-0.034) ng/mL Total Protein (6.3-8.2) g/dL Albumin (3.5-5.0) g/dL Disposition Clinical Impression: COPD exacerbation Disposition: ADMITTED IP TO THIS HOSP Condition: Good Is patient prescribed a controlled substance at d/c from ED?: No Referrals: Nilton Santoyo MD [Primary Care Provider] - 1-2 days Time of Disposition: 18:51
[2017-08-31 17:28] LABS: Basophils % (A) 0 %; Eosinophils # (A) 0.1 k/uL (0-0.7); Eosinophils % (A) 1 %; HCT 44.6 % (34.0-46.0); HGB 15.5 gm/dL (11.4-16.0); Lymphocytes # (A) 2.4 k/uL (1.0-4.8); Lymphocytes % (A) 22 %; MCH 31.5 pg (25.0-35.0); MCHC 34.7 g/dL (31.0-37.0); MCV 90.7 fL (80.0-100.0); Mean Platelet Volume 7.6; Monocytes # (A) 0.6 k/uL (0-1.0); Monocytes % (A) 6 %; Neutrophils # (A) 7.5 k/uL (1.3-7.7); Neutrophils % (A) 69 %; Platelet Count 355 k/uL (150-450); RBC 4.92 m/uL (3.80-5.40); RDW 12.8 % (11.5-15.5); WBC 10.9 k/uL (3.8-10.6)
[2017-08-31] MEDS: SODIUM CHLORIDE 0.9% 1,000 ML IV STA (17:30)
[2017-08-31 17:37] LABS: ALT 37 U/L (9-52); AST 29 U/L (14-36); Albumin 4.8 g/dL (3.5-5.0); Alkaline Phosphatase 86 U/L (38-126); Anion Gap 15 mmol/L; Blood Urea Nitrogen 12 mg/dL (7-17); Calcium 10.8 mg/dL (8.4-10.2); Carbon Dioxide 25 mmol/L (22-30); Chloride 104 mmol/L (98-107); Glucose 84 mg/dL (74-99); Magnesium 2.1 mg/dL (1.6-2.3); Potassium 4.4 mmol/L (3.5-5.1); Sodium 144 mmol/L (137-145); Total Bilirubin 0.4 mg/dL (0.2-1.3); Total Protein 7.7 g/dL (6.3-8.2)
[2017-08-31 17:39] LABS: Partial Thromboplastin Time 24.1 sec (22.0-30.0); Prothrombin Time 9.9 sec (9.0-12.0)
[2017-08-31 17:51] LABS: Creatine Kinase 30 U/L (30-135)
[2017-08-31] MEDS ORDERED: ASPIRIN 81 MG PO STA (17:57)
[2017-08-31] MEDS ORDERED: NITROGLYCERIN SL TABS 0.4 MG TAB SUBLINGUAL STA (17:57)
[2017-08-31] MEDS ORDERED: HYDROcodone/APAP 10-325MG 1 EACH TAB PO ONE (17:57)
[2017-08-31 18:03] LABS: Creatine Kinase MB 0.5 ng/mL (0.0-2.4); Troponin I <0.012 ng/mL (0.000-0.034)
[2017-08-31] MEDS ORDERED: methylPREDNISolone SOD SUCCI 125 MG/2 ML VIAL IV STA (18:39)
--- NOTE | 2017-08-31 19:26 | XR ---
EXAMINATION: XR chest 2V DATE AND TIME: 08/31/2017 6:10 PM ORDERING PROVIDER: Manuel Hercules CLINICAL INDICATION: Chest Pain TECHNIQUE: PA and lateral COMPARISON: 08/05/2017 DESCRIPTION: There is a coarse reticular pattern of increased density throughout the lungs, mild in degree, likely chronic interstitial lung change. There is a 1 cm opacity noted in the left perihilar position. The lungs are well-expanded and clear bilaterally. No evident pulmonary edema or candidate for pneumo osman. Pleural spaces are negative except for apical capping on the right with overlying ribs intact. The cardiomediastinal silhouette and bones and soft tissues are unremarkable. IMPRESSION: 1. NO ACUTE PROCESS. 2. Nonurgent findings for which nonemergent follow-up chest CT is advised.
[2017-08-31 20:17] VITALS: BMI 24.3
[2017-08-31] MEDS: TEMAZEPAM 30 MG CAP PO PRN (20:36)
[2017-08-31] MEDS: METHADONE 5 MG TAB PO SCH (21:29)
[2017-08-31] MEDS: AMITRIPTYLINE HCL 25 MG TAB PO SCH (21:30)
[2017-08-31] MEDS ORDERED: BENZONATATE 100 MG CAP PO PRN (22:31)
[2017-08-31] MEDS ORDERED: guaiFENesin SYRUP 100MG/5ML 200 MG/10 ML CUP PO PRN (22:32)
[2017-09-01] MEDS: methylPREDNISolone SOD SUCCI 125 MG/2 ML VIAL IV SCH ×3 (00:14→12:16)
[2017-09-01] MEDS: HYDROcodone/APAP 10-325MG 1 EACH TAB PO PRN ×4 (00:16→19:23)
[2017-09-01] MEDS: LEVOTHYROXINE 88 MCG TAB PO SCH (06:18)
[2017-09-01] MEDS: SODIUM CHLORIDE 0.9% 1,000 ML IV STA (07:08)
[2017-09-01] MEDS: AMITRIPTYLINE HCL 25 MG TAB PO SCH ×2 (08:26→20:09)
[2017-09-01] MEDS: METHADONE 5 MG TAB PO SCH ×3 (08:27→21:57)
[2017-09-01] MEDS: IPRATROPIUM-ALBUTEROL 3 ML NEB INHALATION PRN ×4 (08:57→20:39)
[2017-09-01] MEDS: HEPARIN SODIUM,PORCINE 5,000 UNIT/ML 1 ML VIAL SQ SCH (17:00)
--- NOTE | 2017-09-01 18:15 | P.HPIM ---
History of Present Illness H&P Date: 09/01/17 Chief Complaint: Shortness of breath Patient is a 62-year-old female with a known history of COPD, fibromyalgia, hepatitis C, osteoarthritis and previous history of pulmonary embolism and anxiety and depression came to ER with complaints of increased shortness of breath which began while laying down watching TV approximately 3 hours ago. Patient states she does do breathing treatments at home. She did not try one prior to come to the emergency room. She denies any chest pain. Denies any pleuritic pain. Does admit to lower back pain states that she's had 2 surgeries in the past. Patient denies any other complaints at this time. Patient denies any recent fever, chills, chest pain, abdominal pain, nausea or vomiting, numbness or tingling, dysuria or hematuria, constipation or diarrhea, headaches or visual changes, or any other complaints. Chest x-ray showed no acute process. Non-Hodgkin findings for which nonemergent follow-up chest CT is advised. There is a 1 cm noted in the left perihilar position. Drains a PCR is negative Review of Systems Constitutional: Patient denies any fever or chills . No generalized weakness or weight loss. Abdomen: Patient denied nausea vomiting and diarrhea and abdominal pain. Cardiovascular: Patient denies any chest pain or short of breath no palpitations. Respiratory: Patient does have cough with out much sputum production. Shortness of breath Neurologic: Patient denied any numbness or tingling headache. Musculoskeletal: Patient denies any complaints of joint swelling or deformity. Skin: Negative Psychiatric: Negative Endocrine: No heat or cold intolerance. No recent weight gain. Genitourinary: No dysuria or hematuria. All other 14 point ROS negative except the above Past Medical History Past Medical History: COPD, Fibromyalgia, Liver Disease, Osteoarthritis (OA), Pneumonia, Pulmonary Embolus (PE), Thyroid Disorder Additional Past Medical History / Comment(s): back pain, Hep C, History of Any Multi-Drug Resistant Organisms: None Reported Past Surgical History: Back Surgery, Section, Cholecystectomy, Hysterectomy Additional Past Surgical History / Comment(s): multiple back surgeries including back fusion and 10 hand surgeries, 3 knee surgeries Past Anesthesia/Blood Transfusion Reactions: No Reported Reaction Past Psychological History: Depression Smoking Status: Current every day smoker Past Alcohol Use History: None Reported Additional Past Alcohol Use History / Comment(s): Pt started smoking AT AGE 21 SMOKES 1/2PPD Past Drug Use History: None Reported Additional Drug Use History / Comment(s): Pt denies any drug use other than prescribed medications taken as prescribed. - Past Family History Father Family Medical History: Vascular Disorder Additional Family Medical History / Comment(s): Father of a ruptured aortic aneurysm. Sister(s) Family Medical History: Cancer Additional Family Medical History / Comment(s): SKIN CANCER AND BREAST CANCER Mother Family Medical History: No Reported History Medications and Allergies Home Medications Medication Instructions Recorded Confirmed Type Hydrocodone/Acetaminophen [[place] 1 tab PO QID PRN 03/25/14 08/31/17 History 10-325] Levothyroxine Sodium [Synthroid] 88 mcg PO DAILY 03/25/14 08/31/17 History Methadone [Dolophine] 5 mg PO TID 07/10/17 08/31/17 History Albuterol Inhaler [Ventolin Hfa 2 puff INHALATION RT-Q6H PRN 08/31/17 08/31/17 History Inhaler] Amitriptyline HCl [Amitriptyline 25 mg PO BID 08/31/17 08/31/17 History HCl] Zaleplon [Sonata] 10 mg PO HS 08/31/17 08/31/17 History Allergies Allergy/AdvReac Type Severity Reaction Status Date / Time ciprofloxacin [From Cipro] Allergy Rash/Hives Verified 08/31/17 20:18 duloxetine [From Cymbalta] Allergy Swelling Verified 08/31/17 20:18 OF THROAT metaproterenol [From Alupent] Allergy Heart races Verified 08/31/17 20:18 codeine AdvReac Vomiting Verified 08/31/17 20:18 fluticasone AdvReac ulcers in Verified 08/31/17 20:18 [From Advair Diskus] mouth salmeterol AdvReac ulcers in Verified 08/31/17 20:18 [From Advair Diskus] mouth Physical Exam Vitals: Vital Signs Temp Pulse Pulse Resp BP BP Pulse Ox 09/01/17 12:25 98.0 F 81 18 106/61 95 09/01/17 12:00 72 09/01/17 11:52 70 09/01/17 09:07 73 09/01/17 08:57 72 09/01/17 07:55 98.2 F 65 17 111/66 94 L 09/01/17 06:18 95 09/01/17 05:09 97.6 F 69 16 107/61 95 09/01/17 00:23 98.6 F 71 18 90/52 97 08/31/17 19:41 98.2 F 74 20 149/83 97 08/31/17 19:35 80 08/31/17 19:26 76 08/31/17 19:08 98.7 F 68 18 110/57 99 08/31/17 18:12 85 18 105/57 94 L 08/31/17 18:02 80 08/31/17 17:44 76 08/31/17 15:59 98.7 F 79 18 98/67 98 Intake and Output 08/31/17 09/01/17 09/01/17 22:59 06:59 14:59 Other: # Voids 1 1 Weight 72.575 kg PHYSICAL EXAMINATION: Patient is lying in the bed comfortably, no acute distress, awake alert and oriented.. HEENT: Normocephalic. Neck is supple. Pupils reactive. Nostrils clear. Oral cavity is moist. Ears reveal no drainage. Neck reveals no JVD, carotid bruits, or thyromegaly. CHEST EXAMINATION: Trachea is central. Symmetrical expansion. Bilateral coarse breath sounds. Diminished air entry overall. Minimal expiratory wheeze. CARDIAC: Normal S1, S2 with no gallops. No murmurs ABDOMEN: Soft. Bowel sounds normal. No organomegaly. No abdominal bruits. Extremities: reveal no edema. No clubbing or cyanosis Neurologically awake, alert, oriented x3 with well-coordinated movements. No focal deficits noted Skin: No rash or skin lesions. Psychiatric: Cooperative. Nonsuicidal anxious. Musculoskeletal: No joint swelling or deformity. Normal range of motion. Results CBC & Chem 7: 08/31/17 17:15 08/31/17 17:15 Labs: Abnormal Lab Results - Last 24 Hours (Table) 08/31/17 08/31/17 Range/Units 17:15 17:15 WBC 10.9 H (3.8-10.6) k/uL Calcium 10.8 H (8.4-10.2) mg/dL Thrombosis Risk Factor Assmnt - DVT/VTE Prophylaxis DVT/VTE Prophylaxis: Pharmacologic Prophylaxis ordered - Choose All That Apply Each Factor Represents 1 point: Abnormal pulmonary function (COPD) Each Risk Factor Represents 2 Points: Age 61-74 years Each Risk Factor Represents 3 Points: History of DVT/PE Thrombosis Risk Factor Assessment Total Risk Factor Score: 6 Thrombosis Risk Factor Assessment Level: High Risk Assessment and Plan Assessment: Shortness of breath secondary to acute COPD exacerbation. Due to sudden onset will rule out PE. D-dimer was ordered Active nicotine addiction Anxiety and depression Fibromyalgia Osteoarthritis History of pulmonary embolism Hypothyroidism Chronic low back pain Hepatitis C DVT prophylaxis Plan: Patient will be continued on breathing treatments and IV steroids. Ativan 0.5 mg tid for anxiety. Continue the pain management. D-dimer to rule out any pulmonary embolism. Current with home medications and pain management. Nicotine patch. Further recommendations based on the clinical course. Time with Patient: Greater than 30
[2017-09-01] MEDS: NICOTINE 14MG/24HR PATCH TRANSDERM SCH (20:09)
[2017-09-01] MEDS: TEMAZEPAM 30 MG CAP PO PRN (20:09)
[2017-09-02] MEDS: methylPREDNISolone SOD SUCCI 40 MG/ML 1 ML VIAL IV SCH ×4 (00:59→23:41)
[2017-09-02] MEDS: HEPARIN SODIUM,PORCINE 5,000 UNIT/ML 1 ML VIAL SQ SCH ×4 (00:59→23:41)
[2017-09-02] MEDS: HYDROcodone/APAP 10-325MG 1 EACH TAB PO PRN ×4 (01:19→19:50)
[2017-09-02] MEDS: IPRATROPIUM-ALBUTEROL 3 ML NEB INHALATION PRN ×2 (01:31→18:34)
[2017-09-02] MEDS: LEVOTHYROXINE 88 MCG TAB PO SCH (06:05)
[2017-09-02] MEDS: ALBUTEROL NEBULIZED 2.5 MG/3 ML INHALATION PRN ×2 (07:15→14:31)
[2017-09-02] MEDS: AMITRIPTYLINE HCL 25 MG TAB PO SCH ×2 (08:52→20:42)
[2017-09-02] MEDS: METHADONE 5 MG TAB PO SCH ×3 (08:52→21:55)
[2017-09-02] MEDS: NICOTINE 14MG/24HR PATCH TRANSDERM SCH (18:42)
[2017-09-02] MEDS: FAMOTIDINE 20 MG TAB PO SCH (20:42)
[2017-09-02] MEDS: PREGABALIN 75 MG CAP PO SCH (20:42)
[2017-09-02] MEDS: ZOLPIDEM 10 MG TAB PO PRN (20:45)
--- NOTE | 2017-09-03 01:23 | P.PN ---
Subjective Progress Note Date: 09/02/17 Principal diagnosis: Acute COPD exacerbation Patient is a 62-year-old female with a known history of COPD, fibromyalgia, hepatitis C, osteoarthritis and previous history of pulmonary embolism and anxiety and depression came to ER with complaints of increased shortness of breath which began while laying down watching TV approximately 3 hours ago. Patient states she does do breathing treatments at home. She did not try one prior to come to the emergency room. She denies any chest pain. Denies any pleuritic pain. Does admit to lower back pain states that she's had 2 surgeries in the past. Patient denies any other complaints at this time. Patient denies any recent fever, chills, chest pain, abdominal pain, nausea or vomiting, numbness or tingling, dysuria or hematuria, constipation or diarrhea, headaches or visual changes, or any other complaints. Chest x-ray showed no acute process. Non-Hodgkin findings for which nonemergent follow-up chest CT is advised. There is a 1 cm noted in the left perihilar position. Influenza PCR is negative 09/02/2017 Patient initially having cough without sputum production. Shortness of breath is much improved. Otherwise patient is comparing of pain and unable to sleep last night. Requesting stronger pain med medications and sleeping pill. Otherwise no fever no chills. Anticipate discharge next 24 hours. Started back on Lyrica. No fever no chills. No chest pain. No nausea vomiting or abdominal pain. Patient has abdominal discomfort likely due to steroid use All other review of systems negative except the above Current medications reviewed Objective - Vital Signs Vital signs: Vital Signs Temp 98.2 F 09/02/17 12:05 Pulse 72 09/02/17 14:43 Resp 18 09/02/17 12:05 BP 129/72 09/02/17 12:05 Pulse Ox 95 09/02/17 12:05 Intake & Output 09/01/17 09/02/17 09/02/17 18:59 06:59 18:59 Intake Total 820 Balance 820 Intake: Oral 820 Other: # Voids 1 1 - Exam PHYSICAL EXAMINATION: Patient is lying in the bed comfortably, no acute distress, awake alert and oriented.. HEENT: Normocephalic. Neck is supple. Pupils reactive. Nostrils clear. Oral cavity is moist. Ears reveal no drainage. Neck reveals no JVD, carotid bruits, or thyromegaly. CHEST EXAMINATION: Trachea is central. Symmetrical expansion. Bilateral prolonged expiratory phase. Minimal wheezing. CARDIAC: Normal S1, S2 with no gallops. No murmurs ABDOMEN: Soft. Bowel sounds normal. No organomegaly. No abdominal bruits. Extremities: reveal no edema. No clubbing or cyanosis Neurologically awake, alert, oriented x3 with well-coordinated movements. No focal deficits noted Skin: No rash or skin lesions. Psychiatric: Coperative. Nonsuicidal Musculoskeletal: No joint swelling or deformity. Normal range of motion. - Labs CBC & Chem 7: 08/31/17 17:15 08/31/17 17:15 Labs: Microbiology - Last 24 Hours (Table) 08/31/17 17:15 Blood Culture - Preliminary Blood No Growth after 24 hours Assessment and Plan Assessment: Shortness of breath secondary to acute COPD exacerbation. Due to sudden onset will ruled out PE. D-dimer not elevated Active nicotine addiction Anxiety and depression Fibromyalgia Osteoarthritis History of pulmonary embolism Hypothyroidism Chronic low back pain Hepatitis C DVT prophylaxis Plan: Patient will be continued on breathing treatments and IV steroids. Ativan 0.5 mg tid for anxiety. Continue the pain management. D-dimer is not elevated. Unlikely pulmonary embolism. Current with home medications and pain management. Nicotine patch. Further recommendations based on the clinical course. Time with Patient: Greater than 30
[2017-09-03] MEDS: HYDROcodone/APAP 10-325MG 1 EACH TAB PO PRN ×4 (01:46→19:42)
[2017-09-03] MEDS: LEVOTHYROXINE 88 MCG TAB PO SCH (06:15)
[2017-09-03] MEDS: IPRATROPIUM-ALBUTEROL 3 ML NEB INHALATION PRN ×4 (07:34→19:23)
[2017-09-03] MEDS: HEPARIN SODIUM,PORCINE 5,000 UNIT/ML 1 ML VIAL SQ SCH ×3 (08:03→23:44)
[2017-09-03] MEDS: methylPREDNISolone SOD SUCCI 40 MG/ML 1 ML VIAL IV SCH ×3 (08:03→23:44)
[2017-09-03] MEDS: FAMOTIDINE 20 MG TAB PO SCH ×2 (09:10→21:00)
[2017-09-03] MEDS: METHADONE 5 MG TAB PO SCH ×3 (09:10→20:58)
[2017-09-03] MEDS: PREGABALIN 75 MG CAP PO SCH ×2 (09:10→20:59)
[2017-09-03] MEDS: NICOTINE 14MG/24HR PATCH TRANSDERM SCH (09:11)
[2017-09-03] MEDS: AMITRIPTYLINE HCL 25 MG TAB PO SCH ×2 (09:13→21:00)
[2017-09-03] MEDS: ZOLPIDEM 10 MG TAB PO PRN (20:59)
--- NOTE | 2017-09-03 22:29 | P.PN ---
Subjective Progress Note Date: 09/03/17 Principal diagnosis: Acute COPD exacerbation Patient is a 62-year-old female with a known history of COPD, fibromyalgia, hepatitis C, osteoarthritis and previous history of pulmonary embolism and anxiety and depression came to ER with complaints of increased shortness of breath which began while laying down watching TV approximately 3 hours ago. Patient states she does do breathing treatments at home. She did not try one prior to come to the emergency room. She denies any chest pain. Denies any pleuritic pain. Does admit to lower back pain states that she's had 2 surgeries in the past. Patient denies any other complaints at this time. Patient denies any recent fever, chills, chest pain, abdominal pain, nausea or vomiting, numbness or tingling, dysuria or hematuria, constipation or diarrhea, headaches or visual changes, or any other complaints. Chest x-ray showed no acute process. Non-Hodgkin findings for which nonemergent follow-up chest CT is advised. There is a 1 cm noted in the left perihilar position. Influenza PCR is negative 09/02/2017 Patient initially having cough without sputum production. Shortness of breath is much improved. Otherwise patient is comparing of pain and unable to sleep last night. Requesting stronger pain med medications and sleeping pill. Otherwise no fever no chills. Anticipate discharge next 24 hours. Started back on Lyrica. No fever no chills. No chest pain. No nausea vomiting or abdominal pain. Patient has abdominal discomfort likely due to steroid use. 09/03/2017 Patient says that she is not back to baseline yet. Continue the current management and anticipate discharge tomorrow. All other review of systems negative except the above Current medications reviewed Objective - Vital Signs Vital signs: Vital Signs Temp 98.5 F 09/03/17 15:40 Pulse 72 09/03/17 19:33 Resp 18 09/03/17 15:40 BP 119/63 09/03/17 15:40 Pulse Ox 95 09/03/17 15:40 Intake & Output 09/03/17 09/03/17 09/04/17 06:59 18:59 06:59 Intake Total 1540 1010 Balance 1540 1010 Intake: Oral 1540 1010 Other: # Voids 2 3 - Exam PHYSICAL EXAMINATION: Patient is lying in the bed comfortably, no acute distress, awake alert and oriented.. HEENT: Normocephalic. Neck is supple. Pupils reactive. Nostrils clear. Oral cavity is moist. Ears reveal no drainage. Neck reveals no JVD, carotid bruits, or thyromegaly. CHEST EXAMINATION: Trachea is central. Symmetrical expansion. Bilateral prolonged expiratory phase. Minimal wheezing. CARDIAC: Normal S1, S2 with no gallops. No murmurs ABDOMEN: Soft. Bowel sounds normal. No organomegaly. No abdominal bruits. Extremities: reveal no edema. No clubbing or cyanosis Neurologically awake, alert, oriented x3 with well-coordinated movements. No focal deficits noted Skin: No rash or skin lesions. Psychiatric: Coperative. Nonsuicidal Musculoskeletal: No joint swelling or deformity. Normal range of motion. - Labs CBC & Chem 7: 08/31/17 17:15 08/31/17 17:15 Labs: Microbiology - Last 24 Hours (Table) 08/31/17 17:15 Blood Culture - Preliminary Blood No Growth after 72 hours Assessment and Plan Assessment: Shortness of breath secondary to acute COPD exacerbation. Due to sudden onset will ruled out PE. D-dimer not elevated Active nicotine addiction Anxiety and depression Fibromyalgia Osteoarthritis History of pulmonary embolism Hypothyroidism Chronic low back pain Hepatitis C DVT prophylaxis Plan: Patient will be continued on breathing treatments and IV steroids. Ativan 0.5 mg tid for anxiety. Continue the pain management. D-dimer is not elevated. Unlikely pulmonary embolism. Current with home medications and pain management. Nicotine patch. Further recommendations based on the clinical course.
[2017-09-04] MEDS: HYDROcodone/APAP 10-325MG 1 EACH TAB PO PRN ×3 (01:42→13:52)
[2017-09-04] MEDS: LEVOTHYROXINE 88 MCG TAB PO SCH (06:38)
[2017-09-04 06:54] VITALS: TEMP 98.2
[2017-09-04] MEDS: HEPARIN SODIUM,PORCINE 5,000 UNIT/ML 1 ML VIAL SQ SCH (07:34)
[2017-09-04] MEDS: AMITRIPTYLINE HCL 25 MG TAB PO SCH (07:35)
[2017-09-04] MEDS: methylPREDNISolone SOD SUCCI 40 MG/ML 1 ML VIAL IV SCH (07:35)
[2017-09-04] MEDS: FAMOTIDINE 20 MG TAB PO SCH (07:36)
[2017-09-04] MEDS: PREGABALIN 75 MG CAP PO SCH (09:04)
[2017-09-04] MEDS: METHADONE 5 MG TAB PO SCH (09:04)
[2017-09-04] MEDS: NICOTINE 14MG/24HR PATCH TRANSDERM SCH (09:04)
[2017-09-04] MEDS: IPRATROPIUM-ALBUTEROL 3 ML NEB INHALATION PRN ×2 (09:15→13:11)
[2017-09-04 11:12] VITALS: BP 129/77; RESP 16
[2017-09-04 13:14] VITALS: PULSE 72
[2017-09-04] MEDS ORDERED: predniSONE 20 MG TAB PO SCH (13:15)
== END 2017-09-04 14:10 | disposition home or self-care (01) ==
LOC: EC 15:39 → 6PED 18:45
PROVIDERS: ADMIT Family Medicine; ATTEND Family Medicine
DX: J44.1 Chronic obstructive pulmonary disease with (acute) exacerbation (principal); F17.210 Nicotine dependence, cigarettes, uncomplicated; F32.9 Major depressive disorder, single episode, unspecified; F41.9 Anxiety disorder, unspecified; M79.7 Fibromyalgia; Z86.711 Personal history of pulmonary embolism; M19.90 Unspecified osteoarthritis, unspecified site; G89.29 Other chronic pain; M54.5 Low back pain; E03.9 Hypothyroidism, unspecified; B19.20 Unspecified viral hepatitis C without hepatic coma; Z87.01 Personal history of pneumonia (recurrent); Z80.8 Family history of malignant neoplasm of other organs or systems; Z80.3 Family history of malignant neoplasm of breast; Z79.899 Other long term (current) drug therapy; Z79.890 Hormone replacement therapy; Z79.891 Long term (current) use of opiate analgesic; Z88.1 Allergy status to other antibiotic agents; Z88.5 Allergy status to narcotic agent; Z88.8 Allergy status to other drugs, medicaments and biological substances; Z90.49 Acquired absence of other specified parts of digestive tract; Z82.49 Family history of ischemic heart disease and other diseases of the circulatory system
CPT/HCPCS: 96374 ×2; 96361 ×3; 99285 ×2; 96372 ×4; 96376 ×4; 36415; 94640 ×9; 94760 ×2; 93005; 85379; 80053; 82550; 82553; 83605; 83735; 84484; 85025; 85610; 85730; 87040; 87502; 71046; G0378 ×5; S4990 ×4; J1644 ×4; J2920 ×3; J2930 ×2; S0109 ×5; 96365; 96366

== ENCOUNTER 2017-10-04 20:54 | Observation (INO) | payer BC ==
--- NOTE | 2017-10-04 21:05 | ED ---
General Adult HPI - General Chief complaint: Chest Pain Stated complaint: Chest Pain Time Seen by Provider: 10/04/17 20:59 Source: patient, RN notes reviewed, old records reviewed Mode of arrival: ambulatory Limitations: no limitations - History of Present Illness Initial comments: This is a 62-year-old female the ER for evasive chest pain with anterior chest pain. Patient severe history of COPD, multiple hospital admissions for COPD. patient's complaining of stabbing substernal chest pain started just prior to arrival, no high blood pressure, no recent travel history no sick contacts. No fevers, no cough or congestion - Related Data Home Medications Medication Instructions Recorded Confirmed Levothyroxine Sodium [Synthroid] 88 mcg PO DAILY 03/25/14 10/04/17 Albuterol Inhaler [Ventolin Hfa 2 puff INHALATION RT-Q6H PRN 08/31/17 10/04/17 Inhaler] Pregabalin [Lyrica] 150 mg PO TID 09/02/17 10/04/17 Morphine Sulfate ER [Ms Contin] 15 mg PO QID 10/04/17 10/04/17 Ramelteon [Rozerem] 8 mg PO HS 10/04/17 10/04/17 oxyCODONE-APAP 7.5-325MG [Percocet 1 tab PO Q6HR PRN 10/04/17 10/04/17 7.5-325 mg] Allergies Allergy/AdvReac Type Severity Reaction Status Date / Time ciprofloxacin [From Cipro] Allergy Rash/Hives Verified 10/04/17 21:27 duloxetine [From Cymbalta] Allergy Swelling Verified 10/04/17 21:27 OF THROAT metaproterenol [From Alupent] Allergy Heart races Verified 10/04/17 21:27 codeine AdvReac Vomiting Verified 10/04/17 21:27 fluticasone AdvReac ulcers in Verified 10/04/17 21:27 [From Advair Diskus] mouth salmeterol AdvReac ulcers in Verified 10/04/17 21:27 [From Advair Diskus] mouth Review of Systems ROS Statement: Those systems with pertinent positive or pertinent negative responses have been documented in the HPI. ROS Other: All systems not noted in ROS Statement are negative. Past Medical History Past Medical History: COPD, Fibromyalgia, Liver Disease, Osteoarthritis (OA), Pneumonia, Pulmonary Embolus (PE), Thyroid Disorder Additional Past Medical History / Comment(s): back pain, Hep C, History of Any Multi-Drug Resistant Organisms: None Reported Past Surgical History: Back Surgery, Section, Cholecystectomy, Hysterectomy Additional Past Surgical History / Comment(s): multiple back surgeries including back fusion and 10 hand surgeries, 3 knee surgeries Past Anesthesia/Blood Transfusion Reactions: No Reported Reaction Past Psychological History: Depression Smoking Status: Current every day smoker Past Alcohol Use History: None Reported Past Drug Use History: None Reported - Past Family History Father Family Medical History: Vascular Disorder Additional Family Medical History / Comment(s): Father of a ruptured aortic aneurysm. Sister(s) Family Medical History: Cancer Additional Family Medical History / Comment(s): SKIN CANCER AND BREAST CANCER Mother Family Medical History: No Reported History General Exam Limitations: no limitations General appearance: alert, in no apparent distress Head exam: Present: atraumatic, normocephalic, normal inspection Eye exam: Present: normal appearance, PERRL, EOMI. Absent: scleral icterus, conjunctival injection, periorbital swelling ENT exam: Present: normal exam, mucous membranes moist Neck exam: Present: normal inspection. Absent: tenderness, meningismus, lymphadenopathy Respiratory exam: Present: wheezes. Absent: normal lung sounds bilaterally, respiratory distress, rales, rhonchi, stridor Cardiovascular Exam: Present: regular rate, normal rhythm, normal heart sounds. Absent: systolic murmur, diastolic murmur, rubs, gallop, clicks GI/Abdominal exam: Present: soft, normal bowel sounds. Absent: distended, tenderness, guarding, rebound, rigid Extremities exam: Present: normal inspection, full ROM, normal capillary refill. Absent: tenderness, pedal edema, joint swelling, calf tenderness Back exam: Present: normal inspection Neurological exam: Present: alert, oriented X3, CN II-XII intact Psychiatric exam: Present: normal affect, normal mood Skin exam: Present: warm, dry, intact, normal color. Absent: rash Course Vital Signs 10/04/17 20:56 Temperature 97.1 F L Pulse Rate 77 Respiratory 20 Rate Blood Pressure 120/96 O2 Sat by Pulse 95 Oximetry - Reevaluation(s) Reevaluation #1: 10/04/17 22:13 still with chest pain EKG Findings - EKG Comments: EKG Findings:: EKG shows no signs of a 75, SC 156, QRS 86, QTc 435 Medical Decision Making - Medical Decision Making 62 female to the ED co chest pain, sob, continues chest pain and will be admitted for chest pain observation, anticoagulation and cardiology evlauatroin - Lab Data Result diagrams: 10/04/17 21:02 10/04/17 21:02 Lab Results 10/04/17 10/04/17 10/04/17 Range/Units 21:02 21:02 21:02 WBC 10.5 (3.8-10.6) k/uL RBC 4.94 (3.80-5.40) m/uL Hgb 15.1 (11.4-16.0) gm/dL Hct 46.3 H (34.0-46.0) % MCV 93.8 (80.0-100.0) fL MCH 30.7 (25.0-35.0) pg MCHC 32.7 (31.0-37.0) g/dL RDW 13.3 (11.5-15.5) % Plt Count 339 (150-450) k/uL Neutrophils % 68 % Lymphocytes % 24 % Monocytes % 5 % Eosinophils % 1 % Basophils % 0 % Neutrophils # 7.1 (1.3-7.7) k/uL Lymphocytes # 2.5 (1.0-4.8) k/uL Monocytes # 0.6 (0-1.0) k/uL Eosinophils # 0.1 (0-0.7) k/uL Basophils # 0.0 (0-0.2) k/uL PT (9.0-12.0) sec INR (<1.2) APTT (22.0-30.0) sec Sodium 143 (137-145) mmol/L Potassium 4.4 (3.5-5.1) mmol/L Chloride 106 (98-107) mmol/L Carbon Dioxide 24 (22-30) mmol/L Anion Gap 13 mmol/L BUN 20 H (7-17) mg/dL Creatinine 0.70 (0.52-1.04) mg/dL Est GFR (CKD-EPI)AfAm >90 (>60 ml/min/1.73 sqM) Est GFR (CKD-EPI)NonAf >90 (>60 ml/min/1.73 sqM) Glucose 93 (74-99) mg/dL Calcium 10.4 H (8.4-10.2) mg/dL Magnesium 2.0 (1.6-2.3) mg/dL Total Bilirubin 0.4 (0.2-1.3) mg/dL AST 28 (14-36) U/L ALT 43 (9-52) U/L Alkaline Phosphatase 83 (38-126) U/L Total Creatine Kinase 29 L (30-135) U/L CK-MB (CK-2) 0.7 (0.0-2.4) ng/mL CK-MB (CK-2) Rel Index 2.4 Troponin I <0.012 (0.000-0.034) ng/mL NT-Pro-B Natriuret Pep pg/mL Total Protein 7.6 (6.3-8.2) g/dL Albumin 4.6 (3.5-5.0) g/dL Amylase 78 (30-110) U/L 10/04/17 10/04/17 Range/Units 21:02 21:02 WBC (3.8-10.6) k/uL RBC (3.80-5.40) m/uL Hgb (11.4-16.0) gm/dL Hct (34.0-46.0) % MCV (80.0-100.0) fL MCH (25.0-35.0) pg MCHC (31.0-37.0) g/dL RDW (11.5-15.5) % Plt Count (150-450) k/uL Neutrophils % % Lymphocytes % % Monocytes % % Eosinophils % % Basophils % % Neutrophils # (1.3-7.7) k/uL Lymphocytes # (1.0-4.8) k/uL Monocytes # (0-1.0) k/uL Eosinophils # (0-0.7) k/uL Basophils # (0-0.2) k/uL PT 10.3 (9.0-12.0) sec INR 1.1 (<1.2) APTT 25.5 (22.0-30.0) sec Sodium (137-145) mmol/L Potassium (3.5-5.1) mmol/L Chloride (98-107) mmol/L Carbon Dioxide (22-30) mmol/L Anion Gap mmol/L BUN (7-17) mg/dL Creatinine (0.52-1.04) mg/dL Est GFR (CKD-EPI)AfAm (>60 ml/min/1.73 sqM) Est GFR (CKD-EPI)NonAf (>60 ml/min/1.73 sqM) Glucose (74-99) mg/dL Calcium (8.4-10.2) mg/dL Magnesium (1.6-2.3) mg/dL Total Bilirubin (0.2-1.3) mg/dL AST (14-36) U/L ALT (9-52) U/L Alkaline Phosphatase (38-126) U/L Total Creatine Kinase (30-135) U/L CK-MB (CK-2) (0.0-2.4) ng/mL CK-MB (CK-2) Rel Index Troponin I (0.000-0.034) ng/mL NT-Pro-B Natriuret Pep 59 pg/mL Total Protein (6.3-8.2) g/dL Albumin (3.5-5.0) g/dL Amylase (30-110) U/L - Radiology Data Radiology results: report reviewed (CXR is negative), image reviewed Critical Care Time Critical Care Time: Yes Total Critical Care Time: 31 Disposition Clinical Impression: COPD exacerbation, Acute exacerbation of chronic obstructive airways disease, Chest pain Disposition: ADMITTED IP TO THIS [facility] Condition: Undetermined Referrals: Nilton Santoyo MD [Primary Care Provider] - 1-2 days
[2017-10-04 21:20] LABS: Basophils % (A) 0 %; Eosinophils # (A) 0.1 k/uL (0-0.7); Eosinophils % (A) 1 %; HCT 46.3 % (34.0-46.0); HGB 15.1 gm/dL (11.4-16.0); Lymphocytes # (A) 2.5 k/uL (1.0-4.8); Lymphocytes % (A) 24 %; MCH 30.7 pg (25.0-35.0); MCHC 32.7 g/dL (31.0-37.0); MCV 93.8 fL (80.0-100.0); Mean Platelet Volume 8.2; Monocytes # (A) 0.6 k/uL (0-1.0); Monocytes % (A) 5 %; Neutrophils # (A) 7.1 k/uL (1.3-7.7); Neutrophils % (A) 68 %; Platelet Count 339 k/uL (150-450); RBC 4.94 m/uL (3.80-5.40); RDW 13.3 % (11.5-15.5); WBC 10.5 k/uL (3.8-10.6)
[2017-10-04 21:29] LABS: INR 1.1 (<1.2); Partial Thromboplastin Time 25.5 sec (22.0-30.0); Prothrombin Time 10.3 sec (9.0-12.0)
[2017-10-04 21:32] LABS: Creatine Kinase 29 U/L (30-135)
[2017-10-04 21:36] LABS: ALT 43 U/L (9-52); AST 28 U/L (14-36); Albumin 4.6 g/dL (3.5-5.0); Alkaline Phosphatase 83 U/L (38-126); Amylase 78 U/L (30-110); Anion Gap 13 mmol/L; Blood Urea Nitrogen 20 mg/dL (7-17); Calcium 10.4 mg/dL (8.4-10.2); Carbon Dioxide 24 mmol/L (22-30); Chloride 106 mmol/L (98-107); Glucose 93 mg/dL (74-99); Potassium 4.4 mmol/L (3.5-5.1); Sodium 143 mmol/L (137-145); Total Bilirubin 0.4 mg/dL (0.2-1.3); Total Protein 7.6 g/dL (6.3-8.2)
--- NOTE | 2017-10-04 21:42 | XR ---
EXAMINATION TYPE: XR chest 2V DATE OF EXAM: 10/04/2017 COMPARISON: 08/31/2017 INDICATION: Chest pain, short of breath TECHNIQUE: Frontal and lateral views of the chest are obtained. FINDINGS: The heart size is normal. The pulmonary vasculature is normal. The lungs are clear. IMPRESSION: 1. No acute pulmonary process.
[2017-10-04 21:45] LABS: Creatine Kinase MB 0.7 ng/mL (0.0-2.4); Troponin I <0.012 ng/mL (0.000-0.034)
[2017-10-04] MEDS ORDERED: HEPARIN SODIUM,PORCINE 5,000 UNIT/ML 1 ML VIAL IV PRN (22:10)
[2017-10-04] MEDS ORDERED: HEPARIN SODIUM,PORCINE 5,000 UNIT/ML 1 ML VIAL IV ONE (22:10)
[2017-10-04] MEDS ORDERED: IPRATROPIUM-ALBUTEROL 3 ML NEB INHALATION STA (22:10)
[2017-10-04] MEDS ORDERED: MORPHINE SULFATE 2 MG/ML SYRINGE IV PRN (22:10)
[2017-10-04] MEDS ORDERED: methylPREDNISolone SOD SUCCI 125 MG/2 ML VIAL IV STA (22:10)
[2017-10-04] MEDS ORDERED: NITROGLYCERIN SL TABS 0.4 MG TAB SUBLINGUAL PRN (22:10)
[2017-10-04] MEDS ORDERED: HEPARIN SODIUM,PORCINE/D5W PMX 25,000 UNIT in DEXTROSE/WATER 1 500ML.BAG IV SCH (22:15)
[2017-10-04 23:14] VITALS: BMI 25.0
[2017-10-04] MEDS: methylPREDNISolone SOD SUCCI 125 MG/2 ML VIAL IV SCH (23:32)
[2017-10-05] MEDS ORDERED: ALBUTEROL NEBULIZED 2.5 MG/3 ML INHALATION PRN (00:02)
[2017-10-05] MEDS: MORPHINE SULFATE ER 15 MG TABLET PO SCH ×3 (01:16→13:15)
[2017-10-05] MEDS: oxyCODONE-APAP 7.5-325MG 1 EACH TAB PO PRN ×3 (02:40→16:13)
[2017-10-05 03:30] LABS: Platelet Count 269 k/uL (150-450)
[2017-10-05 03:44] LABS: Cholesterol 162 mg/dL (<200); HDL Cholesterol 52 mg/dL (40-60); LDL Cholesterol,Calculated 88 mg/dL (0-99); Triglycerides 109 mg/dL (<150)
[2017-10-05 03:54] LABS: Creatine Kinase 24 U/L (30-135)
[2017-10-05 04:07] LABS: Creatine Kinase MB 0.5 ng/mL (0.0-2.4); Troponin I <0.012 ng/mL (0.000-0.034)
[2017-10-05] MEDS: methylPREDNISolone SOD SUCCI 125 MG/2 ML VIAL IV SCH ×2 (06:10→13:15)
[2017-10-05] MEDS ORDERED: LEVOTHYROXINE 88 MCG TAB PO SCH (06:30)
--- NOTE | 2017-10-05 08:15 | P.HPIM ---
History of Present Illness H&P Date: 10/05/17 Chief Complaint: Shortness of breath or chest pain. This is a history of physical 62-year-old white female who has an underlying history of opiate dependence and chronic pain elements. She has an underlying history of emphysema and states that she has not been smoking at all recently. There is second hand smoke in the household. She states yesterday she had significant substernal chest pain. No radiation but did stop her from doing her normal activities of daily living. No nausea no significant diaphoresis was stated yesterday. She still states some chest discomfort. She is appropriately admitted for chest pain and acute exacerbation of COPD. She seems to be breathing with oxygen appropriately. Medications will be reconciled. No significant nausea, vomiting or diarrhea. Review of Systems Constitutional: Reports fatigue, Reports weakness Eyes: denies blurred vision, denies pain Ears, nose, mouth and throat: Denies headache, Denies sore throat Cardiovascular: Reports chest pain, Reports shortness of breath Respiratory: Reports cough Genitourinary: Denies dysuria, Denies hematuria Musculoskeletal: Denies myalgias Past Medical History Past Medical History: COPD, Fibromyalgia, Liver Disease, Osteoarthritis (OA), Pneumonia, Pulmonary Embolus (PE), Thyroid Disorder Additional Past Medical History / Comment(s): back pain, Hep C History of Any Multi-Drug Resistant Organisms: None Reported Past Surgical History: Back Surgery, Section, Cholecystectomy, Hysterectomy Additional Past Surgical History / Comment(s): multiple back surgeries including back fusion and 10 hand surgeries, 3 knee surgeries Past Anesthesia/Blood Transfusion Reactions: No Reported Reaction Past Psychological History: Depression Smoking Status: Current every day smoker Past Alcohol Use History: None Reported Additional Past Alcohol Use History / Comment(s): Pt started smoking AT AGE 21 SMOKES 1/2PPD Past Drug Use History: None Reported Additional Drug Use History / Comment(s): Pt denies any drug use other than prescribed medications taken as prescribed. - Past Family History Father Family Medical History: Vascular Disorder Additional Family Medical History / Comment(s): Father of a ruptured aortic aneurysm. Sister(s) Family Medical History: Cancer Additional Family Medical History / Comment(s): SKIN CANCER AND BREAST CANCER Mother Family Medical History: No Reported History Medications and Allergies Home Medications Medication Instructions Recorded Confirmed Type Levothyroxine Sodium [Synthroid] 88 mcg PO DAILY 03/25/14 10/04/17 History Albuterol Inhaler [Ventolin Hfa 2 puff INHALATION RT-Q6H PRN 08/31/17 10/04/17 History Inhaler] Pregabalin [Lyrica] 150 mg PO TID 09/02/17 10/04/17 History Morphine Sulfate ER [Ms Contin] 15 mg PO QID 10/04/17 10/04/17 History Ramelteon [Rozerem] 8 mg PO HS 10/04/17 10/04/17 History oxyCODONE-APAP 7.5-325MG [Percocet 1 tab PO Q6HR PRN 10/04/17 10/04/17 History 7.5-325 mg] Allergies Allergy/AdvReac Type Severity Reaction Status Date / Time ciprofloxacin [From Cipro] Allergy Rash/Hives Verified 10/04/17 21:27 duloxetine [From Cymbalta] Allergy Swelling Verified 10/04/17 21:27 OF THROAT metaproterenol [From Alupent] Allergy Heart races Verified 10/04/17 21:27 codeine AdvReac Vomiting Verified 10/04/17 21:27 fluticasone AdvReac ulcers in Verified 10/04/17 21:27 [From Advair Diskus] mouth salmeterol AdvReac ulcers in Verified 10/04/17 21:27 [From Advair Diskus] mouth Physical Exam Vitals: Vital Signs Temp Pulse Pulse Resp BP BP Pulse Ox 10/05/17 03:21 85 18 10/05/17 03:20 97.8 F 85 18 113/60 95 10/05/17 00:00 97.9 F 74 18 99/56 98 10/04/17 22:58 72 10/04/17 22:38 68 10/04/17 22:37 64 16 114/57 97 10/04/17 22:22 97.9 F 74 19 99/56 97 10/04/17 20:56 97.1 F L 77 20 120/96 95 Intake and Output 10/04/17 10/05/17 10/05/17 22:59 06:59 14:59 Intake Total 16.87 107.125 Balance 16.87 107.125 Intake: Intake, IV Titration . 107.125 Amount Heparin Sodium,Porcine/ 16.87 107.125 D5w Pmx 25,000 unit In Dextrose/Water 1 500ml. bag @ 12 UNITS/KG/HR 16. 87 mls/hr IV .Q24H [facility] Rx #:[id number] Other: Voiding Method Toilet # Voids 1 Weight 72.3 kg 72.3 kg - Constitutional General appearance: no acute distress - EENT Eyes: EOMI - Neck Neck: no lymphadenopathy - Respiratory Respiratory: bilateral: diminished - Cardiovascular Rhythm: regular Heart sounds: normal: S1, S2 Abnormal Heart Sounds: no S3 Gallop - Gastrointestinal General gastrointestinal: soft, no tenderness Results CBC & Chem 7: 10/05/17 03:05 10/04/17 21:02 Labs: Abnormal Lab Results - Last 24 Hours (Table) 10/04/17 10/04/17 10/04/17 Range/Units 21:02 21:02 21:02 Hct 46.3 H (34.0-46.0) % APTT (22.0-30.0) sec BUN 20 H (7-17) mg/dL Calcium 10.4 H (8.4-10.2) mg/dL Total Creatine Kinase 29 L (30-135) U/L 10/05/17 10/05/17 Range/Units 03:02 04:13 Hct (34.0-46.0) % APTT 38.4 H (22.0-30.0) sec BUN (7-17) mg/dL Calcium (8.4-10.2) mg/dL Total Creatine Kinase 24 L (30-135) U/L Thrombosis Risk Factor Assmnt - Choose All That Apply Any of the Below Risk Factors Present?: Yes Each Factor Represents 1 point: Abnormal pulmonary function (COPD) Each Risk Factor Represents 2 Points: Age 61-74 years Other congenital or acquired thrombophilia - If yes, enter type in comment: No Thrombosis Risk Factor Assessment Total Risk Factor Score: 3 Thrombosis Risk Factor Assessment Level: Moderate Risk Assessment and Plan (1) Acute exacerbation of chronic obstructive airways disease Current Visit: Yes Status: Acute Code(s): J44.1 - CHRONIC OBSTRUCTIVE PULMONARY DISEASE W (ACUTE) EXACERBATION SNOMED Code(s): 544920523 (2) Chest pain Current Visit: Yes Status: Acute Code(s): R07.9 - CHEST PAIN, UNSPECIFIED SNOMED Code(s): 68846233 (3) Chronic pain syndrome Current Visit: No Status: Acute Code(s): G89.4 - CHRONIC PAIN SYNDROME SNOMED Code(s): 646645197 (4) Fibromyalgia Current Visit: No Status: Acute Code(s): M79.7 - FIBROMYALGIA SNOMED Code( s): 942781261 Plan: Rule out myocardial infarction Cardiology is not been consulted. Continue community acquired pneumonia protocol with COPD protocol. Reconcile medications from home. I discussed CODE STATUS with the patient's full code at this time.
[2017-10-05] MEDS: IPRATROPIUM-ALBUTEROL 3 ML NEB INHALATION SCH ×3 (08:25→15:30)
[2017-10-05] MEDS ORDERED: ATORVASTATIN 80 MG TAB PO SCH (09:00)
[2017-10-05] MEDS ORDERED: ASPIRIN 81 MG PO SCH (09:00)
[2017-10-05] MEDS ORDERED: ASPIRIN 325 MG TAB PO SCH (09:00)
[2017-10-05] MEDS ORDERED: PREGABALIN 75 MG CAP PO SCH (09:00)
[2017-10-05] MEDS ORDERED: DOBUTamine DRIP for NUC MED 500 MG in DEXTROSE/WATER 1 250ML.BAG IV ONE (09:47)
[2017-10-05 10:46] LABS: D-Dimer 0.23 mg/L FEU (<0.60); Partial Thromboplastin Time 41.8 sec (22.0-30.0)
[2017-10-05 10:53] LABS: Creatine Kinase 24 U/L (30-135)
[2017-10-05 11:06] LABS: Creatine Kinase MB 0.4 ng/mL (0.0-2.4); Troponin I <0.012 ng/mL (0.000-0.034)
--- NOTE | 2017-10-05 14:26 | P.CRDCN ---
History of Present Illness History of present illness: Mrs. Galloway is a pleasant 62-year-old female past medical history significant for COPD, fibromyalgia, history of PE, hypothyroid and chronic tobacco use. She apparently quit smoking 3 months ago. She denies history of coronary artery disease and has never seen a solar sales advisor for any reason. We have been asked to see her in consultation for chest pain. She states last night while sitting on the couch she felt a sharp pain in the left precordial region that was associated with shortness of breath. The pain was intermittent in nature with no specific alleviating or aggravating factors. She denies associated dizziness, palpitations, nausea, vomiting or diaphoresis. She denies radiation of the pain to the back, neck, jaw or down the arms. EKG reveals sinus mechanism with no acute ST or T-wave abnormalities. Chest xray negative for an acute cardiopulmonary process. Laboratory data reviewed, hemoglobin 15.1, platelets 269, d-dimer 0.23, sodium 143 potassium 4.4, creatinine 0.7, magnesium 2.0, cardiac enzymes negative 3, LDL 88, HDL 52, triglycerides 109, total cholesterol 162. Current medications include Percocet, Lyrica, MS Contin, Synthroid and Ventolin. Review of Systems At the time of my exam: CONSTITUTIONAL: Denies fever. Denies chills. EYES: Denies blurred vision. Denies vision changes. Denies eye pain. EARS, NOSE, MOUTH & THROAT: Denies headache. Denies sore throat. Denies ear pain. CARDIOVASCULAR: Denies chest pain. Denies shortness of breath. Denies orthopnea. Denies PND. Denies palpitations. RESPIRATORY: Denies cough. GASTROINTESTINAL: Denies abdominal pain. Denies diarrhea. Denies constipation. Denies nausea. Denies vomiting. MUSCULOSKELETAL: Denies myalgias. INTEGUMENTARY: Denies pruitis. Denies rash. NEUROLOGIC: Denies numbness. Denies tingling. Denies weakness. PSYCHIATRIC: Denies anxiety. Denies depression. ENDOCRINE: Denies fatigue. Denies weight change. Denies polydipsia. Denies polyurina. GENITOURINARY: Denies burning, hematuria or urgency with micturation. HEMATOLOGIC: Denies history of anemia. Denies bleeding. Past Medical History Past Medical History: COPD, Fibromyalgia, Liver Disease, Osteoarthritis (OA), Pneumonia, Pulmonary Embolus (PE), Thyroid Disorder Additional Past Medical History / Comment(s): back pain, Hep C History of Any Multi-Drug Resistant Organisms: None Reported Past Surgical History: Back Surgery, Section, Cholecystectomy, Hysterectomy Additional Past Surgical History / Comment(s): multiple back surgeries including back fusion and 10 hand surgeries, 3 knee surgeries Past Anesthesia/Blood Transfusion Reactions: No Reported Reaction Past Psychological History: Depression Smoking Status: Current every day smoker Past Alcohol Use History: None Reported Additional Past Alcohol Use History / Comment(s): Pt started smoking AT AGE 21 SMOKES 1/2PPD Past Drug Use History: None Reported Additional Drug Use History / Comment(s): Pt denies any drug use other than prescribed medications taken as prescribed. - Past Family History Father Family Medical History: Vascular Disorder Additional Family Medical History / Comment(s): Father of a ruptured aortic aneurysm. Sister(s) Family Medical History: Cancer Additional Family Medical History / Comment(s): SKIN CANCER AND BREAST CANCER Mother Family Medical History: No Reported History Medications and Allergies Home Medications Medication Instructions Recorded Confirmed Type Levothyroxine Sodium [Synthroid] 88 mcg PO DAILY 03/25/14 10/04/17 History Albuterol Inhaler [Ventolin Hfa 2 puff INHALATION RT-Q6H PRN 08/31/17 10/04/17 History Inhaler] Pregabalin [Lyrica] 150 mg PO TID 09/02/17 10/04/17 History Morphine Sulfate ER [Ms Contin] 15 mg PO QID 10/04/17 10/04/17 History Ramelteon [Rozerem] 8 mg PO HS 10/04/17 10/04/17 History oxyCODONE-APAP 7.5-325MG [Percocet 1 tab PO Q6HR PRN 10/04/17 10/04/17 History 7.5-325 mg] Allergies Allergy/AdvReac Type Severity Reaction Status Date / Time ciprofloxacin [From Cipro] Allergy Rash/Hives Verified 10/04/17 21:27 duloxetine [From Cymbalta] Allergy Swelling Verified 10/04/17 21:27 OF THROAT metaproterenol [From Alupent] Allergy Heart races Verified 10/04/17 21:27 codeine AdvReac Vomiting Verified 10/04/17 21:27 fluticasone AdvReac ulcers in Verified 10/04/17 21:27 [From Advair Diskus] mouth salmeterol AdvReac ulcers in Verified 10/04/17 21:27 [From Advair Diskus] mouth Physical Exam Vitals: Vital Signs Temp Pulse Pulse Resp BP BP Pulse Ox 10/05/17 08:38 76 10/05/17 08:27 80 10/05/17 08:00 98.6 F 71 16 93/53 92 L 10/05/17 03:21 85 18 10/05/17 03:20 97.8 F 85 18 113/60 95 10/05/17 00:00 97.9 F 74 18 99/56 98 10/04/17 22:58 72 10/04/17 22:38 68 10/04/17 22:37 64 16 114/57 97 10/04/17 22:22 97.9 F 74 19 99/56 97 10/04/17 20:56 97.1 F L 77 20 120/96 95 Intake and Output 10/04/17 10/05/17 10/05/17 22:59 06:59 14:59 Intake Total 16.87 107.125 0 Balance 16.87 107.125 0 Intake: Intake, IV Titration 16.87 107.125 Amount Heparin Sodium,Porcine/ 16.87 107.125 D5w Pmx 25,000 unit In Dextrose/Water 1 500ml. bag @ 12 UNITS/KG/HR 16. 87 mls/hr IV .Q24H [facility] Rx #:[id number] Oral 0 Other: Voiding Method Toilet # Voids 1 Weight 72.3 kg 72.3 kg Blood pressure 93/53 heart rate 71 afebrile maintaining oxygen saturation on nasal cannula 2 L GENERAL: This is a 62-year-old female in no apparent distress at the time of my examination. HEENT: Head is atraumatic, normocephalic. Pupils are equal, round. Sclerae anicteric. Conjunctivae are clear. Mucous membranes of the mouth are moist. Neck is supple. There is no jugular venous distention. No carotid bruit is heard. LUNGS: Clear to auscultation no wheezes, rales or rhonchi. No chest wall tenderness is noted on palpation or with deep breathing. Diminished bilaterally HEART: Regular rate and rhythm without murmurs, rubs or gallops. S1 and S2 heard. ABDOMEN: Soft, nontender. Bowel sounds are heard. No organomegaly noted. EXTREMITIES: No evidence of peripheral edema and no calf tenderness noted. VASCULAR: Radial and dorsalis pedis pulses palpated, no evidence of clubbing. NEUROLOGIC: Patient is awake, alert and oriented x3. Results 10/05/17 03:05 10/04/17 21:02 Cardiac Enzymes 10/04/17 10/04/17 10/05/17 Range/Units 21:02 21:02 03:02 AST 28 (14-36) U/L CK-MB (CK-2) 0.7 0.5 (0.0-2.4) ng/mL Troponin I <0.012 <0.012 (0.000-0.034) ng/mL 10/05/17 Range/Units 09:45 AST (14-36) U/L CK-MB (CK-2) 0.4 (0.0-2.4) ng/mL Troponin I <0.012 (0.000-0.034) ng/mL Coagulation 10/04/17 10/05/17 10/05/17 Range/Units 21:02 04:13 09:45 PT 10.3 (9.0-12.0) sec APTT 25.5 38.4 H 41.8 H (22.0-30.0) sec Lipids 10/05/17 Range/Units 03:02 Triglycerides 109 (<150) mg/dL Cholesterol 162 (<200) mg/dL HDL Cholesterol 52 (40-60) mg/dL CBC 10/04/17 10/05/17 Range/Units 21:02 03:05 WBC 10.5 (3.8-10.6) k/uL RBC 4.94 (3.80-5.40) m/uL Hgb 15.1 (11.4-16.0) gm/dL Hct 46.3 H (34.0-46.0) % Plt Count 339 269 (150-450) k/uL Comprehensive Metabolic Panel 10/04/17 Range/Units 21:02 Sodium 143 (137-145) mmol/L Potassium 4.4 (3.5-5.1) mmol/L Chloride 106 (98-107) mmol/L Carbon Dioxide 24 (22-30) mmol/L BUN 20 H (7-17) mg/dL Creatinine 0.70 (0.52-1.04) mg/dL Glucose 93 (74-99) mg/dL Calcium 10.4 H (8.4-10.2) mg/dL AST 28 (14-36) U/L ALT 43 (9-52) U/L Alkaline Phosphatase 83 (38-126) U/L Total Protein 7.6 (6.3-8.2) g/dL Albumin 4.6 (3.5-5.0) g/dL Current Medications Generic Name Dose Route Start Last Admin Trade Name Freq PRN Reason Stop Dose Admin Albuterol Sulfate 2 mg 10/05/17 00:02 Ventolin Nebulized INHALATION RT-Q6H PRN Shortness Of Breath Albuterol/Ipratropium 3 ml 10/05/17 08:00 10/05/17 12:10 Duoneb 0.5 Mg-3 Mg/3 Ml Soln INHALATION Not Given RT-QID [facility]ABELLA Aspirin 81 mg 10/05/17 09:00 10/05/17 08:32 Aspirin PO 81 mg DAILY [facility]A Administration Atorvastatin Calcium 80 mg 10/05/17 09:00 10/05/17 08:32 Lipitor PO 80 mg DAILY [facility]A Administration Heparin Sodium (Porcine) 0 unit 10/04/17 22:10 Heparin IV Q6HR PRN Low PTT Protocol Levothyroxine Sodium 88 mcg 10/05/17 06:30 10/05/17 06:10 Synthroid PO 88 mcg DAILY@0630 [facility]LLA Administration Methylprednisolone Sodium Succinate 60 mg 10/05/17 00:00 10/05/17 13:15 Solu-Medrol IV 60 mg Q6HR [facility] Administration Morphine Sulfate 4 mg 10/04/17 22:10 Morphine Sulfate (Inj) IV Q5M PRN Chest Pain Morphine Sulfate 15 mg 10/05/17 00:00 10/05/17 13:15 Ms Contin PO 15 mg QID [facility] Administration Nitroglycerin 0.4 mg 10/04/17 22:10 Nitrostat SUBLINGUAL Q5M PRN Chest Pain Ramelteon [Rozerem] 8 mg 10/05/17 21:00 8 Mg PO HS [facility] Oxycodone/Acetaminophen 1 each 10/05/17 00:02 10/05/17 08:33 Percocet 7.5-325 PO 1 each Q6HR PRN Administration Pain Pregabalin 150 mg 10/05/17 09:00 10/05/17 08:33 Lyrica PO 150 mg TID [facility]A Administration Intake and Output 10/04/17 10/05/17 10/05/17 22:59 06:59 14:59 Intake Total 16.87 107.125 0 Balance 16.87 107.125 0 Intake: Intake, IV Titration 16.87 107.125 Amount Heparin Sodium,Porcine/ 16. 107.125 D5w Pmx 25,000 unit In Dextrose/Water 1 500ml. bag @ 12 UNITS/KG/HR 16. 87 mls/hr IV .Q24H [facility] Rx #:[id number] Oral 0 Other: Voiding Method Toilet # Voids 1 Weight 72.3 kg 72.3 kg 10/05/17 03:05 10/04/17 21:02 Assessment and Plan Assessment: ASSESSMENT 1. Chest pain, atypical. An acute coronary event has been ruled out with no EKG evidence of ischemia and negative cardiac enzymes. 2. COPD 3. Fibromyalgia 4. Chronic nicotine dependence, she quit smoking 3 months ago. PLAN Obtain 2-D echocardiogram and Doppler study to assess cardiac structure and function. Perform dobutamine stress echocardiogram to assess for stress-induced cardiac ischemia. If abnormal coronary angiography will be considered. If stress test is negative she is stable from a cardiac perspective. Thank you kindly for this consultation. Nurse Practitioner note has been reviewed, I agree with a documented findings and plan of care. Patient was seen and examined.
--- NOTE | 2017-10-05 14:49 | ECHOS ---
STRESS ECHOCARDIOGRAM INDICATIONS: Chest pain. BASELINE HEART RATE: 70 BASELINE BLOOD PRESSURE: 125/95 MAXIMUM HEART RATE: 137 MAXIMUM BLOOD PRESSURE: 182/52 85% MPHR: 1235 100% MPHR: 159 MAXIMUM STAGE REACHED: III TOTAL EXERCISE TIME: 11:53 CLINICAL INFORMATION: Baseline rhythm is sinus mechanism, rate of 70, normal axis and intervals, normal electrocardiogram. Baseline blood pressure 125/95 mmHg. Patient received an infusion of dobutamine per protocol. Peak rate 137 beats per minute, which is equal to 87% maximum predicted heart rate. Peak blood pressure 182/52 mmHg. Electrocardiograph monitoring revealed occasional PVCs. There was no evidence of diagnostic ischemic ST deviation. FINDINGS: Baseline echocardiogram revealed normal left ventricular function at peak exercise. There was normal wall motion augmentation with no hypokinesis or dyskinesis. CONCLUSION: 1. Normal electrocardiograph response to dobutamine infusion with occasional premature ventricular contractions. 2. Normal dobutamine stress echocardiogram with no evidence of stress-induced ischemia. MMODL / IJN: [id number] /
[2017-10-05 15:54] VITALS: BP 108/57; PULSE 79; RESP 18; TEMP 98.7
--- NOTE | 2017-10-05 19:55 | P.DS ---
Providers Date of admission: 10/04/17 22:12 Attending physician: Nilton Santoyo Consults: 10/04/17 22:10 Consult Physician Routine Consulting Provider: Ayo Hickman Consult Reason/Comments: cp Do you want consulting provider notified?: Yes Primary care physician: Nilton Santoyo - Discharge Diagnosis(es) (1) Acute exacerbation of chronic obstructive airways disease Status: Acute (2) Chest pain Status: Acute (3) Chronic pain syndrome Status: Acute (4) Fibromyalgia Status: Acute Hospital Course: This is discharge summary 62-year-old white female essentially admitted for chest pain. The patient was cleared by cardiology after having no enzymatic elevation. She has an underlying history of COPD and chronic pain. She will be discharged in stable condition to follow-up with me in 1 week. Patient Condition at Discharge: Undetermined Plan - Discharge Summary Discharge Rx Participant: No New Discharge Prescriptions: No Action RX: Levothyroxine Sodium [Synthroid] 88 mcg PO DAILY RX: Albuterol Inhaler [Ventolin Hfa Inhaler] 2 puff INHALATION RT-Q6H PRN PRN Reason: Shortness Of Breath RX: Pregabalin [Lyrica] 150 mg PO TID Ramelteon [Rozerem] 8 mg PO HS oxyCODONE-APAP 7.5-325MG [Percocet 7.5-325 mg] 1 tab PO Q6HR PRN PRN Reason: Pain Morphine Sulfate ER [Ms Contin] 15 mg PO QID Discharge Medication List RX: Levothyroxine Sodium [Synthroid] 88 mcg PO DAILY 03/25/14 [History] RX: Albuterol Inhaler [Ventolin Hfa Inhaler] 2 puff INHALATION RT-Q6H PRN [History] RX: Pregabalin [Lyrica] 150 mg PO TID 09/02/17 [History] Morphine Sulfate ER [Ms Contin] 15 mg PO QID 10/04/17 [History] Ramelteon [Rozerem] 8 mg PO HS 10/04/17 [History] oxyCODONE-APAP 7.5-325MG [Percocet 7.5-325 mg] 1 tab PO Q6HR PRN 10/04/17 [ History] Follow up Appointment(s)/Referral(s): Ayo Hickman MD [STAFF PHYSICIAN] - 11/03/17 3:00 pm Nilton Santoyo MD [Primary Care Provider] - 1 Week Patient Instructions/Handouts: Chest Pain (DC), COPD (Chronic Obstructive Pulmonary Disease) (DC) Discharge Disposition: HOME SELF-CARE
[2017-10-05] MEDS ORDERED: Ramelteon [Rozerem] 8 MG PO SCH (21:00)
--- NOTE | 2017-10-06 07:21 | ECHOF ---
Referral Reason: MEASUREMENTS -------- HEIGHT: 170.2 cm WEIGHT: 72.1 kg BP: 113/60 IVSd: 1.0 cm (0.6 - 1.1) LVIDd: 4.9 cm (3.9 - 5.3) LVPWd: 1.2 cm (0.6 - 1.1) IVSs: 1.6 cm LVIDs: 2.2 cm LVPWs: 2.2 cm LAESV Index (A-L): 24.22 ml/m Ao Diam: 3.5 cm (2.0 - 3.7) AV Cusp: 1.6 cm (1.5 - 2.6) LA Diam: 3.9 cm (2.7 - 3.8) MV EXCURSION: 18.742 mm (> 18.000) MV EF SLOPE: 78 mm/s (70 - 150) EPSS: 0.6 cm MV E Krzysztof: 0.89 m/s MV DecT: 210 ms MV A Krzysztof: 0.96 m/s MV E/A Ratio: 0.92 RAP: 5.00 mmHg RVSP: 10.49 mmHg FINDINGS -------- Sinus rhythm. This was a technically good study. The left ventricular size is normal. There is borderline concentric left ventricular hypertrophy. Overall left ventricular systolic function is normal with, an EF between 55 - 60 %. The right ventricle is normal in size. The left atrium is normal in size. The right atrium is normal in size. The aortic valve is trileaflet, and appears structurally normal. No aortic stenosis or regurgitation. The mitral valve is normal. There is trace mitral regurgitation. Trace tricuspid regurgitation present. There is no evidence of pulmonary hypertension. The right ventricular systolic pressure, as measured by Doppler, is 10.49mmHg. There is no pulmonic regurgitation present. The aortic root size is normal. Normal inferior vena cava with normal inspiratory collapse consistent with estimated right atrial pre ssure of 5 mmHg. There is no pericardial effusion. CONCLUSIONS -------- 1. Sinus rhythm. 2. This was a technically good study. 3. The left ventricular size is normal. 4. There is borderline concentric left ventricular hypertrophy. 5. Overall left ventricular systolic function is normal with, an EF between 55 - 60 %. 6. The left atrium is normal in size. 7. The aortic valve is trileaflet, and appears structurally normal. No aortic stenosis or regurgitati on. 8. There is trace mitral regurgitation. 9. Trace tricuspid regurgitation present. 10. There is no evidence of pulmonary hypertension. 11. There is no pulmonic regurgitation present. 12. The aortic root size is normal. 13. Normal inferior vena cava with normal inspiratory collapse consistent with estimated right atrial pressure of 5 mmHg. 14. There is no pericardial effusion. BELT POLISHER: Bhavna Blanco RDCS
== END 2017-10-05 16:18 | disposition home or self-care (01) ==
LOC: EC 20:54 → 6SEL 22:12 → 3OBS 10-05 08:36
PROVIDERS: ADMIT Family Medicine; ATTEND Family Medicine
DX: J44.1 Chronic obstructive pulmonary disease with (acute) exacerbation (principal); R07.89 Other chest pain; M79.7 Fibromyalgia; M19.90 Unspecified osteoarthritis, unspecified site; B19.20 Unspecified viral hepatitis C without hepatic coma; E03.9 Hypothyroidism, unspecified; F32.9 Major depressive disorder, single episode, unspecified; G89.4 Chronic pain syndrome; M54.9 Dorsalgia, unspecified; F17.210 Nicotine dependence, cigarettes, uncomplicated; Z79.890 Hormone replacement therapy; Z79.891 Long term (current) use of opiate analgesic; Z79.899 Other long term (current) drug therapy; Z88.1 Allergy status to other antibiotic agents; Z88.5 Allergy status to narcotic agent; Z88.8 Allergy status to other drugs, medicaments and biological substances; Z86.711 Personal history of pulmonary embolism; Z87.01 Personal history of pneumonia (recurrent); Z90.49 Acquired absence of other specified parts of digestive tract; Z90.710 Acquired absence of both cervix and uterus; Z98.1 Arthrodesis status; Z82.49 Family history of ischemic heart disease and other diseases of the circulatory system; Z80.3 Family history of malignant neoplasm of breast; Z80.8 Family history of malignant neoplasm of other organs or systems
CPT/HCPCS: 99291 ×2; 96365 ×2; 96375 ×2; 96376 ×4; 36415; 94640 ×2; 93005; 93306; 93351; 85379; 83880; 80061; 80053; 82150; 82550 ×2; 82553 ×2; 83735; 84484 ×2; 85025; 85049; 85610; 85730 ×2; 71046; G0378 ×3; J1250; J1644 ×2; J2930 ×2

== ENCOUNTER 2017-11-03 12:55 | Emergency (ER) | payer BC ==
[2017-11-03 13:03] VITALS: TEMP 98.2
[2017-11-03] MEDS ORDERED: PANTOPRAZOLE 40 MG/10 ML VIAL IVP STA (13:13)
[2017-11-03] MEDS ORDERED: ACETAMINOPHEN IV (For NPO) 1,000 MG in SALINE 1 100ML.BAG IVPB STA (13:15)
[2017-11-03] MEDS ORDERED: SODIUM CHLORIDE 0.9% 500 ML IV STA (13:16)
[2017-11-03] MEDS ORDERED: SODIUM CHLORIDE 0.9% 1,000 ML IV STA ×2 (13:16→14:53)
--- NOTE | 2017-11-03 13:18 | ED ---
General Adult HPI - General Chief complaint: Chest Pain Stated complaint: Vomiting/chest pain Time Seen by Provider: 11/03/17 13:00 Source: patient, RN notes reviewed Mode of arrival: wheelchair Limitations: no limitations - History of Present Illness Initial comments: This is a 62-year-old female who presents with complaints of epigastric pain and lower chest pain this started actually last evening. The patient states the pain is sharp 8/10 severity she's had nausea vomiting she's also had black in dark burgundy-colored stool this morning. She has some lightheadedness and dizziness when she is upright. He denies any fevers chills or sweats she states she just Sleeping last 5 nights but symptoms began last evening. She points her epigastric area as the area pain she has history of COPD cholecystectomy . She is a smoker currently. - Related Data Home Medications Medication Instructions Recorded Confirmed Levothyroxine Sodium [Synthroid] 88 mcg PO DAILY 03/25/14 11/03/17 Pregabalin [Lyrica] 150 mg PO TID 09/02/17 11/03/17 Morphine Sulfate ER [Ms Contin] 15 mg PO TID 10/04/17 11/03/17 oxyCODONE-APAP 7.5-325MG [Percocet 1 tab PO Q6HR PRN 10/04/17 11/03/17 7.5-325 mg] traZODone HCL [Desyrel] 100 mg PO HS 11/03/17 11/03/17 Previous Rx's Medication Instructions Recorded Dicyclomine [Bentyl] 10 mg PO TID PRN #15 capsule 11/03/17 Pantoprazole Sodium [Protonix] 40 mg PO BID #14 tablet. 11/03/17 Allergies Allergy/AdvReac Type Severity Reaction Status Date / Time ciprofloxacin [From Cipro] Allergy Rash/Hives Verified 11/03/17 14:36 duloxetine [From Cymbalta] Allergy Swelling Verified 11/03/17 14:36 OF THROAT metaproterenol [From Alupent] Allergy Heart races Verified 11/03/17 14:36 codeine AdvReac Vomiting Verified 11/03/17 14:36 fluticasone AdvReac ulcers in Verified 11/03/17 14:36 [From Advair Diskus] mouth salmeterol AdvReac ulcers in Verified 11/03/17 14:36 [From Advair Diskus] mouth Review of Systems ROS Statement: Those systems with pertinent positive or pertinent negative responses have been documented in the HPI. ROS Other: All systems not noted in ROS Statement are negative. Past Medical History Past Medical History: COPD, Fibromyalgia, Liver Disease, Osteoarthritis (OA), Pneumonia, Pulmonary Embolus (PE), Thyroid Disorder Additional Past Medical History / Comment(s): back pain, Hep C History of Any Multi-Drug Resistant Organisms: None Reported Past Surgical History: Back Surgery, Section, Cholecystectomy, Hysterectomy Additional Past Surgical History / Comment(s): multiple back surgeries including back fusion and 10 hand surgeries, 3 knee surgeries Past Anesthesia/Blood Transfusion Reactions: No Reported Reaction Past Psychological History: Depression Smoking Status: Current every day smoker Past Alcohol Use History: None Reported Past Drug Use History: None Reported - Past Family History Father Family Medical History: Vascular Disorder Additional Family Medical History / Comment(s): Father of a ruptured aortic aneurysm. Sister(s) Family Medical History: Cancer Additional Family Medical History / Comment(s): SKIN CANCER AND BREAST CANCER Mother Family Medical History: No Reported History General Exam - General Exam Comments Initial Comments: This a well-developed well-nourished awake alert oriented 3 female Limitations: no limitations General appearance: alert, in no apparent distress Head exam: Present: atraumatic, normocephalic, normal inspection Eye exam: Present: normal appearance, PERRL, EOMI. Absent: scleral icterus, conjunctival injection, periorbital swelling ENT exam: Present: normal exam, mucous membranes moist Neck exam: Present: normal inspection. Absent: tenderness, meningismus, lymphadenopathy Respiratory exam: Present: normal lung sounds bilaterally. Absent: respiratory distress, wheezes, rales, rhonchi, stridor Cardiovascular Exam: Present: regular rate, normal rhythm, normal heart sounds. Absent: systolic murmur, diastolic murmur, rubs, gallop, clicks GI/Abdominal exam: Present: soft, tenderness (Epigastric tenderness palpation no guarding rebound masses or bruits), normal bowel sounds. Absent: distended, guarding, rebound, rigid Rectal exam: Present: normal inspection (No gross blood no external hemorrhoids some mild tenderness without patient and to the digital exam no masses palpable at this time. No gross bleeding) Extremities exam: Present: normal inspection, full ROM, normal capillary refill. Absent: tenderness, pedal edema, joint swelling, calf tenderness Back exam: Present: normal inspection Neurological exam: Present: alert, oriented X3, CN II-XII intact Psychiatric exam: Present: normal affect, normal mood Skin exam: Present: warm, dry, intact, normal color. Absent: rash Course Vital Signs 11/03/17 11/03/17 11/03/17 13:02 15:06 15:36 Temperature 98.2 F Pulse Rate 91 75 65 Respiratory 20 18 18 Rate Blood Pressure 115/77 127/74 126/69 O2 Sat by Pulse 95 96 96 Oximetry EKG Findings - EKG Results: EKG: interpreted by ERMD, sinus rhythm (Sinus rhythm rate 76. Ago 160 QRS 80 QT since QTC of 414/[address]-T wave changes), normal axis, normal QRS, normal ST/T, no acute changes Medical Decision Making - Medical Decision Making I did discuss findings with the patient family and with Dr. Santoyo. Patient will be discharged with outpatient follow-up the presentation consistent with a gastritis. She will be placed on appropriate medication. - Lab Data Result diagrams: 11/03/17 13:26 11/03/17 13:26 Lab Results 11/03/17 11/03/17 11/03/17 Range/Units 13:26 13:26 13:26 WBC 9.8 (3.8-10.6) k/uL RBC 4.80 (3.80-5.40) m/uL Hgb 14.9 (11.4-16.0) gm/dL Hct 45.5 (34.0-46.0) % MCV 94.7 (80.0-100.0) fL MCH 31.1 (25.0-35.0) pg MCHC 32.9 (31.0-37.0) g/dL RDW 13.6 (11.5-15.5) % Plt Count 369 (150-450) k/uL Neutrophils % 79 % Lymphocytes % 15 % Monocytes % 4 % Eosinophils % 0 % Basophils % 0 % Neutrophils # 7.8 H (1.3-7.7) k/uL Lymphocytes # 1.5 (1.0-4.8) k/uL Monocytes # 0.4 (0-1.0) k/uL Eosinophils # 0.0 (0-0.7) k/uL Basophils # 0.0 (0-0.2) k/uL PT 10.4 (9.0-12.0) sec INR 1.1 (<1.2) APTT 24.4 (22.0-30.0) sec Sodium (137-145) mmol/L Potassium (3.5-5.1) mmol/L Chloride (98-107) mmol/L Carbon Dioxide (22-30) mmol/L Anion Gap mmol/L BUN (7-17) mg/dL Creatinine (0.52-1.04) mg/dL Est GFR (CKD-EPI)AfAm (>60 ml/min/1.73 sqM) Est GFR (CKD-EPI)NonAf (>60 ml/min/1.73 sqM) Glucose (74-99) mg/dL Calcium (8.4-10.2) mg/dL Magnesium (1.6-2.3) mg/dL Total Bilirubin (0.2-1.3) mg/dL AST (14-36) U/L ALT (9-52) U/L Alkaline Phosphatase (38-126) U/L Total Creatine Kinase 33 (30-135) U/L CK-MB (CK-2) 0.5 (0.0-2.4) ng/mL CK-MB (CK-2) Rel Index 1.5 Troponin I <0.012 (0.000-0.034) ng/mL Total Protein (6.3-8.2) g/dL Albumin (3.5-5.0) g/dL Lipase (23-300) U/L Stool Occult Blood (Negative) Blood Type Blood Type Recheck Antibody Screen Spec Expiration Date 11/03/17 11/03/17 11/03/17 Range/Units 13:26 13:26 13:45 WBC (3.8-10.6) k/uL RBC (3.80-5.40) m/uL Hgb (11.4-16.0) gm/dL Hct (34.0-46.0) % MCV (80.0-100.0) fL MCH (25.0-35.0) pg MCHC (31.0-37.0) g/dL RDW (11.5-15.5) % Plt Count (150-450) k/uL Neutrophils % % Lymphocytes % % Monocytes % % Eosinophils % % Basophils % % Neutrophils # (1.3-7.7) k/uL Lymphocytes # (1.0-4.8) k/uL Monocytes # (0-1.0) k/uL Eosinophils # (0-0.7) k/uL Basophils # (0-0.2) k/uL PT (9.0-12.0) sec INR (<1.2) APTT (22.0-30.0) sec Sodium 142 (137-145) mmol/L Potassium 3.8 (3.5-5.1) mmol/L Chloride 107 (98-107) mmol/L Carbon Dioxide 23 (22-30) mmol/L Anion Gap 12 mmol/L BUN 13 (7-17) mg/dL Creatinine 0.61 (0.52-1.04) mg/dL Est GFR (CKD-EPI)AfAm >90 (>60 ml/min/1.73 sqM) Est GFR (CKD-EPI)NonAf >90 (>60 ml/min/1.73 sqM) Glucose 100 H (74-99) mg/dL Calcium 10.2 (8.4-10.2) mg/dL Magnesium 1.8 (1.6-2.3) mg/dL Total Bilirubin 1.1 (0.2-1.3) mg/dL AST 26 (14-36) U/L ALT 39 (9-52) U/L Alkaline Phosphatase 69 (38-126) U/L Total Creatine Kinase (30-135) U/L CK-MB (CK-2) (0.0-2.4) ng/mL CK-MB (CK-2) Rel Index Troponin I (0.000-0.034) ng/mL Total Protein 7.5 (6.3-8.2) g/dL Albumin 4.5 (3.5-5.0) g/dL Lipase 72 (23-300) U/L Stool Occult Blood Negative (Negative) Blood Type O Positive Blood Type Recheck No Antibody Screen NEGATIVE Spec Expiration Date 11/06/2017 - 2326 - Radiology Data Radiology results: report reviewed (I did review the imaging and report no acute findings.), image reviewed Disposition Clinical Impression: Acute gastritis, Abdominal pain, Atypical chest pain Disposition: HOME SELF-CARE Condition: Good Instructions: Abdominal Pain (ED), Gastritis (ED) Additional Instructions: Okay to use your home pain medication Prescriptions: Dicyclomine [Bentyl] 10 mg PO TID PRN #15 capsule PRN Reason: Pain Pantoprazole Sodium [Protonix] 40 mg PO BID #14 tablet.dr Is patient prescribed a controlled substance at d/c from ED?: No Referrals: Nilton Santoyo MD [Primary Care Provider] - 1-2 days
[2017-11-03 13:43] LABS: Basophils % (A) 0 %; Eosinophils % (A) 0 %; HCT 45.5 % (34.0-46.0); HGB 14.9 gm/dL (11.4-16.0); Lymphocytes # (A) 1.5 k/uL (1.0-4.8); Lymphocytes % (A) 15 %; MCH 31.1 pg (25.0-35.0); MCHC 32.9 g/dL (31.0-37.0); MCV 94.7 fL (80.0-100.0); Mean Platelet Volume 7.9; Monocytes # (A) 0.4 k/uL (0-1.0); Monocytes % (A) 4 %; Neutrophils # (A) 7.8 k/uL (1.3-7.7); Neutrophils % (A) 79 %; Platelet Count 369 k/uL (150-450); RDW 13.6 % (11.5-15.5); WBC 9.8 k/uL (3.8-10.6)
[2017-11-03 13:52] LABS: ALT 39 U/L (9-52); AST 26 U/L (14-36); Albumin 4.5 g/dL (3.5-5.0); Alkaline Phosphatase 69 U/L (38-126); Anion Gap 12 mmol/L; Blood Urea Nitrogen 13 mg/dL (7-17); Calcium 10.2 mg/dL (8.4-10.2); Carbon Dioxide 23 mmol/L (22-30); Chloride 107 mmol/L (98-107); Glucose 100 mg/dL (74-99); Lipase 72 U/L (23-300); Magnesium 1.8 mg/dL (1.6-2.3); Potassium 3.8 mmol/L (3.5-5.1); Sodium 142 mmol/L (137-145); Total Bilirubin 1.1 mg/dL (0.2-1.3); Total Protein 7.5 g/dL (6.3-8.2)
[2017-11-03 14:04] LABS: INR 1.1 (<1.2); Partial Thromboplastin Time 24.4 sec (22.0-30.0); Prothrombin Time 10.4 sec (9.0-12.0)
[2017-11-03 14:13] LABS: Creatine Kinase 33 U/L (30-135)
[2017-11-03 14:24] LABS: Creatine Kinase MB 0.5 ng/mL (0.0-2.4); Troponin I <0.012 ng/mL (0.000-0.034)
--- NOTE | 2017-11-03 14:40 | XR ---
EXAMINATION TYPE: Acute abdominal series DATE OF EXAM: 11/03/2017 COMPARISON: NONE HISTORY: 62-year-old female with pain TECHNIQUE: 4 views FINDINGS: Frontal view of the chest shows normal heart size and pulmonary vasculature. Mild interstitial promin ence and mild hyperinflation. Right apical pleural parenchymal scarring is noted. No consolidation or pleural effusion. No evidence for free intraperitoneal air. Cholecystectomy clips. Lumbosacral fusion hardware with laminectomies. Graph a few small mid abdomina l air-fluid levels are present. No dilated small bowel loops. Some colonic gas in the pelvis. No suspicious calcifications. IMPRESSION: 1. Suspect underlying COPD. No acute cardiopulmonary process. 2. No evidence for free air or bowel obstruction. 3. A few scattered small air-fluid levels could represent ileus or enteritis.
[2017-11-03] MEDS ORDERED: fentaNYL (PF) 50 MCG/ML 2 ML AMP IV STA ×2 (14:53→15:50)
[2017-11-03 15:07] VITALS: RESP 18
[2017-11-03 15:38] VITALS: BP 126/69; PULSE 65
[2017-11-03] MEDS ORDERED: KETOROLAC 30 MG/ML 1 ML VIAL IVP STA (15:50)
[2017-11-03] MEDS ORDERED: METOCLOPRAMIDE 5 MG/ML 2 ML VIAL IVP STA (15:50)
== END 2017-11-03 16:47 | disposition home or self-care (01) ==
LOC: EC 12:55
DX: K29.00 Acute gastritis without bleeding (principal); E07.9 Disorder of thyroid, unspecified; M19.90 Unspecified osteoarthritis, unspecified site; M79.7 Fibromyalgia; F32.9 Major depressive disorder, single episode, unspecified; F17.200 Nicotine dependence, unspecified, uncomplicated; Z90.49 Acquired absence of other specified parts of digestive tract; Z90.710 Acquired absence of both cervix and uterus; Z98.1 Arthrodesis status; Z79.891 Long term (current) use of opiate analgesic; Z79.899 Other long term (current) drug therapy; Z88.1 Allergy status to other antibiotic agents; Z88.5 Allergy status to narcotic agent; Z88.8 Allergy status to other drugs, medicaments and biological substances
CPT/HCPCS: 36415; 93005; 86900; 86901; 80053; 82550; 82553; 83690; 83735; 84484; 85025; 85610; 85730; 86850; 82272; 74022; 99285; 96365; 96375 ×4; 96376; 96361 ×2; J2765; J3010; J1885; J0131; C9113

== ENCOUNTER 2017-11-22 16:36 | Observation (INO) | payer BC ==
[2017-11-22] MEDS ORDERED: FAMOTIDINE 20 MG/2 ML VIAL IV STA (17:17)
[2017-11-22] MEDS ORDERED: SODIUM CHLORIDE 0.9% 500 ML IV ONE (17:17)
--- NOTE | 2017-11-22 17:17 | ED ---
General Adult HPI - General Chief complaint: Nausea/Vomiting/Diarrhea Stated complaint: Diarrhea/vomiting/chest pain Time Seen by Provider: 11/22/17 16:57 Source: patient, RN notes reviewed, old records reviewed Mode of arrival: ambulatory Limitations: no limitations - History of Present Illness Initial comments: 62-year-old female presents for evaluation of vomiting and diarrhea. Patient has had multiple episodes of both vomiting and diarrhea over the past 4 days. Approximately 5 episodes of each daily. Diarrhea is nonbloody. Patient has had vomiting as well as decreased by mouth intake. No blood in the vomit. She developed some upper chest pain 3 hours prior to arrival. Pain is nonradiating. No diaphoresis. No fever or chills. Patient does complain of some epigastric abdominal pain as well. No right upper quadrant pain. History of cholecystectomy and appendectomy. Last episode of diarrhea was one hour prior to evaluation. No recent travel, no recent antibiotics. - Related Data Home Medications Medication Instructions Recorded Confirmed Levothyroxine Sodium [Synthroid] 88 mcg PO DAILY 03/25/14 11/22/17 Pregabalin [Lyrica] 150 mg PO TID 09/02/17 11/22/17 Morphine Sulfate ER [Ms Contin] 15 mg PO TID 10/04/17 11/22/17 oxyCODONE-APAP 7.5-325MG [Percocet 1 tab PO Q6HR PRN 10/04/17 11/22/17 7.5-325 mg] traZODone HCL [Desyrel] 100 mg PO HS 11/03/17 11/22/17 Allergies Allergy/AdvReac Type Severity Reaction Status Date / Time ciprofloxacin [From Cipro] Allergy Rash/Hives Verified 11/22/17 17:01 duloxetine [From Cymbalta] Allergy Swelling Verified 11/22/17 17:01 OF THROAT metaproterenol [From Alupent] Allergy Heart races Verified 11/22/17 17:01 codeine AdvReac Vomiting Verified 11/22/17 17:01 fluticasone AdvReac ulcers in Verified 11/22/17 17:01 [From Advair Diskus] mouth salmeterol AdvReac ulcers in Verified 11/22/17 17:01 [From Advair Diskus] mouth Review of Systems ROS Statement: Those systems with pertinent positive or pertinent negative responses have been documented in the HPI. ROS Other: All systems not noted in ROS Statement are negative. Past Medical History Past Medical History: COPD, Fibromyalgia, Liver Disease, Osteoarthritis (OA), Pneumonia, Pulmonary Embolus (PE), Thyroid Disorder Additional Past Medical History / Comment(s): back pain, Hep C History of Any Multi-Drug Resistant Organisms: None Reported Past Surgical History: Back Surgery, Section, Cholecystectomy, Hysterectomy Additional Past Surgical History / Comment(s): multiple back surgeries including back fusion and 10 hand surgeries, 3 knee surgeries Past Anesthesia/Blood Transfusion Reactions: No Reported Reaction Past Psychological History: Depression Smoking Status: Current every day smoker Past Alcohol Use History: None Reported Past Drug Use History: None Reported - Past Family History Father Family Medical History: Vascular Disorder Additional Family Medical History / Comment(s): Father of a ruptured aortic aneurysm. Sister(s) Family Medical History: Cancer Additional Family Medical History / Comment(s): SKIN CANCER AND BREAST CANCER Mother Family Medical History: No Reported History General Exam Limitations: no limitations General appearance: alert, in no apparent distress Head exam: Present: atraumatic, normocephalic Eye exam: Present: normal appearance, PERRL ENT exam: Present: normal exam Neck exam: Present: normal inspection. Absent: tenderness, meningismus Respiratory exam: Present: normal lung sounds bilaterally. Absent: respiratory distress, wheezes Cardiovascular Exam: Present: regular rate, normal rhythm GI/Abdominal exam: Present: soft, tenderness (Mild epigastric tenderness.). Absent: distended, guarding, rebound Extremities exam: Present: normal inspection, normal capillary refill. Absent: pedal edema Neurological exam: Present: alert, oriented X3, CN II-XII intact. Absent: motor sensory deficit Psychiatric exam: Present: normal affect, normal mood Skin exam: Present: warm, dry, intact. Absent: cyanosis, diaphoretic Course Vital Signs 11/22/17 11/22/17 16:49 19:06 Temperature 98.4 F 99.9 F H Pulse Rate 87 72 Respiratory 18 18 Rate Blood Pressure 111/71 123/80 O2 Sat by Pulse 98 95 Oximetry EKG Findings - EKG Comments: EKG Findings:: EKG: Normal sinus rhythm rate of 85, OH interval 158, QRS duration 86, QTC 437, no ST segment elevation or depression Medical Decision Making - Medical Decision Making 62-year-old female presenting with vomiting and diarrhea over the past several days. Patient does have some mild epigastric tenderness. No rebound or guarding. X-rays obtained, negative for obstruction or free air. Chest x-ray negative for acute cardiopulmonary disease. Mild leukocytosis at 11.6, normal CMP, clear urine. Patient has persistent nausea on reevaluation. She is clinically dehydrated. She will be placed in observation for continued symptomatic treatment. Case discussed with Dr. Santoyo who will accept admission. - Lab Data Result diagrams: 11/22/17 17:45 11/22/17 17:45 Lab Results 11/22/17 11/22/17 11/22/17 Range/Units 17:45 17:45 17:45 WBC 11.6 H (3.8-10.6) k/uL RBC 4.88 (3.80-5.40) m/uL Hgb 15.2 (11.4-16.0) gm/dL Hct 46.9 H (34.0-46.0) % MCV 96.1 (80.0-100.0) fL MCH 31.2 (25.0-35.0) pg MCHC 32.4 (31.0-37.0) g/dL RDW 13.5 (11.5-15.5) % Plt Count 294 (150-450) k/uL Neutrophils % 79 % Lymphocytes % 15 % Monocytes % 4 % Eosinophils % 0 % Basophils % 0 % Neutrophils # 9.2 H (1.3-7.7) k/uL Lymphocytes # 1.7 (1.0-4.8) k/uL Monocytes # 0.5 (0-1.0) k/uL Eosinophils # 0.1 (0-0.7) k/uL Basophils # 0.0 (0-0.2) k/uL PT (9.0-12.0) sec INR (<1.2) APTT (22.0-30.0) sec Sodium 139 (137-145) mmol/L Potassium 4.1 (3.5-5.1) mmol/L Chloride 106 (98-107) mmol/L Carbon Dioxide 24 (22-30) mmol/L Anion Gap 9 mmol/L BUN 12 (7-17) mg/dL Creatinine 0.63 (0.52-1.04) mg/dL Est GFR (CKD-EPI)AfAm >90 (>60 ml/min/1.73 sqM) Est GFR (CKD-EPI)NonAf >90 (>60 ml/min/1.73 sqM) Glucose 97 (74-99) mg/dL Calcium 10.2 (8.4-10.2) mg/dL Magnesium 2.0 (1.6-2.3) mg/dL Total Bilirubin 0.6 (0.2-1.3) mg/dL AST 32 (14-36) U/L ALT 40 (9-52) U/L Alkaline Phosphatase 67 (38-126) U/L Total Creatine Kinase 28 L (30-135) U/L CK-MB (CK-2) 0.5 (0.0-2.4) ng/mL CK-MB (CK-2) Rel Index 1.8 Troponin I <0.012 (0.000-0.034) ng/mL Total Protein 7.3 (6.3-8.2) g/dL Albumin 4.4 (3.5-5.0) g/dL Urine Color Urine Appearance (Clear) Urine pH (5.0-8.0) Ur Specific [place] (1.001-1.035) Urine Protein (Negative) Urine Glucose (UA) (Negative) Urine Ketones (Negative) Urine Blood (Negative) Urine Nitrite (Negative) Urine Bilirubin (Negative) Urine Urobilinogen (<2.0) mg/dL Ur Leukocyte Esterase (Negative) Urine RBC (0-5) /hpf Urine WBC (0-5) /hpf Ur Squamous Epith Cells (0-4) /hpf Urine Bacteria (None) /hpf Urine Mucus (None) /hpf 11/22/17 11/22/17 Range/Units 17:45 19:15 WBC (3.8-10.6) k/uL RBC (3.80-5.40) m/uL Hgb (11.4-16.0) gm/dL Hct (34.0-46.0) % MCV (80.0-100.0) fL MCH (25.0-35.0) pg MCHC (31.0-37.0) g/dL RDW (11.5-15.5) % Plt Count (150-450) k/uL Neutrophils % % Lymphocytes % % Monocytes % % Eosinophils % % Basophils % % Neutrophils # (1.3-7.7) k/uL Lymphocytes # (1.0-4.8) k/uL Monocytes # (0-1.0) k/uL Eosinophils # (0-0.7) k/uL Basophils # (0-0.2) k/uL PT 10.1 (9.0-12.0) sec INR 1.0 (<1.2) APTT 23.7 (22.0-30.0) sec Sodium (137-145) mmol/L Potassium (3.5-5.1) mmol/L Chloride (98-107) mmol/L Carbon Dioxide (22-30) mmol/L Anion Gap mmol/L BUN (7-17) mg/dL Creatinine (0.52-1.04) mg/dL Est GFR (CKD-EPI)AfAm (>60 ml/min/1.73 sqM) Est GFR (CKD-EPI)NonAf (>60 ml/min/1.73 sqM) Glucose (74-99) mg/dL Calcium (8.4-10.2) mg/dL Magnesium (1.6-2.3) mg/dL Total Bilirubin (0.2-1.3) mg/dL AST (14-36) U/L ALT (9-52) U/L Alkaline Phosphatase (38-126) U/L Total Creatine Kinase (30-135) U/L CK-MB (CK-2) (0.0-2.4) ng/mL CK-MB (CK-2) Rel Index Troponin I (0.000-0.034) ng/mL Total Protein (6.3-8.2) g/dL Albumin (3.5-5.0) g/dL Urine Color Yellow Urine Appearance Cloudy H (Clear) Urine pH 6.5 (5.0-8.0) Ur Specific [place] 1.012 (1.001-1.035) Urine Protein Negative (Negative) Urine Glucose (UA) Negative (Negative) Urine Ketones Negative (Negative) Urine Blood Negative (Negative) Urine Nitrite Negative (Negative) Urine Bilirubin Negative (Negative) Urine Urobilinogen <2.0 (<2.0) mg/dL Ur Leukocyte Esterase Negative (Negative) Urine RBC <1 (0-5) /hpf Urine WBC 1 (0-5) /hpf Ur Squamous Epith Cells 6 H (0-4) /hpf Urine Bacteria Rare H (None) /hpf Urine Mucus Rare H (None) /hpf Disposition Clinical Impression: Dehydration, Nausea vomiting and diarrhea Disposition: ADMITTED IP TO THIS HOSP Condition: Stable Is patient prescribed a controlled substance at d/c from ED?: No Referrals: Nilton Santoyo MD [Primary Care Provider] - 1-2 days Decision to Admit Reason: Admit from EC Decision Date: 11/22/17 Decision Time: 20:08
[2017-11-22] MEDS: SODIUM CHLORIDE 0.9% 1,000 ML IV SCH ×2 (17:45→23:46)
[2017-11-22 17:59] LABS: Basophils % (A) 0 %; Eosinophils # (A) 0.1 k/uL (0-0.7); Eosinophils % (A) 0 %; HCT 46.9 % (34.0-46.0); HGB 15.2 gm/dL (11.4-16.0); Lymphocytes # (A) 1.7 k/uL (1.0-4.8); Lymphocytes % (A) 15 %; MCH 31.2 pg (25.0-35.0); MCHC 32.4 g/dL (31.0-37.0); MCV 96.1 fL (80.0-100.0); Mean Platelet Volume 7.8; Monocytes # (A) 0.5 k/uL (0-1.0); Monocytes % (A) 4 %; Neutrophils # (A) 9.2 k/uL (1.3-7.7); Neutrophils % (A) 79 %; Platelet Count 294 k/uL (150-450); RBC 4.88 m/uL (3.80-5.40); RDW 13.5 % (11.5-15.5); WBC 11.6 k/uL (3.8-10.6)
[2017-11-22 18:08] LABS: Partial Thromboplastin Time 23.7 sec (22.0-30.0); Prothrombin Time 10.1 sec (9.0-12.0)
[2017-11-22 18:18] LABS: ALT 40 U/L (9-52); AST 32 U/L (14-36); Albumin 4.4 g/dL (3.5-5.0); Alkaline Phosphatase 67 U/L (38-126); Anion Gap 9 mmol/L; Blood Urea Nitrogen 12 mg/dL (7-17); Calcium 10.2 mg/dL (8.4-10.2); Carbon Dioxide 24 mmol/L (22-30); Chloride 106 mmol/L (98-107); Glucose 97 mg/dL (74-99); Potassium 4.1 mmol/L (3.5-5.1); Sodium 139 mmol/L (137-145); Total Bilirubin 0.6 mg/dL (0.2-1.3); Total Protein 7.3 g/dL (6.3-8.2)
[2017-11-22 18:20] LABS: Creatine Kinase 28 U/L (30-135)
[2017-11-22 18:33] LABS: Creatine Kinase MB 0.5 ng/mL (0.0-2.4); Troponin I <0.012 ng/mL (0.000-0.034)
--- NOTE | 2017-11-22 18:57 | XR ---
EXAMINATION TYPE: XR chest 2V DATE OF EXAM: 11/22/2017 COMPARISON: 10/04/2017 HISTORY: Chest pain TECHNIQUE: Frontal and lateral views of the chest are obtained. FINDINGS: Heart and mediastinum are normal. Lungs are clear of infiltrate. There are chest leads. Co stophrenic angles are clear. The bony thorax is intact. IMPRESSION: No active cardiopulmonary disease. Normal heart. No change.
--- NOTE | 2017-11-22 19:02 | XR ---
EXAMINATION TYPE: XR KUB DATE OF EXAM: 11/22/2017 COMPARISON: 11/03/2017 HISTORY: Chest pain vomiting TECHNIQUE: 2 views FINDINGS: There is no sign of intestinal obstruction or pneumoperitoneum. Fecal pattern is normal. Th ere are clips from cholecystectomy. There is posterior fusion surgery in the lumbar spine. There are no pathologic calcifications over the kidneys. IMPRESSION: Nonacute abdomen. No change.
[2017-11-22 19:30] LABS: Appearance,Urine Cloudy (Clear); Bacteria,Urine Rare /hpf; Bilirubin,Urine Negative (Negative); Blood,Urine Negative (Negative); Color,Urine Yellow; Glucose,Urine (UA) Negative (Negative); Ketones,Urine Negative (Negative); Leukocyte Esterase,Urine Negative (Negative); Mucus,Urine Rare /hpf; Nitrite,Urine Negative (Negative); PH, Urine 6.5 (5.0-8.0); Protein,Urine Negative (Negative); RBC,Urine <1 /hpf (0-5); Specific Gravity,Urine 1.012 (1.001-1.035); Squamous Epithelial Cell,Urine 6 /hpf (0-4); Urobilinogen,Urine <2.0 mg/dL (<2.0); WBC,Urine 1 /hpf (0-5)
[2017-11-22] MEDS ORDERED: ACETAMINOPHEN TAB 325 MG TAB PO PRN (20:08)
[2017-11-22] MEDS ORDERED: NALOXONE 0.4 MG/ML 1 ML VIAL IV PRN (20:08)
[2017-11-22] MEDS ORDERED: ONDANSETRON 4 MG/2 ML VIAL IVP PRN (20:08)
[2017-11-22] MEDS: MORPHINE SULFATE ER 15 MG TABLET PO SCH (22:58)
[2017-11-22] MEDS: traZODone HCL 100 MG TAB PO SCH (23:45)
[2017-11-22] MEDS: oxyCODONE-APAP 7.5-325MG 1 EACH TAB PO PRN (23:50)
[2017-11-23] MEDS: LEVOTHYROXINE 88 MCG TAB PO SCH (05:47)
[2017-11-23] MEDS: oxyCODONE-APAP 7.5-325MG 1 EACH TAB PO PRN ×3 (05:47→17:51)
[2017-11-23] MEDS: PREGABALIN 75 MG CAP PO SCH ×3 (08:51→21:12)
[2017-11-23] MEDS: MORPHINE SULFATE ER 15 MG TABLET PO SCH ×3 (08:52→21:12)
[2017-11-23] MEDS ORDERED: PANTOPRAZOLE 40 MG/10 ML VIAL IV SCH (09:00)
[2017-11-23] MEDS: ALBUTEROL NEBULIZED 2.5 MG/3 ML INHALATION PRN (09:11)
[2017-11-23] MEDS ORDERED: ALBUTEROL INHALER 60 PUFF/8 GM INHALER INHALATION PRN (11:34)
[2017-11-23] MEDS: NICOTINE 14MG/24HR PATCH TRANSDERM SCH (11:40)
[2017-11-23] MEDS ORDERED: TEMAZEPAM 15 MG CAP PO PRN (12:02)
[2017-11-23 13:26] VITALS: BMI 24.1
[2017-11-23] MEDS: SODIUM CHLORIDE 0.9% 1,000 ML IV SCH (14:17)
[2017-11-23] MEDS ORDERED: LOPERAMIDE 2 MG CAP PO PRN (14:55)
--- NOTE | 2017-11-23 15:46 | HP ---
HISTORY AND PHYSICAL CHIEF COMPLAINT: Nausea, vomiting, diarrhea. HISTORY OF PRESENT ILLNESS: This 62-year-old woman with a past medical history of multiple medical problems including COPD, CHF, fibromyalgia, DJD, history of liver disease, pulmonary embolism, history of back surgery, history of Caesarean section being followed by Dr. Santoyo in the outpatient setting, presented complaining of multiple episodes of vomiting, diarrhea, some abdominal discomfort. The patient had apparently 5 episodes. The patient came to [facility] and was admitted for further evaluation and treatment. Interestingly, the patient also had similar symptoms previously which improved asymptomatically. The patient improved significantly. There is no history of fever, rigors. No history of headache, loss of consciousness or seizures at this time. PAST MEDICAL HISTORY: Past medical history of CHF, COPD, fibromyalgia, DJD, history of pneumonia, pulmonary embolus, hypothyroidism, back surgery, Caesarean section. MEDICATIONS: Medications are home medications: 1. Albuterol 1-2 puffs q.4h p.r.n. 2. Percocet 7.5 q.6h p.r.n. 3. Synthroid 18 mcg p.o. daily. 4. Desyrel 100 mg. 5. Lyrica 150 mg b.i.d. 6. MS Contin 15 mg p.o. t.i.d. ALLERGIES: CYMBALTA, ALUPENT, CODEINE, AND ADVAIR. FAMILY HISTORY: No history of heart disease. History of skin cancer and breast cancer. SOCIAL HISTORY: Previous history of smoking. No alcohol intake. REVIEW OF SYSTEMS: ENT: No diminished hearing or vision. CARDIOVASCULAR: No angina or palpitations. RESPIRATORY: As mentioned earlier. GI: As mentioned earlier. : No dysuria or hematuria. Nervous system: No numbness or weakness. ALLERGY/IMMUNOLOGY: No history of hayfever or asthma. MUSCULOSKELETAL as mentioned earlier. HEMATOLOGY/ONCOLOGY: No history of anemia. ENDOCRINE: No history of diabetes or hypothyroidism. CONSTITUTIONAL: As mentioned earlier. DERMATOLOGY: Negative. RHEUMATOLOGY: Negative. PSYCHIATRY: As mentioned earlier. PHYSICAL EXAMINATION: GENERAL: Alert, oriented times three. VITAL SIGNS: Pulse 58, blood pressure 107/62, respirations 16, temperature 98.9 , pulse ox 94% on room air. HEENT: Conjunctivae normal. Oral mucosa moist. Neck is no jugular venous distention. No carotid bruit. No lymph nodes enlargement. CARDIOVASCULAR: S1, S2. RESPIRATORY: Breath sounds diminished in the bases. No rhonchi. No crackles. ABDOMEN: Soft. Mild diffuse discomfort on palpation. No guarding. No rigidity. No mass palpable. LEGS: No edema. No swelling. NERVOUS SYSTEM: Higher functions as mentioned earlier. Moves all four extremities. No focal deficits. LYMPHATICS: No lymph nodes palpable in the neck, axillae or groin. Skin: No ulcer, rash or bleeding. LABS: CBC with WBC 11.2, hemoglobin 15.2 and CBC noted. C diff negative. ASSESSMENT: 1. Nausea, vomiting and diarrhea possible acute gastroenteritis. 2. Chronic obstructive pulmonary disease. 3. History of congestive heart failure. 4. Fibromyalgia. 5. History of liver disease. 6. Degenerative joint disease. 7. History of pneumonia. 8. History of pulmonary embolism. 9. History of hypothyroidism. 10.History of hepatitis C. 11.History of cholecystectomy. 12.History of depression. 13.History of nicotine dependence. RECOMMENDATIONS AND DISCUSSION: In this 62-year-old woman who presented with multiple complex medical issues, we will monitor the patient closely, continue the current medications, management and symptomatic treatment. Otherwise, at this time, I recommend symptomatic treatment. Imodium p.r.n. Otherwise continue the rest of the home medications. Guarded prognosis because of multiple complex medical issues. Further recommendations to follow. Copy of dictation being forwarded to Dr. Santoyo who is the primary care physician. ROME / AYAD: [id number] / MTDD
[2017-11-23] MEDS: HEPARIN SODIUM,PORCINE 5,000 UNIT/ML 1 ML VIAL SQ SCH (15:58)
[2017-11-23] MEDS ORDERED: ONDANSETRON 4 MG TAB PO PRN (19:41)
[2017-11-23] MEDS ORDERED: TEMAZEPAM 15 MG CAP PO SCH (21:00)
[2017-11-23] MEDS: traZODone HCL 100 MG TAB PO SCH (21:15)
[2017-11-24] MEDS ORDERED: HEPARIN SODIUM,PORCINE 5,000 UNIT/ML 1 ML VIAL ONE (00:10)
[2017-11-24] MEDS ORDERED: oxyCODONE-APAP 7.5-325MG 1 EACH TAB ONE (00:10)
[2017-11-24] MEDS: ALBUTEROL NEBULIZED 2.5 MG/3 ML INHALATION PRN (06:08)
[2017-11-24] MEDS: LEVOTHYROXINE 88 MCG TAB PO SCH (06:19)
[2017-11-24] MEDS: oxyCODONE-APAP 7.5-325MG 1 EACH TAB PO PRN ×2 (06:19→11:55)
[2017-11-24 06:42] LABS: Basophils % (A) 1 %; Eosinophils # (A) 0.1 k/uL (0-0.7); Eosinophils % (A) 2 %; HCT 40.2 % (34.0-46.0); HGB 12.9 gm/dL (11.4-16.0); Lymphocytes % (A) 35 %; MCH 31.3 pg (25.0-35.0); MCHC 32.1 g/dL (31.0-37.0); MCV 97.6 fL (80.0-100.0); Mean Platelet Volume 7.7; Monocytes # (A) 0.3 k/uL (0-1.0); Monocytes % (A) 6 %; Neutrophils # (A) 3.2 k/uL (1.3-7.7); Neutrophils % (A) 55 %; Platelet Count 200 k/uL (150-450); RBC 4.12 m/uL (3.80-5.40); RDW 13.4 % (11.5-15.5); WBC 5.7 k/uL (3.8-10.6)
[2017-11-24 07:28] LABS: Anion Gap 6 mmol/L; Blood Urea Nitrogen 10 mg/dL (7-17); Calcium 9.2 mg/dL (8.4-10.2); Carbon Dioxide 26 mmol/L (22-30); Chloride 109 mmol/L (98-107); Glucose 92 mg/dL (74-99); Potassium 4.5 mmol/L (3.5-5.1); Sodium 141 mmol/L (137-145)
[2017-11-24] MEDS ORDERED: PANTOPRAZOLE 40 MG TABLET PO SCH (07:30)
[2017-11-24] MEDS: HEPARIN SODIUM,PORCINE 5,000 UNIT/ML 1 ML VIAL SQ SCH ×2 (07:40→08:13)
[2017-11-24] MEDS: PREGABALIN 75 MG CAP PO SCH (09:00)
[2017-11-24] MEDS: MORPHINE SULFATE ER 15 MG TABLET PO SCH (09:00)
[2017-11-24] MEDS: NICOTINE 14MG/24HR PATCH TRANSDERM SCH (09:01)
[2017-11-24] MEDS: SODIUM CHLORIDE 0.9% 1,000 ML IV SCH (10:31)
[2017-11-24 11:37] VITALS: BP 97/58; PULSE 57; RESP 16; TEMP 98.6
--- NOTE | 2017-11-24 20:51 | DS ---
DISCHARGE SUMMARY I am covering for Dr. Santoyo. FINAL DIAGNOSES: 1. Nausea, vomiting, diarrhea possible acute gastroenteritis. 2. Chronic obstructive pulmonary disease. 3. History of congestive heart failure. 4. Fibromyalgia. 5. History of liver disease. 6. History of degenerative joint disease. 7. History pneumonia. 8. History of pulmonary embolism. 9. Hypertension. 10.Hepatitis C. 11.History of cholecystectomy. 12.History of depression. 13.History of nicotine dependence. DISCHARGE DISPOSITION: The patient is discharged in stable condition with guarded prognosis. HISTORY OF PRESENT ILLNESS: This 62-year-old with a past history of multiple medical problems, being followed by Dr. Santoyo in the outpatient setting, admitted with acute gastroenteritis symptoms. C difficile ruled out, treated symptomatically. Patient improved significantly. On exam, vitals are stable. CARDIOVASCULAR: S1, S2 muffled. ABDOMEN: Soft. NERVOUS SYSTEM: No focal deficits. DISCHARGE ADVICE AND MEDICATION: 1. Diet is bland, soft, low residue. 2. Activities limited until followup. 3. Follow up with Dr. Santoyo in 2-3 days. MEDICATIONS: 1. Ventolin p.r.n. 2. Synthroid 88 mcg p.o. daily. 3. MS Contin 15 mg p.o. t.i.d. 4. Oxycodone 1 tablet q.6 p.r.n. 5. Lyrica 150 mg t.i.d. 6. Desyrel 100 mg p.o. q.h.s. 7. Protonix 40 mg daily for 10 days. Once again, the patient is discharged in stable condition with guarded prognosis. MMODL / IJN: [id number] /
== END 2017-11-24 13:03 | disposition home or self-care (01) ==
LOC: EC 16:36 → 6PED 20:08
PROVIDERS: ADMIT Family Medicine; ATTEND Family Medicine
DX: R11.2 Nausea with vomiting, unspecified (principal); R19.7 Diarrhea, unspecified; E86.0 Dehydration; R10.13 Epigastric pain; R07.89 Other chest pain; F32.9 Major depressive disorder, single episode, unspecified; D72.829 Elevated white blood cell count, unspecified; J44.9 Chronic obstructive pulmonary disease, unspecified; M79.7 Fibromyalgia; I11.0 Hypertensive heart disease with heart failure; I50.9 Heart failure, unspecified; M19.90 Unspecified osteoarthritis, unspecified site; E03.9 Hypothyroidism, unspecified; B19.20 Unspecified viral hepatitis C without hepatic coma; Z79.890 Hormone replacement therapy; Z79.891 Long term (current) use of opiate analgesic; Z79.899 Other long term (current) drug therapy; Z87.01 Personal history of pneumonia (recurrent); Z90.49 Acquired absence of other specified parts of digestive tract; Z86.711 Personal history of pulmonary embolism; Z90.89 Acquired absence of other organs; Z80.3 Family history of malignant neoplasm of breast; Z80.8 Family history of malignant neoplasm of other organs or systems; Z82.49 Family history of ischemic heart disease and other diseases of the circulatory system
CPT/HCPCS: 99285 ×2; 96374 ×2; 96361 ×6; 96372 ×2; 96375; 36415; 94640 ×2; 93005; 80053; 80048; 82550; 82553; 83735; 84484; 85025 ×2; 85610; 85730; 81001; 87324; 87329; 87328; 83630; 71046; 74018; G0378 ×3; S4990 ×2; J1644 ×2; C9113

== ENCOUNTER 2017-11-28 10:26 | Emergency (ER) | payer BC ==
[2017-11-28 10:49] VITALS: RESP 18
[2017-11-28] MEDS ORDERED: ONDANSETRON 4 MG/2 ML VIAL IVP STA (11:02)
[2017-11-28] MEDS ORDERED: SODIUM CHLORIDE 0.9% 1,000 ML IV STA ×2 (11:02→13:24)
--- NOTE | 2017-11-28 11:15 | ED ---
General Adult HPI - General Chief complaint: Nausea/Vomiting/Diarrhea Stated complaint: nausea, vomiting Time Seen by Provider: 11/28/17 10:57 Source: patient, RN notes reviewed Mode of arrival: ambulatory Limitations: no limitations - History of Present Illness Initial comments: Patient 62-year-old female presented to the emergency room today with a chief complaint of symptoms of nausea vomiting and diarrhea over the last week. Patient does not that she was seen here in the emergency room and admitted. She states she was sent home 4 days ago. She states she still experiencing same symptoms. Patient denies any other complaints or symptoms at this time. Patient denies any recent fever, chills, shortness of breath, chest pain, back pain, numbness or tingling, dysuria or hematuria, headaches or visual changes, or any other complaints. - Related Data Home Medications Medication Instructions Recorded Confirmed Levothyroxine Sodium [Synthroid] 88 mcg PO DAILY 03/25/14 11/28/17 Pregabalin [Lyrica] 150 mg PO TID 09/02/17 11/28/17 Morphine Sulfate ER [Ms Contin] 15 mg PO TID 10/04/17 11/28/17 oxyCODONE-APAP 7.5-325MG [Percocet 1 tab PO QID 10/04/17 11/28/17 7.5-325 mg] traZODone HCL [Desyrel] 100 mg PO HS 11/03/17 11/28/17 Albuterol Inhaler [Ventolin Hfa 1 - 2 puff INHALATION RT-Q6H PRN 11/22/17 Inhaler] Previous Rx's Medication Instructions Recorded Pantoprazole [Protonix] 40 mg PO DAILY #10 tablet. 11/24/17 Metoclopramide HCl [Reglan] 10 mg PO Q6HR PRN #15 tab 11/28/17 Allergies Allergy/AdvReac Type Severity Reaction Status Date / Time ciprofloxacin [From Cipro] Allergy Rash/Hives Verified 11/28/17 11:41 duloxetine [From Cymbalta] Allergy Swelling Verified 11/28/17 11:41 OF THROAT metaproterenol [From Alupent] Allergy Heart races Verified 11/28/17 11:41 codeine AdvReac Vomiting Verified 11/28/17 11:41 fluticasone AdvReac ulcers in Verified 11/28/17 11:41 [From Advair Diskus] mouth salmeterol AdvReac ulcers in Verified 11/28/17 11:41 [From Advair Diskus] mouth Review of Systems ROS Statement: Those systems with pertinent positive or pertinent negative responses have been documented in the HPI. ROS Other: All systems not noted in ROS Statement are negative. Past Medical History Past Medical History: Heart Failure, COPD, Fibromyalgia, Liver Disease, Osteoarthritis (OA), Pneumonia, Pulmonary Embolus (PE), Thyroid Disorder Additional Past Medical History / Comment(s): back pain, Hep C History of Any Multi-Drug Resistant Organisms: None Reported Past Surgical History: Back Surgery, Section, Cholecystectomy, Hysterectomy Additional Past Surgical History / Comment(s): multiple back surgeries including back fusion and 10 hand surgeries, 3 knee surgeries Past Anesthesia/Blood Transfusion Reactions: No Reported Reaction Past Psychological History: Depression Smoking Status: Current every day smoker Past Alcohol Use History: None Reported Past Drug Use History: None Reported - Past Family History Father Family Medical History: Vascular Disorder Additional Family Medical History / Comment(s): Father of a ruptured aortic aneurysm. Sister(s) Family Medical History: Cancer Additional Family Medical History / Comment(s): SKIN CANCER AND BREAST CANCER Mother Family Medical History: No Reported History General Exam - General Exam Comments Initial Comments: General: The patient is awake and alert, in no distress, and does not appear acutely ill. Eye: Pupils are equal, round and reactive to light, extra-ocular movements are intact. No nystagmus. There is normal conjunctiva bilaterally. No signs of icterus. Ears, nose, mouth and throat: There are moist mucous membranes and no oral lesions. Neck: The neck is supple, there is no tenderness or JVD. Cardiovascular: There is a regular rate and rhythm. No murmur, rub or gallop is appreciated. Respiratory: Lungs are clear to auscultation, respirations are non-labored, breath sounds are equal. No wheezes, stridor, rales, or rhonchi. Gastrointestinal: Soft, non-distended, non-tender abdomen without masses or organomegaly noted. There is no rebound or guarding present. No CVA tenderness. Musculoskeletal: Normal ROM, no tenderness. Strength 5/5. Sensation intact. Pulses equal bilaterally 2+. Neurological: A&O x 3. CN II-XII intact, There are no obvious motor or sensory deficits. Coordination appears grossly intact. Speech is normal. Skin: Skin is warm and dry and no rashes or lesions are noted. Psychiatric: Cooperative, appropriate mood & affect, normal judgment. Limitations: no limitations Course Vital Signs 11/28/17 10:48 Temperature 98.6 F Pulse Rate 81 Respiratory 18 Rate Blood Pressure 147/87 O2 Sat by Pulse 98 Oximetry Medical Decision Making - Medical Decision Making Patient's labs been reviewed and are negative for any acute abnormality. Results were discussed with patient. Patient does admit to feeling better here in the emergency room. Patient was recently for similar symptoms. States that she's been having symptoms on and off for last 10 weeks. Was discussed with patient about following up with the gastrointestinal doctor. Patient states she has a tumor in the past. Patient given Reglan to go home with for her nausea. Advised following up over the next 2 days return if any symptoms increase or worsen. - Lab Data Result diagrams: 11/28/17 11:25 11/28/17 11:25 Lab Results 11/28/17 11/28/17 11/28/17 Range/Units 11:25 11:25 11:40 WBC 9.8 (3.8-10.6) k/uL RBC 4.87 (3.80-5.40) m/uL Hgb 15.1 (11.4-16.0) gm/dL Hct 46.7 H (34.0-46.0) % MCV 95.9 (80.0-100.0) fL MCH 31.1 (25.0-35.0) pg MCHC 32.4 (31.0-37.0) g/dL RDW 12.9 (11.5-15.5) % Plt Count 287 (150-450) k/uL Neutrophils % 78 % Lymphocytes % 17 % Monocytes % 4 % Eosinophils % 1 % Basophils % 0 % Neutrophils # 7.6 (1.3-7.7) k/uL Lymphocytes # 1.6 (1.0-4.8) k/uL Monocytes # 0.4 (0-1.0) k/uL Eosinophils # 0.1 (0-0.7) k/uL Basophils # 0.0 (0-0.2) k/uL Sodium 140 (137-145) mmol/L Potassium 4.1 (3.5-5.1) mmol/L Chloride 105 (98-107) mmol/L Carbon Dioxide 27 (22-30) mmol/L Anion Gap 8 mmol/L BUN 18 H (7-17) mg/dL Creatinine 0.66 (0.52-1.04) mg/dL Est GFR (CKD-EPI)AfAm >90 (>60 ml/min/1.73 sqM) Est GFR (CKD-EPI)NonAf >90 (>60 ml/min/1.73 sqM) Glucose 97 (74-99) mg/dL Calcium 9.9 (8.4-10.2) mg/dL Total Bilirubin 0.7 (0.2-1.3) mg/dL AST 28 (14-36) U/L ALT 42 (9-52) U/L Alkaline Phosphatase 66 (38-126) U/L Total Protein 7.5 (6.3-8.2) g/dL Albumin 4.5 (3.5-5.0) g/dL Amylase 53 (30-110) U/L Lipase 49 (23-300) U/L Urine Color Yellow Urine Appearance Clear (Clear) Urine pH 6.0 (5.0-8.0) Ur Specific [place] 1.026 (1.001-1.035) Urine Protein Trace H (Negative) Urine Glucose (UA) Negative (Negative) Urine Ketones Negative (Negative) Urine Blood Negative (Negative) Urine Nitrite Negative (Negative) Urine Bilirubin Negative (Negative) Urine Urobilinogen 3.0 (<2.0) mg/dL Ur Leukocyte Esterase Negative (Negative) Disposition Clinical Impression: Nausea vomiting and diarrhea Disposition: HOME SELF-CARE Condition: Good Instructions: Acute Nausea and Vomiting (ED) Additional Instructions: Please use medication as discussed. Please follow-up with GI/family doctor in the next 2 days of symptoms have not improved. Please return to emergency room if the symptoms increase or worsen or for any other concerns. Prescriptions: Metoclopramide HCl [Reglan] 10 mg PO Q6HR PRN #15 tab PRN Reason: Nausea Is patient prescribed a controlled substance at d/c from ED?: No Referrals: Nilton Santoyo MD [Primary Care Provider] - 1-2 days Time of Disposition: 12:28
[2017-11-28 11:44] LABS: Basophils % (A) 0 %; Eosinophils # (A) 0.1 k/uL (0-0.7); Eosinophils % (A) 1 %; HCT 46.7 % (34.0-46.0); HGB 15.1 gm/dL (11.4-16.0); Lymphocytes # (A) 1.6 k/uL (1.0-4.8); Lymphocytes % (A) 17 %; MCH 31.1 pg (25.0-35.0); MCHC 32.4 g/dL (31.0-37.0); MCV 95.9 fL (80.0-100.0); Mean Platelet Volume 7.8; Monocytes # (A) 0.4 k/uL (0-1.0); Monocytes % (A) 4 %; Neutrophils # (A) 7.6 k/uL (1.3-7.7); Neutrophils % (A) 78 %; Platelet Count 287 k/uL (150-450); RBC 4.87 m/uL (3.80-5.40); RDW 12.9 % (11.5-15.5); WBC 9.8 k/uL (3.8-10.6)
[2017-11-28 11:56] LABS: ALT 42 U/L (9-52); AST 28 U/L (14-36); Albumin 4.5 g/dL (3.5-5.0); Alkaline Phosphatase 66 U/L (38-126); Amylase 53 U/L (30-110); Anion Gap 8 mmol/L; Blood Urea Nitrogen 18 mg/dL (7-17); Calcium 9.9 mg/dL (8.4-10.2); Carbon Dioxide 27 mmol/L (22-30); Chloride 105 mmol/L (98-107); Glucose 97 mg/dL (74-99); Lipase 49 U/L (23-300); Potassium 4.1 mmol/L (3.5-5.1); Sodium 140 mmol/L (137-145); Total Bilirubin 0.7 mg/dL (0.2-1.3); Total Protein 7.5 g/dL (6.3-8.2)
--- NOTE | 2017-11-28 11:57 | XR ---
EXAMINATION TYPE: XR KUB DATE OF EXAM: 11/28/2017 COMPARISON: 11/22/2017 HISTORY: Vomiting TECHNIQUE: One view abdominal series FINDINGS: The osseous structures are intact. The bowel gas pattern is nonspecific. Surgical clips are seen inv olving the right abdomen and postsurgical change lumbar spine. Findings lung bases are clear. IMPRESSION: 1. Nonspecific abdomen.
[2017-11-28 11:59] LABS: Appearance,Urine Clear (Clear); Bilirubin,Urine Negative (Negative); Blood,Urine Negative (Negative); Color,Urine Yellow; Glucose,Urine (UA) Negative (Negative); Ketones,Urine Negative (Negative); Leukocyte Esterase,Urine Negative (Negative); Nitrite,Urine Negative (Negative); Protein,Urine Trace (Negative); Specific Gravity,Urine 1.026 (1.001-1.035)
[2017-11-28] MEDS ORDERED: KETOROLAC 30 MG/ML 1 ML VIAL IVP STA (12:13)
[2017-11-28] MEDS ORDERED: diphenhydrAMINE 50 MG/ML 1 ML VIAL IVP STA (12:13)
[2017-11-28] MEDS ORDERED: METOCLOPRAMIDE 5 MG/ML 2 ML VIAL IVP STA (12:13)
[2017-11-28 13:44] VITALS: BP 120/63; PULSE 59; TEMP 98.3
== END 2017-11-28 13:47 | disposition home or self-care (01) ==
LOC: EC 10:26
DX: R11.2 Nausea with vomiting, unspecified (principal); R19.7 Diarrhea, unspecified; J44.9 Chronic obstructive pulmonary disease, unspecified; M79.7 Fibromyalgia; M19.90 Unspecified osteoarthritis, unspecified site; E07.9 Disorder of thyroid, unspecified; F32.9 Major depressive disorder, single episode, unspecified; F17.200 Nicotine dependence, unspecified, uncomplicated; Z79.891 Long term (current) use of opiate analgesic; Z79.899 Other long term (current) drug therapy; Z88.1 Allergy status to other antibiotic agents; Z88.8 Allergy status to other drugs, medicaments and biological substances; Z88.5 Allergy status to narcotic agent
CPT/HCPCS: 36415; 80053; 82150; 83690; 85025; 81003; 74018; 99284; 96374; 96375 ×3; 96361; J1200; J2765; J2405; J1885

== ENCOUNTER 2017-11-28 18:27 | Observation (INO) | payer BC ==
[2017-11-28] MEDS ORDERED: FAMOTIDINE 20 MG/2 ML VIAL IV STA (20:06)
[2017-11-28] MEDS ORDERED: SODIUM CHLORIDE 0.9% 500 ML IV ONE (20:06)
--- NOTE | 2017-11-28 21:10 | ED ---
General Adult HPI - General Chief complaint: Nausea/Vomiting/Diarrhea Stated complaint: Nausea, Vomiting-revisit Time Seen by Provider: 11/28/17 19:56 Source: patient Mode of arrival: ambulatory Limitations: no limitations - History of Present Illness Initial comments: 62 years old female was seen earlier today she was seen for nausea vomiting no she Back She Said She's Not Able to Keep Anything down and She Vomited 7 Times Today and Then Now She Is Complaining about the Headache She Feels a Pressure- Like Symptoms of the Head. No blurred vision no neck stiffness no chest pain or shortness of breath, some discomfort in epigastric area no frequency urgency dysuria symptoms of TIA or CVA - Related Data Home Medications Medication Instructions Recorded Confirmed Levothyroxine Sodium [Synthroid] 88 mcg PO DAILY 03/25/14 11/28/17 Pregabalin [Lyrica] 150 mg PO TID 09/02/17 11/28/17 Morphine Sulfate ER [Ms Contin] 15 mg PO TID 10/04/17 11/28/17 oxyCODONE-APAP 7.5-325MG [Percocet 1 tab PO QID 10/04/17 11/28/17 7.5-325 mg] traZODone HCL [Desyrel] 100 mg PO HS 11/03/17 11/28/17 Albuterol Inhaler [Ventolin Hfa 1 - 2 puff INHALATION RT-Q6H PRN 11/22/17 Inhaler] Previous Rx's Medication Instructions Recorded Pantoprazole [Protonix] 40 mg PO DAILY #10 tablet. 11/24/17 Metoclopramide HCl [Reglan] 10 mg PO Q6HR PRN #15 tab 11/28/17 Allergies Allergy/AdvReac Type Severity Reaction Status Date / Time ciprofloxacin [From Cipro] Allergy Rash/Hives Verified 11/28/17 20:11 duloxetine [From Cymbalta] Allergy Swelling Verified 11/28/17 20:11 OF THROAT metaproterenol [From Alupent] Allergy Heart races Verified 11/28/17 20:11 codeine AdvReac Vomiting Verified 11/28/17 20:11 fluticasone AdvReac ulcers in Verified 11/28/17 20:11 [From Advair Diskus] mouth salmeterol AdvReac ulcers in Verified 11/28/17 20:11 [From Advair Diskus] mouth Review of Systems ROS Statement: Those systems with pertinent positive or pertinent negative responses have been documented in the HPI. ROS Other: All systems not noted in ROS Statement are negative. Past Medical History Past Medical History: Heart Failure, COPD, Fibromyalgia, Liver Disease, Osteoarthritis (OA), Pneumonia, Pulmonary Embolus (PE), Thyroid Disorder Additional Past Medical History / Comment(s): back pain, Hep C History of Any Multi-Drug Resistant Organisms: None Reported Past Surgical History: Back Surgery, Section, Cholecystectomy, Hysterectomy Additional Past Surgical History / Comment(s): multiple back surgeries including back fusion and 10 hand surgeries, 3 knee surgeries Past Anesthesia/Blood Transfusion Reactions: No Reported Reaction Past Psychological History: Depression Smoking Status: Current every day smoker Past Alcohol Use History: None Reported Past Drug Use History: None Reported - Past Family History Father Family Medical History: Vascular Disorder Additional Family Medical History / Comment(s): Father of a ruptured aortic aneurysm. Sister(s) Family Medical History: Cancer Additional Family Medical History / Comment(s): SKIN CANCER AND BREAST CANCER Mother Family Medical History: No Reported History General Exam - General Exam Comments Initial Comments: General: The patient is awake and alert, in no distress, and does not appear acutely ill. Skin: Skin is warm and dry and no rashes or lesions are noted. Eye: Pupils are equal, round and reactive to light, extra-ocular movements are intact; there is normal conjunctiva bilaterally. Ears, nose, mouth and throat: There are moist mucous membranes and no oral lesions. Neck: The neck is supple, there is no tenderness or JVD. Cardiovascular: There is a regular rate and rhythm. No murmur, rub or gallop is appreciated. Respiratory: To auscultation bilateral, no wheezing no rhonchi no distress respiratory [place] noticed Gastrointestinal: Mildly tender in epigastric area positive bowel sounds no guarding no rebounds Back: There is no tenderness to palpation in the midline. There is no obvious deformity. Musculoskeletal: Normal ROM, no tenderness, There is no pedal edema. There is no calf tenderness or swelling. No cords were appreciated. Neurological: CN II-XII intact, Cranial nerves III through XII are intact. There are no obvious motor or sensory deficits. Coordination appears grossly intact. Speech is normal. Psychiatric: Cooperative, appropriate mood & affect, normal judgment. Limitations: no limitations Course Vital Signs 11/28/17 19:11 Temperature 98.9 F Pulse Rate 69 Respiratory 18 Rate Blood Pressure 123/76 O2 Sat by Pulse 97 Oximetry She is afebrile, labs were reviewed from this morning CBC, CMP, urinalysis, KUB were all normal considering her nausea vomiting and headache I didn't head CT to make sure there is no epidural or tumor, head CT is normal patient be admitted to Dr. Santoyo's service talke to Dr. Jo prescription today he advised that to be admitted to Dr. Santoyo since he is back tomorrow Disposition Clinical Impression: Intractable nausea and vomiting Disposition: ADMITTED IP TO THIS [facility] Condition: Good Referrals: Nilton Santoyo MD [Primary Care Provider] - 1-2 days
[2017-11-28] MEDS: SODIUM CHLORIDE 0.9% 1,000 ML IV SCH ×2 (21:18→23:37)
[2017-11-28] MEDS ORDERED: ONDANSETRON 4 MG/2 ML VIAL IVP STA (21:31)
[2017-11-28] MEDS ORDERED: ACETAMINOPHEN IV (For NPO) 500 MG in EMPTY BAG 1 BAG IVPB ONE (21:32)
--- NOTE | 2017-11-28 21:38 | CT ---
EXAMINATION: CT brain wo con DATE AND TIME: 11/28/2017 9:08 PM ORDERING PROVIDER: Sunny Burnett CLINICAL INDICATION: Nausea and vomiting TECHNIQUE: Standard departmental protocol. 1027.8 mGy-cm DLP. COMPARISON: 05/20/2017 DESCRIPTION: The calvarium is intact. There is no intracranial hemorrhage. There is no mass or mass e ffect. There is no definite new attenuation defect. Remainder of the intra-axial and extra-axial comp artment examination is unremarkable. The paranasal sinuses, middle ear cavities, and mastoid sinus ai r cells are clear. The orbits are intact. IMPRESSION: NO ACUTE PROCESS.
[2017-11-28] MEDS ORDERED: NALOXONE 0.4 MG/ML 1 ML VIAL IV PRN (22:19)
[2017-11-28] MEDS ORDERED: ALBUTEROL NEBULIZED 2.5 MG/3 ML INHALATION PRN (22:24)
[2017-11-28 23:33] VITALS: BMI 21.9
[2017-11-28] MEDS: PREGABALIN 75 MG CAP PO SCH (23:37)
[2017-11-28] MEDS: MORPHINE SULFATE ER 15 MG TABLET PO SCH (23:37)
[2017-11-28] MEDS: traZODone HCL 100 MG TAB PO SCH (23:38)
[2017-11-28] MEDS: METOCLOPRAMIDE 10 MG TAB PO PRN (23:38)
[2017-11-29] MEDS: ONDANSETRON 4 MG/2 ML VIAL IVP PRN ×2 (03:12→20:50)
[2017-11-29] MEDS: LEVOTHYROXINE 88 MCG TAB PO SCH (05:46)
[2017-11-29] MEDS: SODIUM CHLORIDE 0.9% 1,000 ML IV SCH ×5 (05:47→20:11)
[2017-11-29] MEDS: oxyCODONE-APAP 7.5-325MG 1 EACH TAB PO SCH ×4 (08:13→21:24)
[2017-11-29] MEDS ORDERED: FAMOTIDINE 20 MG TAB PO SCH (09:00)
[2017-11-29] MEDS: PREGABALIN 75 MG CAP PO SCH ×3 (10:14→21:24)
[2017-11-29] MEDS: PANTOPRAZOLE 40 MG TABLET PO SCH (10:14)
[2017-11-29] MEDS: MORPHINE SULFATE ER 15 MG TABLET PO SCH ×3 (10:14→21:23)
--- NOTE | 2017-11-29 12:13 | CT ---
EXAMINATION TYPE: CT abdomen pelvis wo con DATE OF EXAM: 11/29/2017 COMPARISON: 04/04/2010 INDICATION: Intractable nausea and vomitting DLP: 350.70 mGycm, Automated exposure control for dose reduction was used. CONTRAST: 0 mL of Isovue 300. Study performed without Oral Contrast TECHNIQUE: Axial images were obtained from above the diaphragm to the pubic rami in the axial plane a t 5 mm thick sections. Reconstructed images are reviewed on the computer in the coronal plane. FINDINGS: Limited CT sections are obtained the lung bases. The lung bases are clear. CT ABDOMEN: Liver: Normal Spleen: Normal Pancreas: Normal Adrenal glands: There is a 1.3 cm hypodensity on the right adrenal gland measuring -27 [place] uni ts likely related to an myelolipoma. Left adrenal gland appears normal. Gallbladder: Surgically absent Kidneys: No masses are evident. No hydronephrosis is present. No cysts are present. Study is witho ut intravenous contrast. No renal stones are evident. Aorta: Vascular calcification is within the aorta. Inferior vena cava: Normal. CT PELVIS: There is a 1.2 cm hyperdensity within the anterior subcutaneous tissues left mid pelvis. Loops of bowel within the abdomen and pelvis are normal. Study is without oral contrast limiting bowel evaluation. Appendix: Not identified. No suspicious tubular structures or inflammatory changes are evident. Urinary bladder: Decompressed with limited evaluation. Genitourinary structures: Uterus and ovaries are not identified. Osseous structures: No suspicious lytic or sclerotic lesions. Pedicle screws are present within the l umbar spine from prior fixation. This causes some beam hardening artifact limitations. Sacroiliac javier nt degenerative changes are present. IMPRESSIONS: 1. No suspicious acute changes. 2. Myelolipoma right adrenal gland. 3. 1.2 cm hypodensity within the anterior subcutaneous tissues left pelvis.
[2017-11-29] MEDS: ALPRAZolam 0.25 MG TAB PO PRN ×2 (14:29→22:25)
[2017-11-29] MEDS: NICOTINE 14MG/24HR PATCH TRANSDERM SCH (14:33)
--- NOTE | 2017-11-29 14:46 | P.HPIM ---
<Myah Platt - Last Filed: 11/29/17 14:30> History of Present Illness H&P Date: 11/29/17 Chief Complaint: Nausea, vomiting 62-year-old female who presented to the emergency room with a chief complaint of nausea, vomiting, diarrhea, and abdominal pain. The patient was just seen in the emergency room on 11/28/2017 and was discharged home in stable condition. She was also recently admitted from 11/22/2017 until 11/24/2017 and was diagnosed with gastroenteritis. The patient states over the last approximately 10 weeks she has been having ongoing nausea, vomiting, diarrhea, and abdominal pain. She denies melena, hematemesis, or hematochezia. She reports decreased appetite as well and states that most foods taste bland her. She does report that she had a turkey sandwich earlier today and tolerated it without nausea or vomiting. She denies any vomiting today. She states she had 2 episodes of diarrhea today. She states she had 8 episodes of vomiting yesterday. She states she was having low-grade fevers at home with a Tmax of 99.9F. The patient underwent a colonoscopy and June [address] Berumen which did not reveal any abnormalities. The patient states she has not followed up outpatient with Dr. Berumen since that time. The patient also reports intermittent midsternal chest pain. The patient states she thinks this is secondary to stress. She denies associated shortness of breath. Chest pain does not radiate to arm jaw or neck. Pain is reproducible with deep inspiration and palpation to chest. Patient was evaluated by cardiology in September 2017 during hospitalization. She underwent a stress test which was negative for ischemia at that time. The patient states that she also had a headache when she presented to the emergency room. A CT of the brain was completed which was negative for an acute process. The patient also reports worsening depression. She denies suicidal ideation. She states she has seen a psychiatrist in the past but they recommended group counseling and she did not want to do that. Patient states she is looking for individual counseling. Patient also reports trying Zoloft in the past but states it did not help her depression. Patient is requesting to speak to a psychiatrist. Patient also reports her living situation is giving her significant stress. She states she has been living with her 82-year-old mother since last December. Her is living separately and a travel trailer on a piece of land they own. She states he was supposed to build a house on the property but has yet to do so and patient states she cannot live in a small trailer. The patient has a history of COPD, fibromyalgia, hepatitis C, osteoarthritis, pneumonia, pulmonary embolism, anxiety, and depression. She is a current cigarette smoker. She reports smoking half a pack of cigarettes per day. She states she is trying to quit smoking and is requesting a nicotine patch currently. She denies any alcohol use. She denies any illicit drug use. Laboratory data from emergency room visit on 11/28/2017 reveals white count of 9.8. Hemoglobin 15.1. Platelet count 287. INR 1.0. D-dimer 0.23. Sodium 140. Potassium 4.1. BUN 18. Creatinine 0.66. Glucose 97. Hemoglobin A1c 5.9 %. Magnesium 2.0. Total bilirubin 0.7. AST 28. T 42. Alkaline phosphatase 66. BNP 59. Troponin negative 1. Amylase 53. Lipase 49. TSH 0.851. Cortisol 39. Computed tomography scan of the abdomen was negative for acute changes. 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 1.2 cm hypodensity within the anterior subcutaneous tissues of left pelvis. The patient was admitted to the hospital under the care of Dr. Santoyo. Review of Systems Those systems with pertinent positive or pertinent negative responses have been documented in the HPI Past Medical History Past Medical History: Heart Failure, COPD, Fibromyalgia, Liver Disease, Osteoarthritis (OA), Pneumonia, Pulmonary Embolus (PE), Thyroid Disorder Additional Past Medical History / Comment(s): back pain, Hep C History of Any Multi-Drug Resistant Organisms: None Reported Past Surgical History: Back Surgery, Section, Cholecystectomy, Hysterectomy Additional Past Surgical History / Comment(s): multiple back surgeries including back fusion and 10 hand surgeries, 3 knee surgeries Past Anesthesia/Blood Transfusion Reactions: No Reported Reaction Past Psychological History: No Psychological Hx Reported, Depression Smoking Status: Current every day smoker Past Alcohol Use History: None Reported Additional Past Alcohol Use History / Comment(s): Pt started smoking AT AGE 21 SMOKES 1/2PPD Past Drug Use History: None Reported Additional Drug Use History / Comment(s): Pt denies any drug use other than prescribed medications taken as prescribed. - Past Family History Father Family Medical History: Vascular Disorder Additional Family Medical History / Comment(s): Father of a ruptured aortic aneurysm. Sister(s) Family Medical History: Cancer Additional Family Medical History / Comment(s): SKIN CANCER AND BREAST CANCER Mother Family Medical History: No Reported History Medications and Allergies Home Medications Medication Instructions Recorded Confirmed Type RX: Levothyroxine Sodium 88 mcg PO DAILY 03/25/14 11/28/17 History [Synthroid] RX: Pregabalin [Lyrica] 150 mg PO TID 09/02/17 11/28/17 History RX: Morphine Sulfate ER [Ms Contin] 15 mg PO TID 10/04/17 11/28/17 History RX: oxyCODONE-APAP 7.5-325MG 1 tab PO QID 10/04/17 11/28/17 History [Percocet 7.5-325 mg] RX: traZODone HCL [Desyrel] 100 mg PO HS 11/03/17 11/28/17 History RX: Albuterol Inhaler [Ventolin 1 - 2 puff INHALATION RT-Q6H PRN 11/22/17 History Hfa Inhaler] RX: Pantoprazole [Protonix] 40 mg PO DAILY #10 tablet. 11/24/17 11/28/17 Rx Metoclopramide HCl [Reglan] 10 mg PO Q6HR PRN #15 tab 11/28/17 11/28/17 Rx Allergies Allergy/AdvReac Type Severity Reaction Status Date / Time ciprofloxacin [From Cipro] Allergy Rash/Hives Verified 11/28/17 20:11 duloxetine [From Cymbalta] Allergy Swelling Verified 11/28/17 20:11 OF THROAT metaproterenol [From Alupent] Allergy Heart races Verified 11/28/17 20:11 codeine AdvReac Vomiting Verified 11/28/17 20:11 fluticasone AdvReac ulcers in Verified 11/28/17 20:11 [From Advair Diskus] mouth salmeterol AdvReac ulcers in Verified 11/28/17 20:11 [From Advair Diskus] mouth Physical Exam Vitals: Vital Signs Temp Pulse Pulse Resp BP BP BP 11/29/17 07:00 98.9 F 58 L 17 98/56 11/28/17 23:16 65 17 07/30/18 23:14 98.1 F 65 17 122/68 11/28/17 19:11 98.9 F 69 18 123/76 Pulse Ox 11/29/17 07:00 95 11/28/17 23:16 11/28/17 23:14 95 11/28/17 19:11 97 Intake and Output 11/28/17 11/29/17 11/29/17 22:59 06:59 14:59 Intake Total 1300 Balance 1300 Intake: Intake, IV Titration 800 Amount Sodium Chloride 0.9% 1, 800 000 ml @ 100 mls/hr IV . Q10H ARABELLA Rx#:[id number] Oral 500 Other: Voiding Method Toilet Toilet # Voids 3 Weight 63.503 kg 63.503 kg GENERAL: This is a 62-year-old female in no apparent distress at the time of examination. Pleasant and cooperative. Tearful at times throughout examination. HEENT: Head is atraumatic, normocephalic. Pupils are equal, round, and reactive to light. Sclerae anicteric. Conjunctivae are clear. Mucus membranes of the mouth are moist. Neck is supple. RESPIRATORY: Clear to ausculation. No wheezes, rales, or rhonchi. No use of accessory muscles. Patient maintaining oxygen saturation greater than 92% CARDIOVASCULAR: Regular rate and rhythm. S1 and S2 noted. No systolic or diastolic murmur auscultated. No JVD noted. No S3 or S4 noted. GASTROINTESTINAL: Abdomen soft and round. Hyperactive bowel sounds auscultated x 4 quadrants. Mild pain and tenderness upon palpation near umbilicus. INTEGUMENTARY: No cyanosis. No jaundice. No rashes noted. No cellulitis noted. EXTREMITIES: 2+ peripheral pulses. No evidence of peripheral edema. No calf tenderness noted. NEUROLOGIC: Cranial nerves II-XII intact. PSYCHIATRIC: Awake, alert, and oriented X 3. Appears anxious. Tearful at times throughout examination Thrombosis Risk Factor Assmnt - Choose All That Apply Each Factor Represents 1 point: Abnormal pulmonary function (COPD) Other Risk Factors: Yes Each Risk Factor Represents 2 Points: Age 61-74 years Each Risk Factor Represents 3 Points: History of DVT/PE, Positive Lupus Anticoagulant Other congenital or acquired thrombophilia - If yes, enter type in comment: No Thrombosis Risk Factor Assessment Total Risk Factor Score: 9 Thrombosis Risk Factor Assessment Level: High Risk Assessment and Plan Plan: ASSESSMENT: Intractable nausea, vomiting, abdominal pain, and diarrhea, x 10 weeks per patient, CT negative for acute process, colonoscopy completed June 2017 revealed no acute abnormalities, etiology unclear Recent hospitalization (October 2017) for similar symptoms to above, diagnosed with gastroenteritis Chest pain, atypical for acute coronary syndrome. Stress test negative September 2017 COPD, no evidence of acute exacerbation Fibromyalgia History of osteoarthritis History of hepatitis C Generalized anxiety disorder Depression Nicotine dependence, patient is a current cigarette smoker, 1/2 PPD PLAN: Consult GI, Dr. Berumen, for further evaluation Xanax 0.25mg Q8 hours for anxiety while inpatient. No Rx to be given at the time of discharge for benzodiazepines. Home meds as appropriate Smoking cessation advice. Nicotine patch daily Consult psychiatry due to worsening depression. Patient requesting to start anti -depressant. Will defer to psychiatry Patient requesting information on individual counseling sessions outpatient. Defer to psychiatry and social work Consult social work due to patients current living arrangements, depression, and increased stress GI prophylaxis: Protonix 40 mg PO Daily DVT prophylaxis: SCDs to bilateral lower extremities Monitor vital signs and address as appropriate Discharge planning: Patient to return home when stable Further recommendations pending patient's course Nurse practitioner note has been reviewed by physician. Signing provider agrees with the documented findings, assessment, and plan of care. <Natanael,Nilton - Last Filed: 11/30/17 09:12> History of Present Illness I have reviewed her overall case and agree with the evaluation and have had additional discussions with the patient and examined her also. Physical Exam Vitals: Vital Signs Temp Pulse Resp BP Pulse Ox 11/30/17 03:28 16 11/30/17 00:51 97.9 F 58 L 16 94/59 92 L 11/30/17 00:00 18 11/29/17 20:00 54 L 18 11/29/17 19:45 98.7 F 54 L 18 107/61 11/29/17 14:38 98.3 F 55 L 16 112/72 93 L Intake and Output 11/29/17 11/30/17 11/30/17 22:59 06:59 14:59 Intake Total 490 Balance 490 Intake: Intake, IV Titration 240 Amount Sodium Chloride 0.9% 1, 240 000 ml @ 100 mls/hr IV . Q10H ARABELLA Rx#:[id number] Oral 250 Other: Voiding Method Toilet Toilet # Voids 2
[2017-11-29] MEDS: traZODone HCL 100 MG TAB PO SCH (21:24)
[2017-11-30] MEDS: SODIUM CHLORIDE 0.9% 1,000 ML IV SCH ×4 (05:55→23:24)
[2017-11-30] MEDS: LEVOTHYROXINE 88 MCG TAB PO SCH (05:55)
[2017-11-30] MEDS: NICOTINE 14MG/24HR PATCH TRANSDERM SCH (08:28)
[2017-11-30] MEDS: oxyCODONE-APAP 7.5-325MG 1 EACH TAB PO SCH ×4 (08:28→22:00)
[2017-11-30] MEDS: PANTOPRAZOLE 40 MG TABLET PO SCH (08:29)
[2017-11-30] MEDS: PREGABALIN 75 MG CAP PO SCH ×3 (08:29→23:33)
--- NOTE | 2017-11-30 09:19 | P.PN ---
Subjective Progress Note Date: 11/30/17 Principal diagnosis: The patient is here for intractable nausea and vomiting. CT scan is without significant abnormality. She is feeling much better then yesterday. WE will advance diet. GI referral was done at this time. Objective - Vital Signs Vital signs: Vital Signs Temp 97.9 F 11/30/17 00:51 Pulse 58 L 11/30/17 00:51 Resp 16 11/30/17 03:28 BP 94/59 11/30/17 00:51 Pulse Ox 92 L 11/30/17 00:51 Intake & Output 11/29/17 11/30/17 11/30/17 18:59 06:59 18:59 Intake Total 490 Balance 490 Intake: Intake, IV Titration 240 Amount Sodium Chloride 0.9% 1, 240 000 ml @ 100 mls/hr IV . Q10H ARABELLA Rx#:[id number] Oral 250 Other: Voiding Method Toilet # Voids 1 2 - Constitutional General appearance: Present: average body habitus - EENT Eyes: Absent: abnormal pupil - Neck Neck: Absent: lymphadenopathy - Respiratory Respiratory: bilateral: CTA - Cardiovascular Heart sounds: normal: S1, S2 Abnormal Heart Sounds: Absent: S3 Gallop - Gastrointestinal General gastrointestinal: Present: soft. Absent: tenderness Localized gastrointestinal: tender: diffuse - Additional findings Additional findings: Gastroenteritis-stabilizing. Opiate dependence. Element of COPD. Advance diet and anticipate discharge in the AM
[2017-11-30] MEDS: HEPARIN SODIUM,PORCINE 5,000 UNIT/ML 1 ML VIAL SQ SCH ×3 (09:25→23:34)
[2017-11-30] MEDS: MORPHINE SULFATE ER 15 MG TABLET PO SCH ×3 (09:25→23:33)
[2017-11-30] MEDS: ALPRAZolam 0.5 MG TAB PO PRN ×2 (09:32→17:54)
--- NOTE | 2017-11-30 11:37 | P.CONS ---
History of Present Illness - Reason for Consult Consult date: 11/30/17 Nausea vomiting abdominal pain Requesting physician: Nilton Santoyo - History of Present Illness 62-year-old female past medical history cholecystectomy, chronic pain syndrome followed by pain specialist in [facility] presents with intractable nausea vomiting diarrhea abdominal pain for the last 10 weeks. Patient had multiple hospitalizations in the last month regarding these symptoms Dies hatemesi basy mel[facility] No weight loss. Pain nausea vomiting is not exacerbated with meals. No history of these types of complaints. Intermittent vomiting more often in the morning upon waking. He was provided and anti-emetics by her PCP over the last few weeks with no improvement. Biochemically white count, CBC , amylase lipase, LFTs within normal limits. Diarrhea is intermittent sometimes daily sometimes not fluctuates 1-2 times a day sometimes several episodes depends on her meals. Stool lactoferrin negative. Giardia cryptosporidium negative. C. diff negative. No recent antibiotics. No sick contacts. No recent travels. 3 months ago patient was on methadone and Stewart in about a month ago was placed on Percocet. Colonoscopy 2018 screening for colon cancer normal no evidence of colorectal neoplasia. No recent EGD. No history of peptic ulcer disease. CT abdomen and pelvis no suspicious acute changes. Review of Systems Constitutional: Denies fever, chills, sweats, weight gain, or loss. HEENT: Negative for migraines, blurred vision or loss, earaches, drainage, tinnitus, oral mucosal lesions, dysphagia, or odynophagia. CARDIAC: Negative for chest pain, arrhythmias, or palpitation. RESPIRATORY: Negative for shortness of breath, hemoptysis, cough, or sputum production. GI: See HPI for pertinent findings. : Negative for hematuria, urgency, frequency, polyuria, or dysuria. GYNc: Denies possibility of . Negative vaginal discharge. MUSCULOSKELETAL: Negative for muscle aches, swelling, arthritis, and arthralgias. NEUROLOGIC: Negative for stroke or TIA. ENDOCRINE: Negative for thyroid problems. SKIN: Negative for rash or itching. PSYCHIATRIC: Negative history for depression and anxiety Past Medical History Past Medical History: Heart Failure, COPD, Fibromyalgia, Liver Disease, Osteoarthritis (OA), Pneumonia, Pulmonary Embolus (PE), Thyroid Disorder Additional Past Medical History / Comment(s): back pain, Hep C History of Any Multi-Drug Resistant Organisms: None Reported Past Surgical History: Back Surgery, Section, Cholecystectomy, Hysterectomy Additional Past Surgical History / Comment(s): multiple back surgeries including back fusion and 10 hand surgeries, 3 knee surgeries Past Anesthesia/Blood Transfusion Reactions: No Reported Reaction Past Psychological History: No Psychological Hx Reported, Depression Smoking Status: Current every day smoker Past Alcohol Use History: None Reported Additional Past Alcohol Use History / Comment(s): Pt started smoking AT AGE 21 SMOKES 1/2PPD Past Drug Use History: None Reported Additional Drug Use History / Comment(s): Pt denies any drug use other than prescribed medications taken as prescribed. - Past Family History Father Family Medical History: Vascular Disorder Additional Family Medical History / Comment(s): Father of a ruptured aortic aneurysm. Sister(s) Family Medical History: Cancer Additional Family Medical History / Comment(s): SKIN CANCER AND BREAST CANCER Mother Family Medical History: No Reported History Medications and Allergies Home Medications Medication Instructions Recorded Confirmed Type Levothyroxine Sodium [Synthroid] 88 mcg PO DAILY 03/25/14 11/28/17 History Pregabalin [Lyrica] 150 mg PO TID 09/02/17 11/28/17 History Morphine Sulfate ER [Ms Contin] 15 mg PO TID 10/04/17 11/28/17 History oxyCODONE-APAP 7.5-325MG [Percocet 1 tab PO QID 10/04/17 11/28/17 History 7.5-325 mg] traZODone HCL [Desyrel] 100 mg PO HS 11/03/17 11/28/17 History Albuterol Inhaler [Ventolin Hfa 1 - 2 puff INHALATION RT-Q6H PRN 11/22/17 History Inhaler] Pantoprazole [Protonix] 40 mg PO DAILY #10 tablet. 11/24/17 11/28/17 Rx Metoclopramide HCl [Reglan] 10 mg PO Q6HR PRN #15 tab 11/28/17 11/28/17 Rx Allergies Allergy/AdvReac Type Severity Reaction Status Date / Time ciprofloxacin [From Cipro] Allergy Rash/Hives Verified 11/28/17 20:11 duloxetine [From Cymbalta] Allergy Swelling Verified 11/28/17 20:11 OF THROAT metaproterenol [From Alupent] Allergy Heart races Verified 11/28/17 20:11 codeine AdvReac Vomiting Verified 11/28/17 20:11 fluticasone AdvReac ulcers in Verified 11/28/17 20:11 [From Advair Diskus] mouth salmeterol AdvReac ulcers in Verified 11/28/17 20:11 [From Advair Diskus] mouth Physical Exam Vitals: Vital Signs Temp Pulse Resp BP Pulse Ox 11/30/17 03:28 16 11/30/17 00:51 97.9 F 58 L 16 94/59 92 L 11/30/17 00:00 18 11/29/17 20:00 54 L 18 11/29/17 19:45 98.7 F 54 L 18 107/61 11/29/17 14:38 98.3 F 55 L 16 112/72 93 L Intake and Output 11/29/17 11/30/17 11/30/17 22:59 06:59 14:59 Intake Total 490 Balance 490 Intake: Intake, IV Titration 240 Amount Sodium Chloride 0.9% 1, 240 000 ml @ 100 mls/hr IV . Q10H ARABELLA Rx#:[id number] Oral 250 Other: Voiding Method Toilet Toilet # Voids 2 General appearance: The patient is alert, oriented, in no acute distress. HET: Head is normocephalic and atraumatic. Pupils are equal and reactive. Oropharynx is clear without lesions. Neck: Supple without lymphadenopathy. Trachea midline. Heart: S1 S2. Regular rate and rhythm. Lungs: No crackles or wheezes are heard. Abdomen: Soft, mild tenderness to the midabdomen, nondistended with bowel sounds. No peritoneal signs. No palpable organomegaly or masses. Extremities: Normal skin color and turgor. No cyanosis, rash, ulceration, clubbing, or edema. Radial and pedal pulses are 2/4 bilaterally. Neurological: No focal deficits. Strength and sensation are grossly intact. Results CT scan - abdomen: report reviewed (Dr. Berumen) Assessment and Plan (1) Intractable nausea and vomiting Narrative/Plan: Etiology unclear possible IBS colonoscopy [address] abdomen and pelvis reported no acute changes biochemical profile CBC CMP amylase lipase unremarkable. Current Visit: Yes Status: Acute Code(s): R11.2 - NAUSEA WITH VOMITING, UNSPECIFIED SNOMED Code(s): 491742323 (2) Abdominal pain Current Visit: No Status: Acute Code(s): R10.9 - UNSPECIFIED ABDOMINAL PAIN SNOMED Code(s): 05096392 Plan: 1. Continue with GI prophylaxis Protonix 40 mg daily. Antinausea medications as needed. Bentyl 10 mg 4 times a day. Outpatient EGD discussed and recommended will scheduled for TuesdayDecember 07 at [facility]. 2. Psychiatry consulted. Thank you for this kind referral and the opportunity to participate in the care of your patient. This consultation was discussed with Dr. Berumen. The impression and plan of care have been directed as dictated.
[2017-11-30] MEDS: DICYCLOMINE 10 MG CAP PO SCH ×3 (12:45→22:00)
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
[2017-11-30] MEDS: METOCLOPRAMIDE 10 MG TAB PO PRN (20:08)
[2017-11-30] MEDS: traZODone HCL 100 MG TAB PO SCH (20:13)
[2017-12-01] MEDS: SODIUM CHLORIDE 0.9% 1,000 ML IV SCH (01:56)
[2017-12-01] MEDS: LEVOTHYROXINE 88 MCG TAB PO SCH (05:17)
[2017-12-01] MEDS: ALPRAZolam 0.5 MG TAB PO PRN (05:17)
[2017-12-01] MEDS: NICOTINE 14MG/24HR PATCH TRANSDERM SCH (08:50)
[2017-12-01] MEDS: HEPARIN SODIUM,PORCINE 5,000 UNIT/ML 1 ML VIAL SQ SCH (08:50)
[2017-12-01] MEDS: PANTOPRAZOLE 40 MG TABLET PO SCH (08:51)
[2017-12-01] MEDS: DICYCLOMINE 10 MG CAP PO SCH (08:51)
[2017-12-01] MEDS: MORPHINE SULFATE ER 15 MG TABLET PO SCH (08:51)
[2017-12-01] MEDS: oxyCODONE-APAP 7.5-325MG 1 EACH TAB PO SCH (08:51)
[2017-12-01] MEDS: PREGABALIN 75 MG CAP PO SCH (08:51)
[2017-12-01] MEDS ORDERED: CITALOPRAM HYDROBROMIDE 10 MG TAB PO SCH (09:00)
[2017-12-01 09:19] VITALS: BP 100/68; PULSE 93; RESP 18; TEMP 98.7
--- NOTE | 2017-12-01 10:53 | P.DS ---
Providers Date of admission: 11/28/17 22:19 Expected date of discharge: 12/01/17 Attending physician: Nilton Santoyo Consults: 11/29/17 13:57 Consult Physician Routine Consulting Provider: Shelley Berumen Consult Reason/Comments: persistent N/V/D abdominal pain, x 10 wks per patient Do you want consulting provider notified?: Yes 11/29/17 13:59 Consult Physician Routine Consulting Provider: Nellie Pederson Consult Reason/Comments: depression, patient reports hopelessness Do you want consulting provider notified?: Yes Primary care physician: Nilton Santoyo [facility] Course: 62-year-old female who presented to the emergency room with a chief complaint of nausea, vomiting, diarrhea, and abdominal pain. The patient was just seen in the emergency room on 11/28/2017 and was discharged home in stable condition. She was also recently admitted from 11/22/2017 until 11/24/2017 and was diagnosed with gastroenteritis. The patient states over the last approximately 10 weeks she has been having ongoing nausea, vomiting, diarrhea, and abdominal pain. She denies melena, hematemesis, or hematochezia. She reports decreased appetite as well and states that most foods taste bland her. She does report that she had a turkey sandwich earlier today and tolerated it without nausea or vomiting. She denies any vomiting today. She states she had 2 episodes of diarrhea today. She states she had 8 episodes of vomiting yesterday. She states she was having low-grade fevers at home with a Tmax of 99.9F. The patient underwent a colonoscopy and June [address] Berumen which did not reveal any abnormalities. The patient states she has not followed up outpatient with Dr. Berumen since that time. The patient also reports intermittent midsternal chest pain. The patient states she thinks this is secondary to stress. She denies associated shortness of breath. Chest pain does not radiate to arm jaw or neck. Pain is reproducible with deep inspiration and palpation to chest. Patient was evaluated by cardiology in September 2017 during hospitalization. She underwent a stress test which was negative for ischemia at that time. The patient states that she also had a headache when she presented to the emergency room. A CT of the brain was completed which was negative for an acute process. The patient also reports worsening depression. She denies suicidal ideation. She states she has seen a psychiatrist in the past but they recommended group counseling and she did not want to do that. Patient states she is looking for individual counseling. Patient also reports trying Zoloft in the past but states it did not help her depression. Patient is requesting to speak to a psychiatrist. Patient also reports her living situation is giving her significant stress. She states she has been living with her 82-year-old mother since last December. Her is living separately and a travel trailer on a piece of land they own. She states he was supposed to build a house on the property but has yet to do so and patient states she cannot live in a small trailer. The patient has a history of COPD, fibromyalgia, hepatitis C, osteoarthritis, pneumonia, pulmonary embolism, anxiety, and depression. She is a current cigarette smoker. She reports smoking half a pack of cigarettes per day. She states she is trying to quit smoking and is requesting a nicotine patch currently. She denies any alcohol use. She denies any illicit drug use. Laboratory data from emergency room visit on 11/28/2017 reveals white count of 9.8. Hemoglobin 15.1. Platelet count 287. INR 1.0. D-dimer 0.23. Sodium 140. Potassium 4.1. BUN 18. Creatinine 0.66. Glucose 97. Hemoglobin A1c 5.9 %. Magnesium 2.0. Total bilirubin 0.7. AST 28. T 42. Alkaline phosphatase 66. BNP 59. Troponin negative 1. Amylase 53. Lipase 49. TSH 0.851. Cortisol 39. Computed tomography scan of the abdomen was negative for acute changes. 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 1.2 cm hypodensity within the anterior subcutaneous tissues of left pelvis. The patient was evaluated by GI during hospitalization. No acute intervention was recommended from their standpoint. The patient is scheduled for outpatient EGD on 12/07/[address] Berumen Social work met with the patient and scheduled the patient to see a counselor at the [facility] on 12/06/2017. The patient was also evaluated by psychiatry during hospitalization secondary to worsening depression and feelings of hopelessness. The patient continued to deny suicidal ideations. The patient was started on Celexa per psychiatry. The patient was discharged home on 12/01/[address] Santoyo. Medication reconciliation and prescriptions were completed by Dr. Santoyo at the time of discharge. DISCHARGE DIAGNOSIS: Intractable nausea, vomiting, abdominal pain, and diarrhea, x 10 weeks per patient, CT negative for acute process, colonoscopy completed June 2017 revealed no acute abnormalities, etiology unclear, may be secondary to gastroenteritis, resolving at the time of discharge, patient scheduled for outpatient EGD 12/07/2017 Recent hospitalization (October 2017) for similar symptoms to above, diagnosed with gastroenteritis Chest pain, atypical for acute coronary syndrome. Stress test negative September 2017 COPD, no evidence of acute exacerbation Fibromyalgia History of osteoarthritis History of hepatitis C Generalized anxiety disorder Major depressive disorder, recurrent, moderate severity Nicotine dependence, patient is a current cigarette smoker, 1/2 PPD Nurse practitioner note has been reviewed by physician. Signing provider agrees with above documentation, which has been documented by CIRCUIT BREAKER ASSEMBLER, acting as a scribe. Patient Condition at Discharge: Stable Plan - Discharge Summary Discharge Rx Participant: No New Discharge Prescriptions: New ALPRAZolam [Xanax] 0.5 mg PO DAILY PRN #30 tab PRN Reason: Anxiety Citalopram Hydrobromide [CeleXA] 10 mg PO DAILY #30 tab Dicyclomine [Bentyl] 10 mg PO QID #120 cap Morphine Sulfate ER [Ms Contin] 15 mg PO TID #0 tablet Nicotine 14Mg/24Hr Patch [Habitrol] 1 patch TRANSDERM DAILY #30 patch oxyCODONE-APAP 7.5-325MG [Percocet 7.5-325 mg] 1 each PO QID #0 tab Continue Levothyroxine Sodium [Synthroid] 88 mcg PO DAILY Pregabalin [Lyrica] 150 mg PO TID oxyCODONE-APAP 7.5-325MG [Percocet 7.5-325 mg] 1 tab PO QID Morphine Sulfate ER [Ms Contin] 15 mg PO TID traZODone HCL [Desyrel] 100 mg PO HS Albuterol Inhaler [Ventolin Hfa Inhaler] 1 - 2 puff INHALATION RT-Q6H PRN PRN Reason: Shortness Of Breath Or Wheezing Pantoprazole [Protonix] 40 mg PO DAILY #10 tablet. Metoclopramide HCl [Reglan] 10 mg PO Q6HR PRN #15 tab PRN Reason: Nausea Discharge Medication List Levothyroxine Sodium [Synthroid] 88 mcg PO DAILY 03/25/14 [History] Pregabalin [Lyrica] 150 mg PO TID 09/02/17 [History] Morphine Sulfate ER [Ms Contin] 15 mg PO TID 10/04/17 [History] oxyCODONE-APAP 7.5-325MG [Percocet 7.5-325 mg] 1 tab PO QID 10/04/17 [History] traZODone HCL [Desyrel] 100 mg PO HS 11/03/17 [History] Albuterol Inhaler [Ventolin Hfa Inhaler] 1 - 2 puff INHALATION RT-Q6H PRN [History] Pantoprazole [Protonix] 40 mg PO DAILY #10 tablet. 11/24/17 [Rx] Metoclopramide HCl [Reglan] 10 mg PO Q6HR PRN #15 tab 11/28/17 [Rx] ALPRAZolam [Xanax] 0.5 mg PO DAILY PRN #30 tab 12/01/17 [Rx] Citalopram Hydrobromide [CeleXA] 10 mg PO DAILY #30 tab 12/01/17 [Rx] Dicyclomine [Bentyl] 10 mg PO QID #120 cap 12/01/17 [Rx] Morphine Sulfate ER [Ms Contin] 15 mg PO TID #0 tablet 12/01/17 [Rx] Nicotine 14Mg/24Hr Patch [Habitrol] 1 patch TRANSDERM DAILY #30 patch 12/01/17 [ Rx] oxyCODONE-APAP 7.5-325MG [Percocet 7.5-325 mg] 1 each PO QID #0 tab 12/01/17 [Rx ] Follow up Appointment(s)/Referral(s): [facility] [Outside] - 12/06/17 10:30 am (Intake scheduled with Leandro Brady at 11:00am, present 30 minutes early to complete intake documents. You can complete intake documents on website and then you do not have to present early for appointment ([email or web address]) Bring ID and Insurance Card to first appointment) Nilton Santoyo MD [Primary Care Provider] - 12/08/17 10:10 am Activity/Diet/Wound Care/Special Instructions: EGD Thursday December 07, 2017 at [facility] with Dr. Berumen. Preop to call with additional instructions and arrival time. Discharge Disposition: HOME SELF-CARE
== END 2017-12-01 09:58 | disposition home or self-care (01) ==
LOC: EC 18:27 → 3SUR 22:19
PROVIDERS: ADMIT Family Medicine; ATTEND Family Medicine
DX: R11.2 Nausea with vomiting, unspecified (principal); R10.9 Unspecified abdominal pain; R19.7 Diarrhea, unspecified; R07.89 Other chest pain; R51 Headache; I50.9 Heart failure, unspecified; J44.9 Chronic obstructive pulmonary disease, unspecified; M79.7 Fibromyalgia; M54.9 Dorsalgia, unspecified; D35.00 Benign neoplasm of unspecified adrenal gland; F41.1 Generalized anxiety disorder; F11.20 Opioid dependence, uncomplicated; M19.90 Unspecified osteoarthritis, unspecified site; E07.9 Disorder of thyroid, unspecified; B19.20 Unspecified viral hepatitis C without hepatic coma; F33.1 Major depressive disorder, recurrent, moderate; F17.210 Nicotine dependence, cigarettes, uncomplicated; Z79.890 Hormone replacement therapy; Z79.899 Other long term (current) drug therapy; Z88.1 Allergy status to other antibiotic agents; Z88.5 Allergy status to narcotic agent; Z88.8 Allergy status to other drugs, medicaments and biological substances; Z87.01 Personal history of pneumonia (recurrent); Z86.711 Personal history of pulmonary embolism; Z90.49 Acquired absence of other specified parts of digestive tract; Z98.1 Arthrodesis status; Z90.710 Acquired absence of both cervix and uterus; Z82.49 Family history of ischemic heart disease and other diseases of the circulatory system; Z80.8 Family history of malignant neoplasm of other organs or systems; Z80.3 Family history of malignant neoplasm of breast
CPT/HCPCS: 99285 ×2; 96365 ×2; 96375 ×3; 96361 ×3; 96376; 96372 ×2; 93005; 70450; 74176; G0378 ×4; S4990 ×3; J1644 ×2; J2405 ×2; J0131

== ENCOUNTER 2017-12-07 09:25 | Day surgery (SDC) | payer BC ==
[2017-12-02 15:00] VITALS: BMI 21.9
[~2017-12-07 09:25] MED LIST changes: +LIDOCAINE 1% 20 ML VIAL (10MG/ML) FOR IV START INTRADERMA PRN; +MIDAZOLAM 2 MG/2 ML VIAL IV PRN
[2017-12-07] MEDS ORDERED: LACTATED RINGERS 1,000 ML IV ONE ×2 (11:28)
[2017-12-07] MEDS ORDERED: LIDOCAINE 1% 20 ML VIAL (10MG/ML) FOR IV START INTRADERMA ONE (11:30)
[2017-12-07 11:35] VITALS: TEMP 97.2
[2017-12-07] MEDS ORDERED: PROPOFOL 10 MG/ML 20 ML VIAL IV ONE (11:35)
--- NOTE | 2017-12-07 11:45 | P.PCN ---
Date of Procedure: 12/07/17 Procedure(s) Performed: BRIEF HISTORY: Patient is a 62-year-old, pleasant,, scheduled for an upper endoscopy as a part of evaluation of persistent nausea vomiting for the last 10 days duration. She also completed severe epigastric discomfort. Has been on Protonix daily the last 2 weeks with some improvement in his symptoms. PROCEDURE PERFORMED: Esophagogastroduodenoscopy with biopsy. PREOPERATIVE DIAGNOSIS: Epigastric pain, nausea and vomiting of 2 weeks duration. IV sedation per anesthesia. PROCEDURE: After informed consent was obtained, the patient was brought into the endoscopy unit. IV sedation was administered by Anesthesia under continuous monitoring. Initially the Olympus GIF-140 video endoscope was inserted into the mouth. Esophagus intubated without any difficulty. It was gradually advanced into the stomach and duodenum and carefully examined. The bulb and the second part of the duodenum appeared normal. Biopsies were done from the duodenum to rule out celiac disease. The scope at this time was withdrawn to the stomach, adequately insufflated with air, and upon careful examination, mucosa of the antrum, had mild patchy areas of erythema and biopsies were done from this area. The body, cardia and the fundus appeared normal. The scope was then withdrawn into the esophagus. The GE junction was located at 39 cm from the incisors. The esophagus appeared normal. There were no erosions or ulcerations seen and the patient tolerated the procedure well. IMPRESSION: 1. Mild antral gastritis. 2. No evidence of esophagitis or peptic ulcer disease. RECOMMENDATIONS: The findings of this examination were discussed with the patient as her family. She was advised to follow with the biopsy results. She will continue her current medications and follow antireflux measures..
[2017-12-07 12:11] VITALS: BP 112/62; PULSE 58; RESP 60
== END 2017-12-07 12:29 | disposition home or self-care (01) ==
LOC: ORWHC2ENDO 09:25
PROVIDERS: ATTEND Internal Medicine Gastroenterology
DX: K29.70 Gastritis, unspecified, without bleeding (principal); K21.9 Gastro-esophageal reflux disease without esophagitis; J44.9 Chronic obstructive pulmonary disease, unspecified; G47.00 Insomnia, unspecified; Z88.1 Allergy status to other antibiotic agents; Z88.5 Allergy status to narcotic agent; Z88.8 Allergy status to other drugs, medicaments and biological substances; Z79.890 Hormone replacement therapy; Z79.891 Long term (current) use of opiate analgesic; Z79.899 Other long term (current) drug therapy
CPT/HCPCS: 43239; 88305; J2704

== ENCOUNTER 2017-12-23 16:39 | Emergency (ER) | payer BC, OTHER ==
[2017-12-23 16:44] VITALS: RESP 18
[2017-12-23] MEDS ORDERED: MORPHINE SULFATE 4 MG/ML SYRINGE IV STA (17:20)
[2017-12-23] MEDS ORDERED: ONDANSETRON 4 MG/2 ML VIAL IVP STA (17:20)
[2017-12-23] MEDS ORDERED: KETOROLAC 30 MG/ML 1 ML VIAL IVP STA (17:20)
[2017-12-23] MEDS ORDERED: PANTOPRAZOLE 40 MG/10 ML VIAL IVP STA (17:20)
[2017-12-23] MEDS ORDERED: SODIUM CHLORIDE 0.9% 1,000 ML IV STA ×2 (17:20)
--- NOTE | 2017-12-23 17:21 | ED ---
Abdominal Pain HPI - General Chief Complaint: Abdominal Pain Stated Complaint: Vomiting Time Seen by Provider: 12/23/17 16:57 Source: patient, RN notes reviewed, old records reviewed Mode of arrival: ambulatory Limitations: no limitations - History of Present Illness Initial Comments: Patient is 62-year-old female presents emergency Department today with 2 days of nausea, vomiting and right-sided abdominal pain. Patient reports that she feels a small lump within her abdomen. Patient states she's had no diarrhea. No bloody emesis or bloody stools. She reports her urine is been dark and bloody. She states that she's had no back pain. She denies any chest pain. She does report she's been somewhat dizzy. - Related Data Home Medications Medication Instructions Recorded Confirmed Levothyroxine Sodium [Synthroid] 88 mcg PO DAILY 03/25/14 12/23/17 Pregabalin [Lyrica] 150 mg PO TID 09/02/17 12/23/17 oxyCODONE-APAP 7.5-325MG [Percocet 1 tab PO QID 10/04/17 12/23/17 7.5-325 mg] traZODone HCL [Desyrel] 100 mg PO HS 11/03/17 12/23/17 Albuterol Inhaler [Ventolin Hfa 1 - 2 puff INHALATION RT-Q6H PRN 11/22/17 Inhaler] Previous Rx's Medication Instructions Recorded Pantoprazole [Protonix] 40 mg PO DAILY #10 tablet. 11/24/17 Metoclopramide HCl [Reglan] 10 mg PO Q6HR PRN #15 tab 11/28/17 Citalopram Hydrobromide [CeleXA] 10 mg PO DAILY #30 tab 12/01/17 Dicyclomine [Bentyl] 10 mg PO QID #120 cap 12/01/17 Morphine Sulfate ER [Ms Contin] 15 mg PO TID #0 tablet 12/01/17 Famotidine [Pepcid] 20 mg PO BID #20 tablet 12/23/17 Ondansetron Odt [Zofran Odt] 4 mg PO Q8HR PRN #12 tab 12/23/17 Allergies Allergy/AdvReac Type Severity Reaction Status Date / Time ciprofloxacin [From Cipro] Allergy Rash/Hives Verified 12/24/17 10:11 duloxetine [From Cymbalta] Allergy Swelling Verified 12/24/17 10:11 OF THROAT metaproterenol [From Alupent] Allergy Heart races Verified 12/24/17 10:11 codeine AdvReac Vomiting Verified 12/24/17 10:11 fluticasone AdvReac ulcers in Verified 12/24/17 10:11 [From Advair Diskus] mouth & nose salmeterol AdvReac ulcers in Verified 12/24/17 10:11 [From Advair Diskus] mouth & nose Review of Systems ROS Statement: Those systems with pertinent positive or pertinent negative responses have been documented in the HPI. ROS Other: All systems not noted in ROS Statement are negative. Past Medical History Past Medical History: Thyroid Disorder Additional Past Medical History / Comment(s): back pain, Hep C History of Any Multi-Drug Resistant Organisms: None Reported Past Surgical History: Back Surgery, Section, Cholecystectomy, Hysterectomy Additional Past Surgical History / Comment(s): multiple back surgeries including back fusion and 10 hand surgeries, 3 knee surgeries Past Anesthesia/Blood Transfusion Reactions: No Reported Reaction Past Psychological History: No Psychological Hx Reported, Depression Smoking Status: Current every day smoker Past Alcohol Use History: None Reported Past Drug Use History: None Reported - Past Family History Father Family Medical History: Vascular Disorder Additional Family Medical History / Comment(s): Father of a ruptured aortic aneurysm. Sister(s) Family Medical History: Cancer Additional Family Medical History / Comment(s): SKIN CANCER AND BREAST CANCER Mother Family Medical History: No Reported History General Exam - General Exam Comments Initial Comments: Well appearing 62 year old female, no distress. Limitations: no limitations General appearance: alert, in no apparent distress Head exam: Present: atraumatic, normocephalic, normal inspection Eye exam: Present: normal appearance, PERRL, EOMI. Absent: scleral icterus, conjunctival injection, periorbital swelling ENT exam: Present: normal exam, mucous membranes moist Neck exam: Present: normal inspection. Absent: tenderness, meningismus, lymphadenopathy Respiratory exam: Present: normal lung sounds bilaterally. Absent: respiratory distress, wheezes, rales, rhonchi, stridor Cardiovascular Exam: Present: regular rate, normal rhythm, normal heart sounds. Absent: systolic murmur, diastolic murmur, rubs, gallop, clicks GI/Abdominal exam: Present: soft, tenderness (Left upper quadrant and Right upper quadrant tenderness.), normal bowel sounds. Absent: distended, guarding, rebound, rigid Back exam: Present: normal inspection Neurological exam: Present: alert, oriented X3, CN II-XII intact Psychiatric exam: Present: normal affect, normal mood Course Vital Signs 12/23/17 12/23/17 12/23/17 16:41 19:24 20:56 Temperature 97.7 F 98.4 F Pulse Rate 61 58 L 62 Respiratory 18 18 18 Rate Blood Pressure 129/81 106/56 112/52 O2 Sat by Pulse 97 94 L 94 L Oximetry Medical Decision Making - Medical Decision Making This is a [age]year old female with nausea and vomiting for two days. She reports dark bloody urine. Left and Right sided abdominal pain. Patient labs were unremarkable. I was able to see patient urine and it appeared dark and bloody, CT scan without contrast obtained. CT is negative for renal stones or any acute disease. Urine was concentrated with ketones. Given 2L of fluids discussed likely gastritis. She has had her gallbladder removed. Discussed she has had symptoms as this in the past, she needs to continue PPI and follow up with GI. Dischaged with pepcid and zofran. - Lab Data Result diagrams: 12/23/17 18:20 12/23/17 18:20 Lab Results 12/23/17 12/23/17 12/23/17 Range/Units 18:20 18:20 18:20 WBC 8.8 (3.8-10.6) k/uL RBC 4.68 (3.80-5.40) m/uL Hgb 14.5 (11.4-16.0) gm/dL Hct 45.0 (34.0-46.0) % MCV 96.2 (80.0-100.0) fL MCH 31.0 (25.0-35.0) pg MCHC 32.2 (31.0-37.0) g/dL RDW 12.9 (11.5-15.5) % Plt Count 261 (150-450) k/uL Neutrophils % 77 % Lymphocytes % 17 % Monocytes % 4 % Eosinophils % 1 % Basophils % 0 % Neutrophils # 6.8 (1.3-7.7) k/uL Lymphocytes # 1.5 (1.0-4.8) k/uL Monocytes # 0.4 (0-1.0) k/uL Eosinophils # 0.0 (0-0.7) k/uL Basophils # 0.0 (0-0.2) k/uL PT 10.1 (9.0-12.0) sec INR 1.0 (<1.2) APTT 24.6 (22.0-30.0) sec Sodium 140 (137-145) mmol/L Potassium 4.0 (3.5-5.1) mmol/L Chloride 108 H (98-107) mmol/L Carbon Dioxide 24 (22-30) mmol/L Anion Gap 8 mmol/L BUN 15 (7-17) mg/dL Creatinine 0.60 (0.52-1.04) mg/dL Est GFR (CKD-EPI)AfAm >90 (>60 ml/min/1.73 sqM) Est GFR (CKD-EPI)NonAf >90 (>60 ml/min/1.73 sqM) Glucose 96 (74-99) mg/dL Calcium 9.8 (8.4-10.2) mg/dL Total Bilirubin 0.7 (0.2-1.3) mg/dL AST 25 (14-36) U/L ALT 30 (9-52) U/L Alkaline Phosphatase 71 (38-126) U/L Total Protein 7.3 (6.3-8.2) g/dL Albumin 4.1 (3.5-5.0) g/dL Amylase 41 (30-110) U/L Lipase 24 (23-300) U/L Urine Color Urine Appearance (Clear) Urine pH (5.0-8.0) Ur Specific [place] (1.001-1.035) Urine Protein (Negative) Urine Glucose (UA) (Negative) Urine Ketones (Negative) Urine Blood (Negative) Urine Nitrite (Negative) Urine Bilirubin (Negative) Urine Urobilinogen (<2.0) mg/dL Ur Leukocyte Esterase (Negative) 12/23/17 Range/Units 19:40 WBC (3.8-10.6) k/uL RBC (3.80-5.40) m/uL Hgb (11.4-16.0) gm/dL Hct (34.0-46.0) % MCV (80.0-100.0) fL MCH (25.0-35.0) pg MCHC (31.0-37.0) g/dL RDW (11.5-15.5) % Plt Count (150-450) k/uL Neutrophils % % Lymphocytes % % Monocytes % % Eosinophils % % Basophils % % Neutrophils # (1.3-7.7) k/uL Lymphocytes # (1.0-4.8) k/uL Monocytes # (0-1.0) k/uL Eosinophils # (0-0.7) k/uL Basophils # (0-0.2) k/uL PT (9.0-12.0) sec INR (<1.2) APTT (22.0-30.0) sec Sodium (137-145) mmol/L Potassium (3.5-5.1) mmol/L Chloride (98-107) mmol/L Carbon Dioxide (22-30) mmol/L Anion Gap mmol/L BUN (7-17) mg/dL Creatinine (0.52-1.04) mg/dL Est GFR (CKD-EPI)AfAm (>60 ml/min/1.73 sqM) Est GFR (CKD-EPI)NonAf (>60 ml/min/1.73 sqM) Glucose (74-99) mg/dL Calcium (8.4-10.2) mg/dL Total Bilirubin (0.2-1.3) mg/dL AST (14-36) U/L ALT (9-52) U/L Alkaline Phosphatase (38-126) U/L Total Protein (6.3-8.2) g/dL Albumin (3.5-5.0) g/dL Amylase (30-110) U/L Lipase (23-300) U/L Urine Color Yellow Urine Appearance Clear (Clear) Urine pH 6.5 (5.0-8.0) Ur Specific [place] 1.022 (1.001-1.035) Urine Protein Trace H (Negative) Urine Glucose (UA) Negative (Negative) Urine Ketones Trace H (Negative) Urine Blood Negative (Negative) Urine Nitrite Negative (Negative) Urine Bilirubin Negative (Negative) Urine Urobilinogen 2.0 (<2.0) mg/dL Ur Leukocyte Esterase Negative (Negative) 12/23/17 19:07 EKG shows a sinus rhythm nonspecific T-wave abnormality. Abnormal EKG noted. Ventricular rate of 61 bpm. MT interval is 176 most seconds. QRS duration 90 ms. QT QTc is 454/460 ms. No evidence of ST elevation or T-wave inversion. - Radiology Data Radiology results: report reviewed No acute kidney process noted. No sign of appendicitis. No wrist on her instruction. Mild constipation. No sign of acute abdomen. Disposition Clinical Impression: Abdominal pain, Dehydration Disposition: HOME SELF-CARE Condition: Good Instructions: Acute Nausea and Vomiting (ED), Abdominal Pain (ED) Additional Instructions: Patient is follow-up with primary care physician. Return to the emergency department if any alarming signs or symptoms occur. Prescriptions: Famotidine [Pepcid] 20 mg PO BID #20 tablet Ondansetron Odt [Zofran Odt] 4 mg PO Q8HR PRN #12 tab PRN Reason: Nausea Is patient prescribed a controlled substance at d/c from ED?: No Referrals: Nilton Santoyo MD [Primary Care Provider] - 1-2 days Time of Disposition: 20:39
[2017-12-23 18:31] LABS: Basophils % (A) 0 %; Eosinophils % (A) 1 %; HGB 14.5 gm/dL (11.4-16.0); Lymphocytes # (A) 1.5 k/uL (1.0-4.8); Lymphocytes % (A) 17 %; MCHC 32.2 g/dL (31.0-37.0); MCV 96.2 fL (80.0-100.0); Mean Platelet Volume 7.7; Monocytes # (A) 0.4 k/uL (0-1.0); Monocytes % (A) 4 %; Neutrophils # (A) 6.8 k/uL (1.3-7.7); Neutrophils % (A) 77 %; Platelet Count 261 k/uL (150-450); RBC 4.68 m/uL (3.80-5.40); RDW 12.9 % (11.5-15.5); WBC 8.8 k/uL (3.8-10.6)
[2017-12-23 18:41] LABS: Partial Thromboplastin Time 24.6 sec (22.0-30.0); Prothrombin Time 10.1 sec (9.0-12.0)
[2017-12-23 18:46] LABS: ALT 30 U/L (9-52); AST 25 U/L (14-36); Albumin 4.1 g/dL (3.5-5.0); Alkaline Phosphatase 71 U/L (38-126); Amylase 41 U/L (30-110); Anion Gap 8 mmol/L; Blood Urea Nitrogen 15 mg/dL (7-17); Calcium 9.8 mg/dL (8.4-10.2); Carbon Dioxide 24 mmol/L (22-30); Chloride 108 mmol/L (98-107); Glucose 96 mg/dL (74-99); Lipase 24 U/L (23-300); Sodium 140 mmol/L (137-145); Total Bilirubin 0.7 mg/dL (0.2-1.3); Total Protein 7.3 g/dL (6.3-8.2)
--- NOTE | 2017-12-23 19:11 | XR ---
EXAMINATION TYPE: XR KUB DATE OF EXAM: 12/23/2017 COMPARISON: 11/28/2017 HISTORY: Vomiting TECHNIQUE: 2 views FINDINGS: 2 upright views show no sign of intestinal obstruction or pneumoperitoneum. Fecal pattern i s normal. There is posterior lumbar spine fusion surgery with laminectomy at L4-L5. There are clips a pparently from cholecystectomy. Lung bases are clear. There are no pathologic calcifications over the kidneys. IMPRESSION: Nonacute abdomen. No change.
[2017-12-23] MEDS ORDERED: ACETAMINOPHEN TAB 500 MG TAB PO STA (19:34)
[2017-12-23 19:50] LABS: Appearance,Urine Clear (Clear); Bilirubin,Urine Negative (Negative); Blood,Urine Negative (Negative); Color,Urine Yellow; Glucose,Urine (UA) Negative (Negative); Ketones,Urine Trace (Negative); Leukocyte Esterase,Urine Negative (Negative); Nitrite,Urine Negative (Negative); PH, Urine 6.5 (5.0-8.0); Protein,Urine Trace (Negative); Specific Gravity,Urine 1.022 (1.001-1.035)
--- NOTE | 2017-12-23 20:36 | CT ---
EXAMINATION TYPE: CT abdomen pelvis wo con DATE OF EXAM: 12/23/2017 COMPARISON: None/2018 HISTVomiting and lump to mid-lower abdominal area area CT 669: 669 mGycm Automated exposure control for dose reduction was used. TECHNIQHelical acquisition of images was performed from the lung bases through the pelvis.lvis. FINDINGS: There is mild reticular density at the left lung base. There is no pleural effusion. There is no sekou cardial effusion. There are clips from cholecystectomy. Bile ducts are not dilated. There is no focal liver defect. Spl een appears normal. There is no pancreatic mass. There is no adrenal mass. There is some minimal nodularity in both adrenal glands. Kidneys show normal size and contour. There is no hydronephrosis. There is metal artifact from lower lumbar spine fusion surgery from L3 to S1. There is very L4-5 and L5-S1 spondylolisthesis. There is n o retroperitoneal adenopathy. There is no ascites. Bladder is empty. There is no evidence of a pelvic mass. There is retained fecal material in the rectum. Appendix is not seen. There is no sign of appe ndicitis. I see no intestinal wall thickening. There are no dilated loops. There is no evidence of fr ee air. There is no ascites. IMPRESSI Appendix is not seen. No sign of appendicitis. No renal stone or obstruction. Mild constipation appea rs new compared to old exam.. No sign of an acute abdomen.
[2017-12-23 21:05] VITALS: BP 112/52; PULSE 62; TEMP 98.4
== END 2017-12-23 20:57 | disposition home or self-care (01) ==
LOC: EC 16:39
DX: E86.0 Dehydration (principal); R10.9 Unspecified abdominal pain; K59.00 Constipation, unspecified; R94.31 Abnormal electrocardiogram [ECG] [EKG]; R82.4 Acetonuria; R11.2 Nausea with vomiting, unspecified; E07.9 Disorder of thyroid, unspecified; F32.9 Major depressive disorder, single episode, unspecified; F17.200 Nicotine dependence, unspecified, uncomplicated; Z79.891 Long term (current) use of opiate analgesic; Z79.899 Other long term (current) drug therapy; Z88.1 Allergy status to other antibiotic agents; Z88.5 Allergy status to narcotic agent; Z88.8 Allergy status to other drugs, medicaments and biological substances; Z87.39 Personal history of other diseases of the musculoskeletal system and connective tissue; Z90.49 Acquired absence of other specified parts of digestive tract
CPT/HCPCS: 36415; 93005; 80053; 82150; 83690; 85025; 85610; 85730; 81003; 74018; 74176; 99285; 96374; 96375 ×3; 96361 ×2; J2270; J2405; J1885; C9113

== ENCOUNTER 2017-12-24 10:03 | Emergency (ER) | payer BC, OTHER ==
[2017-12-24 10:10] VITALS: RESP 18
[2017-12-24] MEDS ORDERED: SODIUM CHLORIDE 0.9% 1,000 ML IV STA (10:37)
[2017-12-24] MEDS ORDERED: ONDANSETRON 4 MG/2 ML VIAL IVP STA (10:37)
--- NOTE | 2017-12-24 10:51 | ED ---
General Adult HPI - General Chief complaint: Nausea/Vomiting/Diarrhea Stated complaint: recheck Time Seen by Provider: 12/24/17 10:05 Source: patient, RN notes reviewed Mode of arrival: ambulatory Limitations: no limitations - History of Present Illness Initial comments: This is a 62-year-old female presents emergency Department complaining of nausea vomiting diarrhea since morning at 3 AM. Patient was seen in emergency department yesterday for the same. Patient states she went home and has got no better and continues to vomit and her last episode of diarrhea was in the middle the night. Patient states she has some diffuse abdominal cramping but no specific pain. Patient denies any fever chills. Patient denies any dysuria hematuria urinary frequency. Patient denies any chest pain difficulty breathing shortness of breath. Patient remains nauseated this time the last time she vomited was a couple hours ago. - Related Data Home Medications Medication Instructions Recorded Confirmed Levothyroxine Sodium [Synthroid] 88 mcg PO DAILY 03/25/14 12/23/17 Pregabalin [Lyrica] 150 mg PO TID 09/02/17 12/23/17 oxyCODONE-APAP 7.5-325MG [Percocet 1 tab PO QID 10/04/17 12/23/17 7.5-325 mg] traZODone HCL [Desyrel] 100 mg PO HS 11/03/17 12/23/17 Albuterol Inhaler [Ventolin Hfa 1 - 2 puff INHALATION RT-Q6H PRN 11/22/17 Inhaler] Previous Rx's Medication Instructions Recorded Pantoprazole [Protonix] 40 mg PO DAILY #10 tablet. 11/24/17 Metoclopramide HCl [Reglan] 10 mg PO Q6HR PRN #15 tab 11/28/17 Citalopram Hydrobromide [CeleXA] 10 mg PO DAILY #30 tab 12/01/17 Dicyclomine [Bentyl] 10 mg PO QID #120 cap 12/01/17 Morphine Sulfate ER [Ms Contin] 15 mg PO TID #0 tablet 12/01/17 Famotidine [Pepcid] 20 mg PO BID #20 tablet 12/23/17 Ondansetron Odt [Zofran Odt] 4 mg PO Q8HR PRN #12 tab 12/23/17 Metoclopramide [Reglan] 10 mg PO ACHS #12 tab 12/24/17 Allergies Allergy/AdvReac Type Severity Reaction Status Date / Time ciprofloxacin [From Cipro] Allergy Rash/Hives Verified 12/24/17 10:11 duloxetine [From Cymbalta] Allergy Swelling Verified 12/24/17 10:11 OF THROAT metaproterenol [From Alupent] Allergy Heart races Verified 12/24/17 10:11 codeine AdvReac Vomiting Verified 12/24/17 10:11 fluticasone AdvReac ulcers in Verified 12/24/17 10:11 [From Advair Diskus] mouth & nose salmeterol AdvReac ulcers in Verified 12/24/17 10:11 [From Advair Diskus] mouth & nose Review of Systems ROS Statement: Those systems with pertinent positive or pertinent negative responses have been documented in the HPI. ROS Other: All systems not noted in ROS Statement are negative. Past Medical History Past Medical History: Thyroid Disorder Additional Past Medical History / Comment(s): back pain, Hep C History of Any Multi-Drug Resistant Organisms: None Reported Past Surgical History: Back Surgery, Section, Cholecystectomy, Hysterectomy Additional Past Surgical History / Comment(s): multiple back surgeries including back fusion and 10 hand surgeries, 3 knee surgeries Past Anesthesia/Blood Transfusion Reactions: No Reported Reaction Past Psychological History: No Psychological Hx Reported, Depression Smoking Status: Current every day smoker Past Alcohol Use History: None Reported Past Drug Use History: None Reported - Past Family History Father Family Medical History: Vascular Disorder Additional Family Medical History / Comment(s): Father of a ruptured aortic aneurysm. Sister(s) Family Medical History: Cancer Additional Family Medical History / Comment(s): SKIN CANCER AND BREAST CANCER Mother Family Medical History: No Reported History General Exam - General Exam Comments Initial Comments: GENERAL: Patient is well-developed and well-nourished. Patient is nontoxic and well- hydrated and is in mild distress. ENT: Neck is soft and supple. No significant lymphadenopathy is noted. Oropharynx is clear. Moist mucous membranes. Neck has full range of motion without eliciting any pain. EYES: The sclera were anicteric and conjunctiva were pink and moist. Extraocular movements were intact and pupils were equal round and reactive to light. Eyelids were unremarkable. PULMONARY: Unlabored respirations. Good breath sounds bilaterally. No audible rales rhonchi or wheezing was noted. CARDIOVASCULAR: There is a regular rate and rhythm without any murmurs gallops or rubs. ABDOMEN: Soft and nontender with normal bowel sounds. No palpable organomegaly was noted. There is no palpable pulsatile mass. SKIN: Skin is clear with no lesions or rashes and otherwise unremarkable. NEUROLOGIC: Patient is alert and oriented x3. Cranial nerves II through XII are grossly intact. Motor and sensory are also intact. Normal speech, volume and content. Symmetrical smile. MUSCULOSKELETAL: Normal extremities with adequate strength and full range of motion. LYMPHATICS: No significant lymphadenopathy is noted PSYCHIATRIC: Normal psychiatric evaluation. Normal interpersonal interactions appears functionally intact in deals appropriately with others. No signs of depression. No signs of anxiety. No delusions. No hallucinations. Limitations: no limitations Course Vital Signs 12/24/17 10:08 Temperature 98.1 F Pulse Rate 74 Respiratory 18 Rate Blood Pressure 117/58 O2 Sat by Pulse 97 Oximetry Medical Decision Making - Lab Data Result diagrams: 12/24/17 11:13 12/24/17 11:13 Lab Results 12/24/17 12/24/17 12/24/17 Range/Units 11:13 11:13 12:02 WBC 6.6 (3.8-10.6) k/uL RBC 4.58 (3.80-5.40) m/uL Hgb 14.5 (11.4-16.0) gm/dL Hct 44.3 (34.0-46.0) % MCV 96.7 (80.0-100.0) fL MCH 31.8 (25.0-35.0) pg MCHC 32.9 (31.0-37.0) g/dL RDW 12.8 (11.5-15.5) % Plt Count 234 (150-450) k/uL Neutrophils % 76 % Lymphocytes % 17 % Monocytes % 5 % Eosinophils % 1 % Basophils % 0 % Neutrophils # 5.0 (1.3-7.7) k/uL Lymphocytes # 1.1 (1.0-4.8) k/uL Monocytes # 0.3 (0-1.0) k/uL Eosinophils # 0.1 (0-0.7) k/uL Basophils # 0.0 (0-0.2) k/uL Sodium 142 (137-145) mmol/L Potassium 4.5 (3.5-5.1) mmol/L Chloride 111 H (98-107) mmol/L Carbon Dioxide 25 (22-30) mmol/L Anion Gap 6 mmol/L BUN 14 (7-17) mg/dL Creatinine 0.76 (0.52-1.04) mg/dL Est GFR (CKD-EPI)AfAm >90 (>60 ml/min/1.73 sqM) Est GFR (CKD-EPI)NonAf 85 (>60 ml/min/1.73 sqM) Glucose 96 (74-99) mg/dL Calcium 9.4 (8.4-10.2) mg/dL Total Bilirubin 0.7 (0.2-1.3) mg/dL AST 24 (14-36) U/L ALT 28 (9-52) U/L Alkaline Phosphatase 61 (38-126) U/L Total Protein 6.9 (6.3-8.2) g/dL Albumin 3.8 (3.5-5.0) g/dL Amylase 45 (30-110) U/L Lipase 32 (23-300) U/L Urine Color Yellow Urine Appearance Clear (Clear) Urine pH 5.5 (5.0-8.0) Ur Specific [place] 1.012 (1.001-1.035) Urine Protein Negative (Negative) Urine Glucose (UA) Negative (Negative) Urine Ketones Negative (Negative) Urine Blood Negative (Negative) Urine Nitrite Negative (Negative) Urine Bilirubin Negative (Negative) Urine Urobilinogen <2.0 (<2.0) mg/dL Ur Leukocyte Esterase Trace H (Negative) Urine WBC 2 (0-5) /hpf Ur Squamous Epith Cells 4 (0-4) /hpf Urine Bacteria Rare H (None) /hpf Urine Mucus Rare H (None) /hpf Urine Opiates Screen (NotDetected) Ur Oxycodone Screen (NotDetected) Urine Methadone Screen (NotDetected) Ur Propoxyphene Screen (NotDetected) Ur Barbiturates Screen (NotDetected) U Tricyclic Antidepress (NotDetected) Ur Phencyclidine Scrn (NotDetected) Ur Amphetamines Screen (NotDetected) U Methamphetamines Scrn (NotDetected) U Benzodiazepines Scrn (NotDetected) Urine Cocaine Screen (NotDetected) U Marijuana (THC) Screen (NotDetected) 12/24/17 Range/Units 12:02 WBC (3.8-10.6) k/uL RBC (3.80-5.40) m/uL Hgb (11.4-16.0) gm/dL Hct (34.0-46.0) % MCV (80.0-100.0) fL MCH (25.0-35.0) pg MCHC (31.0-37.0) g/dL RDW (11.5-15.5) % Plt Count (150-450) k/uL Neutrophils % % Lymphocytes % % Monocytes % % Eosinophils % % Basophils % % Neutrophils # (1.3-7.7) k/uL Lymphocytes # (1.0-4.8) k/uL Monocytes # (0-1.0) k/uL Eosinophils # (0-0.7) k/uL Basophils # (0-0.2) k/uL Sodium (137-145) mmol/L Potassium (3.5-5.1) mmol/L Chloride (98-107) mmol/L Carbon Dioxide (22-30) mmol/L Anion Gap mmol/L BUN (7-17) mg/dL Creatinine (0.52-1.04) mg/dL Est GFR (CKD-EPI)AfAm (>60 ml/min/1.73 sqM) Est GFR (CKD-EPI)NonAf (>60 ml/min/1.73 sqM) Glucose (74-99) mg/dL Calcium (8.4-10.2) mg/dL Total Bilirubin (0.2-1.3) mg/dL AST (14-36) U/L ALT (9-52) U/L Alkaline Phosphatase (38-126) U/L Total Protein (6.3-8.2) g/dL Albumin (3.5-5.0) g/dL Amylase (30-110) U/L Lipase (23-300) U/L Urine Color Urine Appearance (Clear) Urine pH (5.0-8.0) Ur Specific [place] (1.001-1.035) Urine Protein (Negative) Urine Glucose (UA) (Negative) Urine Ketones (Negative) Urine Blood (Negative) Urine Nitrite (Negative) Urine Bilirubin (Negative) Urine Urobilinogen (<2.0) mg/dL Ur Leukocyte Esterase (Negative) Urine WBC (0-5) /hpf Ur Squamous Epith Cells (0-4) /hpf Urine Bacteria (None) /hpf Urine Mucus (None) /hpf Urine Opiates Screen Detected H (NotDetected) Ur Oxycodone Screen Detected H (NotDetected) Urine Methadone Screen Not Detected (NotDetected) Ur Propoxyphene Screen Not Detected (NotDetected) Ur Barbiturates Screen Not Detected (NotDetected) U Tricyclic Antidepress Not Detected (NotDetected) Ur Phencyclidine Scrn Not Detected (NotDetected) Ur Amphetamines Screen Not Detected (NotDetected) U Methamphetamines Scrn Not Detected (NotDetected) U Benzodiazepines Scrn Not Detected (NotDetected) Urine Cocaine Screen Not Detected (NotDetected) U Marijuana (THC) Screen Not Detected (NotDetected) Disposition Clinical Impression: Chronic vomiting Disposition: HOME SELF-CARE Instructions: Acute Nausea and Vomiting (ED) Prescriptions: Metoclopramide [Reglan] 10 mg PO ACHS #12 tab Is patient prescribed a controlled substance at d/c from ED?: No Referrals: Nilton Santoyo MD [Primary Care Provider] - 1-2 days Time of Disposition: 12:41
[2017-12-24 11:26] LABS: Basophils % (A) 0 %; Eosinophils # (A) 0.1 k/uL (0-0.7); Eosinophils % (A) 1 %; HCT 44.3 % (34.0-46.0); HGB 14.5 gm/dL (11.4-16.0); Lymphocytes # (A) 1.1 k/uL (1.0-4.8); Lymphocytes % (A) 17 %; MCH 31.8 pg (25.0-35.0); MCHC 32.9 g/dL (31.0-37.0); MCV 96.7 fL (80.0-100.0); Mean Platelet Volume 8.1; Monocytes # (A) 0.3 k/uL (0-1.0); Monocytes % (A) 5 %; Neutrophils % (A) 76 %; Platelet Count 234 k/uL (150-450); RBC 4.58 m/uL (3.80-5.40); RDW 12.8 % (11.5-15.5); WBC 6.6 k/uL (3.8-10.6)
[2017-12-24 11:37] LABS: ALT 28 U/L (9-52); AST 24 U/L (14-36); Albumin 3.8 g/dL (3.5-5.0); Alkaline Phosphatase 61 U/L (38-126); Amylase 45 U/L (30-110); Anion Gap 6 mmol/L; Blood Urea Nitrogen 14 mg/dL (7-17); Calcium 9.4 mg/dL (8.4-10.2); Carbon Dioxide 25 mmol/L (22-30); Chloride 111 mmol/L (98-107); Glucose 96 mg/dL (74-99); Lipase 32 U/L (23-300); Potassium 4.5 mmol/L (3.5-5.1); Sodium 142 mmol/L (137-145); Total Bilirubin 0.7 mg/dL (0.2-1.3); Total Protein 6.9 g/dL (6.3-8.2)
[2017-12-24 12:15] LABS: Appearance,Urine Clear (Clear); Bacteria,Urine Rare /hpf; Bilirubin,Urine Negative (Negative); Blood,Urine Negative (Negative); Color,Urine Yellow; Glucose,Urine (UA) Negative (Negative); Ketones,Urine Negative (Negative); Leukocyte Esterase,Urine Trace (Negative); Mucus,Urine Rare /hpf; Nitrite,Urine Negative (Negative); PH, Urine 5.5 (5.0-8.0); Protein,Urine Negative (Negative); Specific Gravity,Urine 1.012 (1.001-1.035); Squamous Epithelial Cell,Urine 4 /hpf (0-4); Urobilinogen,Urine <2.0 mg/dL (<2.0); WBC,Urine 2 /hpf (0-5)
[2017-12-24 12:28] LABS: Amphetamine Screen,Urine Not Detected (NotDetected); Barbiturate Screen,Urine Not Detected (NotDetected); Benzodiazepines Screen,Urine Not Detected (NotDetected); Cocaine Screen,Urine Not Detected (NotDetected); Methadone Screen, Urine Not Detected (NotDetected); Opiate Screen,Urine Detected (NotDetected); Oxycodone Screen, Urine Detected (NotDetected); Phencyclidine Screen,Urine Not Detected (NotDetected); Tricyclic Antidepressant,Urine Not Detected (NotDetected); Urn Cannabinoid Scrn Not Detected (NotDetected)
[2017-12-24 13:21] VITALS: BP 116/59; PULSE 54; TEMP 97.6
== END 2017-12-24 13:21 | disposition home or self-care (01) ==
LOC: EC 10:03
DX: R11.2 Nausea with vomiting, unspecified (principal); R19.7 Diarrhea, unspecified; R10.84 Generalized abdominal pain; E07.9 Disorder of thyroid, unspecified; F17.200 Nicotine dependence, unspecified, uncomplicated; F32.9 Major depressive disorder, single episode, unspecified; Z98.1 Arthrodesis status; Z90.49 Acquired absence of other specified parts of digestive tract; Z90.710 Acquired absence of both cervix and uterus; Z98.890 Other specified postprocedural states; Z79.891 Long term (current) use of opiate analgesic; Z79.899 Other long term (current) drug therapy; Z88.1 Allergy status to other antibiotic agents; Z88.5 Allergy status to narcotic agent; Z88.8 Allergy status to other drugs, medicaments and biological substances
CPT/HCPCS: 99284 ×2; 96374 ×2; 96361 ×3; 99283; 36415; 80053; 82150; 83690; 85025; 81001; 80306; J2405

== ENCOUNTER 2017-12-24 19:23 | Emergency (ER) | payer BC, OTHER ==
[2017-12-24 19:31] VITALS: RESP 18; TEMP 98.2
--- NOTE | 2017-12-24 20:01 | ED ---
General Adult HPI - General Chief complaint: Nausea/Vomiting/Diarrhea Stated complaint: NVD Time Seen by Provider: 12/24/17 19:25 Source: patient, RN notes reviewed Mode of arrival: ambulatory Limitations: no limitations - History of Present Illness Initial comments: This is a 62-year-old female presents emergency department stating that she's been exposed to paint L she and her pool and she was told by poison control to come to the emergency department because she continues to have nausea and vomiting. Patient was already seen in emergency department today and yesterday. Patient states she did not fill her prescription that she received earlier for vomiting. Patient insists she was told to come in by poison control. We called poison control in the emergency department and they indicated to us that they told her that the pink algae was nontoxic and would not harm her. Patient denies any abdominal pain. Patient denies any fever chills. - Related Data Home Medications Medication Instructions Recorded Confirmed Levothyroxine Sodium [Synthroid] 88 mcg PO DAILY 03/25/14 12/23/17 Pregabalin [Lyrica] 150 mg PO TID 09/02/17 12/23/17 oxyCODONE-APAP 7.5-325MG [Percocet 1 tab PO QID 10/04/17 12/23/17 7.5-325 mg] traZODone HCL [Desyrel] 100 mg PO HS 11/03/17 12/23/17 Albuterol Inhaler [Ventolin Hfa 1 - 2 puff INHALATION RT-Q6H PRN 11/22/17 Inhaler] Previous Rx's Medication Instructions Recorded Pantoprazole [Protonix] 40 mg PO DAILY #10 tablet. 11/24/17 Metoclopramide HCl [Reglan] 10 mg PO Q6HR PRN #15 tab 11/28/17 Citalopram Hydrobromide [CeleXA] 10 mg PO DAILY #30 tab 12/01/17 Dicyclomine [Bentyl] 10 mg PO QID #120 cap 12/01/17 Morphine Sulfate ER [Ms Contin] 15 mg PO TID #0 tablet 12/01/17 Famotidine [Pepcid] 20 mg PO BID #20 tablet 12/23/17 Ondansetron Odt [Zofran Odt] 4 mg PO Q8HR PRN #12 tab 12/23/17 Metoclopramide [Reglan] 10 mg PO ACHS #12 tab 12/24/17 Allergies Allergy/AdvReac Type Severity Reaction Status Date / Time ciprofloxacin [From Cipro] Allergy Rash/Hives Verified 12/24/17 19:31 duloxetine [From Cymbalta] Allergy Swelling Verified 12/24/17 19:31 OF THROAT metaproterenol [From Alupent] Allergy Heart races Verified 12/24/17 19:31 codeine AdvReac Vomiting Verified 12/24/17 19:31 fluticasone AdvReac ulcers in Verified 12/24/17 19:31 [From Advair Diskus] mouth & nose salmeterol AdvReac ulcers in Verified 12/24/17 19:31 [From Advair Diskus] mouth & nose Review of Systems ROS Statement: Those systems with pertinent positive or pertinent negative responses have been documented in the HPI. ROS Other: All systems not noted in ROS Statement are negative. Past Medical History Past Medical History: Thyroid Disorder Additional Past Medical History / Comment(s): back pain, Hep C History of Any Multi-Drug Resistant Organisms: None Reported Past Surgical History: Back Surgery, Section, Cholecystectomy, Hysterectomy Additional Past Surgical History / Comment(s): multiple back surgeries including back fusion and 10 hand surgeries, 3 knee surgeries Past Anesthesia/Blood Transfusion Reactions: No Reported Reaction Past Psychological History: No Psychological Hx Reported, Depression Smoking Status: Current every day smoker Past Alcohol Use History: None Reported Past Drug Use History: None Reported - Past Family History Father Family Medical History: Vascular Disorder Additional Family Medical History / Comment(s): Father of a ruptured aortic aneurysm. Sister(s) Family Medical History: Cancer Additional Family Medical History / Comment(s): SKIN CANCER AND BREAST CANCER Mother Family Medical History: No Reported History General Exam - General Exam Comments Initial Comments: GENERAL: Patient is well-developed and well-nourished. Patient is nontoxic and well- hydrated and is in no acute distress. ENT: Neck is soft and supple. No significant lymphadenopathy is noted. Oropharynx is clear. Moist mucous membranes. Neck has full range of motion without eliciting any pain. EYES: The sclera were anicteric and conjunctiva were pink and moist. Extraocular movements were intact and pupils were equal round and reactive to light. Eyelids were unremarkable. PULMONARY: Unlabored respirations. Good breath sounds bilaterally. No audible rales rhonchi or wheezing was noted. CARDIOVASCULAR: There is a regular rate and rhythm without any murmurs gallops or rubs. ABDOMEN: Soft and nontender with normal bowel sounds. No palpable organomegaly was noted. There is no palpable pulsatile mass. SKIN: Skin is clear with no lesions or rashes and otherwise unremarkable. NEUROLOGIC: Patient is alert and oriented x3. Cranial nerves II through XII are grossly intact. Motor and sensory are also intact. Normal speech, volume and content. Symmetrical smile. MUSCULOSKELETAL: Normal extremities with adequate strength and full range of motion. No lower extremity swelling or edema. No calf tenderness. LYMPHATICS: No significant lymphadenopathy is noted PSYCHIATRIC: Patient seems moderately anxious Limitations: no limitations Course Vital Signs 12/24/17 12/24/17 19:29 19:59 Temperature 98.2 F Pulse Rate 66 58 L Respiratory 18 18 Rate Blood Pressure 133/73 128/59 O2 Sat by Pulse 95 97 Oximetry Medical Decision Making - Medical Decision Making Patient told me she also had a high level of anxiety and has been diagnosed with depression. Patient states she does believe it's possible that the anxiety is making her sick and were somewhat she keeps: Back to the emergency department. Patient states she will talk to Dr. Santoyo about seeing a psychiatrist. Poison control indicated they did not tell the patient to come to the emergency department because of the pink mold in the pool. They told her the mold was nontoxic to humans patient did not vomit while in the emergency department Disposition Clinical Impression: Anxiety Disposition: HOME SELF-CARE Condition: Good Instructions: Anxiety (ED) Is patient prescribed a controlled substance at d/c from ED?: No Referrals: Nilton Santoyo MD [Primary Care Provider] - 1-2 days Time of Disposition: 20:10
[2017-12-24] MEDS ORDERED: DIAZEPAM 5 MG TAB PO STA (20:07)
[2017-12-24 20:09] VITALS: BP 128/59; PULSE 58
== END 2017-12-24 20:30 | disposition home or self-care (01) ==
LOC: EC 19:23
DX: F41.9 Anxiety disorder, unspecified (principal); F17.200 Nicotine dependence, unspecified, uncomplicated; Z79.899 Other long term (current) drug therapy; Z88.1 Allergy status to other antibiotic agents; Z88.5 Allergy status to narcotic agent; Z88.8 Allergy status to other drugs, medicaments and biological substances
CPT/HCPCS: 99283

== ENCOUNTER 2017-12-27 03:24 | Emergency (ER) | payer BC, OTHER ==
[2017-12-27 03:29] VITALS: TEMP 98.1
[2017-12-27] MEDS ORDERED: MORPHINE SULFATE 4 MG/ML SYRINGE IV STA (03:41)
[2017-12-27] MEDS ORDERED: SODIUM CHLORIDE 0.9% 1,000 ML IV STA (03:41)
[2017-12-27] MEDS ORDERED: ONDANSETRON 4 MG/2 ML VIAL IVP STA (03:41)
--- NOTE | 2017-12-27 03:45 | ED ---
General Adult HPI - General Chief complaint: Abdominal Pain Stated complaint: vomiting Time Seen by Provider: 12/27/17 03:31 Source: patient, RN notes reviewed, old records reviewed Mode of arrival: ambulatory Limitations: no limitations - History of Present Illness Initial comments: 62-year-old female presents with nausea vomiting and abdominal pain. Patient has history of recurrent abdominal pain nausea vomiting episodes. She is currently on morphine and Percocet at home. She denies being out of these medications. She states she's been unable to keep them down secondary to her vomiting. Denies fever or chills. Patient has had significant workup in recent months regarding these symptoms. Including CT scan, GI consultation, endoscopy. Denies dysuria or hematuria. States she's had approximately 4-5 episodes of vomiting. Nonbloody. - Related Data Home Medications Medication Instructions Recorded Confirmed Levothyroxine Sodium [Synthroid] 88 mcg PO DAILY 03/25/14 12/23/17 Pregabalin [Lyrica] 150 mg PO TID 09/02/17 12/23/17 oxyCODONE-APAP 7.5-325MG [Percocet 1 tab PO QID 10/04/17 12/23/17 7.5-325 mg] traZODone HCL [Desyrel] 100 mg PO HS 11/03/17 12/23/17 Albuterol Inhaler [Ventolin Hfa 1 - 2 puff INHALATION RT-Q6H PRN 11/22/17 Inhaler] Previous Rx's Medication Instructions Recorded Pantoprazole [Protonix] 40 mg PO DAILY #10 tablet. 11/24/17 Metoclopramide HCl [Reglan] 10 mg PO Q6HR PRN #15 tab 11/28/17 Citalopram Hydrobromide [CeleXA] 10 mg PO DAILY #30 tab 12/01/17 Dicyclomine [Bentyl] 10 mg PO QID #120 cap 12/01/17 Morphine Sulfate ER [Ms Contin] 15 mg PO TID #0 tablet 12/01/17 Famotidine [Pepcid] 20 mg PO BID #20 tablet 12/23/17 Ondansetron Odt [Zofran Odt] 4 mg PO Q8HR PRN #12 tab 12/23/17 Metoclopramide [Reglan] 10 mg PO ACHS #12 tab 12/24/17 Allergies Allergy/AdvReac Type Severity Reaction Status Date / Time ciprofloxacin [From Cipro] Allergy Rash/Hives Verified 12/27/17 03:30 duloxetine [From Cymbalta] Allergy Swelling Verified 12/27/17 03:30 OF THROAT metaproterenol [From Alupent] Allergy Heart races Verified 12/27/17 03:30 codeine AdvReac Vomiting Verified 12/27/17 03:30 fluticasone AdvReac ulcers in Verified 12/27/17 03:30 [From Advair Diskus] mouth & nose salmeterol AdvReac ulcers in Verified 12/27/17 03:30 [From Advair Diskus] mouth & nose Review of Systems ROS Statement: Those systems with pertinent positive or pertinent negative responses have been documented in the HPI. ROS Other: All systems not noted in ROS Statement are negative. Past Medical History Past Medical History: Thyroid Disorder Additional Past Medical History / Comment(s): back pain, Hep C History of Any Multi-Drug Resistant Organisms: None Reported Past Surgical History: Back Surgery, Section, Cholecystectomy, Hysterectomy Additional Past Surgical History / Comment(s): multiple back surgeries including back fusion and 10 hand surgeries, 3 knee surgeries Past Anesthesia/Blood Transfusion Reactions: No Reported Reaction Past Psychological History: No Psychological Hx Reported, Depression Smoking Status: Current every day smoker Past Alcohol Use History: None Reported Past Drug Use History: None Reported - Past Family History Father Family Medical History: Vascular Disorder Additional Family Medical History / Comment(s): Father of a ruptured aortic aneurysm. Sister(s) Family Medical History: Cancer Additional Family Medical History / Comment(s): SKIN CANCER AND BREAST CANCER Mother Family Medical History: No Reported History General Exam Limitations: no limitations General appearance: alert, in no apparent distress Head exam: Present: atraumatic, normocephalic Eye exam: Present: normal appearance ENT exam: Present: normal exam, mucous membranes moist Neck exam: Present: normal inspection. Absent: tenderness, meningismus Respiratory exam: Present: normal lung sounds bilaterally. Absent: respiratory distress, wheezes Cardiovascular Exam: Present: regular rate, normal rhythm GI/Abdominal exam: Present: soft. Absent: distended, tenderness Extremities exam: Present: normal inspection, normal capillary refill. Absent: pedal edema Back exam: Present: normal inspection Neurological exam: Present: alert, oriented X3, CN II-XII intact. Absent: motor sensory deficit Psychiatric exam: Present: normal affect, normal mood Skin exam: Present: warm, dry, intact. Absent: cyanosis, diaphoretic Course Vital Signs 12/27/17 03:27 Temperature 98.1 F Pulse Rate 60 Respiratory 40 H Rate Blood Pressure 138/82 O2 Sat by Pulse 95 Oximetry - Reevaluation(s) Reevaluation #1: 12/27/17 06:28 Reevaluation, patient is feeling better, improved nausea, no vomiting. Medical Decision Making - Medical Decision Making 62-year-old female presenting with abdominal pain nausea vomiting and diarrhea. Patient hasn't stable vital signs. I do suspect her symptoms are related to opiate withdrawal. She has chronic pain issues and is currently on morphine and Percocet. X-ray is obtained, negative for obstruction, there is some constipation. CT reviewed from 4 days prior with similar symptoms was negative. CBC, CMP are unremarkable, lactic acid is normal. Urinalysis is clear. Case is discussed with the patient's primary care physician Dr. Santoyo who will see the patient on an outpatient basis. Diagnosis: Nausea vomiting, chronic abdominal pain. - Lab Data Result diagrams: 12/27/17 03:55 12/27/17 03:55 Lab Results 12/27/17 12/27/17 12/27/17 Range/Units 03:55 03:55 03:55 WBC 9.9 (3.8-10.6) k/uL RBC 5.01 (3.80-5.40) m/uL Hgb 15.4 (11.4-16.0) gm/dL Hct 47.5 H (34.0-46.0) % MCV 94.9 (80.0-100.0) fL MCH 30.7 (25.0-35.0) pg MCHC 32.4 (31.0-37.0) g/dL RDW 13.0 (11.5-15.5) % Plt Count 290 (150-450) k/uL Neutrophils % 71 % Lymphocytes % 22 % Monocytes % 5 % Eosinophils % 1 % Basophils % 0 % Neutrophils # 7.0 (1.3-7.7) k/uL Lymphocytes # 2.1 (1.0-4.8) k/uL Monocytes # 0.5 (0-1.0) k/uL Eosinophils # 0.1 (0-0.7) k/uL Basophils # 0.0 (0-0.2) k/uL Sodium 140 (137-145) mmol/L Potassium 4.0 (3.5-5.1) mmol/L Chloride 106 (98-107) mmol/L Carbon Dioxide 22 (22-30) mmol/L Anion Gap 12 mmol/L BUN 12 (7-17) mg/dL Creatinine 0.60 (0.52-1.04) mg/dL Est GFR (CKD-EPI)AfAm >90 (>60 ml/min/1.73 sqM) Est GFR (CKD-EPI)NonAf >90 (>60 ml/min/1.73 sqM) Glucose 115 H (74-99) mg/dL Plasma Lactic Acid Lester 1.5 (0.7-2.0) mmol/L Calcium 10.5 H (8.4-10.2) mg/dL Total Bilirubin 0.5 (0.2-1.3) mg/dL AST 27 (14-36) U/L ALT 35 (9-52) U/L Alkaline Phosphatase 71 (38-126) U/L Troponin I (0.000-0.034) ng/mL Total Protein 7.7 (6.3-8.2) g/dL Albumin 4.5 (3.5-5.0) g/dL Amylase 49 (30-110) U/L Lipase 56 (23-300) U/L Urine Color Urine Appearance (Clear) Urine pH (5.0-8.0) Ur Specific [place] (1.001-1.035) Urine Protein (Negative) Urine Glucose (UA) (Negative) Urine Ketones (Negative) Urine Blood (Negative) Urine Nitrite (Negative) Urine Bilirubin (Negative) Urine Urobilinogen (<2.0) mg/dL Ur Leukocyte Esterase (Negative) Urine WBC (0-5) /hpf Ur Squamous Epith Cells (0-4) /hpf Urine Bacteria (None) /hpf Hyaline Casts (0-2) /lpf Urine Mucus (None) /hpf 12/27/17 12/27/17 Range/Units 03:55 05:55 WBC (3.8-10.6) k/uL RBC (3.80-5.40) m/uL Hgb (11.4-16.0) gm/dL Hct (34.0-46.0) % MCV (80.0-100.0) fL MCH (25.0-35.0) pg MCHC (31.0-37.0) g/dL RDW (11.5-15.5) % Plt Count (150-450) k/uL Neutrophils % % Lymphocytes % % Monocytes % % Eosinophils % % Basophils % % Neutrophils # (1.3-7.7) k/uL Lymphocytes # (1.0-4.8) k/uL Monocytes # (0-1.0) k/uL Eosinophils # (0-0.7) k/uL Basophils # (0-0.2) k/uL Sodium (137-145) mmol/L Potassium (3.5-5.1) mmol/L Chloride (98-107) mmol/L Carbon Dioxide (22-30) mmol/L Anion Gap mmol/L BUN (7-17) mg/dL Creatinine (0.52-1.04) mg/dL Est GFR (CKD-EPI)AfAm (>60 ml/min/1.73 sqM) Est GFR (CKD-EPI)NonAf (>60 ml/min/1.73 sqM) Glucose (74-99) mg/dL Plasma Lactic Acid Lester (0.7-2.0) mmol/L Calcium (8.4-10.2) mg/dL Total Bilirubin (0.2-1.3) mg/dL AST (14-36) U/L ALT (9-52) U/L Alkaline Phosphatase (38-126) U/L Troponin I <0.012 (0.000-0.034) ng/mL Total Protein (6.3-8.2) g/dL Albumin (3.5-5.0) g/dL Amylase (30-110) U/L Lipase (23-300) U/L Urine Color Yellow Urine Appearance Clear (Clear) Urine pH 7.0 (5.0-8.0) Ur Specific [place] 1.017 (1.001-1.035) Urine Protein Negative (Negative) Urine Glucose (UA) Negative (Negative) Urine Ketones Negative (Negative) Urine Blood Negative (Negative) Urine Nitrite Negative (Negative) Urine Bilirubin Negative (Negative) Urine Urobilinogen 2.0 (<2.0) mg/dL Ur Leukocyte Esterase Small H (Negative) Urine WBC 4 (0-5) /hpf Ur Squamous Epith Cells 5 H (0-4) /hpf Urine Bacteria Rare H (None) /hpf Hyaline Casts 1 (0-2) /lpf Urine Mucus Rare H (None) /hpf Disposition Clinical Impression: Nausea vomiting and diarrhea, Chronic pain syndrome Disposition: HOME SELF-CARE Condition: Fair Instructions: Acute Nausea and Vomiting (ED) Is patient prescribed a controlled substance at d/c from ED?: No Referrals: Nilton Santoyo MD [Primary Care Provider] - 1-2 days Time of Disposition: 06:29
[2017-12-27] MEDS ORDERED: PANTOPRAZOLE 40 MG/10 ML VIAL IVP STA (04:21)
[2017-12-27 04:24] LABS: ALT 35 U/L (9-52); AST 27 U/L (14-36); Albumin 4.5 g/dL (3.5-5.0); Alkaline Phosphatase 71 U/L (38-126); Amylase 49 U/L (30-110); Anion Gap 12 mmol/L; Blood Urea Nitrogen 12 mg/dL (7-17); Calcium 10.5 mg/dL (8.4-10.2); Carbon Dioxide 22 mmol/L (22-30); Chloride 106 mmol/L (98-107); Glucose 115 mg/dL (74-99); Lipase 56 U/L (23-300); Sodium 140 mmol/L (137-145); Total Bilirubin 0.5 mg/dL (0.2-1.3); Total Protein 7.7 g/dL (6.3-8.2)
--- NOTE | 2017-12-27 04:35 | XR ---
EXAM: XR Abdomen, 1 View CLINICAL HISTORY: ITS.REASON XR Reason: abdominal pain TECHNIQUE: Frontal supine view of the abdomen/pelvis. COMPARISON: 12/23/17 IMPRESSION: Nonspecific bowel gas pattern. Fusion hardware appears intact.
[2017-12-27 04:43] LABS: Basophils % (A) 0 %; Eosinophils # (A) 0.1 k/uL (0-0.7); Eosinophils % (A) 1 %; HCT 47.5 % (34.0-46.0); HGB 15.4 gm/dL (11.4-16.0); Lymphocytes # (A) 2.1 k/uL (1.0-4.8); Lymphocytes % (A) 22 %; MCH 30.7 pg (25.0-35.0); MCHC 32.4 g/dL (31.0-37.0); MCV 94.9 fL (80.0-100.0); Mean Platelet Volume 8.7; Monocytes # (A) 0.5 k/uL (0-1.0); Monocytes % (A) 5 %; Neutrophils % (A) 71 %; Platelet Count 290 k/uL (150-450); RBC 5.01 m/uL (3.80-5.40); WBC 9.9 k/uL (3.8-10.6)
[2017-12-27 06:16] LABS: Appearance,Urine Clear (Clear); Bacteria,Urine Rare /hpf; Bilirubin,Urine Negative (Negative); Blood,Urine Negative (Negative); Color,Urine Yellow; Glucose,Urine (UA) Negative (Negative); Hyaline Casts,Urine 1 /lpf (0-2); Ketones,Urine Negative (Negative); Leukocyte Esterase,Urine Small (Negative); Mucus,Urine Rare /hpf; Nitrite,Urine Negative (Negative); Protein,Urine Negative (Negative); Specific Gravity,Urine 1.017 (1.001-1.035); Squamous Epithelial Cell,Urine 5 /hpf (0-4); WBC,Urine 4 /hpf (0-5)
[2017-12-27 07:01] VITALS: BP 128/68; PULSE 64; RESP 16
== END 2017-12-27 07:01 | disposition home or self-care (01) ==
LOC: EC 03:24
DX: R11.2 Nausea with vomiting, unspecified (principal); R19.7 Diarrhea, unspecified; G89.4 Chronic pain syndrome; E07.9 Disorder of thyroid, unspecified; Z86.19 Personal history of other infectious and parasitic diseases; F32.9 Major depressive disorder, single episode, unspecified; F17.200 Nicotine dependence, unspecified, uncomplicated; Z79.891 Long term (current) use of opiate analgesic; Z79.899 Other long term (current) drug therapy; Z88.1 Allergy status to other antibiotic agents; Z88.5 Allergy status to narcotic agent; Z88.8 Allergy status to other drugs, medicaments and biological substances; Z90.49 Acquired absence of other specified parts of digestive tract
CPT/HCPCS: 36415; 80053; 82150; 83605; 83690; 84484; 85025; 81001; 74018; 99284; 96374; 96375 ×2; 96361; J2270; J2405; C9113

== ENCOUNTER 2017-12-28 10:36 | Emergency (ER) | payer BC, OTHER ==
[2017-12-28 10:41] VITALS: TEMP 98.2
--- NOTE | 2017-12-28 11:27 | ED ---
General Adult HPI - General Chief complaint: Nausea/Vomiting/Diarrhea Stated complaint: NVD ABDOMINAL PAIN WEAKNESS Source: patient Mode of arrival: wheelchair Limitations: no limitations - History of Present Illness Initial comments: Dictation was produced using [employer] dictation software. please excuse any grammatical, word or spelling errors. Chief Complaint: 62-year-old female with past medical history of chronic abdominal pain and chronic back pain presents with abdominal pain, nausea and vomiting. History of Present Illness: Patient was seen in emergency department yesterday for the same complaint. She states that she called her PCPs office. They told her to come back to the emergency department. Patient has extensive history of chronic pain. She does take narcotics regularly. She denies running out of her pain medications recently. Patient has had these symptoms in the past that have been worked up. 4 days ago she had a negative computed tomography scan. Yesterday she had a negative KUB. Patient denies that her symptoms have changed. Earlier this month patient did have EGD showing mild atrophy gastritis. The ROS documented in this emergency department record has been reviewed and confirmed by me. Those systems with pertinent positive or negative responses have been documented in the HPI. All other systems are other negative and/or noncontributory. - Related Data Home Medications Medication Instructions Recorded Confirmed Levothyroxine Sodium [Synthroid] 88 mcg PO DAILY 03/25/14 12/28/17 Pregabalin [Lyrica] 150 mg PO TID 09/02/17 12/28/17 oxyCODONE-APAP 7.5-325MG [Percocet 1 tab PO QID 10/04/17 12/28/17 7.5-325 mg] traZODone HCL [Desyrel] 100 mg PO HS 11/03/17 12/28/17 Albuterol Inhaler [Ventolin Hfa 1 - 2 puff INHALATION RT-Q6H PRN 11/22/17 Inhaler] Albuterol Nebulized [Ventolin 2.5 mg INHALATION RT-QID PRN 12/28/17 12/28/17 Nebulized] Previous Rx's Medication Instructions Recorded Pantoprazole [Protonix] 40 mg PO DAILY #10 tablet. 11/24/17 Citalopram Hydrobromide [CeleXA] 10 mg PO DAILY #30 tab 12/01/17 Dicyclomine [Bentyl] 10 mg PO QID #120 cap 12/01/17 Morphine Sulfate ER [Ms Contin] 15 mg PO TID #0 tablet 12/01/17 Ondansetron Odt [Zofran Odt] 4 mg PO Q8HR PRN #12 tab 12/23/17 Metoclopramide [Reglan] 10 mg PO ACHS #12 tab 12/24/17 Loperamide [Imodium] 4 mg PO ONCE PRN #20 capsule 12/28/17 Allergies Allergy/AdvReac Type Severity Reaction Status Date / Time ciprofloxacin [From Cipro] Allergy Rash/Hives Verified 12/28/17 13:53 duloxetine [From Cymbalta] Allergy Swelling Verified 12/28/17 13:53 OF THROAT metaproterenol [From Alupent] Allergy Heart races Verified 12/28/17 13:53 codeine AdvReac Vomiting Verified 12/28/17 13:53 fluticasone AdvReac ulcers in Verified 12/28/17 13:53 [From Advair Diskus] mouth & nose salmeterol AdvReac ulcers in Verified 12/28/17 13:53 [From Advair Diskus] mouth & nose Review of Systems ROS Statement: Those systems with pertinent positive or pertinent negative responses have been documented in the HPI. ROS Other: All systems not noted in ROS Statement are negative. Past Medical History Past Medical History: Thyroid Disorder Additional Past Medical History / Comment(s): back pain, Hep C History of Any Multi-Drug Resistant Organisms: None Reported Past Surgical History: Back Surgery, Section, Cholecystectomy, Hysterectomy Additional Past Surgical History / Comment(s): multiple back surgeries including back fusion and 10 hand surgeries, 3 knee surgeries Past Anesthesia/Blood Transfusion Reactions: No Reported Reaction Past Psychological History: No Psychological Hx Reported, Depression Smoking Status: Current every day smoker Past Alcohol Use History: None Reported Past Drug Use History: None Reported - Past Family History Father Family Medical History: Vascular Disorder Additional Family Medical History / Comment(s): Father of a ruptured aortic aneurysm. Sister(s) Family Medical History: Cancer Additional Family Medical History / Comment(s): SKIN CANCER AND BREAST CANCER Mother Family Medical History: No Reported History General Exam - General Exam Comments Initial Comments: PHYSICAL EXAM: General Impression: Alert and oriented x3, not in acute distress HEENT: Normocephalic atraumatic, extra-ocular movements intact, pupils equal and reactive to light bilaterally, mucous membranes moist. Cardiovascular: Heart regular rate and rhythm, S1&S2 audible, no murmurs, rubs or gallops Chest: Lungs clear to auscultation bilaterally, no rhonchi, no wheeze, no rales Abdomen: Bowel sounds present, abdomen soft, non-tender, non-distended, no organomegaly Musculoskeletal: Pulses present and equal in all extremities, no peripheral edema Motor: Power 5/5 bilaterally, no focal deficits noted Neurological: CN II-XII grossly intact, no focal motor or sensory deficits noted Skin: Intact with no visualized rashes Psych: Normal affect and mood Limitations: no limitations Course Vital Signs 12/28/17 12/28/17 12/28/17 10:39 12:41 14:00 Temperature 98.2 F Pulse Rate 71 88 Respiratory 20 16 16 Rate Blood Pressure 152/93 132/76 O2 Sat by Pulse 96 96 Oximetry Medical Decision Making - Medical Decision Making ED course: 62-year-old female with past medical history of chronic pain on regular narcotics presents with abdominal pain, nausea and vomiting. Chart review was performed showing the patient had extensive workup for her abdominal symptoms within the past month. More history was obtained from patient patient did state that she has been very stressed out at home. Vital signs upon arrival are within acceptable limits. Physical examination is benign. report was obtained showing the patient had high score. Chart review was further pursued showing that this is patient's 10th visit to the ER in the last 2 months. Laboratory evaluation obtained. Leukocytosis of 14.0. Notable panel is unremarkable. Abdominal x-ray shows nonspecific bowel gas pattern. Given leukocytosis and abdominal pain we obtained a abdominal pelvis CT. Findings are consistent with enterocolitis. More history obtained from patient. No indication for antibiotic administration at this time. Patient case discussed with her primary care physician Dr. Santoyo who would like to see her in the clinic tomorrow. Patient given prescription for loperamide. She is told to take her pain medications that she has at home for pain symptoms. Patient understandable agreeable to disposition. - Lab Data Result diagrams: 12/28/17 11:42 12/28/17 11:42 Lab Results 12/28/17 12/28/17 Range/Units 11:42 11:42 WBC 14.0 H (3.8-10.6) k/uL RBC 5.10 (3.80-5.40) m/uL Hgb 16.1 H (11.4-16.0) gm/dL Hct 49.6 H (34.0-46.0) % MCV 97.3 (80.0-100.0) fL MCH 31.6 (25.0-35.0) pg MCHC 32.5 (31.0-37.0) g/dL RDW 13.0 (11.5-15.5) % Plt Count 341 (150-450) k/uL Sodium 142 (137-145) mmol/L Potassium 3.8 (3.5-5.1) mmol/L Chloride 107 (98-107) mmol/L Carbon Dioxide 22 (22-30) mmol/L Anion Gap 13 mmol/L BUN 7 (7-17) mg/dL Creatinine 0.60 (0.52-1.04) mg/dL Est GFR (CKD-EPI)AfAm >90 (>60 ml/min/1.73 sqM) Est GFR (CKD-EPI)NonAf >90 (>60 ml/min/1.73 sqM) Glucose 105 H (74-99) mg/dL Calcium 10.6 H (8.4-10.2) mg/dL Total Bilirubin 0.7 (0.2-1.3) mg/dL AST 27 (14-36) U/L ALT 29 (9-52) U/L Alkaline Phosphatase 72 (38-126) U/L Total Protein 8.1 (6.3-8.2) g/dL Albumin 4.7 (3.5-5.0) g/dL Lipase 75 (23-300) U/L Disposition Clinical Impression: Enterocolitis Disposition: HOME SELF-CARE Instructions: Acute Nausea and Vomiting (ED), Acute Diarrhea (ED) Prescriptions: Loperamide [Imodium] 4 mg PO ONCE PRN #20 capsule PRN Reason: Diarrhea Is patient prescribed a controlled substance at d/c from ED?: No Referrals: Nilton Santoyo MD [Primary Care Provider] - 1-2 days Time of Disposition: 16:24
[2017-12-28 11:54] LABS: HCT 49.6 % (34.0-46.0); HGB 16.1 gm/dL (11.4-16.0); MCH 31.6 pg (25.0-35.0); MCHC 32.5 g/dL (31.0-37.0); MCV 97.3 fL (80.0-100.0); Mean Platelet Volume 7.7; Platelet Count 341 k/uL (150-450)
--- NOTE | 2017-12-28 12:21 | XR ---
Abdomen HISTORY: Nausea vomiting diarrhea pain Frontal view the abdomen on 2 images correlated prior exam 12/27/2017. There is no significant change. IMPRESSION: Nonobstructive bowel gas pattern. Postop changes. Follow-up as indicated.
[2017-12-28 13:18] VITALS: RESP 16
[2017-12-28] MEDS ORDERED: MORPHINE SULFATE 4 MG/ML SYRINGE IVP STA (14:02)
[2017-12-28] MEDS ORDERED: MORPHINE SULFATE 4 MG/ML SYRINGE IVP PRN (14:03)
[2017-12-28 14:29] LABS: ALT 29 U/L (9-52); AST 27 U/L (14-36); Albumin 4.7 g/dL (3.5-5.0); Alkaline Phosphatase 72 U/L (38-126); Anion Gap 13 mmol/L; Blood Urea Nitrogen 7 mg/dL (7-17); Calcium 10.6 mg/dL (8.4-10.2); Carbon Dioxide 22 mmol/L (22-30); Chloride 107 mmol/L (98-107); Glucose 105 mg/dL (74-99); Lipase 75 U/L (23-300); Potassium 3.8 mmol/L (3.5-5.1); Sodium 142 mmol/L (137-145); Total Bilirubin 0.7 mg/dL (0.2-1.3); Total Protein 8.1 g/dL (6.3-8.2)
--- NOTE | 2017-12-28 16:12 | CT ---
EXAMINATION TYPE: CT abdomen pelvis w con DATE OF EXAM: 12/28/2017 COMPARISON: 12/23/2017 HISTORY: Abdominal pain, diarrhea and vomiting CT DLP: 932 mGycm CONTRAST: CT scan of the abdomen and pelvis is performed without Oral Contrast and with IV Contrast, patient in jected with 100 mL of Isovue 300. FINDINGS: LUNG BASES-: No visible nodule. No infiltrate. LIVER/GB: The gallbladder surgically absent. Intra and extrahepatic biliary ductal dilatation post surgical in nature. No space occupying hepatic lesion. Biliary tree is of normal caliber. PANCREAS: No inflammation. No distinct mass. SPLEEN: No splenic enlargement. No lesion seen. ADRENALS: Stable right adrenal nodule measuring 1.4 cm. Left adrenal gland demonstrates hyperplasia. KIDNEYS/BLADDER: No hydronephrosis. No nephrolithiasis. No distinct renal mass. Urinary bladder grossly unremarkable. BOWEL: There is wall thickening and mild distention of small bowel as well as of the colon felt to re flect enterocolitis. No evidence for obstruction. No abscess or free air. GENITAL ORGANS: No gross abnormality. LYMPH NODES: No greater than 1cm abdominal or pelvic lymph nodes are appreciated. AORTA: No significant abnormality. OSSEOUS STRUCTURES: No significant abnormality is seen. OTHER: No significant additional abnormality is seen. IMPRESSION: 1. Findings are suspicious for enterocolitis. Correlate clinically.
[2017-12-28 16:50] VITALS: BP 127/70; PULSE 87
== END 2017-12-28 16:45 | disposition home or self-care (01) ==
LOC: EC 10:36
DX: K52.9 Noninfective gastroenteritis and colitis, unspecified (principal); D72.829 Elevated white blood cell count, unspecified; E07.9 Disorder of thyroid, unspecified; G89.29 Other chronic pain; F32.9 Major depressive disorder, single episode, unspecified; F17.200 Nicotine dependence, unspecified, uncomplicated; Z79.891 Long term (current) use of opiate analgesic; Z79.899 Other long term (current) drug therapy; Z88.1 Allergy status to other antibiotic agents; Z88.5 Allergy status to narcotic agent; Z88.8 Allergy status to other drugs, medicaments and biological substances; Z90.49 Acquired absence of other specified parts of digestive tract
CPT/HCPCS: 99285 ×2; 96374 ×2; 36415; 80053; 83690; 85027; 74018; 74177; J2270; Q9967

== ENCOUNTER 2018-04-15 05:38 | Emergency (ER) | payer OTHER ==
[2018-04-15] MEDS ORDERED: diphenhydrAMINE 50 MG/ML 1 ML VIAL IVP STA (06:20)
[2018-04-15] MEDS ORDERED: METOCLOPRAMIDE 5 MG/ML 2 ML VIAL IVP STA (06:20)
[2018-04-15] MEDS ORDERED: SODIUM CHLORIDE 0.9% 1,000 ML IV STA (06:20)
[2018-04-15] MEDS ORDERED: FAMOTIDINE 20 MG/2 ML VIAL IV STA (06:21)
--- NOTE | 2018-04-15 06:21 | ED ---
Nausea/Vomiting/Diarrhea HPI - General Source: patient Mode of arrival: ambulatory Limitations: no limitations <Kalina Gaspar - Last Filed: 04/15/18 07:27> <Alfie Nance - Last Filed: 04/15/18 08:23> - General Chief complaint: Nausea/Vomiting/Diarrhea Stated complaint: vomiting/diarrhea/back/chest pain Time Seen by Provider: 04/15/18 06:19 - History of Present Illness Initial comments: And is a 62-year-old female presents the emergency department today for evaluation of sudden onset of nausea, vomiting and diarrhea. Patient reports she was in her usual state of health throughout the day yesterday, she dinner at a restaurant, she states that she had this for dinner she felt well at that time she went home and went to bed. Patient reports she woke suddenly this morning with nausea, vomiting and diarrhea. She reports she's had multiple episodes of nonbloody nonbilious emesis, she has persistent nausea despite having nothing left in her stomach and she's had 3 episodes of nonbloody diarrhea. Patient has multiple medications at home because she has a history of nausea and vomiting however she's been unable to tolerate any of her medications which came to the ER for evaluation. She care signed out to Dr. Nance at 7 AM, will follow-up on labs and reevaluate patient (Kalina Gaspar) - Related Data Home Medications Medication Instructions Recorded Confirmed Levothyroxine Sodium [Synthroid] 88 mcg PO DAILY 03/25/14 04/15/18 Pregabalin [Lyrica] 150 mg PO TID 09/02/17 04/15/18 oxyCODONE-APAP 7.5-325MG [Percocet 1 tab PO QID 10/04/17 04/15/18 7.5-325 mg] traZODone HCL [Desyrel] 150 mg PO HS 11/03/17 04/15/18 Albuterol Inhaler [Ventolin Hfa 1 - 2 puff INHALATION RT-Q6H PRN 11/22/17 Inhaler] Albuterol Nebulized [Ventolin 2.5 mg INHALATION RT-QID PRN 12/28/17 04/15/18 Nebulized] Previous Rx's Medication Instructions Recorded Pantoprazole [Protonix] 40 mg PO DAILY #10 tablet. 11/24/17 Citalopram Hydrobromide [CeleXA] 10 mg PO DAILY #30 tab 12/01/17 Dicyclomine [Bentyl] 10 mg PO QID #120 cap 12/01/17 Morphine Sulfate ER [Ms Contin] 15 mg PO TID #0 tablet 12/01/17 Metoclopramide [Reglan] 10 mg PO ACHS #12 tab 12/24/17 Ondansetron Odt [Zofran Odt] 4 mg PO Q8HR PRN #10 tab 04/15/18 Allergies Allergy/AdvReac Type Severity Reaction Status Date / Time ciprofloxacin [From Cipro] Allergy Rash/Hives Verified 04/15/18 08:17 duloxetine [From Cymbalta] Allergy Swelling Verified 04/15/18 08:17 OF THROAT metaproterenol [From Alupent] Allergy Heart races Verified 04/15/18 08:17 codeine AdvReac Vomiting Verified 04/15/18 08:17 fluticasone AdvReac ulcers in Verified 04/15/18 08:17 [From Advair Diskus] mouth & nose salmeterol AdvReac ulcers in Verified 04/15/18 08:17 [From Advair Diskus] mouth & nose Review of Systems ROS Other: All systems not noted in ROS Statement are negative. <Kalina Gaspar - Last Filed: 04/15/18 07:27> ROS Other: All systems not noted in ROS Statement are negative. <Alfie Nance - Last Filed: 04/15/18 08:23> ROS Statement: Those systems with pertinent positive or pertinent negative responses have been documented in the HPI. Past Medical History Past Medical History: Thyroid Disorder Additional Past Medical History / Comment(s): back pain, Hep C History of Any Multi-Drug Resistant Organisms: None Reported Past Surgical History: Back Surgery, Section, Cholecystectomy, Hysterectomy Additional Past Surgical History / Comment(s): multiple back surgeries including back fusion and 10 hand surgeries, 3 knee surgeries Past Anesthesia/Blood Transfusion Reactions: No Reported Reaction Past Psychological History: No Psychological Hx Reported, Depression Smoking Status: Current every day smoker Past Alcohol Use History: None Reported Past Drug Use History: None Reported - Past Family History Father Family Medical History: Vascular Disorder Additional Family Medical History / Comment(s): Father of a ruptured aortic aneurysm. Sister(s) Family Medical History: Cancer Additional Family Medical History / Comment(s): SKIN CANCER AND BREAST CANCER Mother Family Medical History: No Reported History <Kalina Gaspar - Last Filed: 04/15/18 07:27> General Exam Limitations: no limitations <Kalina Gaspar - Last Filed: 04/15/18 07:27> <Alfie Nance - Last Filed: 04/15/18 08:23> - General Exam Comments Initial Comments: Physical Exam GENERAL: Patient retching into a vomit basin HENT: Normocephalic, Atraumatic. EYES: PERRL, EOMI PULMONARY: Unlabored respirations. No audible rales rhonchi or wheezing was noted. CARDIOVASCULAR: There is a regular rate and rhythm without any murmurs gallops or rubs. ABDOMEN: Soft and nontender with overactive bowel sounds. SKIN: Skin is clear with no lesions or rashes and otherwise unremarkable. : Deferred NEUROLOGIC: Patient is alert and oriented x3. Moving all extremities spontaneously MUSCULOSKELETAL: Normal extremities with adequate strength and full range of motion. No lower extremity swelling or edema. No calf tenderness. PSYCHIATRIC: Normal psychiatric evaluation. Limitations: no limitations (Kalina Gaspar) Vital Signs 04/15/18 04/15/18 05:42 07:47 Temperature 97.4 F L Pulse Rate 79 72 Respiratory 20 18 Rate Blood Pressure 138/59 125/72 O2 Sat by Pulse 98 95 Oximetry Medical Decision Making <Kalina Gaspar - Last Filed: 04/15/18 07:27> - Lab Data Result diagrams: 04/15/18 06:36 04/15/18 06:30 <Alfie Nance - Last Filed: 04/15/18 08:23> - Medical Decision Making Patient was seen and evaluated, history was obtained from the patient labs and fluids were ordered Patient's retching stopped after she received IV meds Pt care signed out to Dr Nance at 7am (Kalina Gaspar) Patient reevaluated by myself, Dr. Nance. Patient does feel much better. Abdomen soft and nontender. Patient updated on results and need for follow-up. (Alfie Nance) - Lab Data Lab Results 04/15/18 04/15/18 Range/Units 06:30 06:36 WBC 10.5 (3.8-10.6) k/uL RBC 4.81 (3.80-5.40) m/uL Hgb 15.5 (11.4-16.0) gm/dL Hct 46.7 H (34.0-46.0) % MCV 97.1 (80.0-100.0) fL MCH 32.3 (25.0-35.0) pg MCHC 33.2 (31.0-37.0) g/dL RDW 13.2 (11.5-15.5) % Plt Count 262 (150-450) k/uL Neutrophils % 78 % Lymphocytes % 16 % Monocytes % 4 % Eosinophils % 1 % Basophils % 0 % Neutrophils # 8.2 H (1.3-7.7) k/uL Lymphocytes # 1.6 (1.0-4.8) k/uL Monocytes # 0.4 (0-1.0) k/uL Eosinophils # 0.1 (0-0.7) k/uL Basophils # 0.0 (0-0.2) k/uL Sodium 142 (137-145) mmol/L Potassium 4.1 (3.5-5.1) mmol/L Chloride 107 (98-107) mmol/L Carbon Dioxide 24 (22-30) mmol/L Anion Gap 11 mmol/L BUN 13 (7-17) mg/dL Creatinine 0.65 (0.52-1.04) mg/dL Est GFR (CKD-EPI)AfAm >90 (>60 ml/min/1.73 sqM) Est GFR (CKD-EPI)NonAf >90 (>60 ml/min/1.73 sqM) Glucose 119 H (74-99) mg/dL Calcium 10.1 (8.4-10.2) mg/dL Total Bilirubin 1.2 (0.2-1.3) mg/dL AST 30 (14-36) U/L ALT 41 (9-52) U/L Alkaline Phosphatase 78 (38-126) U/L Total Protein 7.9 (6.3-8.2) g/dL Albumin 4.4 (3.5-5.0) g/dL Lipase 115 (23-300) U/L Disposition <Kalina Gaspar - Last Filed: 04/15/18 07:27> Is patient prescribed a controlled substance at d/c from ED?: No Time of Disposition: 08:23 <Alfie Nance - Last Filed: 04/15/18 08:23> Clinical Impression: Acute vomiting, Diarrhea Disposition: HOME SELF-CARE Condition: Stable Instructions: Acute Nausea and Vomiting (ED), Acute Diarrhea (ED) Additional Instructions: Please follow-up with primary care physician in the next couple days for recheck. Return for uncontrolled vomiting, fever, pain, worsening change in symptoms or other concerns. [id number] Imodium if needed. Over-the- counter Pepcid as needed. Prescriptions: Ondansetron Odt [Zofran Odt] 4 mg PO Q8HR PRN #10 tab PRN Reason: Nausea Referrals: Nilton Santoyo MD [Primary Care Provider] - 1-2 days
[2018-04-15 07:25] LABS: Basophils % (A) 0 %; Eosinophils # (A) 0.1 k/uL (0-0.7); Eosinophils % (A) 1 %; HCT 46.7 % (34.0-46.0); HGB 15.5 gm/dL (11.4-16.0); Lymphocytes # (A) 1.6 k/uL (1.0-4.8); Lymphocytes % (A) 16 %; MCH 32.3 pg (25.0-35.0); MCHC 33.2 g/dL (31.0-37.0); MCV 97.1 fL (80.0-100.0); Mean Platelet Volume 7.9; Monocytes # (A) 0.4 k/uL (0-1.0); Monocytes % (A) 4 %; Neutrophils # (A) 8.2 k/uL (1.3-7.7); Neutrophils % (A) 78 %; Platelet Count 262 k/uL (150-450); RBC 4.81 m/uL (3.80-5.40); RDW 13.2 % (11.5-15.5); WBC 10.5 k/uL (3.8-10.6)
[2018-04-15 07:33] LABS: ALT 41 U/L (9-52); AST 30 U/L (14-36); Albumin 4.4 g/dL (3.5-5.0); Alkaline Phosphatase 78 U/L (38-126); Anion Gap 11 mmol/L; Blood Urea Nitrogen 13 mg/dL (7-17); Calcium 10.1 mg/dL (8.4-10.2); Carbon Dioxide 24 mmol/L (22-30); Chloride 107 mmol/L (98-107); Glucose 119 mg/dL (74-99); Lipase 115 U/L (23-300); Potassium 4.1 mmol/L (3.5-5.1); Sodium 142 mmol/L (137-145); Total Bilirubin 1.2 mg/dL (0.2-1.3); Total Protein 7.9 g/dL (6.3-8.2)
[2018-04-15 07:49] VITALS: RESP 18
[2018-04-15 08:33] VITALS: BP 120/72; PULSE 70; TEMP 98
== END 2018-04-15 08:41 | disposition home or self-care (01) ==
LOC: EC 05:38
DX: R19.7 Diarrhea, unspecified (principal); R11.2 Nausea with vomiting, unspecified; R19.12 Hyperactive bowel sounds; E07.9 Disorder of thyroid, unspecified; F32.9 Major depressive disorder, single episode, unspecified; F17.200 Nicotine dependence, unspecified, uncomplicated; Z88.1 Allergy status to other antibiotic agents; Z88.5 Allergy status to narcotic agent; Z88.8 Allergy status to other drugs, medicaments and biological substances; Z79.891 Long term (current) use of opiate analgesic; Z79.899 Other long term (current) drug therapy; Z87.39 Personal history of other diseases of the musculoskeletal system and connective tissue; Z98.1 Arthrodesis status; Z90.49 Acquired absence of other specified parts of digestive tract
CPT/HCPCS: 36415; 80053; 83690; 85025; 99284; 96374; 96375 ×2; 96361 ×2; J1200; J2765

== ENCOUNTER 2018-04-29 08:12 | Emergency (ER) | payer BC, OTHER ==
[2018-04-29] MEDS ORDERED: IPRATROPIUM-ALBUTEROL 3 ML NEB INHALATION STA (08:23)
--- NOTE | 2018-04-29 08:27 | ED ---
General Adult HPI - General Chief complaint: Chest Pain Stated complaint: Chest Pain Source: patient, EMS Mode of arrival: EMS Limitations: no limitations - History of Present Illness Initial comments: Dictation was produced using [employer] dictation software. please excuse any grammatical, word or spelling errors. Chief Complaint: 62-year-old female presents here for chest pain and shortness of breath. History of Present Illness: CC 2-year-old female presents here for chest pain or shortness of breath. Patient states the chest pain started today. She localizes it to the left anterior chest. It's worse with palpation. Denies any worsening chest pain with exertion. Patient does have extensive history of COPD she does continue to smoke. Patient also reports feeling short of breath. She states that her short of breath this okay at rest however when she exerts herself to get slightly worse. Denies any constitutional symptoms. The ROS documented in this emergency department record has been reviewed and confirmed by me. Those systems with pertinent positive or negative responses have been documented in the HPI. All other systems are other negative and/or noncontributory. - Related Data Home Medications Medication Instructions Recorded Confirmed Levothyroxine Sodium [Synthroid] 88 mcg PO DAILY 03/25/14 04/29/18 Pregabalin [Lyrica] 150 mg PO TID 09/02/17 04/29/18 oxyCODONE-APAP 7.5-325MG [Percocet 1 tab PO QID 10/04/17 04/29/18 7.5-325 mg] traZODone HCL [Desyrel] 150 mg PO HS 11/03/17 04/29/18 Escitalopram [Lexapro] 30 mg PO DAILY 04/29/18 04/29/18 Previous Rx's Medication Instructions Recorded Morphine Sulfate ER [Ms Contin] 15 mg PO TID #0 tablet 12/01/17 Allergies Allergy/AdvReac Type Severity Reaction Status Date / Time ciprofloxacin [From Cipro] Allergy Rash/Hives Verified 04/29/18 09:07 duloxetine [From Cymbalta] Allergy Swelling Verified 04/29/18 09:07 OF THROAT metaproterenol [From Alupent] Allergy Heart races Verified 04/29/18 09:07 codeine AdvReac Vomiting Verified 04/29/18 09:07 fluticasone AdvReac ulcers in Verified 04/29/18 09:07 [From Advair Diskus] mouth & nose salmeterol AdvReac ulcers in Verified 04/29/18 09:07 [From Advair Diskus] mouth & nose Review of Systems ROS Statement: Those systems with pertinent positive or pertinent negative responses have been documented in the HPI. ROS Other: All systems not noted in ROS Statement are negative. Past Medical History Past Medical History: Thyroid Disorder Additional Past Medical History / Comment(s): back pain, Hep C History of Any Multi-Drug Resistant Organisms: None Reported Past Surgical History: Back Surgery, Section, Cholecystectomy, Hysterectomy Additional Past Surgical History / Comment(s): multiple back surgeries including back fusion and 10 hand surgeries, 3 knee surgeries Past Anesthesia/Blood Transfusion Reactions: No Reported Reaction Past Psychological History: No Psychological Hx Reported, Depression Smoking Status: Current every day smoker Past Alcohol Use History: None Reported Past Drug Use History: None Reported - Past Family History Father Family Medical History: Vascular Disorder Additional Family Medical History / Comment(s): Father of a ruptured aortic aneurysm. Sister(s) Family Medical History: Cancer Additional Family Medical History / Comment(s): SKIN CANCER AND BREAST CANCER Mother Family Medical History: No Reported History General Exam - General Exam Comments Initial Comments: PHYSICAL EXAM: General Impression: Alert and oriented x3, not in acute distress HEENT: Normocephalic atraumatic, extra-ocular movements intact, pupils equal and reactive to light bilaterally, mucous membranes moist. Cardiovascular: Heart regular rate and rhythm, S1&S2 audible, no murmurs, rubs or gallops Chest: Lungs clear to auscultation bilaterally, no rhonchi, no wheeze, no rales , tenderness to palpation of the left anterior chest Abdomen: Bowel sounds present, abdomen soft, non-tender, non-distended, no organomegaly Musculoskeletal: Pulses present and equal in all extremities, no peripheral edema Motor: Power 5/5 bilaterally, no focal deficits noted Neurological: CN II-XII grossly intact, no focal motor or sensory deficits noted Skin: Intact with no visualized rashes Psych: Normal affect and mood Limitations: no limitations Course Vital Signs 04/29/18 04/29/18 04/29/18 08:13 09:00 09:15 Temperature 98.3 F Pulse Rate 74 68 Respiratory 18 20 Rate Blood Pressure 112/73 O2 Sat by Pulse 93 L Oximetry Medical Decision Making - Medical Decision Making ED course: 62-year-old female presents today with atypical chest pain and shortness of breath. She does have a history of COPD. Upon arrival are within acceptable limits. Patient's chest pain is likely musculoskeletal given that on physical examination her pain is reproduced palpation to the left anterior chest. Patient also claims or shortness of breath. I believe that her dyspnea is related to her chest pain. Lungs are clear to auscultation bilaterally. Patient does have a history of COPD however examination of the lungs and respiratory system does not suggest a pulmonary cause of dyspnea. EKGs benign. Labs and x-ray unremarkable. Patient given DuoNeb. She is observed in emergency department. Patient in stable medical condition. Patient to be discharge. Told to follow-up with primary care physician upon discharge. Patient understandable and agreeable to plan. EKG Interpretation: A 12 lead EKG was obtained. It was interpreted by myself and attending physician. There is a P wave before every QRS complex. Rate is 65, normal sinus rhythm, SD interval 150, Q's 86, QTC 457. QT is not prolonged. No ST segment depression or elevation. . Overall, this EKG is unremarkable - Lab Data Result diagrams: 04/29/18 08:30 04/29/18 08:30 Lab Results 04/29/18 04/29/18 Range/Units 08:30 08:30 WBC 8.5 (3.8-10.6) k/uL RBC 4.74 (3.80-5.40) m/uL Hgb 15.2 (11.4-16.0) gm/dL Hct 45.9 (34.0-46.0) % MCV 96.9 (80.0-100.0) fL MCH 32.2 (25.0-35.0) pg MCHC 33.2 (31.0-37.0) g/dL RDW 12.9 (11.5-15.5) % Plt Count 269 (150-450) k/uL Neutrophils % 81 % Lymphocytes % 13 % Monocytes % 4 % Eosinophils % 1 % Basophils % 0 % Neutrophils # 6.8 (1.3-7.7) k/uL Lymphocytes # 1.1 (1.0-4.8) k/uL Monocytes # 0.4 (0-1.0) k/uL Eosinophils # 0.1 (0-0.7) k/uL Basophils # 0.0 (0-0.2) k/uL Sodium 142 (137-145) mmol/L Potassium 4.2 (3.5-5.1) mmol/L Chloride 108 H (98-107) mmol/L Carbon Dioxide 27 (22-30) mmol/L Anion Gap 7 mmol/L BUN 12 (7-17) mg/dL Creatinine 0.63 (0.52-1.04) mg/dL Est GFR (CKD-EPI)AfAm >90 (>60 ml/min/1.73 sqM) Est GFR (CKD-EPI)NonAf >90 (>60 ml/min/1.73 sqM) Glucose 117 H (74-99) mg/dL Calcium 9.7 (8.4-10.2) mg/dL Disposition Clinical Impression: Chest pain, Dyspnea Disposition: HOME SELF-CARE Condition: Good Instructions: Chest Pain (ED) Is patient prescribed a controlled substance at d/c from ED?: No Referrals: Nilton Santoyo MD [Primary Care Provider] - 1-2 days Time of Disposition: 09:24
[2018-04-29 08:53] LABS: Anion Gap 7 mmol/L; Blood Urea Nitrogen 12 mg/dL (7-17); Calcium 9.7 mg/dL (8.4-10.2); Carbon Dioxide 27 mmol/L (22-30); Chloride 108 mmol/L (98-107); Glucose 117 mg/dL (74-99); Potassium 4.2 mmol/L (3.5-5.1); Sodium 142 mmol/L (137-145)
[2018-04-29 09:01] LABS: Basophils % (A) 0 %; Eosinophils # (A) 0.1 k/uL (0-0.7); Eosinophils % (A) 1 %; HCT 45.9 % (34.0-46.0); HGB 15.2 gm/dL (11.4-16.0); Lymphocytes # (A) 1.1 k/uL (1.0-4.8); Lymphocytes % (A) 13 %; MCH 32.2 pg (25.0-35.0); MCHC 33.2 g/dL (31.0-37.0); MCV 96.9 fL (80.0-100.0); Mean Platelet Volume 7.9; Monocytes # (A) 0.4 k/uL (0-1.0); Monocytes % (A) 4 %; Neutrophils # (A) 6.8 k/uL (1.3-7.7); Neutrophils % (A) 81 %; Platelet Count 269 k/uL (150-450); RBC 4.74 m/uL (3.80-5.40); RDW 12.9 % (11.5-15.5); WBC 8.5 k/uL (3.8-10.6)
--- NOTE | 2018-04-29 09:17 | XR ---
EXAMINATION TYPE: XR chest 2V DATE OF EXAM: 04/29/2018 COMPARISON: 11/22/2017 INDICATION: Pain, short of breath TECHNIQUE: Frontal and lateral views of the chest are obtained. FINDINGS: The heart size is mildly prominent.. The pulmonary vasculature is approaching the upper limits of normal. The lungs are clear. Suspicious consolidation is not evident. IMPRESSION: 1. Mild cardiomegaly. 2. Acute pulmonary process not radiographically apparent. Follow-up can be performed as clinically in dicated.
[2018-04-29 09:29] VITALS: RESP 18
[2018-04-29 09:46] VITALS: BP 105/66; PULSE 70; TEMP 98.5
== END 2018-04-29 09:40 | disposition home or self-care (01) ==
LOC: EC 08:12
DX: R07.9 Chest pain, unspecified (principal); R06.02 Shortness of breath; E07.9 Disorder of thyroid, unspecified; F32.9 Major depressive disorder, single episode, unspecified; F17.200 Nicotine dependence, unspecified, uncomplicated; Z86.19 Personal history of other infectious and parasitic diseases; Z79.899 Other long term (current) drug therapy; Z88.1 Allergy status to other antibiotic agents; Z88.5 Allergy status to narcotic agent; Z88.8 Allergy status to other drugs, medicaments and biological substances
CPT/HCPCS: 36415; 71046; 80048; 85025; 93005; 94640; 99285

== ENCOUNTER 2018-07-09 10:35 | Emergency (ER) | payer BC, OTHER ==
[2018-07-09] MEDS ORDERED: LORazepam 2 MG/ML INJ IV STA (11:10)
[2018-07-09] MEDS ORDERED: ONDANSETRON 4 MG/2 ML VIAL IVP STA (11:10)
[2018-07-09] MEDS ORDERED: SODIUM CHLORIDE 0.9% 1,000 ML IV STA (11:10)
[2018-07-09] MEDS ORDERED: KETOROLAC 30 MG/ML 1 ML VIAL IVP STA (11:10)
--- NOTE | 2018-07-09 11:19 | ED ---
Abdominal Pain HPI - General Chief Complaint: Abdominal Pain Stated Complaint: side pain Time Seen by Provider: 07/09/18 10:46 Source: patient, RN notes reviewed Mode of arrival: ambulatory Limitations: no limitations - History of Present Illness Initial Comments: 63-year-old female presents emergency Department chief complaint of left-sided abdominal pain. Patient states this started on has progressively worsened. Patient had slight nausea no vomiting no diarrhea no constipation. Denies any dysuria no hematuria. Patient states pain does not radiate to her back at this time. She has no history kidney stones. Patient reports to colit is or known colitis. Patient denies any chest pain or shortness of breath. - Related Data Home Medications Medication Instructions Recorded Confirmed Levothyroxine Sodium [Synthroid] 88 mcg PO DAILY 03/25/14 04/29/18 Pregabalin [Lyrica] 150 mg PO TID 09/02/17 04/29/18 oxyCODONE-APAP 7.5-325MG [Percocet 1 tab PO QID 10/04/17 04/29/18 7.5-325 mg] traZODone HCL [Desyrel] 150 mg PO HS 11/03/17 04/29/18 Escitalopram [Lexapro] 30 mg PO DAILY 04/29/18 04/29/18 Previous Rx's Medication Instructions Recorded Morphine Sulfate ER [Ms Contin] 15 mg PO TID #0 tablet 12/01/17 Allergies Allergy/AdvReac Type Severity Reaction Status Date / Time ciprofloxacin [From Cipro] Allergy Rash/Hives Verified 07/09/18 10:40 duloxetine [From Cymbalta] Allergy Swelling Verified 07/09/18 10:40 OF THROAT metaproterenol [From Alupent] Allergy Heart races Verified 07/09/18 10:40 codeine AdvReac Vomiting Verified 07/09/18 10:40 fluticasone AdvReac ulcers in Verified 07/09/18 10:40 [From Advair Diskus] mouth & nose salmeterol AdvReac ulcers in Verified 07/09/18 10:40 [From Advair Diskus] mouth & nose Review of Systems ROS Statement: Those systems with pertinent positive or pertinent negative responses have been documented in the HPI. ROS Other: All systems not noted in ROS Statement are negative. Past Medical History Past Medical History: Thyroid Disorder Additional Past Medical History / Comment(s): back pain, Hep C History of Any Multi-Drug Resistant Organisms: None Reported Past Surgical History: Back Surgery, Section, Cholecystectomy, Hysterectomy Additional Past Surgical History / Comment(s): multiple back surgeries including back fusion and 10 hand surgeries, 3 knee surgeries Past Anesthesia/Blood Transfusion Reactions: No Reported Reaction Past Psychological History: No Psychological Hx Reported, Depression Smoking Status: Current every day smoker Past Alcohol Use History: None Reported Past Drug Use History: None Reported - Past Family History Father Family Medical History: Vascular Disorder Additional Family Medical History / Comment(s): Father of a ruptured aortic aneurysm. Sister(s) Family Medical History: Cancer Additional Family Medical History / Comment(s): SKIN CANCER AND BREAST CANCER Mother Family Medical History: No Reported History General Exam Limitations: no limitations General appearance: alert, in no apparent distress Respiratory exam: Present: normal lung sounds bilaterally. Absent: respiratory distress, wheezes, rales, rhonchi, stridor Cardiovascular Exam: Present: regular rate, normal rhythm, normal heart sounds. Absent: systolic murmur, diastolic murmur, rubs, gallop, clicks GI/Abdominal exam: Present: soft, tenderness (Moderate left lower quadrant tenderness), normal bowel sounds. Absent: distended, guarding, rebound, rigid Back exam: Absent: CVA tenderness (R), CVA tenderness (L) Neurological exam: Present: alert, oriented X3, CN II-XII intact Skin exam: Present: warm, dry, intact, normal color. Absent: rash Course Vital Signs 07/09/18 10:38 Temperature 98 F Pulse Rate 84 Respiratory 20 Rate Blood Pressure 160/93 O2 Sat by Pulse 92 L Oximetry Medical Decision Making - Medical Decision Making 63-year-old female presented emergency Department for left lower quadrant abdominal pain. Patient had laboratory, CT which is unremarkable for signs of infection. Patient is afebrile at this time. Patient does have moderate stool burden may be causing her symptoms. Patient we discharged advised to follow-up with colonoscopy. Return parameters were discussed. - Lab Data Result diagrams: 07/09/18 11:30 07/09/18 11:30 Lab Results 07/09/18 07/09/18 07/09/18 Range/Units 11:30 11:30 11:30 WBC 10.9 H (3.8-10.6) k/uL RBC 4.85 (3.80-5.40) m/uL Hgb 15.2 (11.4-16.0) gm/dL Hct 46.9 H (34.0-46.0) % MCV 96.8 (80.0-100.0) fL MCH 31.4 (25.0-35.0) pg MCHC 32.5 (31.0-37.0) g/dL RDW 13.5 (11.5-15.5) % Plt Count 291 (150-450) k/uL Neutrophils % 87 % Lymphocytes % 9 % Monocytes % 3 % Eosinophils % 1 % Basophils % 0 % Neutrophils # 9.5 H (1.3-7.7) k/uL Lymphocytes # 0.9 L (1.0-4.8) k/uL Monocytes # 0.3 (0-1.0) k/uL Eosinophils # 0.1 (0-0.7) k/uL Basophils # 0.0 (0-0.2) k/uL Sodium 137 (137-145) mmol/L Potassium 4.3 (3.5-5.1) mmol/L Chloride 103 (98-107) mmol/L Carbon Dioxide 27 (22-30) mmol/L Anion Gap 7 mmol/L BUN 17 (7-17) mg/dL Creatinine 0.53 (0.52-1.04) mg/dL Est GFR (CKD-EPI)AfAm >90 (>60 ml/min/1.73 sqM) Est GFR (CKD-EPI)NonAf >90 (>60 ml/min/1.73 sqM) Glucose 122 H (74-99) mg/dL Calcium 9.8 (8.4-10.2) mg/dL Total Bilirubin 0.8 (0.2-1.3) mg/dL AST 48 H (14-36) U/L ALT 69 H (9-52) U/L Alkaline Phosphatase 93 (38-126) U/L Total Protein 7.6 (6.3-8.2) g/dL Albumin 4.3 (3.5-5.0) g/dL Amylase 48 (30-110) U/L Lipase 78 (23-300) U/L Urine Color Yellow Urine Appearance Clear (Clear) Urine pH 7.0 (5.0-8.0) Ur Specific [employer] 1.016 (1.001-1.035) Urine Protein Trace H (Negative) Urine Glucose (UA) Negative (Negative) Urine Ketones Negative (Negative) Urine Blood Negative (Negative) Urine Nitrite Negative (Negative) Urine Bilirubin Negative (Negative) Urine Urobilinogen <2.0 (<2.0) mg/dL Ur Leukocyte Esterase Negative (Negative) Disposition Clinical Impression: Abdominal pain Disposition: HOME SELF-CARE Condition: Stable Instructions (If sedation given, give patient instructions): Abdominal Pain (ED) Additional Instructions: Please return to the Emergency Department if symptoms worsen or any other concerns. Is patient prescribed a controlled substance at d/c from ED?: No Referrals: Nilton Santoyo MD [Primary Care Provider] - 1-2 days Shelley Berumen MD [STAFF PHYSICIAN] - 1-2 days Time of Disposition: 13:25
[2018-07-09 11:42] LABS: Basophils % (A) 0 %; Eosinophils # (A) 0.1 k/uL (0-0.7); Eosinophils % (A) 1 %; HCT 46.9 % (34.0-46.0); HGB 15.2 gm/dL (11.4-16.0); Lymphocytes # (A) 0.9 k/uL (1.0-4.8); Lymphocytes % (A) 9 %; MCH 31.4 pg (25.0-35.0); MCHC 32.5 g/dL (31.0-37.0); MCV 96.8 fL (80.0-100.0); Mean Platelet Volume 7.8; Monocytes # (A) 0.3 k/uL (0-1.0); Monocytes % (A) 3 %; Neutrophils # (A) 9.5 k/uL (1.3-7.7); Neutrophils % (A) 87 %; Platelet Count 291 k/uL (150-450); RBC 4.85 m/uL (3.80-5.40); RDW 13.5 % (11.5-15.5); WBC 10.9 k/uL (3.8-10.6)
[2018-07-09 11:48] LABS: Appearance,Urine Clear (Clear); Bilirubin,Urine Negative (Negative); Blood,Urine Negative (Negative); Color,Urine Yellow; Glucose,Urine (UA) Negative (Negative); Ketones,Urine Negative (Negative); Leukocyte Esterase,Urine Negative (Negative); Nitrite,Urine Negative (Negative); Protein,Urine Trace (Negative); Specific Gravity,Urine 1.016 (1.001-1.035); Urobilinogen,Urine <2.0 mg/dL (<2.0)
[2018-07-09 11:58] LABS: ALT 69 U/L (9-52); AST 48 U/L (14-36); Albumin 4.3 g/dL (3.5-5.0); Alkaline Phosphatase 93 U/L (38-126); Amylase 48 U/L (30-110); Anion Gap 7 mmol/L; Blood Urea Nitrogen 17 mg/dL (7-17); Calcium 9.8 mg/dL (8.4-10.2); Carbon Dioxide 27 mmol/L (22-30); Chloride 103 mmol/L (98-107); Glucose 122 mg/dL (74-99); Lipase 78 U/L (23-300); Potassium 4.3 mmol/L (3.5-5.1); Sodium 137 mmol/L (137-145); Total Bilirubin 0.8 mg/dL (0.2-1.3); Total Protein 7.6 g/dL (6.3-8.2)
--- NOTE | 2018-07-09 12:55 | CT ---
EXAMINATION TYPE: CT abdomen pelvis w con DATE OF EXAM: 07/09/2018 COMPARISON: Prior CT 12/28/2017 HISTORY: LLQ pain, worse with movement CT DLP: 823.5 mGycm Automated exposure control for dose reduction was used. TECHNIQUE: Helical acquisition of images from the lung bases through the pelvis have been completed. CONTRAST: Performed without Oral Contrast and with IV Contrast, patient injected with 100 mL of Isovue 300. FINDINGS: Small hiatal hernia is noted. LUNG BASES: Some emphysematous changes are present, no pleural or pericardial effusion. AORTA: No significant abnormality is appreciated. LIVER/GB: Patient is post cholecystectomy. Prominence of intrahepatic and extrahepatic biliary ducts likely due to postcholecystectomy change PANCREAS: No significant abnormality is seen. SPLEEN: No significant abnormality is seen. ADRENALS: Stable in appearance, likely there is an adrenal adenoma bilaterally KIDNEYS: No significan t abnormality is seen. REPRODUCTIVE ORGANS: Absent BOWEL: No significant abnormality is seen. FREE AIR: No Free Air visible. ASCITES: None visible. PELVIC ADENOPATHY: None visualized. RETROPERITONEAL ADENOPATHY: No Retroperitoneal Adenopathy visible. URINARY BLADDER: No significant abnormality is seen. OSSEOUS STRUCTURES: Postop changes to the lumbar spine are stable. IMPRESSION: POSTOP CHANGES. ADDITIONAL FINDINGS ABOVE.
[2018-07-09 13:55] VITALS: BP 117/77; PULSE 79; RESP 16; TEMP 98.4
== END 2018-07-09 13:50 | disposition home or self-care (01) ==
LOC: EC 10:35
DX: R10.32 Left lower quadrant pain (principal); R10.814 Left lower quadrant abdominal tenderness; R11.0 Nausea; E07.9 Disorder of thyroid, unspecified; F32.9 Major depressive disorder, single episode, unspecified; F17.200 Nicotine dependence, unspecified, uncomplicated; Z79.890 Hormone replacement therapy; Z79.899 Other long term (current) drug therapy; Z88.1 Allergy status to other antibiotic agents; Z88.5 Allergy status to narcotic agent; Z88.8 Allergy status to other drugs, medicaments and biological substances; Z90.49 Acquired absence of other specified parts of digestive tract; Z90.710 Acquired absence of both cervix and uterus
CPT/HCPCS: 36415; 80053; 82150; 83690; 85025; 81003; 74177; 99284; 96374; 96375 ×2; 96361; J2060; J2405; J1885; Q9967